=== PATIENT | male | born 1950 | race Caucasian/White ===

== ENCOUNTER 2022-08-11 13:45 | Outpatient (RCR) | payer MEDICARE, BC, SELFPAY ==
[2022-05-12 12:03] LABS: Basophils Absolute Auto 0.04 K/uL (0.00-0.30); Basophils Percent Auto 0.5 % (0.0-3.0); Eosinophils Absolute Auto 0.22 K/uL (0.00-0.50); Eosinophils Percent Auto 2.8 % (0.0-7.0); Hematocrit 41.1 % (37.0-53.0); Hemoglobin* 13.7 gm/dL (13.5-17.5); Immature Granulocytes Abs Auto 0.51 K/uL (0.00-0.30); Lymphocytes Percent Auto 15.4 % (20-44); Mean Corpuscular HGB Conc 33 gm/dL (32-36); Mean Corpuscular Hemoglobin 36 pg (26-34); Mean Corpuscular Volume 108 fL (80-100); Monocytes Percent Auto 10.4 % (0.0-11.0); Neutrophils Absolute Auto 4.96 K/uL (1.7-7.0); Neutrophils Percent Auto 64.3 % (42.0-72.0); Platelet Count* 213 K/uL (140-440); RDW Coefficient of Variation % 15.4 % (11.5-15.5); White Blood Count* 7.72 K/uL (4.50-11.00)
[2022-05-12 12:05] LABS: Albumin* 4.6 g/dL (3.3-5.0)
[2022-05-12 12:06] LABS: Chloride* 102 mmol/L (96-114); Potassium* 4.2 mmol/L (3.6-5.1); Sodium* 137 mmol/L (135-149)
[2022-05-12 12:08] LABS: Alkaline Phosphatase* 161 U/L (40-150); Aspartate Amino Transferase* 24 U/L (12-35); Bilirubin Total* 1.1 mg/dL (0.1-1.5); Blood Urea Nitrogen* 21 mg/dL (7-30); Carbon Dioxide* 24 mmol/L (20-32); Creatinine* 1.1 mg/dL (0.5-1.5); Estimated Glomerular Filt Rate 72 ml/min; Lactate Dehydrogenase* 815 U/L (313-618); Slide Review Reflex No; Total Protein* 8.1 g/dL (6.0-8.3)
[2022-05-12 12:09] LABS: Alanine Aminotransferase* 4 U/L (4-50); Calcium* 8.6 mg/dL (8.4-10.6); Glucose* 96 mg/dL (60-115)
--- NOTE | 2022-05-12 12:44 | ONC.NURNOTE ---
Malik reports a fall 10-12 days ago that resulted in significant bruising from ankle to groin and some swelling of of the right knee he was evaluated with Xrays after the fall currently ambulating without any assist, although still minimizing his activity due to residual discomfort in the knee and leg
[2022-05-19 10:55] LABS: Albumin* 4.4 g/dL (3.3-5.0)
[2022-05-19 10:58] LABS: Alanine Aminotransferase* 5 U/L (4-50); Alkaline Phosphatase* 196 U/L (40-150); Aspartate Amino Transferase* 24 U/L (12-35); Bilirubin Direct* 0.4 mg/dL (0.0-0.5); Bilirubin Total* 0.9 mg/dL (0.1-1.5); Lactate Dehydrogenase* 745 U/L (313-618); Total Protein* 7.7 g/dL (6.0-8.3)
--- NOTE | 2022-05-19 13:58 | ONC.NURNOTE ---
Lab results reviewed with patient and Dr Cruz will need a recheck Alk Phos and LDH in 1 week patient reports ongoing swelling of right knee but resolving significant bruising from the fall 3 weeks ago continues to improve and he is overall feeling very well if LDH and Alk Phos remain elevated next week may need imaging to further evaluate
[2022-05-26 10:46] LABS: Alkaline Phosphatase* 145 U/L (40-150)
[2022-05-26 10:47] LABS: Lactate Dehydrogenase* 676 U/L (313-618)
--- NOTE | 2022-08-03 15:24 | ONC.NURNOTE ---
Transition to [facility] Mr. Huitron was informed that [facility] will no longer provide service to [facility] after 08/26. Mr. uHitron would like to switch to [facility], remaining at our clinic for management of his polycythemia vera.
[2022-08-11 14:28] LABS: Basophils Absolute Auto 0.03 K/uL (0.00-0.30); Basophils Percent Auto 0.4 % (0.0-3.0); Eosinophils Absolute Auto 0.16 K/uL (0.00-0.50); Eosinophils Percent Auto 2.4 % (0.0-7.0); Hematocrit 41.1 % (37.0-53.0); Hemoglobin* 13.7 gm/dL (13.5-17.5); Immature Granulocytes Abs Auto 0.37 K/uL (0.00-0.30); Immature Granulocytes Pct Auto 5.5 %; Lymphocytes Percent Auto 18.2 % (20-44); Mean Corpuscular HGB Conc 33 gm/dL (32-36); Mean Corpuscular Hemoglobin 36 pg (26-34); Mean Corpuscular Volume 107 fL (80-100); Monocytes Percent Auto 11.2 % (0.0-11.0); Neutrophils Absolute Auto 4.19 K/uL (1.7-7.0); Neutrophils Percent Auto 62.3 % (42.0-72.0); Platelet Count* 163 K/uL (140-440); Red Blood Count 3.83 m/uL (4.30-5.90); White Blood Count* 6.72 K/uL (4.50-11.00)
[2022-08-11 14:34] LABS: Slide Review Reflex Yes
[2022-08-11 15:17] LABS: Albumin* 4.1 g/dL (3.3-5.0); Chloride* 103 mmol/L (96-114)
[2022-08-11 15:18] LABS: Sodium* 138 mmol/L (135-149)
[2022-08-11 15:20] LABS: Bilirubin Total* 0.5 mg/dL (0.1-1.5); Carbon Dioxide* 29 mmol/L (20-32); Estimated Glomerular Filt Rate 80 ml/min
[2022-08-11 15:21] LABS: Alanine Aminotransferase* 10 U/L (4-50); Alkaline Phosphatase* 87 U/L (40-150); Aspartate Amino Transferase* 40 U/L (12-35); Blood Urea Nitrogen* 24 mg/dL (7-30); Calcium* 8.8 mg/dL (8.4-10.6); Glucose* 112 mg/dL (60-115); Total Protein* 7.2 g/dL (6.0-8.3)
[2022-08-11 15:23] LABS: Ferritin* 20.3 ng/mL (17.9-464.0)
[2022-08-11 23:06] LABS: Slide Review Acceptable Review (Acceptable)
== END 2022-11-08 23:59 | disposition home or self-care (01) ==
LOC: CCIC 13:45
PROVIDERS: PCP Family Medicine; Referring Provider Family Medicine; Visit Provider Internal Medicine Hematology & Oncology
DX: D45 Polycythemia vera (principal); E83.110 Hereditary hemochromatosis; Z86.718 Personal history of other venous thrombosis and embolism; Z79.01 Long term (current) use of anticoagulants; D67 Hereditary factor IX deficiency
CPT/HCPCS: 36415; 80053; 80076; 82728; 83615; 84075; 85025; 99212; 99214

== ENCOUNTER 2023-02-14 12:30 | Outpatient (RCR) | payer MEDICARE, BC, SELFPAY ==
[2022-11-09 12:04] LABS: Basophils Absolute Auto 0.04 K/uL (0.00-0.30); Basophils Percent Auto 0.6 % (0.0-3.0); Eosinophils Absolute Auto 0.18 K/uL (0.00-0.50); Eosinophils Percent Auto 2.5 % (0.0-7.0); Hemoglobin* 14.2 gm/dL (13.5-17.5); Immature Granulocytes Abs Auto 0.26 K/uL (0.00-0.30); Immature Granulocytes Pct Auto 3.6 %; Lymphocytes Percent Auto 18.5 % (20-44); Mean Corpuscular HGB Conc 33 gm/dL (32-36); Mean Corpuscular Hemoglobin 35 pg (26-34); Mean Corpuscular Volume 107 fL (80-100); Monocytes Percent Auto 9.5 % (0.0-11.0); Neutrophils Absolute Auto 4.67 K/uL (1.7-7.0); Neutrophils Percent Auto 65.3 % (42.0-72.0); Platelet Count* 157 K/uL (140-440); RDW Coefficient of Variation % 14.1 % (11.5-15.5); Red Blood Count 4.03 m/uL (4.30-5.90); White Blood Count* 7.15 K/uL (4.50-11.00)
[2022-11-09 12:10] LABS: Slide Review Reflex No
[2022-11-09 12:16] LABS: Albumin* 4.2 g/dL (3.3-5.0); Chloride* 104 mmol/L (96-114); Potassium* 4.2 mmol/L (3.6-5.1); Sodium* 138 mmol/L (135-149)
[2022-11-09 12:18] LABS: Bilirubin Total* 0.8 mg/dL (0.1-1.5); Estimated Glomerular Filt Rate 80 ml/min
[2022-11-09 12:19] LABS: Alanine Aminotransferase* 9 U/L (4-50); Alkaline Phosphatase* 82 U/L (40-150); Aspartate Amino Transferase* 21 U/L (12-35); Blood Urea Nitrogen* 23 mg/dL (7-30); Calcium* 8.6 mg/dL (8.4-10.6); Carbon Dioxide* 27 mmol/L (20-32); Glucose* 99 mg/dL (60-115); Lactate Dehydrogenase* 189 U/L (120-246); Total Protein* 7.8 g/dL (6.0-8.3)
[2023-02-14 12:33] LABS: Basophils Absolute Auto 0.04 K/uL (0.00-0.30); Basophils Percent Auto 0.5 % (0.0-3.0); Eosinophils Absolute Auto 0.16 K/uL (0.00-0.50); Eosinophils Percent Auto 2.1 % (0.0-7.0); Hematocrit 45.6 % (37.0-53.0); Hemoglobin* 14.9 gm/dL (13.5-17.5); Immature Granulocytes Abs Auto 0.51 K/uL (0.00-0.30); Immature Granulocytes Pct Auto 6.7 %; Lymphocytes Percent Auto 15.9 % (20-44); Mean Corpuscular HGB Conc 33 gm/dL (32-36); Mean Corpuscular Hemoglobin 35 pg (26-34); Mean Corpuscular Volume 106 fL (80-100); Monocytes Percent Auto 7.4 % (0.0-11.0); Neutrophils Absolute Auto 5.16 K/uL (1.7-7.0); Neutrophils Percent Auto 67.4 % (42.0-72.0); Platelet Count* 135 K/uL (140-440); RDW Coefficient of Variation % 14.3 % (11.5-15.5); White Blood Count* 7.66 K/uL (4.50-11.00)
[2023-02-14 13:00] LABS: Slide Review Reflex No
[2023-02-14 13:03] LABS: Albumin* 4.7 g/dL (3.3-5.0); Chloride* 99 mmol/L (96-114); Potassium* 4.1 mmol/L (3.6-5.1); Sodium* 138 mmol/L (135-149)
[2023-02-14 13:05] LABS: Creatinine* 1.1 mg/dL (0.5-1.5); Estimated Glomerular Filt Rate 71 ml/min
[2023-02-14 13:06] LABS: Alanine Aminotransferase* 12 U/L (4-50); Alkaline Phosphatase* 71 U/L (40-150); Aspartate Amino Transferase* 25 U/L (12-35); Bilirubin Total* 0.8 mg/dL (0.1-1.5); Blood Urea Nitrogen* 21 mg/dL (7-30); Calcium* 9.2 mg/dL (8.4-10.6); Carbon Dioxide* 30 mmol/L (20-32); Glucose* 132 mg/dL (60-115); Lactate Dehydrogenase* 211 U/L (120-246); Total Protein* 8.3 g/dL (6.0-8.3)
[2023-02-14 13:51] LABS: Ferritin* 18.7 ng/mL (17.9-464.0)
== END 2023-05-08 23:59 | disposition home or self-care (01) ==
LOC: CCIC 12:30
PROVIDERS: Clinical Nurse Specialist; PCP Student in an Organized Health Care Education/Training Program; Referring Provider Student in an Organized Health Care Education/Training Program; Visit Provider Internal Medicine Hematology & Oncology
DX: D75.1 Secondary polycythemia (principal); E83.119 Hemochromatosis, unspecified; Z86.718 Personal history of other venous thrombosis and embolism; Z79.01 Long term (current) use of anticoagulants; D67 Hereditary factor IX deficiency
CPT/HCPCS: 36415; 80053; 82728; 83615; 85025; 99212; 99214

== ENCOUNTER 2023-09-01 08:59 | Emergency (ER) | payer MEDICARE, BC, SELFPAY ==
[2023-09-01 09:09] VITALS: BP 115/71; PULSE 82; RESP 16; TEMP 36.6; O2SAT 97; BMI 22.8
--- NOTE | 2023-09-01 09:11 | CRLHL7_ITS ---
For Patients: As a result of the Cures Act, medical imaging exams and procedure reports are released immediately into your electronic medical record. You may view this report before your referring provider. If you have questions, please contact your health care provider. Indication: Injury, pain Technique: Three views right long finger Comparison: None Findings: Dorsal/ulnar dislocation of the right middle phalanx in relation to the proximal phalanx at the proximal interphalangeal joint. No fracture. Mild degenerative changes at the 1st carpometacarpal joint. Impression: Dislocation of the right long finger PIP joint. Dictated by Ken Lamar MD @ 09/01/2023 10:08:49 AM (Electronically Signed)
--- NOTE | 2023-09-01 11:45 | ED.GENADULT ---
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 He tripped and fell this morning in jammed his middle finger. He has no other injury from the fall. Specifically he did not his head. No neck pain. No chest pain or back pain. No injury to his shoulders, elbows, wrists. No injury to his hips or lower extremities. He does have pain and deformity in the middle finger. He has what appears to be either a fracture or dislocation of the PIP joint of the right hand, 3rd digit. He does not have any associated numbness. Normal color and cap refill distally. Injury occurred this morning just prior to arrival. Related Data Home Medications Medication Instructions Recorded Confirmed acetaminophen 325 mg capsule 325 - 650 mg PO ONCE PRN 08/11/22 08/17/23 (Tylenol) amantadine HCl 100 mg capsule 100 mg PO BID 08/11/22 09/01/23 aspirin 81 mg tablet,delayed 81 mg PO QDAY 08/11/22 09/01/23 release carbidopa 25 mg-levodopa 100 mg 3 tab PO QID 08/11/22 09/01/23 tablet clonazepam 0.5 mg tablet 0.25 mg PO QDAY 08/11/22 09/01/23 hydroxyurea 500 mg capsule 500 mg PO .QOD 08/11/22 09/01/23 ketoconazole 2 % topical cream 1 applic topical BID 08/11/22 09/01/23 pramipexole 0.25 mg tablet 0.25 mg PO HS 08/11/22 09/01/23 warfarin 4 mg tablet 2 - 4 mg PO QDAY 08/11/22 09/01/23 erythromycin 5 mg/gram (0.5 %) eye 1 applic ophthalmic (eye) ONCE PRN 02/14/23 09/01/23 ointment hydrocortisone 1 % topical cream 1 applic topical BID PRN 02/14/23 09/01/23 finasteride 5 mg tablet 5 mg PO QDAY 08/17/23 09/01/23 multivitamin 1 tab PO QAM 08/17/23 09/01/23 polyethylene glycol 3350 17 4 g PO ONCE PRN 08/17/23 09/01/23 gram/dose oral powder (Miralax) tamsulosin 0.4 mg capsule 0.4 mg PO QDAY 08/17/23 09/01/23 docusate sodium 100 mg capsule 100 mg PO BID 09/01/23 09/01/23 (Colace) ketorolac 0.4 % eye drops (Acular 1 drp ophthalmic (eye) QDAY 09/01/23 09/01/23 LS) melatonin 3 mg capsule 3 mg PO HS PRN 09/01/23 09/01/23 peg 400-propylene glycol (PF) 0.4 1 drp ophthalmic (eye) DAILY PRN 09/01/23 09/01/23 %-0.3 % eye drops in a dropperette (Lubricant Eye (PG-PEG 400) (PF)) Allergies Allergy/AdvReac Type Severity Reaction Status Date / Time Penicillins Allergy Unknown Verified 09/01/23 09:09 [facility] Medical History (Updated 09/01/23 @ 09:48 by Luis Antonio Shipman MD) Polycythemia ?D75.1 - Secondary polycythemia (ICD-10) Polycythemia ?D75.1 - Secondary polycythemia (ICD-10) Polycythemia ?D75.1 - Secondary polycythemia (ICD-10) Polycythemia ?D75.1 - Secondary polycythemia (ICD-10) Social History Smoking Status: Never smoker Do you use any of these nicotine containing products: None Second hand tobacco smoke exposure: No How often do you have a drink containing alcohol: never AUDIT-C Alcohol total score: 0 Non-prescribed substance use: denies use Exam Narrative: Exam Narrative: Constitutional: Appears well-developed and well-nourished. Alert. Conversant. Non toxic. HENT: Head: Atraumatic. Nose: Nose normal. Mouth/Throat: Oral mucosa is clear and moist. no trismus. Eyes: Conjunctivae normal. EOM normal. Pupils equal, round, and reactive to light. No scleral icterus. Neck: Normal range of motion. Neck supple. No tracheal deviation present. Cardiovascular: Normal rate, regular rhythm. Symmetric radial artery pulses . Normal brisk cap refill in the injured finger in all digits of the right hand. Pulmonary/Chest: Effort normal. No stridor. No respiratory distress. Musculoskeletal: RUE: Normal except for his right 3rd digit- Normal range of motion. No tenderness. No deformity Right hand: Normal except for his right 3rd digit. He has what appears to be a dorsal dislocation of the PIP joint with approximately 30? of ulnar angulation of the distal segment of the finger. He is unable to flex and extend his MCP, PA IP, D IP joint due to pain. Intact ulnar and radial digital or sensory function. Normal brisk distal cap refill. LUE: Normal range of motion. No tenderness. No deformity RLE: Normal range of motion. No edema. No tenderness. No deformity LLE: Normal range of motion. No edema. No tenderness. No deformity Neurological: Alert and oriented to person, place, and time. Normal strength. CN II-VII intact. No sensory deficit. GCS eye subscore is 4. GCS verbal subscore is 5. GCS motor subscore is 6. Normal coordination Skin: Skin is warm and dry. No rash noted. No pallor. Normal capillary refill. Psychiatric: Normal mood. Normal affect. Const: Vital Signs, click to edit/add: Vital Signs - 24 hr 09/01/23 09:09 Temperature 97.9 F Pulse Rate [Pulse Oximeter] 82 Respiratory Rate 16 Blood Pressure [Le ft Upper Arm] 115/71 Pulse Oximetry 97 Oxygen Delivery Me thod Room Air Course Course ED Course: Patient arrived to triage mancera was roomed in the ER room 3. We called for portable hand x-rays. As with these were being obtained and reviewed them on the portable x-ray machine. They do not reveal any evidence of fracture by my read but do show evidence for a dorsal dislocation of the PIP joint. I performed a digital block to the right hand 3rd digit for pain control/anesthesia. Sterile prep with Betadine Using a 27 gauge needle we infiltrated a total of 4 mL of 0.25% bupivacaine without epinephrine from a dorsal approach on the radial and ulnar side of the proximal phalanges. Good anesthesia was achieved. No signs of any complication. No intravascular injection. No digital ischemia. After successful digital block we performed a reduction. Reduction: Right hand, PIP joint dorsal dislocation Indication: Dislocation Procedure: Using gentle distal traction and distal/volar directed for mancera on the middle phalanges with my thumb I was able to gently reduce the joint into anatomic position. A small pop was heard during the reduction. After reduction he had is able to flex and extend the MCP, PIP, DI P joints. By my clinical exam the reduction was successful so will hold off on post reduction x-rays. He remains anesthetized from the digital block but has normal brisk distal capillary refill. After reduction I placed the patient into a [place] splint with the MCP, PIP, DI P joint all slightly flexed and anatomic position. Splint was secured using hypoallergenic paper tape. After splinting he remained vascularly intact. He was comfortable and not experience any pain because of digital block. Vital Signs Vital signs: Initial Vital Signs Temperature 97.9 F 09/01/23 09:09 Temperature Source Temporal Artery Scan 09/01/23 09:09 Pulse Rate 82 09/01/23 09:09 Respiratory Rate 16 09/01/23 09:09 Blood Pressure 115/71 09/01/23 09:09 Blood Pressure Mean 85 09/01/23 09:09 Blood Pressure Position Sitting 09/01/23 09:09 Pulse Oximetry 97 09/01/23 09:09 Oxygen Delivery Method Room Air 09/01/23 09:09 Vital Signs Temperature 97.9 F 09/01/23 09:09 Pulse Rate 82 09/01/23 09:09 Respiratory Rate 16 09/01/23 09:09 Blood Pressure 115/71 09/01/23 09:09 Pulse Oximetry 97 09/01/23 09:09 Oxygen Delivery Method Room Air 09/01/23 09:09 Temperature 97.9 F 09/01/23 09:09 Pulse Rate 82 09/01/23 09:09 Respiratory Rate 16 09/01/23 09:09 Blood Pressure 115/71 09/01/23 09:09 Pulse Oximetry 97 09/01/23 09:09 Oxygen Delivery Method Room Air 09/01/23 09:09 Medical Decision Making [facility] Narrative Medical decision making narrative: Very pleasant 73-year-old gentleman presenting to the ER today with a right hand, 3rd digit, PIP joint dorsal dislocation that he suffered during a mechanical trip and fall today. The remainder of his head adult trauma exam it is negative in his seems to be an isolated injury. Although he has a history of hemophilia and hemochromatosis and is on meds for that at this point I do not think needs lab workup or other advanced imaging. He did not hit his head. After x-rays confirmed the dislocation and showed the absence of fractures we did perform digital block and reduction of the dislocation here in the ER. Patient is splinted. He will have outpatient follow-up in the [facility] next week for re-evaluation. Hopefully will heal with splinting and physical therapy. Precautions for return to the ER reviewed. Discussed the risks with a digital block and avoidance of further injuring his finger today. He will use acetaminophen for pain after the digital block wears off, if needed. Imaging Data xr right finger: Attestation: I have reviewed the pertinent imaging results. My impression: PIP joint dorsal dislocation Radiologist's impression: Impression: Dislocation of the right long finger PIP joint. Discharge Plan Discharge Clinical Impression: Dislocation of finger, closed Patient Disposition: Home, Self-Care Condition: Stable Instructions: Finger Dislocation (ED) Additional Instructions: Please wear the finger splint for the next several days until you can follow-up with orthopedics for further instructions. If the splint get sweater the tape feels off, please reapply new tape to keep her finger immobilized. Avoid bending or finger or lifting with your right hand. Your finger will be numb from the numbing medication for the next several hours. Be careful not to injure finger while it is numb. After the numbing medicine wears off, use Tylenol as needed for pain. He can use an ice pack for 10-20 minutes every few hours to help reduce pain and swelling. If you have any concerns, such as pallor or duskiness in your finger, worsening pain, severe swelling, or any other problems, please return to the ER right away. If you need to reschedule your appointment with the Orthopedic Clinic, call [phone] Prescriptions: No Action ketoconazole 2 % cream 1 applic topical BID carbidopa-levodopa 25-100 mg tablet 3 tab PO QID amantadine HCl 100 mg capsule 100 mg PO BID pramipexole 0.25 mg tablet 0.25 mg PO HS warfarin 4 mg tablet 2 - 4 mg PO QDAY Rx Instructions: 2mg PO Mon/Thurs, 4mg every other day clonazepam 0.5 mg tablet 0.25 mg PO QDAY hydroxyurea 500 mg capsule 500 mg PO .QOD acetaminophen [Tylenol] 325 mg capsule 325 - 650 mg PO ONCE PRN aspirin 81 mg tablet,delayed release (DR/EC) 81 mg PO QDAY finasteride 5 mg tablet 5 mg PO QDAY tamsulosin 0.4 mg capsule 0.4 mg PO QDAY hydrocortisone 1 % cream 1 applic topical BID PRN erythromycin 5 mg/gram (0.5 %) ointment 1 applic ophthalmic (eye) ONCE PRN polyethylene glycol 3350 [Miralax] 17 gram/dose powder 4 g PO ONCE PRN multivitamin Tablet 1 tab PO QAM docusate sodium [Colace] 100 mg capsule 100 mg PO BID melatonin 3 mg capsule 3 mg PO HS PRN ketorolac [Acular LS] 0.4 % drops 1 drp ophthalmic (eye) QDAY Rx Instructions: left eye Lubricant Eye (PG-PEG 400)(PF) 0.4-0.3 % dropperette 1 drp ophthalmic (eye) DAILY PRN Follow Up/Referrals: YANA FISCHER DO [Primary Care Provider] - Stand Alone Forms: [facility] Info Instructions
== END 2023-09-01 10:04 | disposition home or self-care (01) ==
PROVIDERS: Emergency Provider Emergency Medicine; PCP Student in an Organized Health Care Education/Training Program
DX: S63.292A Dislocation of distal interphalangeal joint of right middle finger, initial encounter (principal); W18.30XA Fall on same level, unspecified, initial encounter
CPT/HCPCS: 26770; 73140; 99283

== ENCOUNTER 2023-10-07 07:27 | Outpatient (CLI) | payer MEDICARE, BC, SELFPAY ==
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
== END 2023-10-07 07:28 | disposition home or self-care (01) ==
LOC: AMB 10-08 06:38
PROVIDERS: PCP Student in an Organized Health Care Education/Training Program; Visit Provider Family Medicine
DX: M25.559 Pain in unspecified hip (principal)
CPT/HCPCS: A0425; A0427

== ENCOUNTER 2023-10-07 07:43 | Observation (INO) | payer MEDICARE, BC, SELFPAY ==
[2023-10-07] VITALS (24 sets, daily range): BP systolic 114–162; BP diastolic 64–93; PULSE 78–98; RESP 16–18; TEMP 36.7–36.8; O2SAT 97–100; BMI 23.1; BMI 23.2
--- OUTSIDE RECORDS SUMMARY | 2023-10-07 07:45 | XMS_ITS | Clinical Summary ---
Author Name Unknown Organization [facility] Address [place], [place] [address] Care Team Providers [employer] Name Role Phone Ricardo Diaz MD Unavailable Unavaila ble Macrina Martin DO Primary Care Provider [phone] Allergies Active Allergy Reactions Criticality Noted Date Comments Penicillins 11/21/2006 Medications Medication Sig Dispensed Refills Start Date End Date Status MULTIVITAMIN TABIndications:R outine general medical examination at a health care facility take 1 tablet by oral route once daily with food 0 8 Active acetaminophen (TYLENOL) 325 mg tablet Take 1 tablet by mouth every 4 hours if needed. Max acetaminophen dose: 4000mg in 24 hrs. 0 5 Active ketorolac 0.4 % ophthalmic (ACULAR LS) 0.4 % ophthalmic solution One drop into left eye once daily. 5 mL 0 5 Active melatonin 3 mg tablet Take 1 tablet by mouth at bedtime. 0 6 Active docusate (COLACE) 100 mg capsule Take 1 capsule by mouth 2 times daily. 0 7 Active artificial tears, peg 400-propylene glycol, (SYSTANE) 0.4-0.3 % dpet ophthalmic 4 Drops once daily if needed for Dry Eyes. 0 7 Active erythromycin ophthalmic ointment 0.5% Apply sparingly HS PRN 0.035 g 0 7 Active aspirin (ECOTRIN) 81 mg enteric coated tabletIndication s:Polycythemia vera (HC) Take 1 Tablet (81 mg) by mouth once daily with a meal. 0 1 Active polyethylene glycol (Miralax) 17 g powder for solutionIndicati ons:Other constipation Mix 8.5-17 g (0.5-1 Packets) in liquid then take by mouth once daily if needed for Constipation. 0 2 Active carbidopa-levodo pa, 25-100 mg, (Sinemet) 25-100 mg tabletIndication s:Parkinson's disease Take 3 Tablets by mouth four times daily. 720 Tablet 3 2 Active ketoconazole 2% topical (NIZORAL) creamIndications :Tinea barbae Apply topically to affected area(s) two times daily. 60 g 0 2 Active hydrocortisone 2.5% creamIndications :Hemorrhoids, external Apply topically to affected area(s) two times daily. 30 g 0 2 Active finasteride (PROSCAR) 5 mg tabletIndication s:Benign prostatic hyperplasia, unspecified whether lower urinary tract symptoms present Take 1 Tablet (5 mg) by mouth every morning. 90 Tablet 3 3 Active clindamycin (CLEOCIN) 150 mg capsule 0 3 Active hydroxyurea (HYDREA) 500 mg capsuleIndicatio ns:Polycythemia vera (HC) Every other day. 45 Capsule 3 3 Active amantadine HCL (SYMMETREL) 100 mg capsuleIndicatio ns:Parkinson's disease TAKE ONE CAPSULE BY MOUTH TWICE A DAY 60 Capsule 4 3 Active pramipexole (MIRAPEX) 0.25 mg tabletIndication s:RLS (restless legs syndrome) TAKE ONE TABLET BY MOUTH AT BEDTIME 90 Tablet 0 3 Active warfarin (COUMADIN) 4 mg tabletIndication s:Chronic deep vein thrombosis (DVT) of femoral vein of left lower extremity (HC),Anticoagula tion monitoring, INR range 1.5-2.5 Take by mouth 2 mg (4 mg x 0.5) every Tue, Susy; 4 mg (4 mg x 1) all other days in the evening OR as directed 80 Tablet 0 4 Active tamsulosin (Flomax) 0.4 mg capsuleIndicatio ns:Benign prostatic hyperplasia, unspecified whether lower urinary tract symptoms present Take 1 Capsule (0.4 mg) by mouth once daily after a meal. 90 Capsule 3 4 Active clonazePAM (KLONOPIN) 0.5 mg tabletIndication s:REM sleep behavior disorder TAKE ONE-HALF TABLET (0.25 MG) BY MOUTH ONCE DAILY 45 Tablet 0 4 Active tamsulosin (Flomax) 0.4 mg capsuleIndicatio ns:Benign prostatic hyperplasia, unspecified whether lower urinary tract symptoms present Take 1 Capsule (0.4 mg) by mouth once daily after a meal. 90 Capsule 3 3 024 Discontinued(Re order (E-cancel not sent)) clonazePAM (KLONOPIN) 0.5 mg tabletIndication s:REM sleep behavior disorder TAKE ONE-HALF TABLET (0.25 MG) BY MOUTH ONCE DAILY 45 Tablet 0 3 024 Discontinued warfarin (COUMADIN) 4 mg tabletIndication s:Chronic deep vein thrombosis (DVT) of femoral vein of left lower extremity (HC),Anticoagula tion monitoring, INR range 1.5-2.5,Encounte r to establish care Take by mouth 2 mg every Tue, Susy; 4 mg all other days in the evening OR as directed 0 3 024 Discontinued Active Problems Problem Noted Date Diagnosed Date Fracture of right femur 05/04/2022 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 Vocal cord strain 05/04/2022 Anticoagulation monitoring, INR range 1.5-2.5 Polycythemia vera 05/03/2018 RLS (restless legs syndrome) 05/03/2018 Routine adult health maintenance 02/20/2018 Overview: Colonoscopy 02/2018 internal hemorrhoid, no follow up needed Chronic deep vein thrombosis (DVT) of femoral vein of left lower extremity 05/03/2014 Overview: To mid thigh Hereditary hemochromatosis 01/02/2014 Parkinson's disease 04/05/2013 REM sleep behavior disorder 03/09/2012 Retinal edema 11/02/2007 Osteoarthrosis, unspecified whether generalized or localized, unspecified site 11/02/2007 Overview: fingers,hips and L foot Benign prostatic hyperplasia with lower urinary tract symptoms Overview: mild Cortical senile cataract Calculus of kidney Overview: 3 stones passed last one in 1989 Congenital medullary sponge kidney Overview: right Resolved Problems Problem Noted Date Diagnosed Date Resolved Date Family history of hemochromatosis 04/11/2013 10/14/2016 Family history of colonic polyps 03/23/2012 03/23/2012 Encounters Date Type Department Care Team Description 10/07/2023 Nurse Triage [address] [address] Macrina Martin, Hip Injury 09/28/2023 Anticoagulation (warfarin) [address] [address] 1, [facility] Anticoagulation 09/27/2023 1:45 PM INSTITUTE DIRECTOR Orders Only [address] [address] Lab, [place] 09/27/2023 Travel 09/23/[address] [address] Darlin Butler PA Refill Request (Clonazepam) 09/20/[address] [phone] Leta Laird MD Questions (PSA and Medication ) 09/14/[address] [phone] Leta Laird MD Refill Request (Tamsulosin 0.4mg ) 09/14/[address] [phone] Leta Laird MD Lab (PSA Test) 09/09/2023 Refill [facility] [address] [place] [address] Macrina Martin DO Refill Request (Warfarin) 09/01/[address] [facility] Scanner 1 scan: (1-Ord) [facility], XR 3RD FINGER RT, 09/01/2023 09/01/2023 Nurse Triage [facility] [address] [facility] [address] Macrina Martin DO Finger Pain/problem 08/27/2023 Refill [facility] [address] [facility] [address] Macrina Martin DO Refill Request (Pramipexole) 08/15/2023 11:10 AM INSTITUTE DIRECTOR Orders Only [facility] [address] [facility] [address] [facility] 08/15/2023 Anticoagulation (warfarin) [facility] [address] [facility] Anticoagulation 08/15/2023 Travel 08/11/2023 Telephone [facility] [address] [facility] [address] Macrina Martin DO FYI 08/04/2023 1:45 PM INSTITUTE DIRECTOR Ancillary Procedure [facility] [address] 08/04/2023 12:25 PM INSTITUTE DIRECTOR Office Visit [facility] [address] Macrina Martin DO Fall (07/10 - did go to and xray was normal - some lower leg swelling but had DVT rule out - has been feeling better - just some pain with walking ) 08/04/2023 Telephone [facility] [place] [address] Macrina Martin DO Results 08/04/2023 Telephone [facility] [address] [place] [address] Macrina Martin DO Questions 08/04/2023 Travel 07/25/2023 11:50 AM INSTITUTE DIRECTOR Orders Only [facility] [place] [address] Lab[facility] 07/25/[address] [place] [address] Macrina Martin DO Anticoagulation (Review INR and warfarin dosing ) 07/25/2023 Anticoagulation (warfarin) [facility] [address] [place] [place] [address] 1, [facility] Anticoagulation 07/25/2023 Travel 07/14/2023 Nurse Triage [facility] [address] [place] [address] Macrina Martin DO Questions 07/11/2023 1:30 PM INSTITUTE DIRECTOR Orders Only [facility] [address] [place] [address] Lab, [facility] 07/11/2023 Anticoagulation (warfarin) [facility] [address] [place] [place] [address] 1, [facility] Anticoagulation 07/11/2023 Travel 07/11/2023 Nurse Triage [facility] [address] [place] [address] Macrina Martin, Knee Pain/problem from Last 3 Months Immunizations Name Administration Dates Next Due AMB INFLUENZA IIV3 (AGE 65+ YRS) PF (Flu Clinic Only) 06/21/2019,07/06/2018 COVID-19 vaccine (Moderna 100mcg/0.5mL) PF, MDV 12/25/2020,11/03/2020 COVID-19 vaccine (InRiver-Bio NTech 30mcg/0.3mL) 12YO+ BIVALENT PF, MDV 06/30/2022 Influenza, High-dose Inactivated 06/29/2016 Influenza, IIV3 (Age >=3 years) 06/22/2013 Influenza, IIV4 07/15/2015,07/03/2014 Influenza, Inactivated AIIV4 (Age 65+ Years) Preserv Free 06/27/2023,06/02/2022,06/01/2021,2019 Influenza, Inactivated IIV3 (Age 65+ Years) Preserv Free 06/22/2017 Pneumococcal Poly,23-Valent (Pneumovax) 05/02/2017 Pneumococcal conj 13-Valent (Prevnar 13) 04/30/2016 Td (Age >=7 Years) 06/07/1997 Td, Preservative Free (age > = 7 Years) 09/29/2007 Tdap 07/31/2014 Zoster (Zostavax-ZVL, live) 07/17/2014 Family History Medical History Relation Name Comments Blood Disease Brother blood clot in leg Alcohol/Drug Father alcohol Diabetes Father at 75 Hypertension Father Other Father hemochromatosis Stroke Father Hyperlipidemia Maternal Grandmother Other Mother migraines Other Other TB-aunt Heart Disease Paternal Grandfather Other Paternal Grandmother suicide Psychiatric illness Paternal Grandmother depression Relation Name Status Comments Brother Father Maternal Grandmother Mother Other Paternal Grandfather Paternal Grandmother Social History Tobacco Use Types Packs/Day Years Used Date Smoking Tobacco: Never Smokeless Tobacco: Never Tobacco Cessation:Counseling Given: Yes Alcohol Use Standard Drinks/Week Comments No 6.7 (1 standard drink = 0.6 oz p ure alcohol) rarely PHQ-2 Answer Date Recorded PHQ-2 TOTAL SCORE 0 06/27/2023 Social Connections Answer Date Recorded Frequency of Communication with Friends and Fami ly 0 08/04/2023 Financial Resource Strain Answer Date R ecorded Difficulty of Paying Living Expenses 3 08/04/2023 Difficulty of Paying Living Expenses Not on file 08/04/2023 Food Insecurity Answer Date Recorded Worried About Running Out of Food in the Last Ye ar 1 08/04/2023 Transportation Needs Answer Date Record ed Lack of Transportation (Medical) 1 08/04/2023 Housing Stability Answer Date Recorded Unable to Pay for Housing in the Last Year 1 08/04/2023 Sex and Gender Information Value Date Recorded Sex Assigned at Not on file Gender Identity Not on file Sexual Orientation Not on file Obstetrics History Last Filed Vital Signs Vital Sign Reading Time Taken Comments Blood Pressure 84/56 08/04/2023 12:33 PM INSTITUTE DIRECTOR recheck sitting Pulse 80 08/04/2023 12:28 PM INSTITUTE DIRECTOR Temperature 36.4 ??C (97.5 ??F) 04/26/2023 3 :12 PM CDT Respiratory Rate 16 07/27/2021 1:22 PM INSTITUTE DIRECTOR Oxygen Saturation 98% 08/04/2023 12: 28 PM INSTITUTE DIRECTOR Inhaled Oxygen Concentration - - Weight 78.5 kg (173 lb) 08/04/2023 12:2 8 PM INSTITUTE DIRECTOR Height 182.9 cm (6') 08/04/2023 12:28 PM INSTITUTE DIRECTOR Body Mass Index 23.46 08/04/2023 12:28 PM INSTITUTE DIRECTOR Plan of Treatment Upcoming Encounters Date Type Department Care Team (Late st Contact Info) Description 10/13/2023 12:00 PM INSTITUTE DIRECTOR [facility] [address] [facility] [address] Leta Laird MD [address] [place] [address] 11/08/2023 1:30 PM INSTITUTE DIRECTOR Orders Only [facility] [address] [place] [address] Lab, [place] 05/01/2024 3:40 PM CDT Office Visit [facility] [address] [place] [address] Ricardo Wilkins MD [address] [place] [address] Health Maintenance Due Date Last Done Comments Zoster (shingles) series for age 50+ (1 of 2) 09/11/2014 07/17/2014 COVID-19 vaccine series ( season) 2023 06/30/2022, 01/25/2022, 08/06/2021, Additional history exists Depression screening for age 12+ 06/27/2024 06/27/2023, 06/27/2023, 06/23/2023, Additional history exists Medicare Wellness for age 65+ 06/27/2024, 06/02/2022, 06/01/2021, Additional history exists Tetanus booster 07/31/2024 07/31/2014, 09/06, 06/07/1997 BMI (ht and wt on same day) for age 18+ 08/04/2024 08/04/2023, 08/10/2022, 06/02/2022, Additional history exists Colonoscopy through age 75 02/21/202802/20, 02/20/2018, 02/20/2018, Additional history exists Lipids for age 45-75 06/27/2028 06/27/2023, 06/01/2021, 05/21/2020, Additional history exists Hepatitis C screening for ag e 18-79 Completed 04/11/2014 Tdap Completed 07/31/2014 Pneumococcal series for age 65+ Completed 7, 04/30/2016 Influenza for age 65+ Completed 06/27/2023 , 06/02/2022, 06/01/2021, Additional history exists Procedures Procedure Name Priority Date/Time Associated Diagnosis Comments PSA TOTAL SCREEN Routine 09/27/2023 1:58 PM INSTITUTE DIRECTOR Prostate cancer screening PROTIME-INR STAT 09/27/2023 1:58 PM INSTITUTE DIRECTOR Chronic deep vein thrombosis (DVT) of femoral vein of left lower extremity (HC) Anticoagulation monitoring, INR range 1.5-2.5 SCAN-RADIOLOGY REPORT 09/01/2023 12:00 AM INSTITUTE DIRECTOR INR,POCT Routine 08/15/2023 11:15 AM INSTITUTE DIRECTOR Chronic deep vein thrombosis (DVT) of femoral vein of left lower extremity (HC) Anticoagulation monitoring, INR range 1.5-2.5 US VENOUS LOWER EXTREMITY LEFT STAT 08/04/2023 2:16 PM INSTITUTE DIRECTOR Localized swelling of lower extremity INR,POCT Routine 07/25/2023 12:03 PM INSTITUTE DIRECTOR Chronic deep vein thrombosis (DVT) of femoral vein of left lower extremity (HC) Anticoagulation monitoring, INR range 1.5-2.5 INR,POCT Routine 07/11/2023 1:30 PM INSTITUTE DIRECTOR Chronic deep vein thrombosis (DVT) of femoral vein of left lower extremity (HC) Anticoagulation monitoring, INR range 1.5-2.5 from Last 3 Months Results * (ABNORMAL) PROTIME-INR (09/27/2023 1:58 PM INSTITUTE DIRECTOR) INR 2.2(H) <1.3 09/27/2023 9:06 PM INSTITUTE DIRECTOR [facility] PROTIME 23.6(H) 10.3 - 12.3 sec 09/27/2023 9:06 PM INSTITUTE DIRECTOR [facility] Blood BLOOD SPECIMEN / Unknown Venipuncture / Unknown 09/27/2023 1:58 PM INSTITUTE DIRECTOR 09/27/2023 1:58 PM INSTITUTE DIRECTOR Narrative [facility] - 09/27/2023 9:06 PM INSTITUTE DIRECTOR ?Therapeutic Range 2.0-3.0 for most anticoagulated patients 2.5-3.5 or 4.0 for high risk patients The INR is only used for patients on stable oral anticoagulant therapy. It makes no significant contribution to the diagnosis or treatment of patients whose Protime is prolonged for other reasons. INR results are increased when heparin levels exceed 1.0 U/mL, which corresponds to an aPTT >125 seconds if the patient is on UFH. Macrina Martin DO HEMATOLOGY Performing Organization Address [facility] Co de Phone Number [facility] [address] [place] [address] * PSA TOTAL SCREEN (09/27/2023 1:58 PM INSTITUTE DIRECTOR) PSA TOTAL (SCREEN) 1.05 <4.00 ng/mL 09/27/2023 11:03 PM INSTITUTE DIRECTOR [facility] Blood BLOOD SPECIMEN / Unknown Venipuncture / Unknown 09/27/2023 1:58 PM INSTITUTE DIRECTOR 09/27/2023 1:58 PM INSTITUTE DIRECTOR Narrative [facility] - 09/27/2023 11:03 PM INSTITUTE DIRECTOR The test method changed on 03/01/2023. If this test has been used for serial monitoring, rebaselining is recommended. Rebaselining consists of 2 measurements, collected 3-6 weeks apart. The [employer] total PSA assay is an electrochemiluminescence immunoassay ECLIA performed on the Edu Elly e immunoassay analyzers. Values obtained with different assay methods may be different and cannot be used interchangeably. Leta Laird MD LABORATORY Performing Organization Address [facility] Co de Phone Number [facility] [address] [place] [address], [place] * SCAN-RADIOLOGY REPORT (09/01/2023 12:00 AM INSTITUTE DIRECTOR) Anatomical Region Laterality Modality Other Scanner OTHER * (ABNORMAL) INR,POCT (08/15/2023 11:15 AM INSTITUTE DIRECTOR) Only the most recent of3 resultswithin the time period is included. INR 1.9(H) <1.3 08/15/2023 11:18 AM INSTITUTE DIRECTOR [facility] Blood BLOOD SPECIMEN / Unknown 08/15/2023 11:15 AM INSTITUTE DIRECTOR 08/15/2023 11:18 AM INSTITUTE DIRECTOR Narrative [facility] - 08/15/2023 11:18 AM INSTITUTE DIRECTOR ?Therapeutic Range 2.0-3.0 for most anticoagulated patients 2.5-3.5 or 4.0 for high risk patients Macrina Martin DO LABORATORY [facility] [address] [place] [address], * US VENOUS LOWER EXTREMITY LEFT (08/04/2023 2:16 PM INSTITUTE DIRECTOR) Anatomical Region Laterality Modality LEGS, LEG L, Abdomen Ultrasound 08/04/2023 2:54 PM INSTITUTE DIRECTOR Impressions 08/04/2023 2:54 PM INSTITUTE DIRECTOR Normal venous ultrasound exam. No evidence of deep vein thrombosis within the left lower extremity. Dictated by Ricardo Peacock MD @ Aug 04 2023 ??2:54PM (Electronically Signed) ?? Narrative 08/04/2023 2:54 PM INSTITUTE DIRECTOR For Patients: ??As a result of the 21st Century Cures Act, medical imaging exams and procedure reports are released immediately into your electronic medical record. ??You may view this report before your referring provider. ??If you have questions, please contact your health care provider. INDICATION: History of deep venous thrombosis. Redness of the calf after a fall. The patient is on warfarin. COMPARISON: May 03, 2014. TECHNIQUE: A compression venous ultrasound exam was performed of the left lower extremity using morgna-scale imaging, color Doppler and spectral Doppler analysis. FINDINGS: Sonographic imaging of the left lower extremity demonstrates normal compressibility and color Doppler venous blood flow within the common femoral vein, deep femoral vein, and the proximal greater saphenous vein. Within the thigh, the femoral vein is patent and compressible. At a lower level, the popliteal and posterior tibial veins also show normal compressibility and color Doppler venous blood flow. Limited imaging of the contralateral groin demonstrates a normal spectral waveform and color Doppler venous blood flow within the right common femoral vein. ?? Procedure Note Ricardo Peacock MD - 08/04/2023 For Patients: As a result of the Cures Act, medical imagingexams and procedure reports are released immediately into your electronicmedical record. You may view this report before your referring provider.If you have questions, please contact your health care provider. INDICATION: History of deep venous thrombosis. Redness of the calf after a fall. Thepatient is on warfarin. COMPARISON: May 03, 2014. TECHNIQUE: A compression venous ultrasound exam was performed of the left lowerextremity using morgan-scale imaging, color Doppler and spectral Doppleranalysis. FINDINGS: Sonographic imaging of the left lower extremity demonstrates normalcompressibility and color Doppler venous blood flow within the commonfemoral vein, deep femoral vein, and the proximal greater saphenous vein.Within the thigh, the femoral vein is patent and compressible. At a lowerlevel, the popliteal and posterior tibial veins also show normalcompressibility and color Doppler venous blood flow. Limited imaging of the contralateral groin demonstrates a normal spectralwaveform and color Doppler venous blood flow within the right commonfemoral vein. IMPRESSION: Normal venous ultrasound exam. No evidence of deep vein thrombosis withinthe left lower extremity. Dictated by Ricardo Peacock MD @ Aug 04 2023 2:54PM (Electronically Signed) Macrina Martin DO US from Last 3 Months Advance Directives Documents on File Type Date Recorded Patient Cycle Touring Guide Expl anation Healthcare Directive 06/27/2017 11:07 AM BRYANNA WILSON, 10/24/1998 Healthcare Directive 06/07/2016 12:06 PM Juan Ramon WILSON, 10/24/1998 Care Teams [employer] Operations Relationship Specialty Start Date End Date Macrina Martin DO [address] [place] [address] PCP - General Family Practice 08/10/22 Ricardo Diaz MD Neurology Neurology 03/02/11
--- NOTE | 2023-10-07 08:04 | ED_ITS ---
HPI - General Adult General Time Seen by Provider: 08:05 Date Seen: 10/07/23 Chief complaint: Hip Injury/Pain Stated complaint: hip pain Time Seen by Provider: 10/07/23 08:01 Source: patient, EMS, RN notes reviewed and old records reviewed Mode of arrival: EMS Limitations: no limitations History of Present Illness HPI narrative: Kashif is a 73-year-old male brought in by EMS. He is concerned about increasing left hip pain. 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 States a few days ago his INR was 2.1. They states his goal INR is 1.5-2.5. He fell about a week ago, notes yesterday that the pain really started to intensify, he feels it in the posterior aspect of his left hip. It is getting increasingly painful to ambulate. No numbness tingling, no other injuries. Patient reports he is able to stand but any movement really increases his pain. 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 He also has underlying Parkinson's disease. He last took Tylenol a few days ago. Patient resides independently in [address]. Does have some body come in to help him clean twice a month but that is his only services. Related Data Home Medications Medication Instructions Recorded Confirmed acetaminophen 325 mg capsule 325 - 650 mg PO ONCE PRN 08/11/22 10/07/23 (Tylenol) amantadine HCl 100 mg capsule 100 mg PO BID 08/11/22 10/07/23 aspirin 81 mg tablet,delayed 81 mg PO QDAY 08/11/22 10/07/23 release carbidopa 25 mg-levodopa 100 mg 3 tab PO QID 08/11/22 10/07/23 tablet clonazepam 0.5 mg tablet 0.25 mg PO QDAY 08/11/22 10/07/23 hydroxyurea 500 mg capsule 500 mg PO .QOD 08/11/22 10/07/23 ketoconazole 2 % topical cream 1 applic topical BID 08/11/22 10/07/23 pramipexole 0.25 mg tablet 0.25 mg PO HS 08/11/22 10/07/23 warfarin 4 mg tablet 2 - 4 mg PO QDAY 08/11/22 10/07/23 erythromycin 5 mg/gram (0.5 %) eye 1 applic ophthalmic (eye) ONCE PRN 02/14/23 10/07/23 ointment hydrocortisone 1 % topical cream 1 applic topical BID PRN 02/14/23 10/07/23 finasteride 5 mg tablet 5 mg PO QDAY 08/17/23 10/07/23 multivitamin 1 tab PO QAM 08/17/23 10/07/23 polyethylene glycol 3350 17 4 g PO ONCE PRN 08/17/23 10/07/23 gram/dose oral powder (Miralax) tamsulosin 0.4 mg capsule 0.4 mg PO QDAY 08/17/23 10/07/23 docusate sodium 100 mg capsule 100 mg PO BID 09/01/23 10/07/23 (Colace) ketorolac 0.4 % eye drops (Acular 1 drp ophthalmic (eye) QDAY 09/01/23 10/07/23 LS) melatonin 3 mg capsule 3 mg PO HS PRN 09/01/23 10/07/23 peg 400-propylene glycol (PF) 0.4 1 drp ophthalmic (eye) DAILY PRN 09/01/23 09/22/23 %-0.3 % eye drops in a dropperette (Lubricant Eye (PG-PEG 400) (PF)) Allergies Allergy/AdvReac Type Severity Reaction Status Date / Time Penicillins Allergy Unknown Verified 10/07/23 07:57 Review of Systems Status of ROS: Reports: 6 or more systems reviewed and unremarkable except as noted in History and below [facility] Medical History Volar plate injury of interphalangeal finger joint ?S63.639A - Sprain of interphalangeal joint of unspecified finger, initial encounter (ICD-10) 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 - Genetic carrier of other disease (ICD-10) Hemochromatosis ?E83.119 - Hemochromatosis, unspecified (ICD-10) Polycythemia ?D75.1 - Secondary polycythemia (ICD-10) Social History Smoking Status: Never smoker Do you use any of these nicotine containing products: None Second hand tobacco smoke exposure: No How often do you have a drink containing alcohol: never AUDIT-C Alcohol total score: 0 Non-prescribed substance use: denies use Exam Const: Vital Signs, click to edit/add: Vital Signs - 24 hr 10/07/23 07:52 10/07/23 08:09 10/07/23 08:29 Temperature 98.2 F Pulse Rate 98 Pulse Rate [Right Pulse Oximeter] 89 Respiratory Rate 16 Blood Pressure Blood Pressure [Le ft Upper Arm] 155/93 H Pulse Oximetry 100 98 98 Oxygen Delivery Me thod Room Air 10/07/23 08:30 10/07/23 08:31 10/07/23 08:47 Temperature Pulse Rate 97 96 79 Pulse Rate [Right Pulse Oximeter] Respiratory Rate Blood Pressure 162/90 H Blood Pressure [Le ft Upper Arm] Pulse Oximetry 99 98 100 Oxygen Delivery Me thod 10/07/23 09:00 10/07/23 09:01 10/07/23 09:15 Temperature Pulse Rate 95 92 88 Pulse Rate [Right Pulse Oximeter] Respiratory Rate Blood Pressure 162/86 H Blood Pressure [Le ft Upper Arm] Pulse Oximetry 99 98 97 Oxygen Delivery Me thod Kashif is a 73-year-old gentleman lying flat in his bed, seen in exam room 6. He is alert, interactive, no apparent distress. He is phonating softly but no hoarseness to his voice. Sclera clear, conjugate gaze. Has a mild masked facies. Neck slender. CV regular rate and rhythm, no murmur, normal S1-S2. Lungs are clear, good air entry. Abdomen soft, nontender, nondistended. He has bruising over the left buttock, the bruising extends laterally and posteriorly down the upper thigh, behind the knee, tracking into the upper calf. He is most tender when I palpate post to laterally over the hip area, this does go into the buttock area. There certainly bruising seen in this distribution. He is painful when I go to mobilize the hip at all. Will obtain imaging before doing any further musculoskeletal examination. Documenting provider has reviewed patient's vital signs: yes Course Course ED Course: Have reviewed with Kashif that certainly there could be a fracture from his fall but I am also concerned about hematoma with him being on anticoagulation. Will start with plain imaging x-rays of his pelvis and his left hip to ensure no fracture. I have discussed with him we really should do blood work to ensure that his hemoglobin is stable, will do other labs including CK, will recheck his INR. We will start with a 1000 mg acetaminophen, have reviewed with him that that will be the baseline for pain management and he may need to be taking this scheduled for the time being. Reevaluation(s) Time of Reevaluation #1: 09:16 Reevaluation #1: I do not see any definitive fracture on his plain films, will await Radiology over-read. In the meantime, have talked to our radiologist, he agrees with proceeding with noncontrast CT of pelvis looking for hematoma. Will update patient on this. Consultations Consultation #1: Have spoken with the hospitalist Dr. Wilson who will accept this patient. His hemoglobin is 12.3 today, was 13.7 about 6 weeks ago in our history, thus near a 1 point for hemoglobin drop which would be consistent with a gluteal hematoma and his bruising. We both agree he needs to be observed T and hemoglobins trended. His current INR is 1.7, will observe at this point, am not going to reverse him here at this point. He will be watched in the hospital and this can be followed. They can also work on pain management, have PT/OT evaluate. Have reviewed this with the patient as well, he is in agreement. He did want to know maybe the time frame of how long he would be in, have reviewed with him that it is difficult to say at this point, will depend some on the outcomes of his upcoming evaluations and his hospitalization. Time: 10:11 Vital Signs Vital signs: Initial Vital Signs Temperature 98.2 F 10/07/23 07:52 Temperature Source Temporal Artery Scan 10/07/23 07:52 Pulse Rate 89 10/07/23 07:52 Respiratory Rate 16 10/07/23 07:52 Blood Pressure 155/93 H 10/07/23 07:52 Blood Pressure Mean 113 H 10/07/23 07:52 Blood Pressure Position Supine 10/07/23 07:52 Pulse Oximetry 100 10/07/23 07:52 Oxygen Delivery Method Room Air 10/07/23 07:52 Vital Signs Temperature 98.2 F 10/07/23 07:52 Pulse Rate 89 10/07/23 07:52 Respiratory Rate 16 10/07/23 07:52 Blood Pressure 155/93 H 10/07/23 07:52 Pulse Oximetry 100 10/07/23 07:52 Oxygen Delivery Method Room Air 10/07/23 07:52 Temperature 98.2 F 10/07/23 07:52 Pulse Rate 88 10/07/23 09:15 Respiratory Rate 16 10/07/23 07:52 Blood Pressure 162/86 H 10/07/23 09:01 Pulse Oximetry 97 10/07/23 09:15 Oxygen Delivery Method Room Air 10/07/23 07:52 Medications Administered Medications: Discontinued Medications Generic Name Dose Route Start Last Admin Trade Name Daren PRN Reason Stop Dose Admin Acetaminophen 1,000 mg 10/07/23 08:14 10/07/23 08:38 Acetaminophen 500 Mg Tablet PO 10/07/23 08:15 1,000 mg ONCE ONE Administration Medical Decision Making Lab Data Lab results reviewed: Yes I reviewed the patient's lab results Labs: Lab Results 10/07/23 Range/Units 08:20 WBC 8.86 (4.50-11.00) K/uL RBC 3.56 L (4.30-5.90) m/uL Hgb 12.3 L (13.5-17.5) gm/dL Hct 38.0 (37.0-53.0) % MCV 107 H (80-100) fL MCH 35 H (26-34) pg MCHC 32 (32-36) gm/dL RDW Coeff of Arsalan 14.5 (11.5-15.5) % Plt Count 149 (140-440) K/uL Neut % (Auto) 72.3 H (42.0-72.0) % Lymph % (Auto) 12.1 L (20-44) % [place] % (Auto) 10.3 (0.0-11.0) % Eos % (Auto) 1.6 (0.0-7.0) % Baso % (Auto) 0.5 (0.0-3.0) % Neut # (Auto) 6.40 (1.7-7.0) K/uL Lymph # (Auto) 1.10 (0.90-2.90) K/uL [place] # (Auto) 0.90 (0.00-0.90) K/UL Eos # (Auto) 0.14 (0.00-0.50) K/uL Baso # (Auto) 0.04 (0.00-0.30) K/uL Abs Immat Gran (auto) 0.28 (0.00-0.30) K/uL Imm/Tot Granulo (auto) 3.2 % Diff Slide Review Acceptable Review (Acceptable) INR 1.72 H (0.91-1.10) Sodium 138 (135-149) mmol/L Potassium 4.0 (3.6-5.1) mmol/L Chloride 105 (96-114) mmol/L Carbon Dioxide 25 (20-32) mmol/L Anion Gap 8 (7-15) mEq/L BUN 27 (7-30) mg/dL Creatinine 0.8 (0.5-1.5) mg/dL Estimated Creat Clear 72.83 Estimated GFR 94 ml/min Glucose 106 (60-115) mg/dL Calcium 8.8 (8.4-10.6) mg/dL Total Creatine Kinase 46 L (54-186) U/L Imaging Data XR pelvis and left hip: Attestation: I have reviewed the pertinent imaging results. My impression: I do not appreciate any acute fracture my preliminary review. Radiologist's impression: Patient: [facility] Facility:?[facility] Patient ID:?[id number] Site Patient ID:?[id number]. Site :?[id number] Study:?XRay Pelvis Left Hip 2 views-10/07/2023 8:52:39 AM Ordering Physician:Bobby King Final Report: Indication: Fall with left hip pain Technique: An AP view of the pelvis was acquired as well as AP and lateral views of the left hip Comparison: None Findings: Degenerative changes noted including the visualized lower lumbar spine. No acute fracture, dislocation or destructive process. Impression: Degenerative changes. No visible acute fracture, dislocation or destructive process. Dictated by Zander Hilton MD @ 10/07/2023 9:12:25 AM (Electronic Signature) CT- Other: Attestation: I have reviewed the pertinent imaging results. My impression: I did visualize his CT, can see the hematoma area that the radiologist is calling on their reading. Radiologist's impression: Patient: [facility] Facility:?[facility] Patient ID:?[id number] Site Patient ID:?[id number]. Site :?[id number] Study:?CT Pelvis W/O-10/07/2023 9:45:48 AM Ordering Physician:Bobby King Final Report: EXAM: CT OF THE PELVIS, WITHOUT CONTRAST CLINICAL INDICATION: Pain and hematoma following fall 1 week prior. COMPARISON IMAGING STUDIES: 10/07/2023 radiographs. TECHNICAL: Non-contrast CT of the pelvis with axial reconstructed and sagittal oblique and coronal oblique reformatted images created. FINDINGS: OSSEOUS STRUCTURES: No fracture, callous formation or periosteal reaction. Bilateral spondylolysis at L5 with mild anterolisthesis of L5 the sacrum. Degenerative changes lower lumbar spine. No evidence for chronic avascular necrosis. JOINT SPACES: Right Hip: No joint effusion or loose body. Mild narrowing and hypertrophic change. Left Hip: No joint effusion or loose body. Mild narrowing and hypertrophic change. SI Joints: Mild degenerative changes. MUSCLES AND TENDONS: Expansion of the left gluteus harmony musculature. There is an ill-defined mixed high and low attenuation fluid collection within the gluteus harmony musculature consistent with a hematoma. Although the margins are difficult to assess, the hematoma measures approximately 8 x 5 x 4 cm. No additional intramuscular hematomas. No muscle atrophy. No retracted tear of the gluteus minimus, gluteus medius, iliopsoas or common hamstring tendons. SOFT TISSUES: Mild subcutaneous edema in the left gluteal and hip region. No subcutaneous hematoma. INTRAPELVIC CONTENTS: 0.6 cm bladder calculus. Mild distention of the bladder. Prostatic hypertrophy. NEUROVASCULAR STRUCTURES: No abnormality of visualized neurovascular structures. OTHER FINDINGS: No other findings. IMPRESSION: 1. Hematoma in the left gluteus harmony musculature. 2. No fractures are evident. 3. Subcutaneous edema in the left gluteal and hip region. 4. Bladder calculus with bladder distention and prostatic hypertrophy. Please note that all CT scans at this facility use dose modulation, iterative reconstruction, and/or weight-based dosing when appropriate to reduce radiation dose to as low as reasonably achievable. Dictated by Abhishek Fitzgerald MD @ 10/07/2023 10:07:01 AM (Electronic Signature) Discharge Plan Discharge Clinical Impression: Hematoma, Chronic anticoagulation, Acute blood loss anemia Parkinson's disease Qualifiers: Dyskinesia presence: unspecified whether dyskinesia Fluctuating manifestations: unspecified whether manifestations fluctuate Qualified Code(s): G20.A1 - Parkinson's disease without dyskinesia, without mention of fluctuations Fall Qualifiers: Encounter type: initial encounter Qualified Code(s): W19.XXXA - Unspecified fall, initial encounter Patient Disposition: Admitted As Observation Prescriptions: No Action ketoconazole 2 % cream 1 applic topical BID carbidopa-levodopa 25-100 mg tablet 3 tab PO QID amantadine HCl 100 mg capsule 100 mg PO BID pramipexole 0.25 mg tablet 0.25 mg PO HS warfarin 4 mg tablet 2 - 4 mg PO QDAY Rx Instructions: 2mg PO Tue/, 4mg every other day clonazepam 0.5 mg tablet 0.25 mg PO QDAY hydroxyurea 500 mg capsule 500 mg PO .QOD acetaminophen [Tylenol] 325 mg capsule 325 - 650 mg PO ONCE PRN aspirin 81 mg tablet,delayed release (DR/EC) 81 mg PO QDAY finasteride 5 mg tablet 5 mg PO QDAY tamsulosin 0.4 mg capsule 0.4 mg PO QDAY hydrocortisone 1 % cream 1 applic topical BID PRN erythromycin 5 mg/gram (0.5 %) ointment 1 applic ophthalmic (eye) ONCE PRN polyethylene glycol 3350 [Miralax] 17 gram/dose powder 4 g PO ONCE PRN multivitamin Tablet 1 tab PO QAM docusate sodium [Colace] 100 mg capsule 100 mg PO BID melatonin 3 mg capsule 3 mg PO HS PRN ketorolac [Acular LS] 0.4 % drops 1 drp ophthalmic (eye) QDAY Rx Instructions: left eye Lubricant Eye (PG-PEG 400)(PF) 0.4-0.3 % dropperette 1 drp ophthalmic (eye) DAILY PRN Follow Up/Referrals: YANA FISCHER DO [Primary Care Provider] -
--- NOTE | 2023-10-07 08:09 | CRLHL7_ITS ---
For Patients: As a result of the Cures Act, medical imaging exams and procedure reports are released immediately into your electronic medical record. You may view this report before your referring provider. If you have questions, please contact your health care provider. Indication: Fall with left hip pain Technique: An AP view of the pelvis was acquired as well as AP and lateral views of the left hip Comparison: None Findings: Degenerative changes noted including the visualized lower lumbar spine. No acute fracture, dislocation or destructive process. Impression: Degenerative changes. No visible acute fracture, dislocation or destructive process. Dictated by Zander Hilton MD @ 10/07/2023 9:12:25 AM (Electronically Signed)
--- OUTSIDE RECORDS SUMMARY | 2023-10-07 08:21 | XMS_ITS | Clinical Summary ---
Author Name Unknown Organization [facility] Address [place], [place] [address] Care Team Providers Care Surgery Teacher Name Role Phone Ricardo Diaz MD Unavailable Unavaila ble Macrina Martin DO Primary Care Provider [phone] Allergies Active Allergy Reactions Criticality Noted Date [...] Department Care Team Description 10/07/2023 Nurse Triage [address] [address] Macrina Martin, Hip Injury 09/28/2023 Anticoagulation (warfarin) [address] [address] 1, [facility] Anticoagulation 09/27/2023 1:45 PM TITLE ASSISTANT Orders Only [address] [address] Lab[facility] 09/27/2023 Travel 09/23/[address] [address] Darlin Butler PA Refill Request (Clonazepam) 09/20/[address] [phone] Leta Laird MD Questions (PSA and Medication ) 09/14/[address] [phone] Leta Laird MD Refill Request (Tamsulosin 0.4mg ) 09/14/[address] [address] Leta Laird MD Lab (PSA Test) 09/09/2023 Refill [facility] [address] [place] [address] Macrina Martin DO Refill Request (Warfarin) 09/01/2023 Orders Only [facility] Scanner 1 scan: (1-Ord) [facility], XR 3RD FINGER RT, 09/01/2023 09/01/2023 Nurse Triage [facility] [address] [facility] [address] Macrnia Martin DO Finger Pain/problem 08/27/2023 Refill [facility] [address] [facility] [address] Macrina Martin DO Refill Request (Pramipexole) 08/15/2023 11:10 AM TITLE ASSISTANT Orders Only [facility] [address] [facility] 08/15/2023 Anticoagulation (warfarin) [facility] [address] 1, [facility] Anticoagulation 08/15/2023 Travel 08/11/2023 Telephone [facility] [address] [facility] [address] Macrina Martin DO FYI 08/04/2023 1:45 PM TITLE ASSISTANT Ancillary Procedure [facility] [address] 08/04/2023 12:25 PM TITLE ASSISTANT Office Visit [facility] [address] Macrina Martin DO Fall (07/10 - did go to and xray was normal - some lower leg swelling but had DVT rule out - has been feeling better - just some pain with walking ) 08/04/2023 Telephone [facility] [place] [address] Macrina Martin DO Results 08/04/2023 Telephone [facility] [address] [facility] [place] [address] Macrina Martin DO Questions 08/04/2023 Travel 07/25/2023 11:50 AM TITLE ASSISTANT Orders Only [facility] [place] [address] Lab[facility] 07/25/[address] [place] [address] Macrina Martin DO Anticoagulation (Review INR and warfarin dosing ) 07/25/2023 Anticoagulation (warfarin) [facility] [address] [place] [place] [address] 1, [facility] Anticoagulation 07/25/2023 Travel 07/14/2023 Nurse Triage [facility] [address] [place] [address] Macrina Martin DO Questions 07/11/2023 1:30 PM TITLE ASSISTANT Orders Only [facility] [address] [place] [address] Lab[facility] 07/11/2023 Anticoagulation (warfarin) [facility] [address] [place] [address] 1, [facility] Anticoagulation 07/11/2023 Travel 07/11/2023 Nurse Triage [facility] [address] [place] [address] Macrina Martin, Knee Pain/problem from Last 3 Months Immunizations Name Administration Dates Next Due AMB INFLUENZA IIV3 (AGE 65+ YRS) PF (Flu Clinic Only) 06/21/2019,07/06/2018 COVID-19 vaccine (Moderna 100mcg/0.5mL) PF, MDV 12/25/2020,11/03/2020 COVID-19 vaccine ([employer] NTech 30mcg/0.3mL) 12YO+ BIVALENT PF, MDV 06/30/2022 [...] Comments Blood Pressure 84/56 08/04/2023 12:33 PM TITLE ASSISTANT recheck sitting Pulse 80 08/04/2023 12:28 PM TITLE ASSISTANT Temperature 36.4 ??C (97.5 ??F) 04/26/2023 3 :12 PM CDT Respiratory Rate 16 07/27/2021 1:22 PM TITLE ASSISTANT Oxygen Saturation 98% 08/04/2023 12: 28 PM TITLE ASSISTANT Inhaled Oxygen Concentration - - Weight 78.5 kg (173 lb) 08/04/2023 12:2 8 PM TITLE ASSISTANT Height 182.9 cm (6') 08/04/2023 12:28 PM TITLE ASSISTANT Body Mass Index 23.46 08/04/2023 12:28 PM TITLE ASSISTANT Plan of Treatment Upcoming Encounters Date Type Department Care Team (Late st Contact Info) Description 10/13/2023 12:00 PM TITLE ASSISTANT Office [facility] [address] [facility] [place] [address] Leta Laird MD [address] [place] [address] 11/08/2023 1:30 PM TITLE ASSISTANT Orders Only [facility] [address] [place] [address] Lab[facility] [place] 05/01/2024 3:40 PM CDT Office Visit [facility] [address] [place] [address] Ricardo Wilkins MD [address] [place] [address] Health Maintenance Due Date Last Done Comments [...] PSA TOTAL SCREEN Routine 09/27/2023 1:58 PM TITLE ASSISTANT Prostate cancer screening PROTIME-INR STAT 09/27/2023 1:58 PM TITLE ASSISTANT Chronic deep vein thrombosis (DVT) of femoral vein of left lower extremity (HC) Anticoagulation monitoring, INR range 1.5-2.5 SCAN-RADIOLOGY REPORT 09/01/2023 12:00 AM TITLE ASSISTANT INR,POCT Routine 08/15/2023 11:15 AM TITLE ASSISTANT Chronic deep vein thrombosis (DVT) of femoral vein of left lower extremity (HC) Anticoagulation monitoring, INR range 1.5-2.5 US VENOUS LOWER EXTREMITY LEFT STAT 08/04/2023 2:16 PM TITLE ASSISTANT Localized swelling of lower extremity INR,POCT Routine 07/25/2023 12:03 PM TITLE ASSISTANT Chronic deep vein thrombosis (DVT) of femoral vein of left lower extremity (HC) Anticoagulation monitoring, INR range 1.5-2.5 INR,POCT Routine 07/11/2023 1:30 PM TITLE ASSISTANT Chronic deep vein thrombosis (DVT) of femoral vein of left lower extremity (HC) Anticoagulation monitoring, INR range 1.5-2.5 from Last 3 Months Results * (ABNORMAL) PROTIME-INR (09/27/2023 1:58 PM TITLE ASSISTANT) INR 2.2(H) <1.3 09/27/2023 9:06 PM TITLE ASSISTANT [facility] PROTIME 23.6(H) 10.3 - 12.3 sec 09/27/2023 9:06 PM TITLE ASSISTANT [facility] Blood BLOOD SPECIMEN / Unknown Venipuncture / Unknown 09/27/2023 1:58 PM TITLE ASSISTANT 09/27/2023 1:58 PM TITLE ASSISTANT Narrative [facility] - 09/27/2023 9:06 PM TITLE ASSISTANT ?Therapeutic Range 2.0-3.0 for most anticoagulated patients [...] Macrina Martin DO HEMATOLOGY Performing Organization Address [facility] Co de Phone Number [facility] [address] [place] [address] * PSA TOTAL SCREEN (09/27/2023 1:58 PM TITLE ASSISTANT) PSA TOTAL (SCREEN) 1.05 <4.00 ng/mL 09/27/2023 11:03 PM TITLE ASSISTANT [facility] Blood BLOOD SPECIMEN / Unknown Venipuncture / Unknown 09/27/2023 1:58 PM TITLE ASSISTANT 09/27/2023 1:58 PM TITLE ASSISTANT Narrative [facility] - 09/27/2023 11:03 PM TITLE ASSISTANT The test method changed on 03/01/2023. If [...] Leta Laird MD LABORATORY Performing Organization Address [facility] Co de Phone Number [facility] [address] [place] [address], [place] * SCAN-RADIOLOGY REPORT (09/01/2023 12:00 AM TITLE ASSISTANT) Anatomical Region Laterality Modality Other Scanner OTHER * (ABNORMAL) INR,POCT (08/15/2023 11:15 AM TITLE ASSISTANT) Only the most recent of3 resultswithin the time period is included. INR 1.9(H) <1.3 08/15/2023 11:18 AM TITLE ASSISTANT [facility] Blood BLOOD SPECIMEN / Unknown 08/15/2023 11:15 AM TITLE ASSISTANT 08/15/2023 11:18 AM TITLE ASSISTANT Narrative [facility] - 08/15/2023 11:18 AM TITLE ASSISTANT ?Therapeutic Range 2.0-3.0 for most anticoagulated patients 2.5-3.5 or 4.0 for high risk patients Macrina Martin DO LABORATORY [facility] [address] [place] [address], * US VENOUS LOWER EXTREMITY LEFT (08/04/2023 2:16 PM TITLE ASSISTANT) Anatomical Region Laterality Modality LEGS, LEG L, Abdomen Ultrasound 08/04/2023 2:54 PM TITLE ASSISTANT Impressions 08/04/2023 2:54 PM TITLE ASSISTANT Normal venous ultrasound exam. No evidence of deep vein thrombosis within the left lower extremity. Dictated by Ricardo Peacock MD @ Aug 04 2023 ??2:54PM (Electronically Signed) ?? Narrative 08/04/2023 2:54 PM TITLE ASSISTANT For Patients: ??As a result of the [...] performed of the left lower extremity using morgan-scale imaging, color Doppler and spectral Doppler analysis. [...] Documents on File Type Date Recorded Patient [employer] Expl anation Healthcare Directive 06/27/2017 11:07 AM BRYANNA WILSON, 10/24/1997 Healthcare Directive 06/07/2016 12:06 PM Juan Ramon WILSON, 10/24/1997 Care Teams Surgery Teacher Relationship Specialty Start Date End Date Macrina Martin DO [address] [place] [address] PCP - General Family Practice 08/10/22 Ricardo Diaz MD Neurology Neurology 03/02/11
[2023-10-07 08:29] LABS: Basophils Absolute Auto 0.04 K/uL (0.00-0.30); Basophils Percent Auto 0.5 % (0.0-3.0); Eosinophils Absolute Auto 0.14 K/uL (0.00-0.50); Eosinophils Percent Auto 1.6 % (0.0-7.0); Hemoglobin* 12.3 gm/dL (13.5-17.5); Immature Granulocytes Abs Auto 0.28 K/uL (0.00-0.30); Immature Granulocytes Pct Auto 3.2 %; Lymphocytes Percent Auto 12.1 % (20-44); Mean Corpuscular HGB Conc 32 gm/dL (32-36); Mean Corpuscular Hemoglobin 35 pg (26-34); Mean Corpuscular Volume 107 fL (80-100); Monocytes Percent Auto 10.3 % (0.0-11.0); Neutrophils Percent Auto 72.3 % (42.0-72.0); Platelet Count* 149 K/uL (140-440); RDW Coefficient of Variation % 14.5 % (11.5-15.5); Red Blood Count 3.56 m/uL (4.30-5.90); White Blood Count* 8.86 K/uL (4.50-11.00)
[2023-10-07] MEDS: ACETAMINOPHEN 500 MG TABLET 1000 MG PO (08:38)
[2023-10-07 08:43] LABS: Chloride* 105 mmol/L (96-114); Sodium* 138 mmol/L (135-149)
[2023-10-07 08:46] LABS: Anion Gap 8 mEq/L (7-15); Blood Urea Nitrogen* 27 mg/dL (7-30); Carbon Dioxide* 25 mmol/L (20-32); Creatine Kinase* 46 U/L (54-186); Creatinine* 0.8 mg/dL (0.5-1.5); Est. Creatinine Clearance* 72.83; Estimated Glomerular Filt Rate 94 ml/min; INR 1.72 (0.91-1.10); Prothrombin Time 21.4 Seconds; Slide Review Reflex Yes
[2023-10-07 08:47] LABS: Calcium* 8.8 mg/dL (8.4-10.6); Glucose* 106 mg/dL (60-115)
[2023-10-07 08:51] LABS: Slide Review Acceptable Review (Acceptable)
--- NOTE | 2023-10-07 09:05 | ED.NURSE ---
Pt ambulatory to the restroom independently.
--- NOTE | 2023-10-07 09:16 | CRLHL7_ITS ---
For Patients: As a result of the Century Cures Act, medical imaging exams and procedure reports are released immediately into your electronic medical record. You may view this report before your referring provider. If you have questions, please contact your health care provider. EXAM: CT OF THE PELVIS, WITHOUT CONTRAST CLINICAL INDICATION: Pain and hematoma following fall 1 week prior. COMPARISON IMAGING STUDIES: 10/07/2023 radiographs. TECHNICAL: Non-contrast CT of the pelvis with axial reconstructed and sagittal oblique and coronal oblique reformatted images created. FINDINGS: OSSEOUS STRUCTURES: No fracture, callous formation or periosteal reaction. Bilateral spondylolysis at L5 with mild anterolisthesis of L5 the sacrum. Degenerative changes lower lumbar spine. No evidence for chronic avascular necrosis. JOINT SPACES: Right Hip: No joint effusion or loose body. Mild narrowing and hypertrophic change. Left Hip: No joint effusion or loose body. Mild narrowing and hypertrophic change. SI Joints: Mild degenerative changes. MUSCLES AND TENDONS: Expansion of the left gluteus harmony musculature. There is an ill-defined mixed high and low attenuation fluid collection within the gluteus harmony musculature consistent with a hematoma. Although the margins are difficult to assess, the hematoma measures approximately 8 x 5 x 4 cm. No additional intramuscular hematomas. No muscle atrophy. No retracted tear of the gluteus minimus, gluteus medius, iliopsoas or common hamstring tendons. SOFT TISSUES: Mild subcutaneous edema in the left gluteal and hip region. No subcutaneous hematoma. INTRAPELVIC CONTENTS: 0.6 cm bladder calculus. Mild distention of the bladder. Prostatic hypertrophy. NEUROVASCULAR STRUCTURES: No abnormality of visualized neurovascular structures. OTHER FINDINGS: No other findings. IMPRESSION: 1. Hematoma in the left gluteus harmony musculature. 2. No fractures are evident. 3. Subcutaneous edema in the left gluteal and hip region. 4. Bladder calculus with bladder distention and prostatic hypertrophy. Please note that all CT scans at this facility use dose modulation, iterative reconstruction, and/or weight-based dosing when appropriate to reduce radiation dose to as low as reasonably achievable. Dictated by Abhishek Fitzgerald MD @ 10/07/2023 10:07:01 AM (Electronically Signed)
--- NOTE | 2023-10-07 11:24 | P.IMHP_ITS ---
Hospitalist- H&P: HPI History of Present Illness Date Seen: 10/07/23 Chief complaint: hip pain Narrative: Malik Huitron is a 73 year old male with a history of Parkinsons disease, hemochromatosis, Polycythemia vera, chronically anticoagulated on Coumadin for a history of LLE DVT, who presented to the ED for L sided hip pain. Patient fell at home last Tuesday (09/28); fell backwards (typically falls forward given shuffling gait of Parkinsons), did not hit head or lose consciousn ess. Fell onto L buttock/hip. Has had intermittent discomfort, but it worsened significantly last night without any new trauma or inciting incident. ER Course and Findings: - Hgb 12.3 (baseline 13.7+) - INR 1.7 (was 2+ most recently at [facility]) - large hematoma L buttock, no bony abnormalities on pelvic CT - patient able to ambulate with walker, but given Hematoma, decrease in Hgb, and comorbidities, will be admitted for serial Hgbs and therapy evaluation Medical history updated below. PCP is Dr. Martin at the [facility]. 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 Friend Sabine polanco would be MDM if needed. No ETOH use, no tobacco use. No children. 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 Requests Full Code status in the event of a witnessed arrest only. What is your current living situation?: I presently have a place to live Problems where you live: no known problems Problems where you live details: NA In the past 12 months, utilities in danger of being shut off: no In past 12 months, lack of transportation kept you from medical appts, meetings, work, or getting things needed for daily living: no In the past 12 mos, have been you worried that your food would run out before you had money to buy more?: never true In the past 12 mos, the food you bought just didn't last and you didn't have money to buy more?: never true Highest level of school completed/degree received: Doctoral degree Smoking Status: Never smoker Do you use any of these nicotine containing products: None Second hand tobacco smoke exposure: No How often do you have a drink containing alcohol: never AUDIT-C Alcohol total score: 0 Non-prescribed substance use: denies use Caffeine: No How often does anyone, including family, friends and others, physically hurt you : never How often does anyone, including family, friends and others, insult or talk down to you: never How often does anyone, including family, friends and others, threaten you with harm: never How often does anyone, including family, friends and others, scream or curse at you: never service: No Meds Home Medications and Allergies Home Medications Medication Instructions Recorded Confirmed Type acetaminophen 325 mg capsule 325 mg PO Q4H PRN 08/11/22 10/07/23 History (Tylenol) amantadine HCl 100 mg capsule 100 mg PO BID 08/11/22 10/07/23 History aspirin 81 mg tablet,delayed 81 mg PO DAILY 08/11/22 10/07/23 History release carbidopa 25 mg-levodopa 100 mg 3 tab PO QID 08/11/22 10/07/23 History tablet clonazepam 0.5 mg tablet 0.25 mg PO DAILY 08/11/22 10/07/23 History hydroxyurea 500 mg capsule 500 mg PO Q48H 08/11/22 10/07/23 History ketoconazole 2 % topical cream 1 applic topical BID 08/11/22 10/07/23 History pramipexole 0.25 mg tablet 0.25 mg PO HS 08/11/22 10/07/23 History warfarin 4 mg tablet 2 - 4 mg PO DAILY 08/11/22 10/07/23 History erythromycin 5 mg/gram (0.5 %) eye 1 applic ophthalmic (eye) HS PRN 02/14/23 10/07/23 History ointment finasteride 5 mg tablet 5 mg PO DAILY 08/17/23 10/07/23 History multivitamin 1 tab PO QAM 08/17/23 10/07/23 History polyethylene glycol 3350 17 8.5 - 17 g PO DAILY PRN 08/17/23 10/07/23 History gram/dose oral powder (Miralax) tamsulosin 0.4 mg capsule 0.4 mg PO DAILY 08/17/23 10/07/23 History docusate sodium 100 mg capsule 100 mg PO BID 09/01/23 10/07/23 History (Colace) ketorolac 0.4 % eye drops (Acular 1 drp ophthalmic (eye) DAILY 09/01/23 10/07/23 History LS) melatonin 3 mg capsule 3 mg PO HS PRN 09/01/23 10/07/23 History peg 400-propylene glycol (PF) 0.4 1 drp ophthalmic (eye) DAILY PRN 09/01/23 10/07/23 History %-0.3 % eye drops in a dropperette (Lubricant Eye (PG-PEG 400) (PF)) Allergies Allergy/AdvReac Type Severity Reaction Status Date / Time Penicillins Allergy Unknown Verified 10/07/23 07:57 Exam Narrative: Exam Narrative: GEN: Alert and oriented, answering questions appropriately HEENT: Normal external ears, EOMIs bilaterally, no scleral icterus CV: RRR, No concerning murmurs, no carotid bruits R: LCTA bilaterally without concerning wheezing, air movement adequate Ext: wwp, LLE edema noted (chronic and unchanged) Skin: Bruising L flank, L buttock into L hamstring Neuro: + resting tremor of BUEs, shuffling gait, uses walker for ambulation Psych: Appropriate Const: Vital Signs, click to edit/add: Vital Signs - 24 hr 10/07/23 07:52 10/07/23 08:09 10/07/23 08:29 Temperature 98.2 F Pulse Rate 98 Pulse Rate [Right Pulse Oximeter] 89 Respiratory Rate 16 Blood Pressure Blood Pressure [Le ft Upper Arm] 155/93 H Pulse Oximetry 100 98 98 Oxygen Delivery [facility] Room Air 10/07/23 08:30 10/07/23 08:31 10/07/23 08:47 Temperature Pulse Rate 97 96 79 Pulse Rate [Right Pulse Oximeter] Respiratory Rate Blood Pressure 162/90 H Blood Pressure [Le ft Upper Arm] Pulse Oximetry 99 98 100 Oxygen Delivery [facility] 10/07/23 09:00 10/07/23 09:01 10/07/23 09:15 Temperature Pulse Rate 95 92 88 Pulse Rate [Right Pulse Oximeter] Respiratory Rate Blood Pressure 162/86 H Blood Pressure [Le ft Upper Arm] Pulse Oximetry 99 98 97 Oxygen Delivery [facility] 10/07/23 09:30 10/07/23 09:31 10/07/23 09:45 Temperature Pulse Rate 91 90 93 Pulse Rate [Right Pulse Oximeter] Respiratory Rate Blood Pressure 152/83 H Blood Pressure [Le ft Upper Arm] Pulse Oximetry 98 97 99 Oxygen Delivery [facility] 10/07/23 10:00 10/07/23 10:05 10/07/23 10:15 Temperature Pulse Rate 94 78 Pulse Rate [Right Pulse Oximeter] Respiratory Rate Blood Pressure 114/88 Blood Pressure [Le ft Upper Arm] Pulse Oximetry 97 99 Oxygen Delivery [facility] 10/07/23 10:30 10/07/23 10:45 10/07/23 10:47 Temperature Pulse Rate 90 95 Pulse Rate [Right Pulse Oximeter] Respiratory Rate Blood Pressure 149/87 H Blood Pressure [Le ft Upper Arm] Pulse Oximetry 98 100 Oxygen Delivery [facility] Hospitalist - H&P: Result Labs Labs: Short CBC 10/07/23 Range/Units 08:20 WBC 8.86 (4.50-11.00) K/uL Hgb 12.3 L (13.5-17.5) gm/dL Hct 38.0 (37.0-53.0) % Plt Count 149 (140-440) K/uL BMP 10/07/23 08:20 Sodium 138 Potassium 4.0 Chloride 105 Carbon Dioxide 25 BUN 27 Creatinine 0.8 Glucose 106 Calcium 8.8 Cardiac Enzymes 10/07/23 Range/Units 08:20 Total Creatine Kinase 46 L (54-186) U/L Assessment and Plan Assessment and plan (1) Fall: Problem comment: - high risk for recurrent falls - likely 2/2 Parkinsons, will monitor on telemetry as well to evaluate for contributing arrythymia - therapies ordered Status: Acute (2) Hematoma: Problem comment: - L buttock and L flank - no evidence of fracture on ER CT 10/07/23 Status: Acute (3) Parkinson's disease: Status: Acute (4) Chronic anticoagulation: Problem comment: - holding Warfarin upon admission (10/07) Status: Acute Plan - serial Hgb, PT and OT consults - dispo pending stability and recommendations from therapy teams
[2023-10-07 13:34] LABS: Vitamin B12* > 1000 pg/mL (243-894)
--- NOTE | 2023-10-07 15:05 | PC.NURSE ---
Nursing Care Hours: 1130-1552 Pt this shift arrived from ED on w/c. Ambulated SB assist without use of aid. Steady gait with slight shuffle. Pt verbally reported to nurse that he has had about sixty falls over the last few years. Denies using a walker at home. Brick Offbearer discussed fall prevention at the hospital by using call light, having bed and chair alarms to remind pt, and use of walker. Pt agreeable. No c/o pain at admission. Bruising noted from upper L hip and to low left leg near ankle. Swollen compared to R leg. TEDS applied. Pt having difficulty passing stool on arrival. Frequent trips to the bathroom. Pt states it takes a while for it to get going. Was successful with a large BM. Declined Miralax stating he takes it about every other day and not on days where he has had sufficient BM. Tele started, NSR.
[2023-10-07] MEDS: CARBIDOPA-LEVODOPA 25-100 TABLET 3 TAB PO ×2 (16:53→21:13)
[2023-10-07 19:08] LABS: Hemoglobin* 11.9 gm/dL (13.5-17.5)
[2023-10-07] MEDS: PRAMIPEXOLE 0.25 MG TABLET PO (21:13)
[2023-10-07] MEDS: SODIUM CHLORIDE 0.9 % (FLUSH) 10 ML SYRINGE 5 ML IVF (21:13)
[2023-10-07] MEDS: DOCUSATE SODIUM 100 MG CAPSULE PO (21:13)
[2023-10-08 03:00] VITALS: BP 157/77; PULSE 84; RESP 18; TEMP 36.7; O2SAT 96
[2023-10-08] MEDS: ACETAMINOPHEN 325 MG TABLET 975 MG PO (04:18)
--- NOTE | 2023-10-08 06:12 | PC.NURSE ---
End of shift [phone] ? Pt alert, oriented, cooperative to care. Up with standby assistance and walker. Mild tremor noted in bilateral hands related to diagnosis of Parkinson?s disease at baseline. Pt continent of bowel and bladder. Pt denied SOB, nausea, dizziness. Pt rated pain as 0/10 until he would ambulate to the bathroom. Pt reported pain as 6-7/10 with ambulation. Pt requested pain relief during shift, intervention given per MAR with pt verbalizing improved comfort. Purple/blue bruising noted on L hip, thigh, lateral knee related to pt reported fall 1 week ago. Pt observed to sleep, appears to be resting comfortably at end of shift. ?
[2023-10-08 06:17] LABS: Basophils Absolute Auto 0.03 K/uL (0.00-0.30); Basophils Percent Auto 0.4 % (0.0-3.0); Eosinophils Absolute Auto 0.19 K/uL (0.00-0.50); Eosinophils Percent Auto 2.7 % (0.0-7.0); Hematocrit 36.4 % (37.0-53.0); Hemoglobin* 11.8 gm/dL (13.5-17.5); Immature Granulocytes Abs Auto 0.47 K/uL (0.00-0.30); Immature Granulocytes Pct Auto 6.6 %; Lymphocytes Percent Auto 17.2 % (20-44); Mean Corpuscular HGB Conc 32 gm/dL (32-36); Mean Corpuscular Hemoglobin 35 pg (26-34); Mean Corpuscular Volume 107 fL (80-100); Monocytes Percent Auto 10.6 % (0.0-11.0); Neutrophils Absolute Auto 4.47 K/uL (1.7-7.0); Neutrophils Percent Auto 62.5 % (42.0-72.0); Platelet Count* 157 K/uL (140-440); RDW Coefficient of Variation % 14.5 % (11.5-15.5); Red Blood Count 3.41 m/uL (4.30-5.90); White Blood Count* 7.15 K/uL (4.50-11.00)
[2023-10-08 06:32] LABS: Albumin* 3.8 g/dL (3.3-5.0)
[2023-10-08 06:33] LABS: Chloride* 107 mmol/L (96-114); Potassium* 3.8 mmol/L (3.6-5.1); Sodium* 138 mmol/L (135-149)
[2023-10-08 06:35] LABS: Anion Gap 6 mEq/L (7-15); Bilirubin Total* 1.1 mg/dL (0.1-1.5); Carbon Dioxide* 25 mmol/L (20-32); Creatinine* 0.7 mg/dL (0.5-1.5); Est. Creatinine Clearance* 72.53; Estimated Glomerular Filt Rate 98 ml/min; INR 1.44 (0.91-1.10); Prothrombin Time 18.5 Seconds; Total Protein* 7.1 g/dL (6.0-8.3)
[2023-10-08 06:36] LABS: Alanine Aminotransferase* 5 U/L (4-50); Alkaline Phosphatase* 82 U/L (40-150); Blood Urea Nitrogen* 22 mg/dL (7-30); Calcium* 8.3 mg/dL (8.4-10.6); Glucose* 109 mg/dL (60-115)
[2023-10-08 06:43] LABS: Slide Review Reflex Yes
[2023-10-08 06:52] LABS: Aspartate Amino Transferase* 58 U/L (12-35)
[2023-10-08 07:11] LABS: Slide Review Acceptable Review (Acceptable)
[2023-10-08] MEDS: TAMSULOSIN HCL 0.4 MG CAPSULE PO (08:47)
[2023-10-08] MEDS: clonazePAM 0.5 MG TABLET 0.25 MG PO (08:47)
[2023-10-08] MEDS: CARBIDOPA-LEVODOPA 25-100 TABLET 3 TAB PO ×2 (08:47→12:46)
[2023-10-08] MEDS: DOCUSATE SODIUM 100 MG CAPSULE PO (08:48)
[2023-10-08] MEDS: SODIUM CHLORIDE 0.9 % (FLUSH) 10 ML SYRINGE 5 ML IVF ×2 (08:48→08:59)
[2023-10-08] MEDS: FINASTERIDE 5 MG TABLET PO (08:49)
[2023-10-08 08:53] VITALS: BP 111/65; PULSE 82; RESP 18; TEMP 36.6; O2SAT 99
[2023-10-08] MEDS: HYDROXYUREA 500 MG CAPSULE PO (08:58)
[2023-10-08 11:00] VITALS: BP 110/78; PULSE 82; RESP 16; TEMP 36.4; O2SAT 97
--- NOTE | 2023-10-08 11:58 | P.DS_ITS ---
DS: Providers Provider Time Seen by Provider: 10:15 Date Seen: 10/08/23 Date of admission: 10/07/23 10:44 Primary care physician: YANA FISCHER DO Admitting Clinician: Veena Wilson MD Consults: 10/07/23 11:52 Consult to Physical Therapy [CONS] Routine Comment: Reason(s) for PT Consult:: Evaluate Ambulation Any Restrictions?:: No Restrictions 10/07/23 12:09 Consult to Occupational Therapy [CONS] Routine Comment: Reason(s) for OT Consult:: Evaluate and Treat Any Restrictions?:: No Restrictions Consult to Physical Therapy [CONS] Routine Comment: Reason(s) for PT Consult:: Evaluate and Treat Any Restrictions?:: No Restrictions Attending Physician on discharge: Delaney De Santiago MD Date of Discharge: 10/08/23 DS: Diagnosis Discharge Diagnosis (1) Fall: Status: Acute Problem details: - high risk for recurrent falls - likely 2/2 Parkinsons, no arrythymias seen on telemetry overnight - PT/OT evaluated, patient at baseline (2) Hematoma: Status: Acute Problem details: - L buttock and L flank, stable, hemoglobin stable - no evidence of fracture on ER CT 10/07/23 (3) Anemia due to blood loss, acute: Status: Acute Problem details: Suspected secondary to acute blood loss due to hematoma from fall on coumadin, stable hemoglobin, 12.3 on admission, 11.9 last night, Juan 0.8 this morning. (4) Chronic anticoagulation: Status: Chronic Problem details: - held Warfarin upon admission (10/07) - discussed with patient that he is at high risk for ongoing falls. Discussed risks of staying on coumadin with recent falls vs stopping coumadin and h/o LLE DVT. Patient desired to restart coumadin and discuss with PCP this week. (5) Parkinson's disease: Status: Chronic DS: Summary Hospital Course Hospital Course: This is a 73-year-old male with history of Parkinson's disease, hemochromatosis, polycythemia vera, and chronic anticoagulation with Coumadin for history of left lower extremity DVT who recently fell backward onto his left buttock/hip. In the ER he was found to have a hemoglobin of 12.3, with a baseline hemoglobin of 13.7 or above. His INR was 1.7. He had a large hematoma of his left buttock with no bony abnormalities on the pelvic CT. Given hematoma, comorbidities, and anemia while on Coumadin, he was admitted overnight for serial hemoglobins and therapy evaluation. He is able to ambulate with his walker and is likely at his baseline functional status. Today he is doing well without any arrhythmias overnight on telemetry and hemoglobin has remained stable; it is 11.8 today on discharge. I discussed with Kashif that he is at high risk for ongoing falls and this is dangerous on Coumadin. We discussed the risks of staying on coumadin with recent falls vs stopping coumadin and h/o LLE DVT. Patient desired to restart coumadin and discuss with PCP this week. He is discharged home today in stable condition. He will continue ongoing outpatient occupational therapy that he has been getting for his hand. Follow-up with his primary care provider this week for further discussion of risks and benefits of Coumadin with history of falls. Time Spent with Patient Time attestation: Total time spent providing and/or coordinating discharge services: Exam Narrative: Exam Narrative: General: No acute distress. Awake, alert, oriented. No pallor. No jaundice. Oropharynx: Clear. Mucous membranes moist. Cardiovascular: Regular rate and rhythm. No murmurs, gallops, or rubs. Respiratory: Clear to auscultation bilaterally. No wheezes or crackles. Extremities: Large hematoma left buttock with dependent ecchymosis over left flank and posterior thigh and posterior knee. Able to rise easily from his chair without help or walker. Const: Vital Signs, click to edit/add: Vital Signs - 24 hr 10/07/23 14:39 10/07/23 15:00 10/07/23 15:00 Temperature 98.0 F Pulse Rate 83 Pulse Rate [Left] 87 Respiratory Rate 18 18 Blood Pressure [Ri ght Arm] 128/84 Pulse Oximetry 99 97 Oxygen Delivery Me thod Room Air Room Air 10/07/23 15:00 10/07/23 19:00 10/07/23 22:56 Temperature Pulse Rate 86 Pulse Rate [Left] 87 90 Respiratory Rate 18 16 Blood Pressure [Ri ght Arm] 125/64 Pulse Oximetry 98 Oxygen Delivery Me thod Room Air 10/07/23 23:00 10/08/23 03:00 10/08/23 08:53 Temperature 98.1 F 97.9 F Pulse Rate Pulse Rate [Left] 84 82 Respiratory Rate 16 18 18 Blood Pressure [Ri ght Arm] 157/77 H 111/65 Pulse Oximetry 98 96 99 Oxygen Delivery Me thod Room Air Room Air Room Air 10/08/23 11:00 Temperature 97.5 F L Pulse Rate Pulse Rate [Left] 82 Respiratory Rate 16 Blood Pressure [Ri ght Arm] 110/78 Pulse Oximetry 97 Oxygen Delivery Me thod Room Air DS: Data Data Completed and Pending Completed studies during hospitalization: Ordering Physician: Christine Jc M.D. Date of Service: 10/07/23 Procedure(s): XR hip LT min 2V Accession Number(s): [id number] cc: YANA FISCHER D.O.; Christine Jc M.D.~ For Patients: As a result of the Cures Act, medical imaging exams and procedure reports are released immediately into your electronic medical record. You may view this report before your referring provider. If you have questions, please contact your health care provider. Indication: Fall with left hip pain Technique: An AP view of the pelvis was acquired as well as AP and lateral views of the left hip Comparison: None Findings: Degenerative changes noted including the visualized lower lumbar spine. No acute fracture, dislocation or destructive process. Impression: Degenerative changes. No visible acute fracture, dislocation or destructive process. Dictated by Zander Hilton MD @ 10/07/2023 9:12:25 AM (Electronically Signed) Ordering Physician: Christine Jc M.D. Date of Service: 10/07/23 Procedure(s): CT pelvis wo con Accession Number(s): [id number] cc: YANA FISCHER D.O.; Christine Jc M.D.~ For Patients: As a result of the Cures Act, medical imaging exams and procedure reports are released immediately into your electronic medical record. You may view this report before your referring provider. If you have questions, please contact your health care provider. EXAM: CT OF THE PELVIS, WITHOUT CONTRAST CLINICAL INDICATION: Pain and hematoma following fall 1 week prior. COMPARISON IMAGING STUDIES: 10/07/2023 radiographs. TECHNICAL: Non-contrast CT of the pelvis with axial reconstructed and sagittal oblique and coronal oblique reformatted images created. FINDINGS: OSSEOUS STRUCTURES: No fracture, callous formation or periosteal reaction. Bilateral spondylolysis at L5 with mild anterolisthesis of L5 the sacrum. Degenerative changes lower lumbar spine. No evidence for chronic avascular necrosis. JOINT SPACES: Right Hip: No joint effusion or loose body. Mild narrowing and hypertrophic change. Left Hip: No joint effusion or loose body. Mild narrowing and hypertrophic change. SI Joints: Mild degenerative changes. MUSCLES AND TENDONS: Expansion of the left gluteus harmony musculature. There is an ill-defined mixed high and low attenuation fluid collection within the gluteus harmony musculature consistent with a hematoma. Although the margins are difficult to assess, the hematoma measures approximately 8 x 5 x 4 cm. No additional intramuscular hematomas. No muscle atrophy. No retracted tear of the gluteus minimus, gluteus medius, iliopsoas or common hamstring tendons. SOFT TISSUES: Mild subcutaneous edema in the left gluteal and hip region. No subcutaneous hematoma. INTRAPELVIC CONTENTS: 0.6 cm bladder calculus. Mild distention of the bladder. Prostatic hypertrophy. NEUROVASCULAR STRUCTURES: No abnormality of visualized neurovascular structures. OTHER FINDINGS: No other findings. IMPRESSION: 1. Hematoma in the left gluteus harmony musculature. 2. No fractures are evident. 3. Subcutaneous edema in the left gluteal and hip region. 4. Bladder calculus with bladder distention and prostatic hypertrophy. Please note that all CT scans at this facility use dose modulation, iterative reconstruction, and/or weight-based dosing when appropriate to reduce radiation dose to as low as reasonably achievable. Dictated by Abhishek Fitzgerald MD @ 10/07/2023 10:07:01 AM (Electronically Signed) Labs on day of discharge: Labs from last 24 hours 10/08/23 10/07/23 10/07/23 05:30 19:00 12:07 WBC 7.15 RBC 3.41 L Hgb 11.8 L 11.9 L Hct 36.4 L MCV 107 H MCH 35 H MCHC 32 RDW Coeff of Arsalan 14.5 Plt Count 157 Neut % (Auto) 62.5 Lymph % (Auto) 17.2 L [place] % (Auto) 10.6 Eos % (Auto) 2.7 Baso % (Auto) 0.4 Neut # (Auto) 4.47 Lymph # (Auto) 1.20 [place] # (Auto) 0.80 Eos # (Auto) 0.19 Baso # (Auto) 0.03 Abs Immat Gran (auto) 0.47 H Imm/Tot Granulo (auto) 6.6 Diff Slide Review Acceptable Review INR 1.44 H Sodium 138 Potassium 3.8 Chloride 107 Carbon Dioxide 25 Anion Gap 6 L BUN 22 Creatinine 0.7 Estimated Creat Clear 72.53 Estimated GFR 98 Glucose 109 Calcium 8.3 L Total Bilirubin 1.1 AST 58 H ALT 5 Alkaline Phosphatase 82 Total Protein 7.1 Albumin 3.8 Vitamin B12 RBC Fol Clau for Serum Lab Acknowledgement Test Added 10/07/23 08:20 WBC RBC Hgb Hct MCV MCH MCHC RDW Coeff of Arsalan Plt Count Neut % (Auto) Lymph % (Auto) [place] % (Auto) Eos % (Auto) Baso % (Auto) Neut # (Auto) Lymph # (Auto) [place] # (Auto) Eos # (Auto) Baso # (Auto) Abs Immat Gran (auto) Imm/Tot Granulo (auto) Diff Slide Review INR Sodium Potassium Chloride Carbon Dioxide Anion Gap BUN Creatinine Estimated Creat Clear Estimated GFR Glucose Calcium Total Bilirubin AST ALT Alkaline Phosphatase Total Protein Albumin Vitamin B12 > 1000 H RBC Fol Clau for Serum Pending Lab Acknowledgement Discharge Plan Discharge Disposition: Home, Self-Care Date of Admission: 10/07/23 10:44 Attending Provider on Discharge: Delaney De Santiago Primary Care Provider: YANA FISCHER Condition: Stable Anticipated Discharge Date/Time: 10/08/23 12:12 Discharge Medications: Continued ketoconazole 2 % cream 1 applic topical BID carbidopa-levodopa 25-100 mg tablet 3 tab PO QID amantadine HCl 100 mg capsule 100 mg PO BID pramipexole 0.25 mg tablet 0.25 mg PO HS warfarin 4 mg tablet 2 - 4 mg PO DAILY Rx Instructions: 2mg PO Mon/Thurs, 4mg every other day clonazepam 0.5 mg tablet 0.25 mg PO DAILY hydroxyurea 500 mg capsule 500 mg PO Q48H acetaminophen [Tylenol] 325 mg capsule 325 mg PO Q4H PRN aspirin 81 mg tablet,delayed release (DR/EC) 81 mg PO DAILY finasteride 5 mg tablet 5 mg PO DAILY tamsulosin 0.4 mg capsule 0.4 mg PO DAILY erythromycin 5 mg/gram (0.5 %) ointment 1 applic ophthalmic (eye) HS PRN polyethylene glycol 3350 [Miralax] 17 gram/dose powder 8.5 - 17 g PO DAILY PRN multivitamin Tablet 1 tab PO QAM docusate sodium [Colace] 100 mg capsule 100 mg PO BID melatonin 3 mg capsule 3 mg PO HS PRN ketorolac [Acular LS] 0.4 % drops 1 drp ophthalmic (eye) DAILY Rx Instructions: left eye Lubricant Eye (PG-PEG 400)(PF) 0.4-0.3 % dropperette 1 drp ophthalmic (eye) DAILY PRN Discharge Orders: Discharge Order (Routine); Ordered 10/08/23 Ordered By: Delaney De Santiago Additional Instructions: - INR at clinic appointment, no more that 4 days from now. - If unable to use TEDs hose, may wrap legs with ANGUS wraps for vericose veins, h/o DVT. - Try to avoid falls: rise slowly, use walker, remove rugs and other tripping hazards from home, avoid medications that make you sleepy or woozy. - Talk with your PCP about your risk of falls and your medications, specifically coumadin, clonazepam, and melatonin. - Continue outpatient OT for hand as previously prescribed. Activity Level: Activity as Tolerated and Use Walker Discharge Diet: Regular Follow Up Appointments: YANA FISCHER DO [Primary Care Provider] - (3-4 days) Forms: MyHealth Info Instructions
[2023-10-08 12:14] VITALS: PULSE 82; RESP 16; O2SAT 97
--- NOTE | 2023-10-08 13:31 | PC.NURSE ---
Patient discharged home in stable condition. All discharged education was completed at the time of discharge with patient. Alert and orientedx4. NSR on telemetry. Denied pain, did acknowledge discomfort in the hip area.
[2023-10-09 12:59] LABS: Folate, Serum >22.3 ng/mL (>=5.9)
== END 2023-10-08 13:38 | disposition home or self-care (01) ==
LOC: ED 10:22 → MEDSURG 10:44
PROVIDERS: Admitting Provider Family Medicine; Emergency Provider Family Medicine; PCP Student in an Organized Health Care Education/Training Program; Visit Provider Family Medicine
DX: S30.1XXA Contusion of abdominal wall, initial encounter (principal); S30.0XXA Contusion of lower back and pelvis, initial encounter; D62 Acute posthemorrhagic anemia; Z79.01 Long term (current) use of anticoagulants; G20.A1 Parkinson's disease without dyskinesia, without mention of fluctuations; M25.552 Pain in left hip; W19.XXXA Unspecified fall, initial encounter; K59.09 Other constipation; T14.8XXA Other injury of unspecified body region, initial encounter; D75.1 Secondary polycythemia; E83.119 Hemochromatosis, unspecified; Z14.8 Genetic carrier of other disease; I95.1 Orthostatic hypotension; Z79.82 Long term (current) use of aspirin; Z91.81 History of falling; Z86.718 Personal history of other venous thrombosis and embolism; Z87.81 Personal history of (healed) traumatic fracture; Z98.890 Other specified postprocedural states
CPT/HCPCS: 36415; 72192; 73502; 80048; 80053; 82550; 82607; 82746; 85018; 85025; 85610; 94761; 97116; 97161; 97165; 97530; 97535; 99284; 99285; G0378; A9270; S0176

== ENCOUNTER 2023-10-11 14:30 | Outpatient (RCR) | payer MEDICARE, BC, SELFPAY | END 2024-02-08 23:59 | disposition home or self-care (01) | PROVIDERS: PCP Student in an Organized Health Care Education/Training Program; Visit Provider Physician Assistant Surgical | DX: S63.259A Unspecified dislocation of unspecified finger, initial encounter (principal); Z51.89 Encounter for other specified aftercare | CPT/HCPCS: 97035; 97110; 97140; 97165; 97535; L3808; X5282 ==

== ENCOUNTER 2023-10-12 17:15 | Outpatient (CLI) | payer MEDICARE, BC, SELFPAY ==
--- OUTSIDE RECORDS SUMMARY | 2023-10-14 17:15 | XMS_ITS | Clinical Summary ---
Author Name Unknown Organization [facility] [employer] [facility] Address [place], [place] [address] Care Team Providers Care Binder Cutter Name Role Phone Ricardo Diaz MD Unavailable Unavaila ble Macrina Martin DO Primary Care Provider [phone] Allergies Active Allergy Reactions Criticality Noted Date [...] 024 Discontinued(*P atient states no longer taking) clindamycin (CLEOCIN) 150 mg capsule 0 3 [...] Encounters Date Type Department Care Team Description 10/14/2023 2:15 PM VAULT ATTENDANT Ancillary Procedure [facility] [address] [place] [address] Arrived 10/14/2023 Travel 10/14/2023 Telephone [facility] [address] [facility] [address] [address], [facility] Anticoagulation (Unable to contact x 3 attempts) 10/12/2023 Orders Only [facility] Scanner 1 scan: (1-Ord) [facility], CT CERVICAL SPINE W/O CONTRAST , 10/12/2023 10/12/2023 Orders Only [facility] Scanner 1 scan: (1-Ord) [place], CHEST, 10/12/2023 10/12/2023 Orders Only [facility] Scanner 1 scan: (1-Ord) [facility], CT HEAD/BRAIN WO CON, 10/12/2023 10/12/2023 Anticoagulation (warfarin) [facility] [address] [facility] [address] [address], [facility] Anticoagulation 10/11/2023 1:00 PM VAULT ATTENDANT Office Visit [facility] [address] [place] [address] Naomi Puente MD Hospital F/U (hospital F/u); Vascular Problems (discuss DVT, wants more information) 10/11/2023 12:45 PM VAULT ATTENDANT Orders Only [facility] [address] [facility] [address] [address], [facility] 10/11/2023 Travel 10/07/2023 Orders Only [facility] Scanner 1 scan: (1-Ord) [facility], PELVIS W/O CONTRAST, 10/07/2023 10/07/2023 Orders Only [facility] Scanner 1 scan: (1-Ord) [facility], XR LT HIP MIN 2 VIEWS, 10/07/2023 10/07/2023 Nurse Triage [facility] [address] [place] [address] Macrina Martin, DO Hip Injury 09/28/2023 Anticoagulation (warfarin) [facility] [address] [facility] [address] 1, [facility] Anticoagulation 09/27/2023 1:45 PM VAULT ATTENDANT Orders Only [facility] [address] [facility] [address] [facility], [place] [facility] 09/27/2023 Travel 09/23/2023 Refill [facility] [address] [facility] [place] [address] Darlin Butler PA Refill Request (Clonazepam) 09/20/[address] [phone] Leta Laird MD Questions (PSA and Medication ) 09/14/[address] [phone] Leta Laird MD Refill Request (Tamsulosin 0.4mg ) 09/14/[address] [phone] Leta Laird MD Lab (PSA Test) 09/09/2023 Refill [facility] [address] [facility] [place] [address] Macrina Martin DO Refill Request (Warfarin) 09/01/2023 Orders Only [facility] Scanner 1 scan: (1-Ord) [facility], XR 3RD FINGER RT, 09/01/2023 09/01/2023 Nurse Triage [facility] [address] [facility] [place] [address] Macrina Martin DO Finger Pain/problem 08/27/2023 Refill [facility] [address] [facility] [place] [address] Macrina Martin DO Refill Request (Pramipexole) 08/15/2023 11:10 AM VAULT ATTENDANT Orders Only [facility] [address] [facility] [place] [address] Lab, [place] 08/15/2023 Anticoagulation (warfarin) [facility] [address] [place] [address] 1, [facility] Anticoagulation 08/15/2023 Travel 08/11/2023 Telephone [facility] [address] [place] [address] Macrina Martin DO FYI 08/04/2023 1:45 PM VAULT ATTENDANT Ancillary Procedure [facility] [address] [facility] [address] 08/04/2023 12:25 PM VAULT ATTENDANT Office Visit [facility] [address] [place] [address] Macrina Martin DO Fall (07/10 - did go to and xray was normal - some lower leg swelling but had DVT rule out - has been feeling better - just some pain with walking ) 08/04/2023 Telephone [facility] [address] [facility] [address] Macrina Martin DO Results 08/04/[address] [place] [address] Macrina Martin DO Questions 08/04/2023 Travel 07/25/2023 11:50 AM VAULT ATTENDANT Orders Only [facility] [address] [place] [address] Lab, [place] [facility] 07/25/2023 Telephone [facility] [address] [place] [address] Macrina Martin DO Anticoagulation (Review INR and warfarin dosing ) 07/25/2023 Anticoagulation (warfarin) [address] [place] [address] 1, [place] [facility] Anticoagulation 07/25/2023 Travel 07/14/2023 Nurse Triage [address] [place] [address] Macrina Martin DO Questions from Last 3 Months Immunizations Name Administration Dates Next Due AMB INFLUENZA IIV3 (AGE 65+ YRS) PF (Flu Clinic Only) 06/21/2019,07/06/2018 COVID-19 vaccine (Moderna 100mcg/0.5mL) ANNIE MCCOY 12/25/2020,11/03/2020 COVID-19 vaccine ([employer] 30mcg/0.3mL) 12YO+ BIVALENT PF, MDV 06/30/2022 Influenza, [...] Comments Blood Pressure 124/73 10/11/2023 12:54 PM VAULT ATTENDANT Pulse 77 10/11/2023 12:54 PM VAULT ATTENDANT Temperature 36.4 ??C (97.5 ??F) 04/26/2023 3:12 PM CD T Respiratory Rate 16 07/27/2021 1:22 PM VAULT ATTENDANT Oxygen Saturation 97% 10/11/2023 12:54 PM VAULT ATTENDANT Inhaled Oxygen Concentration - - Weight 78.7 kg (173 lb 9.6 oz) 10/11/2023 12:54 PM VAULT ATTENDANT Height 182.9 cm (6') 08/04/2023 12:28 PM VAULT ATTENDANT Body Mass Index 23.54 08/04/2023 12:28 PM VAULT ATTENDANT Plan of Treatment Upcoming Encounters Date Type Department Care Team (Late st Contact Info) Description 10/31/2023 11:00 AM VAULT ATTENDANT Office Visit [facility] [address] [place] [address] 11/08/2023 1:30 PM VAULT ATTENDANT Orders Only [facility] [address] [place] [address] Lab, [place] 05/01/2024 3:40 PM CDT Office Visit [facility] [address] [place] [address] Ricardo Wilkins MD [address] [place] [address] Health Maintenance Due Date Last Done Comments [...] Procedure Name Priority Date/Time Associated Diagnosis Comments ECHO TTE COMPLETE WO CONTRAST Routine 10/14/2023 4:33 PM VAULT ATTENDANT Syncope SCAN-CT INTERPRETATION 4 12:00 AM VAULT ATTENDANT SCAN-RADIOLOGY REPORT 10/12/2023 12:00 AM VAULT ATTENDANT SCAN-CT INTERPRETATION 4 12:00 AM VAULT ATTENDANT PROTIME-INR STAT 10/11/2023 12:37 PM VAULT ATTENDANT Chronic deep vein thrombosis (DVT) of femoral vein of left lower extremity (HC) Anticoagulation monitoring, INR range 1.5-2.5 SCAN-CT INTERPRETATION 4 12:00 AM VAULT ATTENDANT SCAN-RADIOLOGY REPORT 10/07/2023 12:00 AM VAULT ATTENDANT PSA TOTAL SCREEN Routine 09/27/2023 1:58 PM VAULT ATTENDANT Prostate cancer screening PROTIME-INR STAT 09/27/2023 1:58 PM VAULT ATTENDANT Chronic deep vein thrombosis (DVT) of femoral vein of left lower extremity (HC) Anticoagulation monitoring, INR range 1.5-2.5 SCAN-RADIOLOGY REPORT 09/01/2023 12:00 AM VAULT ATTENDANT INR,POCT Routine 08/15/2023 11:15 AM VAULT ATTENDANT Chronic deep vein thrombosis (DVT) of femoral vein of left lower extremity (HC) Anticoagulation monitoring, INR range 1.5-2.5 US VENOUS LOWER EXTREMITY LEFT STAT 08/04/2023 2:16 PM VAULT ATTENDANT Localized swelling of lower extremity INR,POCT Routine 07/25/2023 12:03 PM VAULT ATTENDANT Chronic deep vein thrombosis (DVT) of femoral vein of left lower extremity (HC) Anticoagulation monitoring, INR range 1.5-2.5 from Last 3 Months Results * ECHO TTE COMPLETE WO CONTRAST (10/14/2023 4:33 PM VAULT ATTENDANT) AORTIC VALVE MEAN PG 12 mmHg EJECTION FRACTION 58 % LVEDD 4.8 cm EJECTION FRACTION 55 - 60% Anatomical Region Laterality Modality Ultrasound 10/14/2023 3:57 PM VAULT ATTENDANT Narrative 10/14/2023 4:45 PM VAULT ATTENDANT ECHOCARDIOGRAM DEBBI CATESLD ?Accession#: ?? [id number] : ?1950 73 years Study Date: ?? 10/14/2023 3:57:52 PM Gender: M ? BP: ? 115/67 mmHg Height: 183.00 cm ? BSA: ?2.04 m? ? ? Weight: 82.00 kg ?Tech: ? MSR ?Referring MD: RADHA MENDOZA Site: ? [facility] [place] Location: Mobile [facility] Patient Location: Inpatient. Procedure: 2D, Color Doppler and Spectral Doppler. Indication for study: Syncope Cardiac Rhythm: Regular.Study quality: Good. Final Impressions: 1. Normal LV size, normal wall thickness, normal global systolic function with an estimated EF of 55 - 60%. 2. The aortic valve is calcified, mild stenosis (mean 2.3 m/s, mean gradient 12 mm Hg) and no regurgitation. 3. The mitral valve is MAC, trace mitral regurgitation. Chamber Sizes and Function Normal left ventricular size, normal wall thickness, normal global systolic function with an estimated EF of 55 - 60%. Left atrial size is normal. Right ventricular cavity size is normal, global systolic RV function is normal. RV wall thickness is normal. The right atrium is normal. The pulmonary artery is of normal size and origin. The sinus of Valsalva is normal sized. The ascending aorta is normal sized. Valves, RV Pressures and Diastolic Function The aortic valve is calcified, mild stenosis and no regurgitation. The mitral valve is MAC, trace mitral regurgitation. Spectral Doppler shows Grade 1 pattern of LV diastolic filling. The tricuspid valve is normal in structure. Tricuspid regurgitation is regurgitation is not evident. The pulmonic valve is normal. No pulmonary regurgitation. Masses, Effusion, Shunts There is no pericardial effusion. The inferior vena cava is normal sized, respiratory size variation greater than 50%. No left to right shunting was detected by limited color flow Doppler interrogation of the interatrial septum. MEASUREMENTS AND CALCULATIONS 2-D Measurements and LV Function: LVID (d) 4.8 cm LV FS% (2D) ?? 31 % LVID (s) 3.3 cm LVOT diameter 2.2 cm IVS (d) ??0.8 cm HR ?84 bpm LVPW (d) 0.9 cm LA Vol index ??20 ml/m2 Ao Sinus 3.3 cm RV Max 4C (d) 4.3 cm Asc Ao ?? 3.7 cm Diastology: Mitral ?Tissue Doppler E Peak 0.7 m/s ??e', Septum ? 0.06 m/s A Peak 1.1 m/s ??e', Lateral ?0.10 m/s E/A ?0.6 ?E/e' Average ?? 8.59 DT ? 277 msec Aortic Valve: Vmax ? 2.3 m/s ??JAYLENE (V) ?? 2.03 cm? ? ? VTI ?0.39 m ?? JAYLENE (I) ?? 2.15 cm? ? ? LVOT V max 1.3 m/s ??Max PG ?22 mmHg LVOT VTI ?? 0.22 m ?? Mean PG ?? 12 mmHg SV ? 85 ml ?Dim Index 0.57 SV index ?? 42 ml/m? ? ? CO ?7.1 l/min ?CI ?3.5 l/min/m? ? ? Mitral Valve: MVA ?2.7 cm? ? ? MV P 1/2 80 msec Tricuspid Valve and estimated PA pressures: TAPSE 1.9 cm . This study was interpreted by an [facility] accredited facility. CC: [facility] (med records) [facility], Med/Surg - IP [facility]. ??Final ?? Procedure Note Jose Armando Abel MD - 10/14/2023 ECHOCARDIOGRAM DEBBI KAY : 1950 73 years Study Date: 10/14/2023 3:57:52 PM Gender: M BP: 115/67 mmHg Height: 183.00 cm BSA: 2.04 m? ? ? Weight: 82.00 kg Tech: R Referring MD: RADHA MENDOZA Site: [facility] [place] Location: [facility] Patient Location: Inpatient. Procedure: 2D, Color Doppler and Spectral Doppler. Indication for study: Syncope Cardiac Rhythm: Regular.Study quality: Good. Final Impressions: 1. Normal LV size, normal wall thickness, normal global systolic functionwith an estimated EF of 55 - 60%. 2. The aortic valve is calcified, mild stenosis (mean 2.3 m/s, meangradient 12 mm Hg) and no regurgitation. 3. The mitral valve is MAC, trace mitral regurgitation. Chamber Sizes and Function Normal left ventricular size, normal wall thickness, normal globalsystolic function with an estimated EF of 55 - 60%. Left atrial size isnormal. Right ventricular cavity size is normal, global systolic RVfunction is normal. RV wall thickness is normal. The right atrium isnormal. The pulmonary artery is of normal size and origin. The sinus ofValsalva is normal sized. The ascending aorta is normal sized. Valves, RV Pressures and Diastolic Function The aortic valve is calcified, mild stenosis and no regurgitation. Themitral valve is MAC, trace mitral regurgitation. Spectral Doppler showsGrade 1 pattern of LV diastolic filling. The tricuspid valve is normal instructure. Tricuspid regurgitation is regurgitation is not evident. Thepulmonic valve is normal. No pulmonary regurgitation. Masses, Effusion, Shunts There is no pericardial effusion. The inferior vena cava is normal sized,respiratory size variation greater than 50%. No left to right shunting wasdetected by limited color flow Doppler interrogation of the interatrialseptum. MEASUREMENTS AND CALCULATIONS 2-D Measurements and LV Function: LVID (d) 4.8 cm LV FS% (2D) 31 % LVID (s) 3.3 cm LVOT diameter 2.2 cm IVS (d) 0.8 cm HR 84 bpm LVPW (d) 0.9 cm LA Vol index 20 ml/m2 Ao Sinus 3.3 cm RV Max 4C (d) 4.3 cm Asc Ao 3.7 cm Diastology: Mitral Tissue Doppler E Peak 0.7 m/s e', Septum 0.06 m/s A Peak 1.1 m/s e', Lateral 0.10 m/s E/A 0.6 E/e' Average 8.59 DT 277 msec Aortic Valve: Vmax 2.3 m/s JAYLENE (V) 2.03 cm? ? ? VTI 0.39 m JAYLENE (I) 2.15 cm? ? ? LVOT V max 1.3 m/s Max PG 22 mmHg LVOT VTI 0.22 m Mean PG 12 mmHg SV 85 ml Dim Index 0.57 SV index 42 ml/m? ? ? CO 7.1 l/min CI 3.5 l/min/m? ? ? Mitral Valve: MVA 2.7 cm? ? ? MV P 1/2 80 msec Tricuspid Valve and estimated PA pressures: TAPSE 1.9 cm . This study was interpreted by an [facility] accredited facility. CC: [facility] (med records) [facility], Med/Surg - IP [facility]. Final Radha Mendoza MD ECHO ORD * SCAN-RADIOLOGY REPORT (10/12/2023 12:00 AM VAULT ATTENDANT) Only the most recent of3 resultswithin the time period is included. Anatomical Region Laterality Modality Other Scanner OTHER * SCAN-CT INTERPRETATION (10/12/2023 12:00 AM VAULT ATTENDANT) Only the most recent of3 resultswithin the time period is included. Anatomical Region Laterality Modality Other Scanner OTHER * (ABNORMAL) PROTIME-INR (10/11/2023 12:37 PM VAULT ATTENDANT) Only the most recent of2 resultswithin the time period is included. INR 1.2 <1.3 10/11/2023 8:38 PM VAULT ATTENDANT [facility] PROTIME 13.2(H) 10.3 - 12.3 sec 10/11/2023 8:38 PM VAULT ATTENDANT [facility] Blood BLOOD SPECIMEN / Unknown Venipuncture / Unknown 10/11/2023 12:37 PM VAULT ATTENDANT 10/11/2023 12:39 PM VAULT ATTENDANT Narrative [facility] - 10/11/2023 8:38 PM VAULT ATTENDANT ?Therapeutic Range 2.0-3.0 for most anticoagulated patients [...] Macrina Martin DO HEMATOLOGY Performing Organization Address City/[facility]/ZIP Co de Phone Number [facility] [address] [place] [address], * PSA TOTAL SCREEN (09/27/2023 1:58 PM VAULT ATTENDANT) PSA TOTAL (SCREEN) 1.05 <4.00 ng/mL 09/27/2023 11:03 PM VAULT ATTENDANT [facility] Blood BLOOD SPECIMEN / Unknown Venipuncture / Unknown 09/27/2023 1:58 PM VAULT ATTENDANT 09/27/2023 1:58 PM VAULT ATTENDANT Narrative [facility] - 09/27/2023 11:03 PM VAULT ATTENDANT The test method changed on 03/01/2023. If [...] Leta Laird MD LABORATORY Performing Organization Address [facility] Co de Phone Number [facility] [address] [place] [address], * (ABNORMAL) INR,POCT (08/15/2023 11:15 AM VAULT ATTENDANT) Only the most recent of2 resultswithin the time period is included. INR 1.9(H) <1.3 08/15/2023 11:18 AM VAULT ATTENDANT [facility] Blood BLOOD SPECIMEN / Unknown 08/15/2023 11:15 AM VAULT ATTENDANT 08/15/2023 11:18 AM VAULT ATTENDANT Narrative [facility] - 08/15/2023 11:18 AM VAULT ATTENDANT ?Therapeutic Range 2.0-3.0 for most anticoagulated patients 2.5-3.5 or 4.0 for high risk patients Macrina Martin DO LABORATORY [facility] [address] [place] [address], * US VENOUS LOWER EXTREMITY LEFT (08/04/2023 2:16 PM VAULT ATTENDANT) Anatomical Region Laterality Modality LEGS, LEG L, Abdomen Ultrasound 08/04/2023 2:54 PM VAULT ATTENDANT Impressions 08/04/2023 2:54 PM VAULT ATTENDANT Normal venous ultrasound exam. No evidence of deep vein thrombosis within the left lower extremity. Dictated by Ricardo Peacock MD @ Aug 04 2023 ??2:54PM (Electronically Signed) ?? Narrative 08/04/2023 2:54 PM VAULT ATTENDANT For Patients: ??As a result of the [...] Documents on File Type Date Recorded Patient Assembler Bicycle Expl anation Healthcare Directive 06/27/2017 11:07 AM BRYANNA WILSON, 10/24/1997 Healthcare Directive 06/07/2016 12:06 PM Juan Ramon WILSON, 10/24/1997 Care Teams Binder Cutter Relationship Specialty Start Date End [place] [address] [place] [address] PCP - General Family Practice 08/10/22 Ricardo Diaz MD Neurology Neurology 03/02/11
== END 2023-10-12 17:16 | disposition home or self-care (01) ==
LOC: AMB 10-14 17:13
PROVIDERS: PCP Student in an Organized Health Care Education/Training Program; Visit Provider Emergency Medicine
DX: R41.82 Altered mental status, unspecified (principal)
CPT/HCPCS: A0425; A0427

== ENCOUNTER 2023-10-12 17:39 | Inpatient (IN) | payer MEDICARE, BC, SELFPAY ==
[2023-10-12] VITALS (11 sets, daily range): BP systolic 113–158; BP diastolic 65–86; PULSE 85–95; RESP 16–18; TEMP 36.7–38.9; O2SAT 95–99; BMI 23.1; BMI 22.8
--- OUTSIDE RECORDS SUMMARY | 2023-10-12 17:47 | XMS_ITS | Clinical Summary ---
Author Name Unknown Organization [email or web address] [facility] Address [place], [place] [address] Care Team Providers Care Sales Promotion Manager Name Role Phone Ricardo Diaz MD Unavailable Unavaila ble Macrina Martin DO Primary Care Provider [phone] Allergies Active Allergy Reactions Criticality Noted Date [...] 4000mg in 24 hrs. 0 5 Active melatonin 3 mg tablet [...] every morning. 90 Tablet 3 3 Active hydroxyurea (HYDREA) 500 mg capsuleIndicatio [...] mg (4 mg x 0.5) every Tue, Tue; 4 mg (4 mg x 1) all [...] ONCE DAILY 45 Tablet 0 4 Active ketorolac 0.4 % ophthalmic (ACULAR LS) 0.4 % ophthalmic solution One drop into left eye once daily. 5 mL 0 5 024 Discontinued(*P atient states no longer taking) tamsulosin (Flomax) 0.4 mg capsuleIndicatio ns:Benign prostatic hyperplasia, unspecified whether lower urinary tract symptoms present Take 1 Capsule (0.4 mg) by mouth once daily after a meal. 90 Capsule 3 3 024 Discontinued(Re order (E-cancel not sent)) clindamycin (CLEOCIN) 150 mg capsule 0 3 024 Discontinued(*P atient states no longer taking) clonazePAM (KLONOPIN) 0.5 mg tabletIndication s:REM sleep behavior disorder TAKE ONE-HALF TABLET (0.25 MG) BY MOUTH ONCE DAILY 45 Tablet 0 3 024 Discontinued Active Problems Problem Noted Date Diagnosed Date Frequent falls 10/11/2023 Fracture of right femur 05/04/2022 Hemarthrosis of [...] Encounters Date Type Department Care Team Description 10/12/2023 Anticoagulation (warfarin) [facility] [address] [facility] [address] [facility] Antico[facility] 10/11/2023 1:00 PM DIRECTOR [employer] Office Visit [facility] [address] [place] [place] [address] Naomi Puente MD Hospital F/U (hospital F/u); Vascular Problems (discuss DVT, wants more information) 10/11/2023 12:45 PM DIRECTOR [employer] Orders Only [facility] [address] [place] [address] Lab, [facility] 10/11/2023 Travel 10/07/2023 Orders Only [facility] Scanner 1 scan: (1-Ord) [facility], PELVIS W/O CONTRAST, 10/07/2023 10/07/2023 Orders Only [facility] Scanner 1 scan: (1-Ord) [facility], XR LT HIP MIN 2 VIEWS, 10/07/2023 10/07/2023 Nurse Triage [facility] [address] [place] [address] Macrina Martin DO Hip Injury 09/28/2023 Anticoagulation (warfarin) [facility] [address] [facility] [address] 1, [facility] Anticoagulation 09/27/2023 1:45 PM DIRECTOR [employer] Orders Only [facility] [address] [place] [address] Lab, [facility] 09/27/2023 Travel 09/23/2023 Refill [facility] [address] [place] [address] Darlin Butler PA Refill Request (Clonazepam) 09/20/2023 Telephone [place] [address] [facility] [place] [phone] Leta Laird MD Questions (PSA and Medication ) 09/14/2023 Refill [facility] [address] [place] [phone] Leta Laird MD Refill Request (Tamsulosin 0.4mg ) 09/14/2023 Telephone [facility] [address] [place] [phone] Leta Laird MD Lab (PSA Test) 09/09/2023 Refill [facility] [address] [place] [address] Macrina Martin DO Refill Request (Warfarin) 09/01/2023 Orders Only [facility] Scanner 1 scan: (1-Ord) [facility], XR 3RD FINGER RT, 09/01/2023 09/01/2023 Nurse Triage [facility] [address] [place] [address] Macrina Martin DO Finger Pain/problem 08/27/2023 Refill [facility] [address] [facility] [address] Macrina Martin DO Refill Request (Pramipexole) 08/15/2023 11:10 AM DIRECTOR [employer] Orders Only [facility] [address] [facility] [address] Lab[facility] 08/15/2023 Anticoagulation (warfarin) [address] [address] 1, [facility] Anticoagulation 08/15/2023 Travel 08/11/[address] [address] Macrina Martin DO FYI 08/04/2023 1:45 PM DIRECTOR [employer] Ancillary Procedure [facility] [address] [place] [address] 08/04/2023 12:25 PM DIRECTOR [employer] Office Visit [address] [address] Macrina Martin DO Fall (07/10 - did go to and xray was normal - some lower leg swelling but had DVT rule out - has been feeling better - just some pain with walking ) 08/04/2023 Telephone [facility] [address] [place] [place] [address] Macrina Martin DO Results 08/04/2023 Telephone [facility] [address] [facility] [address] Macrina Martin DO Questions 08/04/2023 Travel 07/25/2023 11:50 AM DIRECTOR [employer] Orders Only [facility] [address] [place] [address] Lab, [facility] 07/25/2023 Telephone [facility] [address] [place] [address] Macrina Martin DO Anticoagulation (Review INR and warfarin dosing ) 07/25/2023 Anticoagulation (warfarin) [facility] [address] [place] [address] 1, [facility] Anticoagulation 07/25/2023 Travel 07/14/2023 Nurse Triage [facility] [address] [place] [address] Macrina Martin DO Questions from Last 3 Months Immunizations Name Administration Dates Next Due AMB INFLUENZA IIV3 (AGE 65+ YRS) PF (Flu Clinic Only) 06/21/2019,07/06/2018 COVID-19 vaccine (Moderna 100mcg/0.5mL) PF, MDV 12/25/2020,11/03/2020 COVID-19 vaccine (Pfizer-Bio NTech 30mcg/0.3mL) 12YO+ BIVALENT PF, MDV 06/30/2022 [...] Sign Reading Time Taken Comments Blood Pressure 124/73 10/11/2023 12:54 PM DIRECTOR [employer] Pulse 77 10/11/2023 12:54 PM [employer] Temperature 36.4 ??C (97.5 ??F) 04/26/2023 3:12 PM CD T Respiratory Rate 16 07/27/2021 1:22 PM [employer] Oxygen Saturation 97% 10/11/2023 12:54 PM [employer] Inhaled Oxygen Concentration - - Weight 78.7 kg (173 lb 9.6 oz) 10/11/2023 12:54 PM [employer] Height 182.9 cm (6') 08/04/2023 12:28 PM DIRECTOR [employer] Body Mass Index 23.54 08/04/2023 12:28 PM DIRECTOR [employer] Plan of Treatment Upcoming Encounters Date Type Department Care Team (Late st Contact Info) Description 10/13/2023 12:00 PM DIRECTOR [employer] Office Visit [address] [phone] Leta Laird MD [address] [place] [address] 10/14/2023 9:45 AM DIRECTOR [employer] Office Visit [facility] [address] [facility] [place] [address] Macrina Martin DO [address] [place] [address] 10/31/2023 11:00 AM DIRECTOR [employer] Office Visit [facility] [address] [place] [address] 11/08/2023 1:30 PM DIRECTOR [employer] Orders Only [facility] [address] [place] [address] [facility] [place] 05/01/2024 3:40 PM CDT Office Visit [facility] [address] [place] [address] Ricardo Wilkins MD [address] [place] [address] Health Maintenance Due Date Last Done Comments [...] Procedure Name Priority Date/Time Associated Diagnosis Comments PROTIME-INR STAT 10/11/2023 12:37 PM DIRECTOR [employer] Chronic deep vein thrombosis (DVT) of femoral vein of left lower extremity (HC) Anticoagulation monitoring, INR range 1.5-2.5 SCAN-CT INTERPRETATION 12:00 AM DIRECTOR [employer] SCAN-RADIOLOGY REPORT 10/07/2023 12:00 AM DIRECTOR [employer] PSA TOTAL SCREEN Routine 09/27/2023 1:58 PM DIRECTOR [employer] Prostate cancer screening PROTIME-INR STAT 09/27/2023 1:58 PM DIRECTOR [employer] Chronic deep vein thrombosis (DVT) of femoral vein of left lower extremity (HC) Anticoagulation monitoring, INR range 1.5-2.5 SCAN-RADIOLOGY REPORT 09/01/2023 12:00 AM DIRECTOR [employer] INR,POCT Routine 08/15/2023 11:15 AM DIRECTOR [employer] Chronic deep vein thrombosis (DVT) of femoral vein of left lower extremity (HC) Anticoagulation monitoring, INR range 1.5-2.5 US VENOUS LOWER EXTREMITY LEFT STAT 08/04/2023 2:16 PM DIRECTOR [employer] Localized swelling of lower extremity INR,POCT Routine 07/25/2023 12:03 PM DIRECTOR [employer] Chronic deep vein thrombosis (DVT) of femoral vein of left lower extremity (HC) Anticoagulation monitoring, INR range 1.5-2.5 from Last 3 Months Results * (ABNORMAL) PROTIME-INR (10/11/2023 12:37 PM DIRECTOR [employer]) Only the most recent of2 resultswithin the time period is included. INR 1.2 <1.3 10/11/2023 8:38 PM DIRECTOR [employer] [facility] PROTIME 13.2(H) 10.3 - 12.3 sec 10/11/2023 8:38 PM DIRECTOR [employer] [facility] Blood BLOOD SPECIMEN / Unknown Venipuncture / Unknown 10/11/2023 12:37 PM DIRECTOR [employer] 10/11/2023 12:39 PM DIRECTOR [employer] Narrative [facility] - 10/11/2023 8:38 PM DIRECTOR [employer] ?Therapeutic Range 2.0-3.0 for most anticoagulated patients [...] is on [facility]. Macrina Martin DO HEMATOLOGY [facility] [address] [place] [address], * SCAN-RADIOLOGY REPORT (10/07/2023 12:00 AM DIRECTOR [employer]) Only the most recent of2 resultswithin the time period is included. Anatomical Region Laterality Modality Other Scanner OTHER * SCAN-CT INTERPRETATION (10/07/2023 12:00 AM DIRECTOR [employer]) Anatomical Region Laterality Modality Other Scanner OTHER * PSA TOTAL SCREEN (09/27/2023 1:58 PM DIRECTOR [employer]) PSA TOTAL (SCREEN) 1.05 <4.00 ng/mL 09/27/2023 11:[address] MOBILE MEDIA SOLUTIONS [facility] Blood BLOOD SPECIMEN / Unknown Venipuncture / Unknown 09/27/2023 1:58 PM DIRECTOR [employer] 09/27/2023 1:58 PM DIRECTOR [employer] Narrative [facility] - 09/27/2023 11:03 PM DIRECTOR [employer] The test method changed on 03/01/2023. If [...] be used interchangeably. Leta Laird MD LABORATORY [facility] [address] [place] [address], * (ABNORMAL) INR,POCT (08/15/2023 11:15 AM DIRECTOR [employer]) Only the most recent of2 resultswithin the time period is included. INR 1.9(H) <1.3 08/15/2023 11:18 AM DIRECTOR [employer] [facility] Blood BLOOD SPECIMEN / Unknown 08/15/2023 11:15 AM DIRECTOR [employer] 08/15/2023 11:18 AM DIRECTOR [employer] Narrative [facility] - 08/15/2023 11:18 AM DIRECTOR [employer] ?Therapeutic Range 2.0-3.0 for most anticoagulated patients 2.5-3.5 or 4.0 for high risk patients Macrina Martin DO LABORATORY [facility] [address] [place] [address], * US VENOUS LOWER EXTREMITY LEFT (08/04/2023 2:16 PM DIRECTOR [employer]) Anatomical Region Laterality Modality LEGS, LEG L, Abdomen Ultrasound 08/04/2023 2:54 PM DIRECTOR [employer] Impressions 08/04/2023 2:54 PM DIRECTOR [employer] Normal venous ultrasound exam. No evidence of deep vein thrombosis within the left lower extremity. Dictated by Ricardo Peacock MD @ Aug 04 2023 ??2:54PM (Electronically Signed) ?? Narrative 08/04/2023 2:54 PM DIRECTOR [employer] For Patients: ??As a result of the Cures Act, medical imaging exams and procedure [...] Aug 04 2023 2:54PM (Electronically Signed) Macrina COOPER from Last 3 Months Advance Directives Documents on File Type Date Recorded Patient Water Use Inspector Expl anation Healthcare Directive 06/27/2017 11:07 AM BRYANNA WILSON, [birth year]/24/1998 Healthcare Directive 06/07/2016 12:06 PM Juan Ramon WILSON, 10/24/1998 Care Teams Sales Promotion Manager Relationship Specialty Start Date End [place] [address] PCP - General Family Practice 08/10/22 Ricardo Diaz MD Neurology Neurology 03/02/11
--- NOTE | 2023-10-12 18:05 | ED.GENADULT ---
HPI - General Adult General Time Seen by Provider: 18:20 Date Seen: 10/12/23 Chief complaint: Weakness Stated complaint: Fall Time Seen by Provider: 10/12/23 17:45 Source: patient, EMS and RN notes reviewed Mode of arrival: EMS Limitations: no limitations History of Present Illness HPI narrative: Kashif is a 73-year-old gentleman brought in by EMS where he was found down at home. He believes he fell probably somewhere between 10:00 p.m. to midnight last night. Was laying there. He lives at [facility] [address]. His neighbor became concerned when she saw a newspaper that had not been retrieved outside his door. He was dressed, on the floor, incontinent and lying on the carpeted area. He is only complaining of ?bladder pain?. He he has had multiple falls presumably due to his Parkinson's disease over the last month. Nursing staff wrote that he had confusion as to events and ?pieces of wood on him? but he is not complaining of any confusion to me. Specifically he was asked if he is feeling confused to the events or having memory issues to the events and he is adamant that he is not. EMS had significant difficulty getting him up, felt he was unstable and weak. He does not think there was loss of consciousness but this is not known for sure. He did get a COVID vaccination yesterday. He is found to be febrile in triage with a temperature 102.1?. He was just hospitalized October 07 to October 08 with acute blood loss from a left gluteal hematoma. He did not require transfusion, was observed and there was no significant change in his hemoglobin during the hospitalization. He opted to maintain anticoagulation with Coumadin despite his high risk for falls. His only complaint of pain is his bladder. Related Data Home Medications Medication Instructions Recorded Confirmed acetaminophen 325 mg capsule 325 mg PO Q4H PRN 08/11/22 10/07/23 (Tylenol) amantadine HCl 100 mg capsule 100 mg PO BID 08/11/22 10/07/23 aspirin 81 mg tablet,delayed 81 mg PO DAILY 08/11/22 10/07/23 release carbidopa 25 mg-levodopa 100 mg 3 tab PO QID 08/11/22 10/07/23 tablet clonazepam 0.5 mg tablet 0.25 mg PO DAILY 08/11/22 10/07/23 hydroxyurea 500 mg capsule 500 mg PO Q48H 08/11/22 10/07/23 ketoconazole 2 % topical cream 1 applic topical BID 08/11/22 10/07/23 pramipexole 0.25 mg tablet 0.25 mg PO HS 08/11/22 10/07/23 warfarin 4 mg tablet 2 - 4 mg PO DAILY 08/11/22 10/07/23 erythromycin 5 mg/gram (0.5 %) eye 1 applic ophthalmic (eye) HS PRN 02/14/23 10/07/23 ointment finasteride 5 mg tablet 5 mg PO DAILY 08/17/23 10/07/23 multivitamin 1 tab PO QAM 08/17/23 10/07/23 polyethylene glycol 3350 17 8.5 - 17 g PO DAILY PRN 08/17/23 10/07/23 gram/dose oral powder (Miralax) tamsulosin 0.4 mg capsule 0.4 mg PO DAILY 08/17/23 10/07/23 docusate sodium 100 mg capsule 100 mg PO BID 09/01/23 10/07/23 (Colace) ketorolac 0.4 % eye drops (Acular 1 drp ophthalmic (eye) DAILY 09/01/23 10/07/23 LS) melatonin 3 mg capsule 3 mg PO HS PRN 09/01/23 10/07/23 peg 400-propylene glycol (PF) 0.4 1 drp ophthalmic (eye) DAILY PRN 09/01/23 10/07/23 %-0.3 % eye drops in a dropperette (Lubricant Eye (PG-PEG 400) (PF)) Allergies Allergy/AdvReac Type Severity Reaction Status Date / Time Penicillins Allergy Unknown Verified 10/07/23 07:57 Review of Systems Status of ROS: Reports: 6 or more systems reviewed and unremarkable except as noted in History and below [facility] Medical History Retinal detachment ?H33.20 - Serous retinal detachment, unspecified eye (ICD-10) Volar plate injury of interphalangeal finger joint ?S63.639A - Sprain of interphalangeal joint of unspecified finger, initial encounter (ICD-10) 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 Friend Sabine Ayala would be MDM if needed. No ETOH use, no tobacco use. No children. 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 Requests Full Code status in the event of a witnessed arrest only. What is your current living situation?: I presently have a place to live Problems where you live: no known problems Problems where you live details: NA In the past 12 months, utilities in danger of being shut off: no In past 12 months, lack of transportation kept you from medical appts, meetings, work, or getting things needed for daily living: no In the past 12 mos, have been you worried that your food would run out before you had money to buy more?: never true In the past 12 mos, the food you bought just didn't last and you didn't have money to buy more?: never true Highest level of school completed/degree received: Doctoral degree Smoking Status: Never smoker Do you use any of these nicotine containing products: None Second hand tobacco smoke exposure: No How often do you have a drink containing alcohol: never AUDIT-C Alcohol total score: 0 Non-prescribed substance use: denies use Caffeine: No How often does anyone, including family, friends and others, physically hurt you: never How often does anyone, including family, friends and others, insult or talk down to you: never How often does anyone, including family, friends and others, threaten you with harm: never How often does anyone, including family, friends and others, scream or curse at you: never service: No Exam Const: Vital Signs, click to edit/add: Vital Signs - 24 hr 10/12/23 17:48 10/12/23 18:06 10/12/23 19:15 Temperature 102.1 F H Pulse Rate 91 Pulse Rate [Pulse Oximeter] 91 Respiratory Rate 18 Blood Pressure 133/78 Blood Pressure [Ri ght Upper Arm] 158/86 H Pulse Oximetry 97 98 97 Oxygen Delivery Me thod Room Air 10/12/23 19:16 10/12/23 19:23 10/12/23 19:30 Temperature 100.7 F H Pulse Rate 94 91 Pulse Rate [Pulse Oximeter] Respiratory Rate Blood Pressure Blood Pressure [Ri ght Upper Arm] Pulse Oximetry 96 99 Oxygen Delivery Me thod 10/12/23 19:32 10/12/23 19:45 Temperature Pulse Rate 95 91 Pulse Rate [Pulse Oximeter] Respiratory Rate Blood Pressure 144/78 H Blood Pressure [Ri ght Upper Arm] Pulse Oximetry 98 96 Oxygen Delivery Me thod Very is alert, interactive, no apparent distress. Cheeks are flushed. No traumatic change noted over is head his face. He does have masked facies of Parkinson's. He has symmetrical facial function, sclera clear, pupils are equal and round. Oropharynx slightly dry, lips look dry. No midline tenderness of his neck. No traumatic global climate change analyst his back. He has ongoing ecchymosis over the left buttock lateral thigh area. There is some mild new erythematous global climate change analyst the lateral lower extremity, redness likely from lying on that side again. He has no pain on mobilization of this extremity today, no tenderness over the joint line of his knee. CV regular rate and rhythm, no murmur, normal S1-S2, no S3-S4. Lungs are clear with good air entry, no tachypnea. Complains of no pain when I palpate over his chest wall. Abdomen has lower distention over the bladder area, complains of tenderness when I palpate. No other organomegaly noted. Suspect he has bladder distention, did bring the ultrasound in in his bladder is very grossly enlarged on the ultrasound. Is moving his arms, will follow commands and move his legs. Documenting provider has reviewed patient's vital signs: yes Course Course ED Course: Will do portable chest x-ray, obtain CT imaging of his head and neck. Will get full complement of labs. We will do blood cultures but do wonder if his fever is actually from COVID vaccination yesterday. Will consider other infectious etiology. Will give him some Tylenol for his fever. Given his independent living situation in current fever, he is not likely to be able to return home tonight. Lynn catheter is going to be placed for acute urinary retention. Will obviously obtain urinalysis as part of his workup. Reevaluation(s) Time of Reevaluation #1: 20:03 Reevaluation #1: Went in to tell Kashif about coming into the hospital given his fever and fall. Dr. Mendoza was right behind me in came into the room for his admission. Dr. Mendoza will be assuming cares. Consultations Consultation #1: Have given Dr. Mendoza our hospitalist a heads up regarding this patient. He understands he is early in the workup, there is a fever in the setting of her recent COVID vaccine but will do an infectious workup. He has fallen as well, will get a CK. Patient also has acute urinary retention. Time: 18:49 Consultation #2: Reviewed with Dr. Mendoza. There is no infectious etiology identified for his fever. His CK is pending, unfortunately this did not get ordered just bite my plans to order it is on arrival. This is been added on. He is eating and drinking here. His troponin I is just mildly elevated at 0.07. He has no chest pain, no EKG evidence of acute [place] or ongoing ischemia. I think this can be trended. If he fell last night and his troponin is 0.07 now, doubt a cardiac event last night. His imaging is showing no acute pathology. His triple swab is negative. Dr. Álvarez does accept, he is aware that I have not started antibiotics and agrees with this plan at this time. No evidence of UTI on his urinalysis despite acute urinary retention. Time: 19:50 Vital Signs Vital signs: Initial Vital Signs Temperature 102.1 F H 10/12/23 17:48 Temperature Source Temporal Artery Scan 10/12/23 17:48 Pulse Rate 91 10/12/23 17:48 Pulse Rhythm Regular 10/12/23 17:48 Respiratory Rate 18 10/12/23 17:48 Blood Pressure 158/86 H 10/12/23 17:48 Blood Pressure Mean 110 H 10/12/23 17:48 Pulse Oximetry 97 10/12/23 17:48 Oxygen Delivery Method Room Air 10/12/23 17:48 Vital Signs Temperature 102.1 F H 10/12/23 17:48 Pulse Rate 91 10/12/23 17:48 Respiratory Rate 18 10/12/23 17:48 Blood Pressure 158/86 H 10/12/23 17:48 Pulse Oximetry 97 10/12/23 17:48 Oxygen Delivery Method Room Air 10/12/23 17:48 Temperature 100.7 F H 10/12/23 19:23 Pulse Rate 91 10/12/23 19:45 Respiratory Rate 18 10/12/23 17:48 Blood Pressure 144/78 H 10/12/23 19:32 Pulse Oximetry 96 10/12/23 19:45 Oxygen Delivery Method Room Air 10/12/23 17:48 Medications Administered Medications: Discontinued Medications Generic Name Dose Route Start Last Admin Trade Name Freq PRN Reason Stop Dose Admin Acetaminophen 1,000 mg 10/12/23 18:20 10/12/23 19:16 Acetaminophen 500 Mg Tablet PO 10/12/23 18:21 1,000 mg ONCE ONE Administration Medical Decision Making Lab Data Lab results reviewed: Yes I reviewed the patient's lab results Labs: Lab Results 10/12/23 10/12/23 10/12/23 Range/Units 17:56 18:12 18:37 WBC (4.50-11.00) K/uL RBC (4.30-5.90) m/uL Hgb (13.5-17.5) gm/dL Hct (37.0-53.0) % MCV (80-100) fL MCH (26-34) pg MCHC (32-36) gm/dL RDW Coeff of [place]salan (11.5-15.5) % Plt Count (140-440) K/uL Neut % (Auto) (42.0-72.0) % Lymph % (Auto) (20-44) % [place] % (Auto) (0.0-11.0) % Eos % (Auto) (0.0-7.0) % Baso % (Auto) (0.0-3.0) % Neut # (Auto) (1.7-7.0) K/uL Lymph # (Auto) (0.90-2.90) K/uL [place] # (Auto) (0.00-0.90) K/UL Eos # (Auto) (0.00-0.50) K/uL Baso # (Auto) (0.00-0.30) K/uL Abs Immat Gran (auto) (0.00-0.30) K/uL Imm/Tot Granulo (auto) % Diff Slide Review (Acceptable) INR (0.91-1.10) VBG pH (7.32-7.43) VBG pCO2 (40-50) mmHG VBG pO2 (25-47) mmHG VBG HCO3 (21-28) mmol/L Sodium Potassium Chloride Carbon Dioxide Anion Gap BUN Creatinine Estimated Creat Clear Estimated GFR Glucose Lactate (0.5-1.9) mmol/L Calcium Total Bilirubin AST ALT Alkaline Phosphatase Troponin I (0.01-0.04) ng/mL C-Reactive Protein Total Protein Albumin Procalcitonin (<0.50) ng/mL Urine Color Yellow (Yellow) Urine Appearance Clear (Clear) Urine pH 7.5 (5.0-8.5) Ur Specific [place] 1.020 (1.000-1.030) Urine Protein Negative (Negative) Urine Glucose (UA) Negative (Negative) Urine Ketones Trace A (Negative) Urine Blood 1+ A (Negative) Urine Nitrite Negative (Negative) Urine Bilirubin Negative (Negative) Urine Urobilinogen 0.2 (0.2-1.0) Ur Leukocyte Esterase Negative (Negative) Urine RBC 0-2 (0-2) Urine WBC 0-2 (0-5) Ur Squamous Epith Cells None (None-Few) Urine Bacteria Few A (None) SARS-CoV-2 (PCR) Negative SARS-CoV-2 (Negative) Influenza Type A (PCR) Negative PCR FLU A (Negative) Influenza Type B (PCR) Negative PCR FLU B (Negative) RSV (PCR) Negative PCR RSV (Negative) Lab Acknowledgement Test Added 10/12/23 10/12/23 10/12/23 Range/Units 18:40 18:40 18:40 WBC 7.42 (4.50-11.00) K/uL RBC 3.71 L (4.30-5.90) m/uL Hgb 13.0 L (13.5-17.5) gm/dL Hct 38.6 (37.0-53.0) % MCV 104 H (80-100) fL MCH 35 H (26-34) pg MCHC 34 (32-36) gm/dL RDW Coeff of Arsalan 14.9 (11.5-15.5) % Plt Count 152 (140-440) K/uL Neut % (Auto) 73.7 H (42.0-72.0) % Lymph % (Auto) 8.4 L (20-44) % [place] % (Auto) 11.1 H (0.0-11.0) % Eos % (Auto) 0.3 (0.0-7.0) % Baso % (Auto) 0.4 (0.0-3.0) % Neut # (Auto) 5.50 (1.7-7.0) K/uL Lymph # (Auto) 0.60 L (0.90-2.90) K/uL [place] # (Auto) 0.80 (0.00-0.90) K/UL Eos # (Auto) 0.02 (0.00-0.50) K/uL Baso # (Auto) 0.03 (0.00-0.30) K/uL Abs Immat Gran (auto) 0.45 H (0.00-0.30) K/uL Imm/Tot Granulo (auto) 6.1 % Diff Slide Review Acceptable Review (Acceptable) INR 1.19 H (0.91-1.10) VBG pH 7.490 H (7.32-7.43) VBG pCO2 33 L (40-50) mmHG VBG pO2 91.8 H (25-47) mmHG VBG HCO3 25 (21-28) mmol/L Sodium Cancelled 136 Potassium Cancelled 3.5 L Chloride Cancelled Carbon Dioxide Anion Gap BUN Creatinine Estimated Creat Clear Estimated GFR Glucose Lactate (0.5-1.9) mmol/L Calcium Total Bilirubin AST ALT Alkaline Phosphatase Troponin I (0.01-0.04) ng/mL C-Reactive Protein Total Protein Albumin Procalcitonin (<0.50) ng/mL Urine Color (Yellow) Urine Appearance (Clear) Urine pH (5.0-8.5) Ur Specific [place] (1.000-1.030) Urine Protein (Negative) Urine Glucose (UA) (Negative) Urine Ketones (Negative) Urine Blood (Negative) Urine Nitrite (Negative) Urine Bilirubin (Negative) Urine Urobilinogen (0.2-1.0) Ur Leukocyte Esterase (Negative) Urine RBC (0-2) Urine WBC (0-5) Ur Squamous Epith Cells (None-Few) Urine Bacteria (None) SARS-CoV-2 (PCR) (Negative) Influenza Type A (PCR) (Negative) Influenza Type B (PCR) (Negative) RSV (PCR) (Negative) Lab Acknowledgement 10/12/23 10/12/23 10/12/23 Range/Units 18:40 18:40 18:40 WBC (4.50-11.00) K/uL RBC (4.30-5.90) m/uL Hgb (13.5-17.5) gm/dL Hct (37.0-53.0) % MCV (80-100) fL MCH (26-34) pg MCHC (32-36) gm/dL RDW Coeff of Arsalan (11.5-15.5) % Plt Count (140-440) K/uL Neut % (Auto) (42.0-72.0) % Lymph % (Auto) (20-44) % [place] % (Auto) (0.0-11.0) % Eos % (Auto) (0.0-7.0) % Baso % (Auto) (0.0-3.0) % Neut # (Auto) (1.7-7.0) K/uL Lymph # (Auto) (0.90-2.90) K/uL [place] # (Auto) (0.00-0.90) K/UL Eos # (Auto) (0.00-0.50) K/uL Baso # (Auto) (0.00-0.30) K/uL Abs Immat Gran (auto) (0.00-0.30) K/uL Imm/Tot Granulo (auto) % Diff Slide Review (Acceptable) INR (0.91-1.10) VBG pH (7.32-7.43) VBG pCO2 (40-50) mmHG VBG pO2 (25-47) mmHG VBG HCO3 (21-28) mmol/L Sodium Potassium Chloride 102 Carbon Dioxide Cancelled 23 Anion Gap Cancelled 11 BUN Cancelled Creatinine Estimated Creat Clear Estimated GFR Glucose Lactate (0.5-1.9) mmol/L Calcium Total Bilirubin AST ALT Alkaline Phosphatase Troponin I (0.01-0.04) ng/mL C-Reactive Protein Total Protein Albumin Procalcitonin (<0.50) ng/mL Urine Color (Yellow) Urine Appearance (Clear) Urine pH (5.0-8.5) Ur Specific [place] (1.000-1.030) Urine Protein (Negative) Urine Glucose (UA) (Negative) Urine Ketones (Negative) Urine Blood (Negative) Urine Nitrite (Negative) Urine Bilirubin (Negative) Urine Urobilinogen (0.2-1.0) Ur Leukocyte Esterase (Negative) Urine RBC (0-2) Urine WBC (0-5) Ur Squamous Epith Cells (None-Few) Urine Bacteria (None) SARS-CoV-2 (PCR) (Negative) Influenza Type A (PCR) (Negative) Influenza Type B (PCR) (Negative) RSV (PCR) (Negative) Lab Acknowledgement 10/12/23 10/12/23 10/12/23 Range/Units 18:40 18:40 18:40 WBC (4.50-11.00) K/uL RBC (4.30-5.90) m/uL Hgb (13.5-17.5) gm/dL Hct (37.0-53.0) % MCV (80-100) fL MCH (26-34) pg MCHC (32-36) gm/dL RDW Coeff of [place]salan (11.5-15.5) % Plt Count (140-440) K/uL Neut % (Auto) (42.0-72.0) % Lymph % (Auto) (20-44) % [place] % (Auto) (0.0-11.0) % Eos % (Auto) (0.0-7.0) % Baso % (Auto) (0.0-3.0) % Neut # (Auto) (1.7-7.0) K/uL Lymph # (Auto) (0.90-2.90) K/uL [place] # (Auto) (0.00-0.90) K/UL Eos # (Auto) (0.00-0.50) K/uL Baso # (Auto) (0.00-0.30) K/uL Abs Immat Gran (auto) (0.00-0.30) K/uL Imm/Tot Granulo (auto) % Diff Slide Review (Acceptable) INR (0.91-1.10) VBG pH (7.32-7.43) VBG pCO2 (40-50) mmHG VBG pO2 (25-47) mmHG VBG HCO3 (21-28) mmol/L Sodium Potassium Chloride Carbon Dioxide Anion Gap BUN 17 Creatinine Cancelled 0.7 Estimated Creat Clear Cancelled 72.83 Estimated GFR Cancelled Glucose Lactate (0.5-1.9) mmol/L Calcium Total Bilirubin AST ALT Alkaline Phosphatase Troponin I (0.01-0.04) ng/mL C-Reactive Protein Total Protein Albumin Procalcitonin (<0.50) ng/mL Urine Color (Yellow) Urine Appearance (Clear) Urine pH (5.0-8.5) Ur Specific [place] (1.000-1.030) Urine Protein (Negative) Urine Glucose (UA) (Negative) Urine Ketones (Negative) Urine Blood (Negative) Urine Nitrite (Negative) Urine Bilirubin (Negative) Urine Urobilinogen (0.2-1.0) Ur Leukocyte Esterase (Negative) Urine RBC (0-2) Urine WBC (0-5) Ur Squamous Epith Cells (None-Few) Urine Bacteria (None) SARS-CoV-2 (PCR) (Negative) Influenza Type A (PCR) (Negative) Influenza Type B (PCR) (Negative) RSV (PCR) (Negative) Lab Acknowledgement 10/12/23 10/12/23 10/12/23 Range/Units 18:40 18:40 18:40 WBC (4.50-11.00) K/uL RBC (4.30-5.90) m/uL Hgb (13.5-17.5) gm/dL Hct (37.0-53.0) % MCV (80-100) fL MCH (26-34) pg MCHC (32-36) gm/dL RDW Coeff of Arsalan (11.5-15.5) % Plt Count (140-440) K/uL Neut % (Auto) (42.0-72.0) % Lymph % (Auto) (20-44) % [place] % (Auto) (0.0-11.0) % Eos % (Auto) (0.0-7.0) % Baso % (Auto) (0.0-3.0) % Neut # (Auto) (1.7-7.0) K/uL Lymph # (Auto) (0.90-2.90) K/uL [place] # (Auto) (0.00-0.90) K/UL Eos # (Auto) (0.00-0.50) K/uL Baso # (Auto) (0.00-0.30) K/uL Abs Immat Gran (auto) (0.00-0.30) K/uL Imm/Tot Granulo (auto) % Diff Slide Review (Acceptable) INR (0.91-1.10) VBG pH (7.32-7.43) VBG pCO2 (40-50) mmHG VBG pO2 (25-47) mmHG VBG HCO3 (21-28) mmol/L Sodium Potassium Chloride Carbon Dioxide Anion Gap BUN Creatinine Estimated Creat Clear Estimated GFR 98 Glucose Cancelled 116 H Lactate 1.2 (0.5-1.9) mmol/L Calcium Cancelled 8.7 Total Bilirubin Cancelled AST ALT Alkaline Phosphatase Troponin I (0.01-0.04) ng/mL C-Reactive Protein Total Protein Albumin Procalcitonin (<0.50) ng/mL Urine Color (Yellow) Urine Appearance (Clear) Urine pH (5.0-8.5) Ur Specific [place] (1.000-1.030) Urine Protein (Negative) Urine Glucose (UA) (Negative) Urine Ketones (Negative) Urine Blood (Negative) Urine Nitrite (Negative) Urine Bilirubin (Negative) Urine Urobilinogen (0.2-1.0) Ur Leukocyte Esterase (Negative) Urine RBC (0-2) Urine WBC (0-5) Ur Squamous Epith Cells (None-Few) Urine Bacteria (None) SARS-CoV-2 (PCR) (Negative) Influenza Type A (PCR) (Negative) Influenza Type B (PCR) (Negative) RSV (PCR) (Negative) Lab Acknowledgement 10/12/23 10/12/23 10/12/23 Range/Units 18:40 18:40 18:40 WBC (4.50-11.00) K/uL RBC (4.30-5.90) m/uL Hgb (13.5-17.5) gm/dL Hct (37.0-53.0) % MCV (80-100) fL MCH (26-34) pg MCHC (32-36) gm/dL RDW Coeff of Arsalan (11.5-15.5) % Plt Count (140-440) K/uL Neut % (Auto) (42.0-72.0) % Lymph % (Auto) (20-44) % [place] % (Auto) (0.0-11.0) % Eos % (Auto) (0.0-7.0) % Baso % (Auto) (0.0-3.0) % Neut # (Auto) (1.7-7.0) K/uL Lymph # (Auto) (0.90-2.90) K/uL [place] # (Auto) (0.00-0.90) K/UL Eos # (Auto) (0.00-0.50) K/uL Baso # (Auto) (0.00-0.30) K/uL Abs Immat Gran (auto) (0.00-0.30) K/uL Imm/Tot Granulo (auto) % Diff Slide Review (Acceptable) INR (0.91-1.10) VBG pH (7.32-7.43) VBG pCO2 (40-50) mmHG VBG pO2 (25-47) mmHG VBG HCO3 (21-28) mmol/L Sodium Potassium Chloride Carbon Dioxide Anion Gap BUN Creatinine Estimated Creat Clear Estimated GFR Glucose Lactate (0.5-1.9) mmol/L Calcium Total Bilirubin 1.6 H AST Cancelled 88 H ALT Cancelled 22 Alkaline Phosphatase Cancelled Troponin I (0.01-0.04) ng/mL C-Reactive Protein Total Protein Albumin Procalcitonin (<0.50) ng/mL Urine Color (Yellow) Urine Appearance (Clear) Urine pH (5.0-8.5) Ur Specific [place] (1.000-1.030) Urine Protein (Negative) Urine Glucose (UA) (Negative) Urine Ketones (Negative) Urine Blood (Negative) Urine Nitrite (Negative) Urine Bilirubin (Negative) Urine Urobilinogen (0.2-1.0) Ur Leukocyte Esterase (Negative) Urine RBC (0-2) Urine WBC (0-5) Ur Squamous Epith Cells (None-Few) Urine Bacteria (None) SARS-CoV-2 (PCR) (Negative) Influenza Type A (PCR) (Negative) Influenza Type B (PCR) (Negative) RSV (PCR) (Negative) Lab Acknowledgement 10/12/23 10/12/23 10/12/23 Range/Units 18:40 18:40 18:40 WBC (4.50-11.00) K/uL RBC (4.30-5.90) m/uL Hgb (13.5-17.5) gm/dL Hct (37.0-53.0) % MCV (80-100) fL MCH (26-34) pg MCHC (32-36) gm/dL RDW Coeff of [place]salan (11.5-15.5) % Plt Count (140-440) K/uL Neut % (Auto) (42.0-72.0) % Lymph % (Auto) (20-44) % [place] % (Auto) (0.0-11.0) % Eos % (Auto) (0.0-7.0) % Baso % (Auto) (0.0-3.0) % Neut # (Auto) (1.7-7.0) K/uL Lymph # (Auto) (0.90-2.90) K/uL [place] # (Auto) (0.00-0.90) K/UL Eos # (Auto) (0.00-0.50) K/uL Baso # (Auto) (0.00-0.30) K/uL Abs Immat Gran (auto) (0.00-0.30) K/uL Imm/Tot Granulo (auto) % Diff Slide Review (Acceptable) INR (0.91-1.10) VBG pH (7.32-7.43) VBG pCO2 (40-50) mmHG VBG pO2 (25-47) mmHG VBG HCO3 (21-28) mmol/L Sodium Potassium Chloride Carbon Dioxide Anion Gap BUN Creatinine Estimated Creat Clear Estimated GFR Glucose Lactate (0.5-1.9) mmol/L Calcium Total Bilirubin AST ALT Alkaline Phosphatase 88 Troponin I 0.07 H* (0.01-0.04) ng/mL C-Reactive Protein Cancelled 2.6 H Total Protein Cancelled 7.9 Albumin Cancelled Procalcitonin (<0.50) ng/mL Urine Color (Yellow) Urine Appearance (Clear) Urine pH (5.0-8.5) Ur Specific [place] (1.000-1.030) Urine Protein (Negative) Urine Glucose (UA) (Negative) Urine Ketones (Negative) Urine Blood (Negative) Urine Nitrite (Negative) Urine Bilirubin (Negative) Urine Urobilinogen (0.2-1.0) Ur Leukocyte Esterase (Negative) Urine RBC (0-2) Urine WBC (0-5) Ur Squamous Epith Cells (None-Few) Urine Bacteria (None) SARS-CoV-2 (PCR) (Negative) Influenza Type A (PCR) (Negative) Influenza Type B (PCR) (Negative) RSV (PCR) (Negative) Lab Acknowledgement 10/12/23 10/12/23 Range/Units 18:40 19:43 WBC (4.50-11.00) K/uL RBC (4.30-5.90) m/uL Hgb (13.5-17.5) gm/dL Hct (37.0-53.0) % MCV (80-100) fL MCH (26-34) pg MCHC (32-36) gm/dL RDW Coeff of [place]sal[place] (11.5-15.5) % Plt Count (140-440) K/uL Neut % (Auto) (42.0-72.0) % Lymph % (Auto) (20-44) % [place] % (Auto) (0.0-11.0) % Eos % (Auto) (0.0-7.0) % Baso % (Auto) (0.0-3.0) % Neut # (Auto) (1.7-7.0) K/uL Lymph # (Auto) (0.90-2.90) K/uL [place] # (Auto) (0.00-0.90) K/UL Eos # (Auto) (0.00-0.50) K/uL Baso # (Auto) (0.00-0.30) K/uL Abs Immat Gran (auto) (0.00-0.30) K/uL Imm/Tot Granulo (auto) % Diff Slide Review (Acceptable) INR (0.91-1.10) VBG pH (7.32-7.43) VBG pCO2 (40-50) mmHG VBG pO2 (25-47) mmHG VBG HCO3 (21-28) mmol/L Sodium Potassium Chloride Carbon Dioxide Anion Gap BUN Creatinine Estimated Creat Clear Estimated GFR Glucose Lactate (0.5-1.9) mmol/L Calcium Total Bilirubin AST ALT Alkaline Phosphatase Troponin I (0.01-0.04) ng/mL C-Reactive Protein Total Protein Albumin 4.3 Procalcitonin 0.13 (<0.50) ng/mL Urine Color (Yellow) Urine Appearance (Clear) Urine pH (5.0-8.5) Ur Specific [place] (1.000-1.030) Urine Protein (Negative) Urine Glucose (UA) (Negative) Urine Ketones (Negative) Urine Blood (Negative) Urine Nitrite (Negative) Urine Bilirubin (Negative) Urine Urobilinogen (0.2-1.0) Ur Leukocyte Esterase (Negative) Urine RBC (0-2) Urine WBC (0-5) Ur Squamous Epith Cells (None-Few) Urine Bacteria (None) SARS-CoV-2 (PCR) (Negative) Influenza Type A (PCR) (Negative) Influenza Type B (PCR) (Negative) RSV (PCR) (Negative) Lab Acknowledgement Test Added Imaging Data CT scan - head: Attestation: I have reviewed the pertinent imaging results. Radiologist's impression: Patient: [facility] Facility:?[facility] Patient ID:?[id number] Site Patient ID:?[id number] Site :?1950 Study:?CT Head w/o Contrast-10/12/2023 7:11:21 PM Ordering Physician:Bobby King Final Report: INDICATION: Headache. Trauma. TECHNIQUE: Non-contrast CT of the head is submitted. No comparisons. FINDINGS: The ventricles, sulci and gyri are of normal size, shape and contour. Midline structures are centrally located. No convincing evidence of intra- or extra-axial fluid collections. IMPRESSION: 1. No radiographic evidence of acute intracranial abnormalities. Dictated by Adrián Salgado MD @ 10/12/2023 7:15:11 PM Please note that all CT scans at this facility use dose modulation, iterative reconstruction, and/or weight-based dosing when appropriate to reduce radiation dose to as low as reasonably achievable. Dictated by: Adrián Salgado MD @ 10/12/2023 19:15:17 (Electronic Signature) CT cervical spine: Attestation: I have reviewed the pertinent imaging results. Radiologist's impression: Patient: [facility] Facility:?[facility] Patient ID:?[id number] Site Patient ID:?[id number] Site :?1950 Study:?CT Spine Cervical w/o Contrast-10/12/2023 7:11:41 PM Ordering Physician:Bobby King Final Report: Indication: Neck pain. Trauma. Technique: Noncontrast axial CT of the cervical spine with coronal and sagittal reformats are provided. No comparisons. Findings: The overall stature, alignment of the cervical spine is within normal limits. No convincing evidence of suspicious bony fragments narrowing the central canal or neural foramina. Prevertebral soft tissues, cervical airway, dens and lateral masses are within normal limits. Mild scattered degenerative changes of the cervical spine. Impression: 1. No convincing radiographic evidence of acute osseous injury. 2. Mild scattered degenerative changes of the cervical spine. Dictated by Adrián Salgado MD @ 10/12/2023 7:17:04 PM Please note that all CT scans at this facility use dose modulation, iterative reconstruction, and/or weight-based dosing when appropriate to reduce radiation dose to as low as reasonably achievable. Dictated by: Adrián Salgado MD @ 10/12/2023 19:17:09 (Electronic Signature) Chest x-ray: Attestation: I have reviewed the pertinent imaging results. Radiologist's impression: Patient: [facility] Facility:?[facility] Patient ID:?[id number] Site Patient ID:?[id number]. Site :?1950 Study:?CT Head w/o Contrast-10/12/2023 7:11:21 PM Ordering Physician:?Hosea King Final Report: INDICATION: Headache. Trauma. TECHNIQUE: Non-contrast CT of the head is submitted. No comparisons. FINDINGS: The ventricles, sulci and gyri are of normal size, shape and contour. Midline structures are centrally located. No convincing evidence of intra- or extra-axial fluid collections. IMPRESSION: 1. No radiographic evidence of acute intracranial abnormalities. Dictated by Adrián Salgado MD @ 10/12/2023 7:15:11 PM Please note that all CT scans at this facility use dose modulation, iterative reconstruction, and/or weight-based dosing when appropriate to reduce radiation dose to as low as reasonably achievable. Dictated by: Adrián Salgado MD @ 10/12/2023 19:15:17 (Electronic Signature) ECG Data Attestation: I personally reviewed and interpreted this ECG as follows: (Normal sinus rhythm, 91 beats per minute. No acute ischemic change. QT corrected 447 milliseconds.) Prior ECG tracings: not available for review Discharge Plan Discharge Clinical Impression: Acute urinary retention Fever Qualifiers: Fever type: unspecified Qualified Code(s): R50.9 - Fever, unspecified Parkinson's disease Qualifiers: Dyskinesia presence: unspecified whether dyskinesia Fluctuating manifestations: unspecified whether manifestations fluctuate Qualified Code(s): G20.A1 - Parkinson's disease without dyskinesia, without mention of fluctuations Fall Qualifiers: Encounter type: initial encounter Qualified Code(s): W19.XXXA - Unspecified fall, initial encounter Patient Disposition: Admitted As Observation
--- NOTE | 2023-10-12 18:06 | CRLHL7_ITS ---
For Patients: As a result of the Century Cures Act, medical imaging exams and procedure reports are released immediately into your electronic medical record. You may view this report before your referring provider. If you have questions, please contact your health care provider. Indication: Neck pain. Trauma. Technique: Noncontrast axial CT of the cervical spine with coronal and sagittal reformats are provided. No comparisons. Findings: The overall stature, alignment of the cervical spine is within normal limits. No convincing evidence of suspicious bony fragments narrowing the central canal or neural foramina. Prevertebral soft tissues, cervical airway, dens and lateral masses are within normal limits. Mild scattered degenerative changes of the cervical spine. Impression: 1. No convincing radiographic evidence of acute osseous injury. 2. Mild scattered degenerative changes of the cervical spine. Dictated by Adrián Salgado MD @ 10/12/2023 7:17:04 PM Please note that all CT scans at this facility use dose modulation, iterative reconstruction, and/or weight-based dosing when appropriate to reduce radiation dose to as low as reasonably achievable. Dictated by: Adrián Salgado MD @ 10/12/2023 19:17:09 (Electronically Signed)
--- NOTE | 2023-10-12 18:07 | CRLHL7_ITS ---
For Patients: As a result of the Century Cures Act, medical imaging exams and procedure reports are released immediately into your electronic medical record. You may view this report before your referring provider. If you have questions, please contact your health care provider. INDICATION: Headache. Trauma. TECHNIQUE: Non-contrast CT of the head is submitted. No comparisons. FINDINGS: The ventricles, sulci and gyri are of normal size, shape and contour. Midline structures are centrally located. No convincing evidence of intra- or extra-axial fluid collections. IMPRESSION: 1. No radiographic evidence of acute intracranial abnormalities. Dictated by Adrián Salgado MD @ 10/12/2023 7:15:11 PM Please note that all CT scans at this facility use dose modulation, iterative reconstruction, and/or weight-based dosing when appropriate to reduce radiation dose to as low as reasonably achievable. Dictated by: Adrián Salgado MD @ 10/12/2023 19:15:17 (Electronically Signed)
--- NOTE | 2023-10-12 18:07 | CRLHL7_ITS ---
For Patients: As a result of the Cures Act, medical imaging exams and procedure reports are released immediately into your electronic medical record. You may view this report before your referring provider. If you have questions, please contact your health care provider. INDICATION: Fall, confusion COMPARISON: None. TECHNIQUE: 1 view chest radiograph. FINDINGS: Lung volumes are good. No focal consolidations. No pulmonary edema. No pleural effusion. No pneumothorax. No pneumomediastinum. Normal cardiomediastinal silhouette. Bones: No fracture seen. IMPRESSION: Lungs clear. No acute findings. Dictated by Aliya Hopkins MD @ 10/12/2023 7:28:49 PM (Electronically Signed)
[2023-10-12 18:24] LABS: Appearance Urine Clear (Clear); Bilirubin Urine Negative (Negative); Blood Urine 1+ (Negative); Color Urine Yellow (Yellow); Glucose Urine Negative (Negative); Ketones Urine Trace (Negative); Leukocyte Esterase Urine Negative (Negative); Nitrite Urine Negative (Negative); Protein Urine Negative (Negative); Urobilinogen Urine 0.2 (0.2-1.0); pH Urine 7.5 (5.0-8.5)
[2023-10-12 18:47] LABS: HCO3 VBG 25 mmol/L (21-28); PCO2 VBG 33 mmHG (40-50); PO2 VBG 91.8 mmHG (25-47)
[2023-10-12 18:49] LABS: Lactate* 1.2 mmol/L (0.5-1.9)
[2023-10-12 18:55] LABS: Basophils Absolute Auto 0.03 K/uL (0.00-0.30); Basophils Percent Auto 0.4 % (0.0-3.0); Eosinophils Absolute Auto 0.02 K/uL (0.00-0.50); Eosinophils Percent Auto 0.3 % (0.0-7.0); Hematocrit 38.6 % (37.0-53.0); Immature Granulocytes Abs Auto 0.45 K/uL (0.00-0.30); Immature Granulocytes Pct Auto 6.1 %; Lymphocytes Percent Auto 8.4 % (20-44); Mean Corpuscular HGB Conc 34 gm/dL (32-36); Mean Corpuscular Hemoglobin 35 pg (26-34); Mean Corpuscular Volume 104 fL (80-100); Monocytes Percent Auto 11.1 % (0.0-11.0); Neutrophils Percent Auto 73.7 % (42.0-72.0); Platelet Count* 152 K/uL (140-440); RDW Coefficient of Variation % 14.9 % (11.5-15.5); Red Blood Count 3.71 m/uL (4.30-5.90); White Blood Count* 7.42 K/uL (4.50-11.00)
[2023-10-12 19:03] LABS: PCR FLU A Negative PCR FLU A (Negative); PCR FLU B Negative PCR FLU B (Negative); PCR RSV Negative PCR RSV (Negative); SARS PCR* Negative SARS-CoV-2 (Negative)
[2023-10-12 19:05] LABS: Bacteria Urine Few; RBC Urine 0-2 (0-2); WBC Urine 0-2 (0-5)
[2023-10-12 19:07] LABS: Slide Review Reflex Yes
[2023-10-12 19:09] LABS: Albumin* 4.3 g/dL (3.3-5.0); Chloride* 102 mmol/L (96-114); Potassium* 3.5 mmol/L (3.6-5.1); Sodium* 136 mmol/L (135-149)
[2023-10-12 19:10] LABS: INR 1.19 (0.91-1.10); Prothrombin Time 15.9 Seconds
[2023-10-12 19:11] LABS: Creatinine* 0.7 mg/dL (0.5-1.5); Est. Creatinine Clearance* 72.83; Estimated Glomerular Filt Rate 98 ml/min
[2023-10-12 19:12] LABS: Alanine Aminotransferase* 22 U/L (4-50); Alkaline Phosphatase* 88 U/L (40-150); Anion Gap 11 mEq/L (7-15); Aspartate Amino Transferase* 88 U/L (12-35); Bilirubin Total* 1.6 mg/dL (0.1-1.5); Blood Urea Nitrogen* 17 mg/dL (7-30); Carbon Dioxide* 23 mmol/L (20-32); Glucose* 116 mg/dL (60-115); Total Protein* 7.9 g/dL (6.0-8.3)
--- OUTSIDE RECORDS SUMMARY | 2023-10-12 19:12 | XMS_ITS | Clinical Summary ---
Author Name Unknown Organization [facility] Address [place], [place] [address] Care Team Providers Care Supervisor Maintenance And Custodians Name Role Phone Ricardo Diaz MD Unavailable Unavaila ble Macrina Martin DO Primary Care Provider [phone] Allergies Active Allergy Reactions Criticality Noted Date [...] Department Care Team Description 10/12/2023 Anticoagulation (warfarin) [facility] [address] [facility] [address] [facility] [place] [facility] Anticoagulation 10/11/2023 1:00 PM BEVERAGE INSPECTION MACHINE TENDER Office Visit [facility] [address] [facility] [place] [address] Naomi Puente MD Hospital F/U (hospital F/u); Vascular Problems (discuss DVT, wants more information) 10/11/2023 12:45 PM BEVERAGE INSPECTION MACHINE TENDER Orders Only [facility] [address] [facility] [place] [address] Lab, [place] [facility] 10/11/2023 Travel 10/07/2023 Orders Only [facility] Scanner 1 scan: (1-Ord) [facility], PELVIS W/O CONTRAST, 10/07/2023 10/07/2023 Orders Only [facility] Scanner 1 scan: (1-Ord) [facility], XR LT HIP MIN 2 VIEWS, 10/07/2023 10/07/2023 Nurse Triage [facility] [address] [facility] [place] [address] Macrina Martin DO Hip Injury 09/28/2023 Anticoagulation (warfarin) [facility] [address] [place] [address] 1, [place] Anticoagulation 09/27/2023 1:45 PM BEVERAGE INSPECTION MACHINE TENDER Orders Only [facility] [address] [facility] [address] Lab, [place] [facility] 09/27/2023 Travel 09/23/2023 Refill [facility] [address] [facility] [place] [address] Darlin Butler PA Refill Request (Clonazepam) 09/20/2023 Telephone [place] [address] [place] [phone] Leta Laird MD Questions (PSA and Medication ) 09/14/2023 Refill [facility] [address] [place] [address] Leta Laird MD Refill Request (Tamsulosin 0.4mg ) 09/14/2023 Telephone [facility] [address] [place] [address] Leta Laird MD Lab (PSA Test) 09/09/2023 Refill [facility] [address] [place] [address] Macrina Martin DO Refill Request (Warfarin) 09/01/2023 Orders Only [facility] Scanner 1 scan: (1-Ord) [facility], XR 3RD FINGER RT, 09/01/2023 09/01/2023 Nurse Triage [facility] [address] [place] [address] Macrina Martin DO Finger Pain/problem 08/27/2023 Refill [facility] [address] [place] [address] Macrina Martin DO Refill Request (Pramipexole) 08/15/2023 11:10 AM BEVERAGE INSPECTION MACHINE TENDER Orders Only [facility] [address] [place] [address] Lab, [place] [facility] 08/15/2023 Anticoagulation (warfarin) [address] [address] 1, [place] [facility] Anticoagulation 08/15/2023 Travel 08/11/[address] [address] Macrina Martin DO FYI 08/04/2023 1:45 PM BEVERAGE INSPECTION MACHINE TENDER Ancillary Procedure [facility] [address] [place] [address] 08/04/2023 12:25 PM BEVERAGE INSPE[employer] MACHINE TENDER Office Visit [address] [address] Macrina Martin DO Fall (07/10 - did go to and xray was normal - some lower leg swelling but had DVT rule out - has been feeling better - just some pain with walking ) 08/04/2023 Telephone [facility] [address] [facility] [place] [address] Macrina Martin DO Results 08/04/2023 Telephone [facility] [address] [place] [address] Macrina Martin DO Questions 08/04/2023 Travel 07/25/2023 11:50 AM BEVERAGE INSPECTION MACHINE TENDER Orders Only [facility] [address] [place] [address] Lab, [place] [facility] 07/25/2023 Telephone [facility] [address] [place] [address] Macrina Martin DO Anticoagulation (Review INR and warfarin dosing ) 07/25/2023 Anticoagulation (warfarin) [facility] [address] [place] [address] 1, [facility] Anticoagulation 07/25/2023 Travel 07/14/2023 Nurse Triage [facility] [address] [place] [address] Macrina Martin DO Questions from Last 3 [...] Comments Blood Pressure 124/73 10/11/2023 12:54 PM BEVERAGE INSPECTION MACHINE TENDER Pulse 77 10/11/2023 12:54 PM BEVERAGE INSPECTION MACHINE TENDER Temperature 36.4 ??C (97.5 ??F) 04/26/2023 3:12 PM CD T Respiratory Rate 16 07/27/2021 1:22 PM BEVERAGE INSPECTION MACHINE TENDER Oxygen Saturation 97% 10/11/2023 12:54 PM BEVERAGE INSPECTION MACHINE TENDER Inhaled Oxygen Concentration - - Weight 78.7 kg (173 lb 9.6 oz) 10/11/2023 12:54 PM BEVERAGE INSPECTION MACHINE TENDER Height 182.9 cm (6') 08/04/2023 12:28 PM BEVERAGE INSPECTION MACHINE TENDER Body Mass Index 23.54 08/04/2023 12:28 PM BEVERAGE INSPECTION MACHINE TENDER Plan of Treatment Upcoming Encounters Date Type Department Care Team (Late st Contact Info) Description 10/13/2023 12:00 PM BEVERAGE INSPECTION MACHINE TENDER Office Visit [address] [phone] Leta Laird MD [address] [place] [address] 10/14/2023 9:45 AM BEVERAGE INSPECTION MACHINE TENDER Office Visit [facility] [address] [place] [address] Macrina Martin DO [address] [place] [address] 10/31/2023 11:00 AM BEVERAGE INSPECTION MACHINE TENDER Office Visit [facility] [address] [place] [address] 11/08/2023 1:30 PM BEVERAGE INSPECTION MACHINE TENDER Orders Only [facility] [address] [place] [address] Lab[place] 05/01/2024 3:40 PM CDT Office Visit [facility] [address] [place] [address] Ricardo Wilkins MD [address] [place] [address] Health Maintenance Due Date Last Done Comments [...] Diagnosis Comments PROTIME-INR STAT 10/11/2023 12:37 PM BEVERAGE INSPECTION MACHINE TENDER Chronic deep vein thrombosis (DVT) of femoral vein of left lower extremity (HC) Anticoagulation monitoring, INR range 1.5-2.5 SCAN-CT INTERPRETATION 12:00 AM BEVERAGE INSPECTION MACHINE TENDER SCAN-RADIOLOGY REPORT 10/07/2023 12:00 AM BEVERAGE INSPECTION MACHINE TENDER PSA TOTAL SCREEN Routine 09/27/2023 1:58 PM BEVERAGE INSPECTION MACHINE TENDER Prostate cancer screening PROTIME-INR STAT 09/27/2023 1:58 PM BEVERAGE INSPECTION MACHINE TENDER Chronic deep vein thrombosis (DVT) of femoral vein of left lower extremity (HC) Anticoagulation monitoring, INR range 1.5-2.5 SCAN-RADIOLOGY REPORT 09/01/2023 12:00 AM BEVERAGE INSPECTION MACHINE TENDER INR,POCT Routine 08/15/2023 11:15 AM BEVERAGE INSPECTION MACHINE TENDER Chronic deep vein thrombosis (DVT) of femoral vein of left lower extremity (HC) Anticoagulation monitoring, INR range 1.5-2.5 US VENOUS LOWER EXTREMITY LEFT STAT 08/04/2023 2:16 PM BEVERAGE INSPECTION MACHINE TENDER Localized swelling of lower extremity INR,POCT Routine 07/25/2023 12:03 PM BEVERAGE INSPECTION MACHINE TENDER Chronic deep vein thrombosis (DVT) of femoral vein of left lower extremity (HC) Anticoagulation monitoring, INR range 1.5-2.5 from Last 3 Months Results * (ABNORMAL) PROTIME-INR (10/11/2023 12:37 PM BEVERAGE INSPECTION MACHINE TENDER) Only the most recent of2 resultswithin the time period is included. INR 1.2 <1.3 10/11/2023 8:38 PM BEVERAGE INSPECTION MACHINE TENDER [facility] PROTIME 13.2(H) 10.3 - 12.3 sec 10/11/2023 8:38 PM BEVERAGE INSPECTION MACHINE TENDER [facility] Blood BLOOD SPECIMEN / Unknown Venipuncture / Unknown 10/11/2023 12:37 PM BEVERAGE INSPECTION MACHINE TENDER 10/11/2023 12:39 PM BEVERAGE INSPECTION MACHINE TENDER Narrative [facility] - 10/11/2023 8:38 PM BEVERAGE INSPECTION MACHINE TENDER ?Therapeutic Range 2.0-3.0 for most anticoagulated patients [...] is on UFH. Macrina Martin DO HEMATOLOGY [facility] [address] [place] [address], * SCAN-RADIOLOGY REPORT (10/07/2023 12:00 AM BEVERAGE INSPECTION MACHINE TENDER) Only the most recent of2 resultswithin the time period is included. Anatomical Region Laterality Modality Other Scanner OTHER * SCAN-CT INTERPRETATION (10/07/2023 12:00 AM BEVERAGE INSPECTION MACHINE TENDER) Anatomical Region Laterality Modality Other Scanner OTHER * PSA TOTAL SCREEN (09/27/2023 1:58 PM BEVERAGE INSPECTION MACHINE TENDER) PSA TOTAL (SCREEN) 1.05 <4.00 ng/mL 09/27/2023 11:03 PM BEVERAGE INSPECTION MACHINE TENDER [facility] Blood BLOOD SPECIMEN / Unknown Venipuncture / Unknown 09/27/2023 1:58 PM BEVERAGE INSPECTION MACHINE TENDER 09/27/2023 1:58 PM BEVERAGE INSPECTION MACHINE TENDER Narrative [facility] - 09/27/2023 11:03 PM BEVERAGE INSPECTION MACHINE TENDER The test method changed on 03/01/2023. If [...] be used interchangeably. Leta Laird MD LABORATORY [facility] [address] [place] [address], * (ABNORMAL) INR,POCT (08/15/2023 11:15 AM BEVERAGE INSPECTION MACHINE TENDER) Only the most recent of2 resultswithin the time period is included. INR 1.9(H) <1.3 08/15/2023 11:18 AM BEVERAGE INSPECTION MACHINE TENDER [facility] Blood BLOOD SPECIMEN / Unknown 08/15/2023 11:15 AM BEVERAGE INSPECTION MACHINE TENDER 08/15/2023 11:18 AM BEVERAGE INSPECTION MACHINE TENDER Narrative [facility] - 08/15/2023 11:18 AM BEVERAGE INSPECTION MACHINE TENDER ?Therapeutic Range 2.0-3.0 for most anticoagulated patients 2.5-3.5 or 4.0 for high risk patients Macrina Martin DO LABORATORY [facility] [address] [place] [address], * US VENOUS LOWER EXTREMITY LEFT (08/04/2023 2:16 PM BEVERAGE INSPECTION MACHINE TENDER) Anatomical Region Laterality Modality LEGS, LEG L, Abdomen Ultrasound 08/04/2023 2:54 PM BEVERAGE INSPECTION MACHINE TENDER Impressions 08/04/2023 2:54 PM BEVERAGE INSPECTION MACHINE TENDER Normal venous ultrasound exam. No evidence of deep vein thrombosis within the left lower extremity. Dictated by Ricardo Peacock MD @ Aug 04 2023 ??2:54PM (Electronically Signed) ?? 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
[2023-10-12 19:13] LABS: Calcium* 8.7 mg/dL (8.4-10.6)
[2023-10-12 19:15] LABS: C Reactive Protein* 2.6 mg/dL (0.5-1.0)
[2023-10-12] MEDS: ACETAMINOPHEN 500 MG TABLET 1000 MG PO (19:16)
[2023-10-12 19:29] LABS: Procalcitonin* 0.13 ng/mL (<0.50)
[2023-10-12 19:30] LABS: Slide Review Acceptable Review (Acceptable)
[2023-10-12 19:32] LABS: Troponin I* 0.07 ng/mL (0.01-0.04)
--- NOTE | 2023-10-12 19:33 | ED.NURSE ---
critical lab of 0.07 for troponin. MD collier
--- NOTE | 2023-10-12 20:22 | ED.NURSE ---
pt report given to onckailey RN
--- NOTE | 2023-10-12 20:26 | ED.NURSE ---
pt report given to kleber OROZCO.
[2023-10-12] MEDS: 0.9 % SODIUM CHLORIDE 1000 ml 1,000 ML 500 ML IV (20:28)
[2023-10-12 20:30] LABS: Creatine Kinase* 4147 U/L (54-186)
--- NOTE | 2023-10-12 21:01 | P.IMHP_ITS ---
Hospitalist- H&P: [facility] History of Present Illness Date Seen: 10/12/23 Chief complaint: Fall Narrative: Malik Huitron is a 73 year old male with Parkinson's, hemochromatosis, polycythemia vera, DVT on anticoagulation admitted to the hospital having been found down at home and unable to get up. He was recently discharged from the hospital after a fall at home where he sustained a left buttock hematoma. He was observed overnight at that time and discharged to home. He reports he was doing okay without obvious illness or injury until last night. He restarted his warfarin after was discontinued in the hospital when he had his hematoma. His INR today is 1.19. When he was discharged from the hospital it was 1.44. He reports his hip pain is getting better. He does not recall the events of yesterday. He does not recall falling down or even feeling ill. He was last known to be well late yesterday afternoon when his good friend and neighbor and healthcare power of litigation attorney associate, Sabine Ayala, talked to him on the phone. She found him today lying on the floor fully dressed, conscious, incontinent and complaining of bladder pain. She checked on him because he had not picked up his newspaper outside his door. The television was on. The patient thinks that he fell in the evening sometime because if it were later than that he would of turn the TV off. He laid on the floor all night. Unable to get up. In the emergency department he was found to have a fever without an obvious source of infection and elevated CK indicating rhabdomyolysis. No other obvious serious illness or injury was identified. Radiographic imaging including head CT, cervical spine CT, chest x-ray showed no acute abnormality. Patient reports he has had multiple falls over the last few weeks. Patient denies any source of infection, fever, cold, sore throat, cough, shortness of breath, chest pain, abdominal pain, nausea, vomiting, diarrhea. He does acknowledge urinary symptoms consistent with BPH. No dysuria no flank pain. Bruising from his left buttock is now extending down the back of his left thigh. No other skin rashes are present until his bruising from his fall. He had a COVID vaccine that he thinks he got yesterday Review of Systems Narrative: Patient reports no other recent problems since discharge last week. [facility] Medical History (Updated 10/12/23 @ 21:15 by Salvatore Mendoza MD) REM sleep behavior disorder ?G47.52 - REM sleep behavior disorder (ICD-10) History of DVT (deep vein thrombosis) ?Z86.718 - Personal history of other venous thrombosis and embolism (ICD-10) BPH with obstruction/lower urinary tract symptoms ?N40.1 - Benign prostatic hyperplasia with lower urinary tract symptoms (ICD- 10) ?N13.8 - Other obstructive and reflux uropathy (ICD-10) Congenital medullary sponge kidney ?Q61.5 - Medullary cystic kidney (ICD-10) History of retinal detachment ?Z86.69 - Personal history of other diseases of the nervous system and sense organs (ICD-10) Frailty ?R54 - Age-related physical debility (ICD-10) Cognitive impairment ?R41.89 - Other symptoms and signs involving cognitive functions and awareness (ICD-10) Acute urinary retention ?R33.8 - Other retention of urine (ICD-10) Anemia due to blood loss, acute ?D62 - Acute posthemorrhagic anemia (ICD-10) Chronic anticoagulation ?Z79.01 - buttermaker continuous churn (current) use of anticoagulants (ICD-10) Hematoma ?T14.8XXA - Other injury of unspecified body region, initial encounter (ICD- 10) Retinal detachment ?H33.20 - Serous retinal detachment, unspecified eye (ICD-10) Volar plate injury of interphalangeal finger joint ?S63.639A - Sprain of interphalangeal joint of unspecified finger, initial en counter (ICD-10) 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Z87.81 - Personal history of (healed) traumatic fracture (ICD-10) Social History Narrative: Patient is single, lives at [facility]. Friend Sabine Ayala would be MDM if needed. No ETOH use, no tobacco use. No children. 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 Requests Full Code status in the event of a witnessed arrest only. What is your current living situation?: I presently have a place to live Problems where you live: no known problems Problems where you live details: NA In the past 12 months, utilities in danger of being shut off: no In past 12 months, lack of transportation kept you from medical appts, meetings, work, or getting things needed for daily living: no In the past 12 mos, have been you worried that your food would run out before you had money to buy more?: never true In the past 12 mos, the food you bought just didn't last and you didn't have money to buy more?: never true Highest level of school completed/degree received: Doctoral degree Smoking Status: Never smoker Do you use any of these nicotine containing products: None Second hand tobacco smoke exposure: No How often do you have a drink containing alcohol: never AUDIT-C Alcohol total score: 0 Non-prescribed substance use: denies use Caffeine: No How often does anyone, including family, friends and others, physically hurt you : never How often does anyone, including family, friends and others, insult or talk down to you: never How often does anyone, including family, friends and others, threaten you with harm: never How often does anyone, including family, friends and others, scream or curse at you: never service: No Meds Home Medications and Allergies Home Medications Medication Instructions Recorded Confirmed Type acetaminophen 325 mg capsule 325 mg PO Q4H PRN 08/11/22 10/07/23 History (Tylenol) amantadine HCl 100 mg capsule 100 mg PO BID 08/11/22 10/07/23 History aspirin 81 mg tablet,delayed 81 mg PO DAILY 08/11/22 10/07/23 History release carbidopa 25 mg-levodopa 100 mg 3 tab PO QID 08/11/22 10/07/23 History tablet clonazepam 0.5 mg tablet 0.25 mg PO DAILY 08/11/22 10/07/23 History hydroxyurea 500 mg capsule 500 mg PO Q48H 08/11/22 10/07/23 History ketoconazole 2 % topical cream 1 applic topical BID 08/11/22 10/07/23 History pramipexole 0.25 mg tablet 0.25 mg PO HS 08/11/22 10/07/23 History warfarin 4 mg tablet 2 - 4 mg PO DAILY 08/11/22 10/07/23 History erythromycin 5 mg/gram (0.5 %) eye 1 applic ophthalmic (eye) HS PRN 02/14/23 10/07/23 History ointment finasteride 5 mg tablet 5 mg PO DAILY 08/17/23 10/07/23 History multivitamin 1 tab PO QAM 08/17/23 10/07/23 History polyethylene glycol 3350 17 8.5 - 17 g PO DAILY PRN 08/17/23 10/07/23 History gram/dose oral powder (Miralax) tamsulosin 0.4 mg capsule 0.4 mg PO DAILY 08/17/23 10/07/23 History docusate sodium 100 mg capsule 100 mg PO BID 09/01/23 10/07/23 History (Colace) ketorolac 0.4 % eye drops (Acular 1 drp ophthalmic (eye) DAILY 09/01/23 10/07/23 History LS) melatonin 3 mg capsule 3 mg PO HS PRN 09/01/23 10/07/23 History peg 400-propylene glycol (PF) 0.4 1 drp ophthalmic (eye) DAILY PRN 09/01/23 10/07/23 History %-0.3 % eye drops in a dropperette (Lubricant Eye (PG-PEG 400) (PF)) Allergies Allergy/AdvReac Type Severity Reaction Status Date / Time Penicillins Allergy Unknown Verified 10/07/23 07:57 Exam Narrative: Exam Narrative: He is alert and oriented to his circumstances. He has difficulty giving history of recent events having very poor recall of the last couple days. Const: Vital Signs, click to edit/add: Vital Signs - 24 hr 10/12/23 17:48 10/12/23 18:06 10/12/23 19:15 Temperature 102.1 F H Pulse Rate 91 Pulse Rate [Pulse Oximeter] 91 Respiratory Rate 18 Blood Pressure 133/78 Blood Pressure [Ri ght Upper Arm] 158/86 H Pulse Oximetry 97 98 97 Oxygen Delivery Me thod Room Air 10/12/23 19:16 10/12/23 19:23 10/12/23 19:30 Temperature 100.7 F H Pulse Rate 94 91 Pulse Rate [Pulse Oximeter] Respiratory Rate Blood Pressure Blood Pressure [Ri ght Upper Arm] Pulse Oximetry 96 99 Oxygen Delivery Me thod 10/12/23 19:32 10/12/23 19:45 10/12/23 20:38 Temperature 100.7 F H Pulse Rate 95 91 Pulse Rate [Pulse Oximeter] 91 Respiratory Rate 18 Blood Pressure 144/78 H Blood Pressure [Ri ght Upper Arm] 158/86 H Pulse Oximetry 98 [address] [facility] Result Labs Labs: Short CBC 10/12/23 Range/Units 18:40 WBC 7.42 (4.50-11.00) K/uL Hgb 13.0 L (13.5-17.5) gm/dL Hct 38.6 (37.0-53.0) % Plt Count 152 (140-440) K/uL BMP 10/12/23 10/12/23 10/12/23 18:40 18:40 18:40 Sodium Cancelled 136 Potassium Cancelled 3.5 L Chloride Cancelled Carbon Dioxide BUN Creatinine Glucose Calcium 10/12/23 10/12/23 10/12/23 18:40 18:40 18:40 Sodium Potassium Chloride 102 Carbon Dioxide Cancelled 23 BUN Cancelled 17 Creatinine Cancelled Glucose Calcium 10/12/23 10/12/23 10/12/23 18:40 18:40 18:40 Sodium Potassium Chloride Carbon Dioxide BUN Creatinine 0.7 Glucose Cancelled 116 H Calcium Cancelled 8.7 Cardiac Enzymes 10/12/23 Range/Units 18:40 Total Creatine Kinase 4147 H (54-186) U/L Troponin I 0.07 H* (0.01-0.04) ng/mL Liver Function 10/12/23 10/12/23 10/12/23 Range/Units 18:40 18:40 18:40 Total Bilirubin Cancelled 1.6 H AST Cancelled 88 H ALT Cancelled Alkaline Phosphatase Albumin 10/12/23 10/12/23 10/12/23 Range/Units 18:40 18:40 18:40 Total Bilirubin AST ALT 22 Alkaline Phosphatase Cancelled 88 Albumin Cancelled 4.3 Urine 10/12/23 Range/Units 17:56 Urine Color Yellow (Yellow) Urine Appearance Clear (Clear) Urine pH 7.5 (5.0-8.5) Ur Specific [place] 1.020 (1.000-1.030) Urine Protein Negative (Negative) Urine Glucose (UA) Negative (Negative) Assessment and Plan Assessment and plan (1) Fever: Status: Acute (2) Acute urinary retention: Status: Acute (3) Cognitive impairment: Status: Acute (4) Frailty: Status: Acute (5) Rhabdomyolysis: Status: Acute (6) Hematoma: Problem comment: - L buttock and L flank, stable, hemoglobin stable - no evidence of fracture on ER CT 10/07/23 Status: Acute (7) Chronic anticoagulation: Problem comment: Coumadin was held after his initial fall last week. Has been subsequently resumed at patient's request. Remains high risk for bleeding due to falls Status: Chronic (8) BPH with obstruction/lower urinary tract symptoms: Status: Acute (9) Fall: Problem comment: - high risk for recurrent falls - likely 2/2 Parkinsons, no arrythymias seen on telemetry overnight - PT/OT evaluated, patient at baseline Status: Acute (10) Parkinson's disease: Status: Chronic Plan Patient is admitted to the hospital for evaluation and management of fever, rhabdomyolysis, urinary retention and disability related to Parkinson's disease. At this point there is not a definite focus for fever so will withhold antibiotics. If continued to have a fever or symptoms of illness will do additional evaluation and management. IV fluids for his rhabdomyolysis. Total time spent today is 80 minutes, 50 minutes in coordination of care discussing with patient and his friend and other providers management of above medical problems
[2023-10-12] MEDS: CARBIDOPA-LEVODOPA 25-100 TABLET 3 TAB PO (22:36)
[2023-10-12] MEDS: SODIUM CHLORIDE 0.9 % (FLUSH) 10 ML SYRINGE 5 ML IVF (22:37)
[2023-10-12] MEDS: SENNOSIDES 1 TAB TABLET PO (22:37)
[2023-10-12] MEDS: WARFARIN 2 MG TABLET 4 MG PO (22:37)
[2023-10-12] MEDS: LACTATED RINGERS 1000 ML 1,000 ML 200 ML IV (22:38)
[2023-10-12] MEDS: HYDROXYUREA 500 MG CAPSULE PO (23:16)
[2023-10-13] VITALS (9 sets, daily range): BP systolic 93–151; BP diastolic 53–88; PULSE 76–94; RESP 16–18; TEMP 36.5–36.6; O2SAT 96–97
--- NOTE | 2023-10-13 04:44 | PC.NURSE ---
Shift note: 73 -year-old man is admitted to the unit on account of fall in the house. Patient has had previous multiple falls related to Parkinson dx. Pt was alert and oriented on admission, brought in on bed accompanied by one of his neighbors. Pt had urinary catheter in place, denied SOB, pain, light headedness, and fever on admission. On examination, pt has bruises on both upper extremities and buttocks. Ambulate with A1, WALKER AND GB but appears to have unstable gait and requires careful attention. Lung sounds clear bilaterally. At 0030, pt accidentally remove IV line, small amount of blood seen but could not be measured. New IV line of 20G inserted. Pt had 1 small and 1 large formed BM tonight.
[2023-10-13] MEDS: LACTATED RINGERS 1000 ML 1,000 ML 200 ML IV ×3 (05:27→11:49)
[2023-10-13 06:58] LABS: Basophils Absolute Auto 0.03 K/uL (0.00-0.30); Basophils Percent Auto 0.6 % (0.0-3.0); Eosinophils Absolute Auto 0.15 K/uL (0.00-0.50); Eosinophils Percent Auto 2.8 % (0.0-7.0); Hematocrit 38.4 % (37.0-53.0); Hemoglobin* 12.7 gm/dL (13.5-17.5); Immature Granulocytes Abs Auto 0.46 K/uL (0.00-0.30); Immature Granulocytes Pct Auto 8.7 %; Lymphocytes Percent Auto 14.8 % (20-44); Mean Corpuscular HGB Conc 33 gm/dL (32-36); Mean Corpuscular Hemoglobin 35 pg (26-34); Mean Corpuscular Volume 106 fL (80-100); Monocytes Percent Auto 16.1 % (0.0-11.0); Platelet Count* 147 K/uL (140-440); RDW Coefficient of Variation % 15.3 % (11.5-15.5); Red Blood Count 3.64 m/uL (4.30-5.90); White Blood Count* 5.27 K/uL (4.50-11.00)
[2023-10-13 07:14] LABS: INR 1.34 (0.91-1.10); Prothrombin Time 17.5 Seconds
[2023-10-13 07:21] LABS: Chloride* 110 mmol/L (96-114); Sodium* 142 mmol/L (135-149)
[2023-10-13 07:22] LABS: Potassium* 3.5 mmol/L (3.6-5.1)
[2023-10-13 07:24] LABS: Creatinine* 0.7 mg/dL (0.5-1.5); Est. Creatinine Clearance* 73.29; Estimated Glomerular Filt Rate 98 ml/min
[2023-10-13 07:25] LABS: Anion Gap 6 mEq/L (7-15); Blood Urea Nitrogen* 15 mg/dL (7-30); Calcium* 8.6 mg/dL (8.4-10.6); Carbon Dioxide* 26 mmol/L (20-32); Glucose* 104 mg/dL (60-115)
[2023-10-13 07:35] LABS: Slide Review Reflex No
[2023-10-13 07:51] LABS: Creatine Kinase* 2730 U/L (54-186)
[2023-10-13] MEDS: KETOROLAC OPHTH 0.5% 1 DROP EYE-BOTH (08:21)
[2023-10-13] MEDS: SODIUM CHLORIDE 0.9 % (FLUSH) 10 ML SYRINGE 5 ML IVF (08:21)
[2023-10-13] MEDS: FINASTERIDE 5 MG TABLET PO (08:22)
[2023-10-13] MEDS: CARBIDOPA-LEVODOPA 25-100 TABLET 3 TAB PO ×4 (08:22→20:54)
[2023-10-13] MEDS: TAMSULOSIN HCL 0.4 MG CAPSULE PO (08:22)
[2023-10-13] MEDS: MULTIVITAMIN/MINERALS 1 TABLET 1 TAB PO (08:22)
[2023-10-13] MEDS: SENNOSIDES 1 TAB TABLET PO ×2 (08:23→20:54)
[2023-10-13] MEDS: clonazePAM 0.5 MG TABLET 0.25 MG PO (08:23)
--- NOTE | 2023-10-13 12:29 | P.IMPN_ITS ---
Progress Note: A&P Assessment and plan (1) Fever: Problem details: No fever since 8:00 p.m. last night. No leukocytosis, BC x2 pending, UA rather unremarkable, UC pending, CXR without obvious pneumonia Status: Acute (2) Rhabdomyolysis: Problem details: S/p fall with unknown down time. CK improving following IV hydration. Will decrease rate of IVF and continue to follow CK. Status: Acute (3) Fall: Problem details: Self reported increasing, more frequent falls recently. Likely related to Parkinsons, no arrythymias seen on telemetry PT/OT consults web services professional for assistance in discharge planning/placement options if unsafe to continue in independent living Status: Acute (4) Hematoma: Problem details: Injury related to recent fall, L buttock and L flank, stable, hemoglobin stable No evidence of fracture on ER CT 10/07/23 Status: Acute (5) Chronic anticoagulation: Problem details: For history of DVT. Coumadin was held after his initial fall last week. Has been subsequently resumed at patient's request. Remains high risk for bleeding due to falls. 10/13 Discussed with patient risks and benefits of anticoagulation, bleeds, head trauma. Patient will discuss with POA to decide if he will continue on anticoagulation Status: Chronic (6) Cognitive impairment: Problem details: OT for [place] assessment Status: Acute (7) BPH with obstruction/lower urinary tract symptoms: Problem details: With urinary retention. Lynn catheter in place. Continue home medications. Outpatient Urology follow-up Status: Acute (8) Parkinson's disease: Problem details: Continue current home medications Status: Chronic Time Spent With Patient Total time spent: Total time spent caring for the patient today was 45 minutes. This includes time spent for the visit reviewing the chart, time spent during the visit, time spent after the visit and documentation and planning in coordination of care. Subjective Date Seen: 10/13/23 Interval history: Patient reports feeling better this morning. Has remained afebrile since admission. Denies headache or dizziness. Denies chest pain or shortness of breath. Tolerating orals. Was noted to be hypotensive while working with PT. Orthostatics were positive. Patient told nursing staff that he does have to take his time when getting up from lying to standing as he has does get dizzy. Exam Narrative: Exam Narrative: PHYSICAL EXAM General: Pleasant, conversant, NAD HEENT: Normocephalic, atraumatic, sclera white, EOMI, oral mucosa moist Cardiovascular: RRR, S1S2. Pulmonary: CTA bilaterally without rhonchi, rales, expiratory wheezes. No dyspnea Abdominal: Soft, nondistended, NTTP Neurological: Alert, answering questions appropriately, cranial nerves intact, no focal findings Extremities: No gross joint deformity or swelling. AROMI. Neurovascularly intact Skin: Warm, dry. Const: Vital Signs, click to edit/add: Vital Signs - 24 hr 10/12/23 17:48 10/12/23 18:06 10/12/23 19:15 Temperature 102.1 F H Pulse Rate 91 Pulse Rate [Left] Pulse Rate [Pulse Oximeter] 91 Pulse Rate [orthos tatic lying Blood Pressure Cuff] Pulse Rate [orthos tatic sitting Bloo d Pressure Cuff] Pulse Rate [orthos tatic standing Blo od Pressure Cuff] Respiratory Rate 18 Blood Pressure 133/78 Blood Pressure [Le ft Arm] Blood Pressure [Ri ght Arm] Blood Pressure [Ri ght Upper Arm] 158/86 H Blood Pressure [or thostatic lying Ri ght Arm] Blood Pressure [or thostatic sitting Right Arm] Blood Pressure [or thostatic standing Right Arm] Pulse Oximetry 97 98 97 Oxygen Delivery Me thod Room Air 10/12/23 19:16 10/12/23 19:23 10/12/23 19:30 Temperature 100.7 F H Pulse Rate 94 91 Pulse Rate [Left] Pulse Rate [Pulse Oximeter] Pulse Rate [orthos tatic lying Blood Pressure Cuff] Pulse Rate [orthos tatic sitting Bloo d Pressure Cuff] Pulse Rate [orthos tatic standing Blo od Pressure Cuff] Respiratory Rate Blood Pressure Blood Pressure [Le ft Arm] Blood Pressure [Ri ght Arm] Blood Pressure [Ri ght Upper Arm] Blood Pressure [or thostatic lying Ri ght Arm] Blood Pressure [or thostatic sitting Right Arm] Blood Pressure [or thostatic standing Right Arm] Pulse Oximetry 96 99 Oxygen Delivery Me thod 10/12/23 19:32 10/12/23 19:45 10/12/23 20:38 Temperature 100.7 F H Pulse Rate 95 91 Pulse Rate [Left] Pulse Rate [Pulse Oximeter] 91 Pulse Rate [orthos tatic lying Blood Pressure Cuff] Pulse Rate [orthos tatic sitting Bloo d Pressure Cuff] Pulse Rate [orthos tatic standing Blo od Pressure Cuff] Respiratory Rate 18 Blood Pressure 144/78 H Blood Pressure [Le ft Arm] Blood Pressure [Ri ght Arm] Blood Pressure [Ri ght Upper Arm] 158/86 H Blood Pressure [or thostatic lying Ri ght Arm] Blood Pressure [or thostatic sitting Right Arm] Blood Pressure [or thostatic standing Right Arm] Pulse Oximetry 98 96 Oxygen Delivery Me thod 10/12/23 21:18 10/12/23 23:00 10/12/23 23:00 Temperature 98.4 F 98.1 F Pulse Rate Pulse Rate [Left] 87 85 85 Pulse Rate [Pulse Oximeter] Pulse Rate [orthos tatic lying Blood Pressure Cuff] Pulse Rate [orthos tatic sitting Bloo d Pressure Cuff] Pulse Rate [orthos tatic standing Blo od Pressure Cuff] Respiratory Rate 16 16 16 Blood Pressure Blood Pressure [Le ft Arm] 119/65 113/68 Blood Pressure [Ri ght Arm] Blood Pressure [Ri ght Upper Arm] Blood Pressure [or thostatic lying Ri ght Arm] Blood Pressure [or thostatic sitting Right Arm] Blood Pressure [or thostatic standing Right Arm] Pulse Oximetry 95 96 Oxygen Delivery Me thod Room Air Room Air 10/13/23 01:05 10/13/23 03:00 10/13/23 07:00 Temperature 97.7 F Pulse Rate 87 86 Pulse Rate [Left] 81 Pulse Rate [Pulse Oximeter] Pulse Rate [orthos tatic lying Blood Pressure Cuff] Pulse Rate [orthos tatic sitting Bloo d Pressure Cuff] Pulse Rate [orthos tatic standing Blo od Pressure Cuff] Respiratory Rate 16 Blood Pressure Blood Pressure [Le ft Arm] 138/83 Blood Pressure [Ri ght Arm] Blood Pressure [Ri ght Upper Arm] Blood Pressure [or thostatic lying Ri ght Arm] Blood Pressure [or thostatic sitting Right Arm] Blood Pressure [or thostatic standing Right Arm] Pulse Oximetry 96 Oxygen Delivery Me thod Room Air 10/13/23 07:00 10/13/23 07:00 10/13/23 11:00 Temperature 97.9 F 97.9 F Pulse Rate Pulse Rate [Left] 86 86 79 Pulse Rate [Pulse Oximeter] Pulse Rate [orthos tatic lying Blood Pressure Cuff] Pulse Rate [orthos tatic sitting Bloo d Pressure Cuff] Pulse Rate [orthos tatic standing Blo od Pressure Cuff] Respiratory Rate 18 18 16 Blood Pressure Blood Pressure [Le ft Arm] 150/88 H Blood Pressure [Ri ght Arm] 109/64 Blood Pressure [Ri ght Upper Arm] Blood Pressure [or thostatic lying Ri ght Arm] Blood Pressure [or thostatic sitting Right Arm] Blood Pressure [or thostatic standing Right Arm] Pulse Oximetry 96 96 Oxygen Delivery Me thod Room Air Room Air 10/13/23 11:51 Temperature Pulse Rate Pulse Rate [Left] Pulse Rate [Pulse Oximeter] Pulse Rate [orthos tatic lying Blood Pressure Cuff] 80 Pulse Rate [orthos tatic sitting Bloo d Pressure Cuff] 76 Pulse Rate [orthos tatic standing Blo od Pressure Cuff] 94 Respiratory Rate Blood Pressure Blood Pressure [Le ft Arm] Blood Pressure [Ri ght Arm] Blood Pressure [Ri ght Upper Arm] Blood Pressure [or thostatic lying Ri ght Arm] 140/81 H Blood Pressure [or thostatic sitting Right Arm] 113/75 Blood Pressure [or thostatic standing Right Arm] 93/53 L Pulse Oximetry Oxygen Delivery Me thod Labs Labs: Laboratory Results - last 24 hr 10/12/23 10/12/23 10/12/23 17:56 18:12 18:37 WBC RBC Hgb Hct MCV MCH MCHC RDW Coeff of [place] Plt Count Neut % (Auto) Lymph % (Auto) [place] % (Auto) Eos % (Auto) Baso % (Auto) Neut # (Auto) Lymph # (Auto) [place] # (Auto) Eos # (Auto) Baso # (Auto) Abs Immat Gran (auto) Imm/Tot Granulo (auto) Diff Slide Review INR VBG pH VBG pCO2 VBG pO2 VBG HCO3 Sodium Potassium Chloride Carbon Dioxide Anion Gap BUN Creatinine Estimated Creat Clear Estimated GFR Glucose Lactate Calcium Total Bilirubin AST ALT Alkaline Phosphatase Total Creatine Kinase Troponin I C-Reactive Protein Total Protein Albumin Procalcitonin Urine Color Yellow Urine Appearance Clear Urine pH 7.5 Ur Specific [place] 1.020 Urine Protein Negative Urine Glucose (UA) Negative Urine Ketones Trace A Urine Blood 1+ A Urine Nitrite Negative Urine Bilirubin Negative Urine Urobilinogen 0.2 Ur Leukocyte Esterase Negative Urine RBC 0-2 Urine WBC 0-2 Ur Squamous Epith Cells None Urine Bacteria Few A SARS-CoV-2 (PCR) Negative SARS-CoV-2 Influenza Type A (PCR) Negative PCR FLU A Influenza Type B (PCR) Negative PCR FLU B RSV (PCR) Negative PCR RSV Lab Acknowledgement Test Added 10/12/23 10/12/23 10/12/23 18:40 18:40 18:40 WBC 7.42 RBC 3.71 L Hgb 13.0 L Hct 38.6 MCV 104 H MCH 35 H MCHC 34 RDW Coeff of [place] 14.9 Plt Count 152 Neut % (Auto) 73.7 H Lymph % (Auto) 8.4 L [place] % (Auto) 11.1 H Eos % (Auto) 0.3 Baso % (Auto) 0.4 Neut # (Auto) 5.50 Lymph # (Auto) 0.60 L [place] # (Auto) 0.80 Eos # (Auto) 0.02 Baso # (Auto) 0.03 Abs Immat Gran (auto) 0.45 H Imm/Tot Granulo (auto) 6.1 Diff Slide Review Acceptable Review INR 1.19 H VBG pH 7.490 H VBG pCO2 33 L VBG pO2 91.8 H VBG HCO3 25 Sodium Cancelled 136 Potassium Cancelled 3.5 L Chloride Cancelled Carbon Dioxide Anion Gap BUN Creatinine Estimated Creat Clear Estimated GFR Glucose Lactate Calcium Total Bilirubin AST ALT Alkaline Phosphatase Total Creatine Kinase Troponin I C-Reactive Protein Total Protein Albumin Procalcitonin Urine Color Urine Appearance Urine pH Ur Specific [place] Urine Protein Urine Glucose (UA) Urine Ketones Urine Blood Urine Nitrite Urine Bilirubin Urine Urobilinogen Ur Leukocyte Esterase Urine RBC Urine WBC Ur Squamous Epith Cells Urine Bacteria SARS-CoV-2 (PCR) Influenza Type A (PCR) Influenza Type B (PCR) RSV (PCR) Lab Acknowledgement 10/12/23 10/12/23 10/12/23 18:40 18:40 18:40 WBC RBC Hgb Hct MCV MCH MCHC RDW Coeff of [place] Plt Count Neut % (Auto) Lymph % (Auto) [place] % (Auto) Eos % (Auto) Baso % (Auto) Neut # (Auto) Lymph # (Auto) [place] # (Auto) Eos # (Auto) Baso # (Auto) Abs Immat Gran (auto) Imm/Tot Granulo (auto) Diff Slide Review INR VBG pH VBG pCO2 VBG pO2 VBG HCO3 Sodium Potassium Chloride 102 Carbon Dioxide Cancelled 23 Anion Gap Cancelled 11 BUN Cancelled Creatinine Estimated Creat Clear Estimated GFR Glucose Lactate Calcium Total Bilirubin AST ALT Alkaline Phosphatase Total Creatine Kinase Troponin I C-Reactive Protein Total Protein Albumin Procalcitonin Urine Color Urine Appearance Urine pH Ur Specific [place] Urine Protein Urine Glucose (UA) Urine Ketones Urine Blood Urine Nitrite Urine Bilirubin Urine Urobilinogen Ur Leukocyte Esterase Urine RBC Urine WBC Ur Squamous Epith Cells Urine Bacteria SARS-CoV-2 (PCR) Influenza Type A (PCR) Influenza Type B (PCR) RSV (PCR) Lab Acknowledgement 10/12/23 10/12/23 10/12/23 18:40 18:40 18:40 WBC RBC Hgb Hct MCV MCH MCHC RDW Coeff of [place] Plt Count Neut % (Auto) Lymph % (Auto) [place] % (Auto) Eos % (Auto) Baso % (Auto) Neut # (Auto) Lymph # (Auto) [place] # (Auto) Eos # (Auto) Baso # (Auto) Abs Immat Gran (auto) Imm/Tot Granulo (auto) Diff Slide Review INR VBG pH VBG pCO2 VBG pO2 VBG HCO3 Sodium Potassium Chloride Carbon Dioxide Anion Gap BUN 17 Creatinine Cancelled 0.7 Estimated Creat Clear Cancelled 72.83 Estimated GFR Cancelled Glucose Lactate Calcium Total Bilirubin AST ALT Alkaline Phosphatase Total Creatine Kinase Troponin I C-Reactive Protein Total Protein Albumin Procalcitonin Urine Color Urine Appearance Urine pH Ur Specific [place] Urine Protein Urine Glucose (UA) Urine Ketones Urine Blood Urine Nitrite Urine Bilirubin Urine Urobilinogen Ur Leukocyte Esterase Urine RBC Urine WBC Ur Squamous Epith Cells Urine Bacteria SARS-CoV-2 (PCR) Influenza Type A (PCR) Influenza Type B (PCR) RSV (PCR) Lab Acknowledgement 10/12/23 10/12/23 10/12/23 18:40 18:40 18:40 WBC RBC Hgb Hct MCV MCH MCHC RDW Coeff of [place] Plt Count Neut % (Auto) Lymph % (Auto) [place] % (Auto) Eos % (Auto) Baso % (Auto) Neut # (Auto) Lymph # (Auto) [place] # (Auto) Eos # (Auto) Baso # (Auto) Abs Immat Gran (auto) Imm/Tot Granulo (auto) Diff Slide Review INR VBG pH VBG pCO2 VBG pO2 VBG HCO3 Sodium Potassium Chloride Carbon Dioxide Anion Gap BUN Creatinine Estimated Creat Clear Estimated GFR 98 Glucose Cancelled 116 H Lactate 1.2 Calcium Cancelled 8.7 Total Bilirubin Cancelled AST ALT Alkaline Phosphatase Total Creatine Kinase Troponin I C-Reactive Protein Total Protein Albumin Procalcitonin Urine Color Urine Appearance Urine pH Ur Specific [place] Urine Protein Urine Glucose (UA) Urine Ketones Urine Blood Urine Nitrite Urine Bilirubin Urine Urobilinogen Ur Leukocyte Esterase Urine RBC Urine WBC Ur Squamous Epith Cells Urine Bacteria SARS-CoV-2 (PCR) Influenza Type A (PCR) Influenza Type B (PCR) RSV (PCR) Lab Acknowledgement 10/12/23 10/12/23 10/12/23 18:40 18:40 18:40 WBC RBC Hgb Hct MCV MCH MCHC RDW Coeff of [place] Plt Count Neut % (Auto) Lymph % (Auto) [place] % (Auto) Eos % (Auto) Baso % (Auto) Neut # (Auto) Lymph # (Auto) [place] # (Auto) Eos # (Auto) Baso # (Auto) Abs Immat Gran (auto) Imm/Tot Granulo (auto) Diff Slide Review INR VBG pH VBG pCO2 VBG pO2 VBG HCO3 Sodium Potassium Chloride Carbon Dioxide Anion Gap BUN Creatinine Estimated Creat Clear Estimated GFR Glucose Lactate Calcium Total Bilirubin 1.6 H AST Cancelled 88 H ALT Cancelled 22 Alkaline Phosphatase Cancelled Total Creatine Kinase Troponin I C-Reactive Protein Total Protein Albumin Procalcitonin Urine Color Urine Appearance Urine pH Ur Specific [place] Urine Protein Urine Glucose (UA) Urine Ketones Urine Blood Urine Nitrite Urine Bilirubin Urine Urobilinogen Ur Leukocyte Esterase Urine RBC Urine WBC Ur Squamous Epith Cells Urine Bacteria SARS-CoV-2 (PCR) Influenza Type A (PCR) Influenza Type B (PCR) RSV (PCR) Lab Acknowledgement 10/12/23 10/12/23 10/12/23 18:40 18:40 18:40 WBC RBC Hgb Hct MCV MCH MCHC RDW Coeff of [place] Plt Count Neut % (Auto) Lymph % (Auto) [place] % (Auto) Eos % (Auto) Baso % (Auto) Neut # (Auto) Lymph # (Auto) [place] # (Auto) Eos # (Auto) Baso # (Auto) Abs Immat Gran (auto) Imm/Tot Granulo (auto) Diff Slide Review INR VBG pH VBG pCO2 VBG pO2 VBG HCO3 Sodium Potassium Chloride Carbon Dioxide Anion Gap BUN Creatinine Estimated Creat Clear Estimated GFR Glucose Lactate Calcium Total Bilirubin AST ALT Alkaline Phosphatase 88 Total Creatine Kinase 4147 H Troponin I 0.07 H* C-Reactive Protein Cancelled 2.6 H Total Protein Cancelled 7.9 Albumin Cancelled Procalcitonin Urine Color Urine Appearance Urine pH Ur Specific [place] Urine Protein Urine Glucose (UA) Urine Ketones Urine Blood Urine Nitrite Urine Bilirubin Urine Urobilinogen Ur Leukocyte Esterase Urine RBC Urine WBC Ur Squamous Epith Cells Urine Bacteria SARS-CoV-2 (PCR) Influenza Type A (PCR) Influenza Type B (PCR) RSV (PCR) Lab Acknowledgement 10/12/23 10/12/23 10/13/23 18:40 19:43 05:49 WBC 5.27 RBC 3.64 L Hgb 12.7 L Hct 38.4 MCV 106 H MCH 35 H MCHC 33 RDW Coeff of [place] 15.3 Plt Count 147 Neut % (Auto) 57.0 Lymph % (Auto) 14.8 L [place] % (Auto) 16.1 H Eos % (Auto) 2.8 Baso % (Auto) 0.6 Neut # (Auto) 3.00 Lymph # (Auto) 0.80 L [place] # (Auto) 0.80 Eos # (Auto) 0.15 Baso # (Auto) 0.03 Abs Immat Gran (auto) 0.46 H Imm/Tot Granulo (auto) 8.7 Diff Slide Review INR 1.34 H VBG pH VBG pCO2 VBG pO2 VBG HCO3 Sodium 142 Potassium 3.5 L Chloride 110 Carbon Dioxide 26 Anion Gap 6 L BUN 15 Creatinine 0.7 Estimated Creat Clear 73.29 Estimated GFR 98 Glucose 104 Lactate Calcium 8.6 Total Bilirubin AST ALT Alkaline Phosphatase Total Creatine Kinase 2730 H Troponin I C-Reactive Protein Total Protein Albumin 4.3 Procalcitonin 0.13 Urine Color Urine Appearance Urine pH Ur Specific [place] Urine Protein Urine Glucose (UA) Urine Ketones Urine Blood Urine Nitrite Urine Bilirubin Urine Urobilinogen Ur Leukocyte Esterase Urine RBC Urine WBC Ur Squamous Epith Cells Urine Bacteria SARS-CoV-2 (PCR) Influenza Type A (PCR) Influenza Type B (PCR) RSV (PCR) Lab Acknowledgement Test Added
[2023-10-13] MEDS: LACTATED RINGERS 1000 ML 1,000 ML 100 ML IV ×2 (13:45→19:34)
[2023-10-13] MEDS: WARFARIN 2 MG TABLET 4 MG PO (17:15)
--- NOTE | 2023-10-13 18:51 | PC.NURSE ---
End of shift [id number]: Pt A&O, afebrile and VSS with exception to fluctuating BP. Therapy noted pt?s BP to be low 70s/40s. Exercise Equipment Specialist obtained orthostatic blood pressure from patient (see flowsheet) and they were noted to be positive, notified. Orthostatic BP ordered BID; to be done PRIOR to Klonopin admin in the morning and at bedtime. Pt is SBA with 4ww and gait belt. He denies having pain, nausea or lightheadedness. TELE reads NSR rate in the 80s. Lynn catheter C/D/I, urine clear yellow. PIV in left wrist infusing LR @ 100 mL/hr, decreased from previous 200 mL/hr rate. PIV in right AC discontinued d/t discomfort. ?
[2023-10-13] MEDS: MELATONIN 3 MG TABLET PO (20:54)
[2023-10-13] MEDS: PRAMIPEXOLE 0.5 MG TABLET 0.25 MG PO (20:54)
[2023-10-14] VITALS (9 sets, daily range): BP systolic 95–162; BP diastolic 50–105; PULSE 79–160; RESP 16–24; TEMP 36.4–37; O2SAT 95–98
--- NOTE | 2023-10-14 04:49 | PC.NURSE ---
Shift note: Pt is doing well ambulating with A1, walker and GB. Alert and oriented. Orthostatic Bp dropped for both sitting and standing and complained of mild dizziness when standing. No fall attempt noted.
[2023-10-14] MEDS: LACTATED RINGERS 1000 ML 1,000 ML 100 ML IV (05:44)
[2023-10-14 06:36] LABS: Basophils Absolute Auto 0.03 K/uL (0.00-0.30); Basophils Percent Auto 0.5 % (0.0-3.0); Eosinophils Absolute Auto 0.27 K/uL (0.00-0.50); Eosinophils Percent Auto 4.3 % (0.0-7.0); Hematocrit 37.6 % (37.0-53.0); Hemoglobin* 12.3 gm/dL (13.5-17.5); Immature Granulocytes Abs Auto 0.33 K/uL (0.00-0.30); Immature Granulocytes Pct Auto 5.2 %; Lymphocytes Percent Auto 17.4 % (20-44); Mean Corpuscular HGB Conc 33 gm/dL (32-36); Mean Corpuscular Hemoglobin 35 pg (26-34); Mean Corpuscular Volume 106 fL (80-100); Monocytes Percent Auto 10.9 % (0.0-11.0); Neutrophils Absolute Auto 3.91 K/uL (1.7-7.0); Neutrophils Percent Auto 61.7 % (42.0-72.0); Platelet Count* 143 K/uL (140-440); RDW Coefficient of Variation % 15.1 % (11.5-15.5); Red Blood Count 3.54 m/uL (4.30-5.90); White Blood Count* 6.33 K/uL (4.50-11.00)
[2023-10-14 06:45] LABS: Chloride* 106 mmol/L (96-114); Potassium* 3.5 mmol/L (3.6-5.1); Sodium* 138 mmol/L (135-149)
[2023-10-14 06:48] LABS: Anion Gap 8 mEq/L (7-15); Blood Urea Nitrogen* 15 mg/dL (7-30); Calcium* 8.1 mg/dL (8.4-10.6); Carbon Dioxide* 24 mmol/L (20-32); Creatinine* 0.7 mg/dL (0.5-1.5); Est. Creatinine Clearance* 73.29; Estimated Glomerular Filt Rate 98 ml/min; Glucose* 125 mg/dL (60-115)
[2023-10-14 06:54] LABS: Slide Review Reflex No
[2023-10-14 07:00] LABS: INR 1.29 (0.91-1.10)
[2023-10-14] MEDS: POTASSIUM CHLORIDE 10 MEQ CAPSULE ER 20 MEQ PO ×2 (08:27→18:19)
[2023-10-14] MEDS: SENNOSIDES 1 TAB TABLET PO ×2 (08:28→21:10)
[2023-10-14] MEDS: FINASTERIDE 5 MG TABLET PO (08:28)
[2023-10-14] MEDS: MULTIVITAMIN/MINERALS 1 TABLET 1 TAB PO (08:28)
[2023-10-14] MEDS: CARBIDOPA-LEVODOPA 25-100 TABLET 3 TAB PO ×4 (08:28→21:09)
[2023-10-14] MEDS: TAMSULOSIN HCL 0.4 MG CAPSULE PO (08:28)
[2023-10-14] MEDS: LACTATED RINGERS 500 ML IV (09:00)
[2023-10-14 09:11] LABS: Troponin I* 0.01 ng/mL (0.01-0.04)
--- NOTE | 2023-10-14 11:58 | CRLHL7_ITS ---
For Patients: As a result of the Century Cures Act, medical imaging exams and procedure reports are released immediately into your electronic medical record. You may view this report before your referring provider. If you have questions, please contact your health care provider. Indication: Tachycardia Technique: Volumetric multidetector CT images of the chest were obtained after the administration of IV contrast. 95 cc Isovue 370 low osmolar intravenous contrast Comparison: None available. Findings: There is a bulky appearance of the thyroid gland with extension of the left thyroid lobe into the superior mediastinum consistent with a substernal thyroid goiter. The thoracic aorta is nonaneurysmal. There is no central filling defect to suggest pulmonary embolism. There are reactive mediastinal, hilar and shotty axillary lymph nodes in the left greater than right axilla. There is mild central bronchial thickening with traction bronchiectasis seen within the bilateral lower lobes. There are bibasilar consolidations and ground-glass opacities appreciated with minimal biapical pleural thickening. There is no pleural effusion or pneumothorax. There is no evidence of pulmonary mass or suspicious pulmonary nodule. The partially visualized upper abdomen demonstrates cystic change of the left liver lobe and cholelithiasis. The thoracic vertebral body heights are grossly maintained with chronic compression deformity of the anterosuperior T12 level. There is no significant spondylolisthesis or displaced fracture. Impression: Mild central bronchial thickening with minimal basilar interstitial and ground-glass opacities which may represent atelectasis versus mild bronchitis changes. No evidence of central filling defect to suggest pulmonary embolus. Please note that all CT scans at this facility use dose modulation, iterative reconstruction, and/or weight-based dosing when appropriate to reduce radiation dose to as low as reasonably achievable. Dictated by Terrence Pedroza MD @ 10/14/2023 1:30:26 PM (Electronically Signed)
[2023-10-14 12:12] LABS: Creatine Kinase* 1029 U/L (54-186)
[2023-10-14] MEDS: ADENOSINE 6 MG/2ML INJ IVP (13:42)
[2023-10-14] MEDS: ADENOSINE 6 MG/2ML INJ 12 MG IVP (13:46)
--- NOTE | 2023-10-14 15:00 | CRLHL7_ITS ---
For Patients: As a result of the Century Cures Act, medical imaging exams and procedure reports are released immediately into your electronic medical record. You may view this report before your referring provider. If you have questions, please contact your health care provider. INDICATION: History of DVT COMPARISON: None. TECHNIQUE: A compression venous ultrasound exam was performed of the left lower extremity using morgan-scale imaging, color Doppler and spectral Doppler analysis. FINDINGS: Sonographic imaging of the left lower extremity demonstrates normal compressibility and color Doppler venous blood flow within the common femoral vein, deep femoral vein, and the proximal greater saphenous vein. Within the thigh, the femoral vein is patent and compressible. At a lower level, the posterior tibial veins also shows normal compressibility and color Doppler venous blood flow. The left popliteal vein is incompletely compressible with nonocclusive thrombus present. Limited imaging of the contralateral groin demonstrates a normal spectral waveform and color Doppler venous blood flow within the right common femoral vein. IMPRESSION: Chronic nonocclusive short-segment DVT within the left popliteal vein. Dictated by Ken Lamar MD @ 10/14/2023 4:13:41 PM (Electronically Signed)
--- NOTE | 2023-10-14 15:11 | PC.SOCIAL ---
Addendum entered by PATEL Vigil 10/14/23 16:39: Discharge planning: cabinet worker updated pt's friend/contact/POA, Sabine Ayala, that [facility] was reviewing the pt's referral for short-term rehab and that a Julyane from [facility] would be getting back to the Disability Rater Department about the pt's interest in [facility]. The pt was having an ECHO done and this worker was not able to talk to him, so gave this update to Sabine. Sabine will let the pt know. Social work to follow-up as needed. Original Note: Discharge planning: cabinet worker met with pt to discuss discharge planning. Pt's friend Sabinenahid Ayala was also present. OT/PT are recommending a SNF for the pt for short-term rehab and then for pt to transition to an RETIREMENT. Pt is okay with this plan and would like to go to [facility] for rehab and then [facility] after for Assisted Living. Pt currently lives at [facility] on the [facility] and wants to remain on the [facility] campus. cabinet worker emailed Melissa Rock at [facility] about openings at [facility] for the pt after he discharges from a SNF. cabinet worker also talked with Carola at [facility] who said they have one male short-term rehab bed available. cabinet worker sent the referral over to Carola via secure email. Pt is not currently ready for discharge, but may be ready on Tuesday or Tuesday of next week. Social work to follow-up as needed.
--- NOTE | 2023-10-14 15:21 | P.IMPN_ITS ---
Progress Note: A&P Assessment and plan (1) Fever: Problem details: Resolved No leukocytosis, BC x2 NGTD, UA rather unremarkable, UC mixed rené, CXR without obvious pneumonia Status: Resolved (2) Rhabdomyolysis: Problem details: S/p fall with unknown down time. CK continues to improve following IV hydration. Will decrease rate of IVF and continue to follow CK. IVF reduces 75 mL/hr on 10/14 Status: Acute (3) Fall: Problem details: Self reported increasing, more frequent falls recently. Likely related to Parkinsons, no arrythymias seen on telemetry PT/OT consulted, following nutritional services director for assistance in discharge planning/placement options if unsafe to continue in independent living at [facility] Status: Acute (4) Hematoma: Problem details: Injury related to recent fall, L buttock and L flank, stable, hemoglobin stable No evidence of fracture on ER CT 10/07/23 Status: Acute (5) Chronic anticoagulation: Problem details: For history of DVT. Coumadin was held after his initial fall last week. Has been subsequently resumed at patient's request. Remains high risk for bleeding due to falls. 10/13 Discussed with patient risks and benefits of anticoagulation, bleeds, head trauma. Patient will discuss with POA to decide if he will continue on anticoagulation INR subtherapeutic. Pharmacy managing Status: Chronic (6) Cognitive impairment: Problem details: OT for [place] assessment when appropriate Status: Acute (7) BPH with obstruction/lower urinary tract symptoms: Problem details: With urinary retention. Lynn catheter in place. Continue home medications. Outpatient Urology follow-up Status: Acute (8) Parkinson's disease: Problem details: Continue current home medications Status: Chronic (9) Tachycardia: Problem details: In reviewing telemetry, appears to have had brief episodes overnight along with 2 more episodes this morning. EKG showing what appears to be SVT. Troponin negative. Asymptomatic other than racing heart. Procedure: After attempting unsuccessful vagal maneuvers, discussed with patient use of adenosine. Patient in agreement. Crash cart was brought into room and pads were placed on the patient. First attempt of 6 mg adenosine with rapid push and flush slowed rate for a few seconds, revealing NSR. Rate resumed quickly to 160s. Second dose of 12 mg with rapid push and flush, successful. NSR. Rate maintained. Continue telemetry CTA PE chest negative for PE. Bilateral lower extremity Doppler ultrasound ordered to rule out DVT Echocardiogram ordered Status: Acute Time Spent With Patient Total time spent: Total time spent caring for the patient today was 45 minutes with additional 45 minutes critical care time. This includes time spent for the visit reviewing the chart, time spent during the visit, time spent after the visit and documentation and planning in coordination of care. Subjective Date Seen: 10/14/23 Interval history: Patient seen during morning rounds, reports feeling better this morning. Denies headache or dizziness. Has remained afebrile. Tolerating orals without nausea vomiting. Orthostatics last night improved. Still orthostatic with standing this morning. Normally takes clonazepam at nighttime so we have moved this dose time. Following rounds, patient noted to become tachycardic in the 160s for a brief few minutes. EKG at the time reads as sinus tach but appears to be more SVT. Patient is asymptomatic during this episode. Resolved on its own. Troponin negative. Several hours later, recurred with rates in the 160s again. This time patient reports feeling his heart racing. No chest pain. Repeat EKG appears to be SVT again. Exam Narrative: Exam Narrative: PHYSICAL EXAM General: Pleasant, conversant, NAD HEENT: Normocephalic, atraumatic, sclera white, EOMI, oral mucosa moist Cardiovascular: Tachycardic, regular Pulmonary: CTA bilaterally without rhonchi, rales, expiratory wheezes. No dyspnea Abdominal: Soft, nondistended, NTTP Neurological: Alert, answering questions appropriately, cranial nerves intact, no focal findings Extremities: No gross joint deformity or swelling. AROMI. Neurovascularly intact Skin: Warm, dry. Const: Vital Signs, click to edit/add: Vital Signs - 24 hr 10/13/23 19:00 10/13/23 20:00 10/13/23 23:00 Temperature 97.8 F 98 F Pulse Rate Pulse Rate [Left] 90 84 Pulse Rate [orthos tatic lying Blood Pressure Cuff] 88 Pulse Rate [orthos tatic sitting Bloo d Pressure Cuff] 90 Pulse Rate [orthos tatic standing Blo od Pressure Cuff] 84 Respiratory Rate 16 16 Blood Pressure [Le ft Arm] Blood Pressure [Ri ght Arm] 132/86 135/79 Blood Pressure [or thostatic lying Ri ght Arm] 133/77 Blood Pressure [or thostatic sitting Right Arm] 132/86 Blood Pressure [or thostatic standing Right Arm] 100/71 Pulse Oximetry 96 96 Oxygen Delivery Me thod Room Air Room Air 10/13/23 23:00 10/14/23 00:35 10/14/23 03:00 Temperature 97.5 F L Pulse Rate 87 Pulse Rate [Left] 91 Pulse Rate [orthos tatic lying Blood Pressure Cuff] Pulse Rate [orthos tatic sitting Bloo d Pressure Cuff] Pulse Rate [orthos tatic standing Blo od Pressure Cuff] Respiratory Rate 16 16 Blood Pressure [Le ft Arm] Blood Pressure [Ri ght Arm] 152/76 H Blood Pressure [or thostatic lying Ri ght Arm] Blood Pressure [or thostatic sitting Right Arm] Blood Pressure [or thostatic standing Right Arm] Pulse Oximetry 96 Oxygen Delivery Me thod Room Air 10/14/23 04:10 10/14/23 07:00 10/14/23 08:10 Temperature Pulse Rate 79 Pulse Rate [Left] 91 Pulse Rate [orthos tatic lying Blood Pressure Cuff] 91 Pulse Rate [orthos tatic sitting Bloo d Pressure Cuff] 89 Pulse Rate [orthos tatic standing Blo od Pressure Cuff] 87 Respiratory Rate 18 Blood Pressure [Le ft Arm] Blood Pressure [Ri ght Arm] Blood Pressure [or thostatic lying Ri ght Arm] 152/76 H Blood Pressure [or thostatic sitting Right Arm] 112/71 Blood Pressure [or thostatic standing Right Arm] 95/50 L Pulse Oximetry Oxygen Delivery Me thod 10/14/23 08:10 10/14/23 12:03 10/14/23 15:00 Temperature 98.6 F 98.4 F Pulse Rate Pulse Rate [Left] 160 H 160 H 82 Pulse Rate [orthos tatic lying Blood Pressure Cuff] Pulse Rate [orthos tatic sitting Bloo d Pressure Cuff] Pulse Rate [orthos tatic standing Blo od Pressure Cuff] Respiratory Rate 18 18 18 Blood Pressure [Le ft Arm] 162/105 H Blood Pressure [Ri ght Arm] 131/88 Blood Pressure [or thostatic lying Ri ght Arm] Blood Pressure [or thostatic sitting Right Arm] Blood Pressure [or thostatic standing Right Arm] Pulse Oximetry 95 97 Oxygen Delivery Me thod Room Air Room Air 10/14/23 15:00 Temperature 97.9 F Pulse Rate Pulse Rate [Left] 88 Pulse Rate [orthos tatic lying Blood Pressure Cuff] Pulse Rate [orthos tatic sitting Bloo d Pressure Cuff] Pulse Rate [orthos tatic standing Blo od Pressure Cuff] Respiratory Rate 18 Blood Pressure [Le ft Arm] 115/67 Blood Pressure [Ri ght Arm] Blood Pressure [or thostatic lying Ri ght Arm] Blood Pressure [or thostatic sitting Right Arm] Blood Pressure [or thostatic standing Right Arm] Pulse Oximetry 98 Oxygen Delivery Me thod Labs Labs: Laboratory Results - last 24 hr 10/14/23 10/14/23 05:58 06:58 WBC 6.33 RBC 3.54 L Hgb 12.3 L Hct 37.6 MCV 106 H MCH 35 H MCHC 33 RDW Coeff of [place] 15.1 Plt Count 143 Neut % (Auto) 61.7 Lymph % (Auto) 17.4 L [place] % (Auto) 10.9 Eos % (Auto) 4.3 Baso % (Auto) 0.5 Neut # (Auto) 3.91 Lymph # (Auto) 1.10 [place] # (Auto) 0.70 Eos # (Auto) 0.27 Baso # (Auto) 0.03 Abs Immat Gran (auto) 0.33 H Imm/Tot Granulo (auto) 5.2 INR 1.29 H Sodium 138 Potassium 3.5 L Chloride 106 Carbon Dioxide 24 Anion Gap 8 BUN 15 Creatinine 0.7 Estimated Creat Clear 73.29 Estimated GFR 98 Glucose 125 H Calcium 8.1 L Total Creatine Kinase 1029 H Troponin I 0.01
[2023-10-14] MEDS: LACTATED RINGERS 1000 ML 1,000 ML 75 ML IV (16:54)
[2023-10-14] MEDS: WARFARIN 2 MG TABLET 4 MG PO (18:19)
--- NOTE | 2023-10-14 18:51 | PC.NURSE ---
Nursing Care Hours: [phone] Primary concern this shift was pt went into Sinus Tach with rates between 160-170. Pt first reported to video game script writer during assessment feeling a vibration in his heart around 0500 this morning. Then during orthostatic BP when pt was laying supine. Hospitalist came into room to talk to pt and then tele showed 160HR. Pt denied feeling flutter, chest pain, or SOB at this time. 500ml fluid bolus given of LR and pt converted back to NSR. After episode pt states feeling tired. Around 1230, pt went into Sinus Tach again with rate around 160's. Attempted Valsalva maneuver x3, once with video game script writer pressing firmly on pt abdomen but not effective. Pt denies chest pain, SOB, or feeling flutter. Metoprolol ordered but verbal order to hold. Cardioversion with Adenosine instead. 6mg attempted without sustained NSR rate, then 12mg given and pt converted to NSR with rate around 90. VS remained stable, no further intervention needed. OT reported to nurse in AM during therapy positive ortho static blood pressures with a drop from 126/76 laying with 45 degree angle to 80/43 standing, with no significant change in pulse rate. Therapy also noted observing a sudden short term change in mental status. Food Safety Officer did not see any deviation of mental status from baseline this shift. Recived ECHO, PE study, and venous ultrasound. Pt alert and oriented for video game script writer this shift, no BM, Lynn patent and running clear farida urine. Pt eating and drinking sufficiently.
[2023-10-14] MEDS: HYDROXYUREA 500 MG CAPSULE PO (21:05)
[2023-10-14] MEDS: MELATONIN 3 MG TABLET PO (21:10)
[2023-10-14] MEDS: clonazePAM 0.5 MG TABLET 0.25 MG PO (21:11)
[2023-10-14] MEDS: PRAMIPEXOLE 0.5 MG TABLET 0.25 MG PO (21:12)
[2023-10-14] MEDS: SODIUM CHLORIDE 0.9 % (FLUSH) 10 ML SYRINGE 5 ML IVF (21:14)
[2023-10-15] VITALS (9 sets, daily range): BP systolic 78–154; BP diastolic 45–97; PULSE 73–89; RESP 16–24; TEMP 36.1–36.7; O2SAT 95–98
[2023-10-15] MEDS: POTASSIUM CHLORIDE 10 MEQ, LIDOCAINE 1 % 1 ML in 0.9 % SODIUM CHLORIDE 100 ml 100 ML 106 MEQ IVPB ×2 (01:11→02:34)
[2023-10-15] MEDS: 0.9 % SODIUM CHLORIDE 250 ml IV (01:22)
[2023-10-15 06:40] LABS: Basophils Absolute Auto 0.04 K/uL (0.00-0.30); Basophils Percent Auto 0.6 % (0.0-3.0); Eosinophils Absolute Auto 0.31 K/uL (0.00-0.50); Eosinophils Percent Auto 4.3 % (0.0-7.0); Hematocrit 37.7 % (37.0-53.0); Hemoglobin* 12.2 gm/dL (13.5-17.5); Immature Granulocytes Abs Auto 0.48 K/uL (0.00-0.30); Immature Granulocytes Pct Auto 6.7 %; Lymphocytes Absolute Auto 1.46 K/uL (0.90-2.90); Lymphocytes Percent Auto 20.4 % (20-44); Mean Corpuscular HGB Conc 32 gm/dL (32-36); Mean Corpuscular Hemoglobin 35 pg (26-34); Mean Corpuscular Volume 107 fL (80-100); Monocytes Percent Auto 8.1 % (0.0-11.0); Neutrophils Absolute Auto 4.27 K/uL (1.7-7.0); Neutrophils Percent Auto 59.9 % (42.0-72.0); Platelet Count* 145 K/uL (140-440); Red Blood Count 3.54 m/uL (4.30-5.90); White Blood Count* 7.14 K/uL (4.50-11.00)
--- NOTE | 2023-10-15 06:57 | PC.NURSE ---
Patient pleasant, alert and cooperative. Reported discomfort with potassium + lidocane IVPB. Discomfort subsided after adjustments. ?Patient symptomatic during orthostatic BPs reporting that he felt lightheaded. See assessment for Ortho BP details.?
[2023-10-15 07:07] LABS: INR 1.35 (0.91-1.10); Prothrombin Time 17.5 Seconds
[2023-10-15 07:11] LABS: Slide Review Reflex No
[2023-10-15 07:24] LABS: Chloride* 107 mmol/L (96-114); Potassium* 3.8 mmol/L (3.6-5.1); Sodium* 139 mmol/L (135-149)
[2023-10-15 07:27] LABS: Anion Gap 6 mEq/L (7-15); Carbon Dioxide* 26 mmol/L (20-32); Creatinine* 0.7 mg/dL (0.5-1.5); Est. Creatinine Clearance* 73.29; Estimated Glomerular Filt Rate 98 ml/min
[2023-10-15 07:28] LABS: Blood Urea Nitrogen* 11 mg/dL (7-30); Calcium* 8.4 mg/dL (8.4-10.6); Glucose* 102 mg/dL (60-115)
[2023-10-15 07:29] LABS: Creatine Kinase* 593 U/L (54-186)
[2023-10-15] MEDS: LACTATED RINGERS 1000 ML 1,000 ML 75 ML IV (07:34)
[2023-10-15] MEDS: TAMSULOSIN HCL 0.4 MG CAPSULE PO (08:56)
[2023-10-15] MEDS: FINASTERIDE 5 MG TABLET PO (08:56)
[2023-10-15] MEDS: SENNOSIDES 1 TAB TABLET PO ×2 (08:56→20:55)
[2023-10-15] MEDS: CARBIDOPA-LEVODOPA 25-100 TABLET 3 TAB PO ×4 (08:56→20:54)
[2023-10-15] MEDS: MULTIVITAMIN/MINERALS 1 TABLET 1 TAB PO (08:56)
[2023-10-15] MEDS: SODIUM CHLORIDE 0.9 % (FLUSH) 10 ML SYRINGE 5 ML IVF ×2 (12:24→20:58)
--- NOTE | 2023-10-15 13:10 | P.IMPN_ITS ---
Progress Note: A&P Assessment and plan (1) Fever: Problem details: Resolved No leukocytosis, BC x2 NGTD, UA rather unremarkable, UC mixed rené, CXR without obvious pneumonia Status: Resolved (2) Rhabdomyolysis: Problem details: S/p fall with unknown down time. CK continues to improve following IV hydration. Consider discontinuing IVF tomorrow Status: Acute (3) Fall: Problem details: Self reported increasing, more frequent falls recently. Likely related to Parkinsons, no arrythymias seen on telemetry - until 10/14, arrhythmias noted, SVT PT/OT consulted, following financial services associate for assistance in discharge planning/placement options if unsafe to continue in independent living at [facility] 10/15: Multifactorial, multiple concerns. In setting of Parkinson's, not unexpected. Also experiencing orthostatic hypotension, also found in Parkinson's and med management. Query medication compliance. Bleeding risk with falls while on anticoagulation. Status: Acute (4) Hematoma: Problem details: Injury related to recent fall, L buttock and L flank, stable, hemoglobin stable No evidence of fracture on ER CT 10/07/23 Status: Acute (5) Chronic anticoagulation: Problem details: For history of DVT. Coumadin was held after his initial fall last week. Has been subsequently resumed at patient's request. Remains high risk for bleeding due to falls. 10/13 Discussed with patient risks and benefits of anticoagulation, bleeds, head trauma. Patient will discuss with POA to decide if he will continue on an ticoagulation INR subtherapeutic. Pharmacy managing 10/15: Appears home dose was erroneously discontinued. Will start tonight. Patient has not yet decided to discontinue anticoagulation, has not discussed with his POA Sabine as he would like to do Status: Chronic (6) Cognitive impairment: Problem details: [place] . Concerned for medication compliance which can complicate his Parkinson's and side effects of too much or too little medication. Recommending short-term placement, likely leading to long-term placement. Status: Acute (7) BPH with obstruction/lower urinary tract symptoms: Problem details: With urinary retention. Lynn catheter in place. Continue home medications. Followed by Urology 10/15: Starting midodrine for orthostatic hypotension. Understand risk for worsening urinary retention. Discussed with pharmacy. Will need to find balance in appropriate urinary output with using midodrine to decrease orthostatic hypotension and falls. Status: Acute (8) Parkinson's disease: Problem details: Continue current home medications. Question if patient is taking appropriately, too much, too little, consistently at the same time. Symptomatic with falls, orthostatic hypotension, cognitive impairment. 10/16: SUNITHA Regalado was able to bring and amantadine today. I do not see any documentation that missed doses of amantadine could lead to SVT. Query too much Sinemet if not taken appropriately? Followed by Dr. Wilkins, [facility]. Last appointment 04/26/23. At that time, his neurologist noted his orthostatic hypotension had improved with sodium tablets. I do not see that there are any sodium tablets on his med rec. Current sodium 139. Will continue with Midodrine trial for now. Could always restart sodium tablets. Status: Chronic (9) Tachycardia: Problem details: Resolved, SVT In reviewing telemetry, appears to have had brief episodes overnight along with 2 more episodes this morning. EKG showing what appears to be SVT. Troponin negative. Asymptomatic other than racing heart. Procedure: After attempting unsuccessful vagal maneuvers, discussed with patient use of adenosine. Patient in agreement. Crash cart was brought into room and pads were placed on the patient. First attempt of 6 mg adenosine with rapid push and flush slowed rate for a few seconds, revealing NSR. Rate resumed quickly to 160s. Second dose of 12 mg with rapid push and flush, successful. NSR. Rate maintained. Continue telemetry CTA PE chest negative for PE. Bilateral lower extremity Doppler ultrasound shows chronic nonocclusive short- segment DVT within the left popliteal vein Echocardiogram shows normal global systolic function, EF 55-60%, mild aortic stenosis Status: Acute (10) Polycythemia: Problem details: Continue hydroxyurea Followed by oncology Status: Chronic Plan As of 10/15: financial services associate for placement/discharge planning. Time Spent With Patient Total time spent: Total time spent caring for the patient today was 60 minutes. This includes time spent for the visit reviewing the chart, time spent during the visit, time spent after the visit and documentation and planning in coordination of care. Subjective Date Seen: 10/15/23 Interval history: Patient is seen sitting up in a chair this morning. Has no complaints. Denies headache or dizziness. Denies chest pain or shortness of breath. Tolerating orals without nausea vomiting. Patient was having short, intermittent episodes of SVT yesterday. After sustaining his last episode, decision was made for use of adenosine. Patient has since remained in normal sinus rhythm. Has also continued to be orthostatic with standing and while working with therapies. Typically asymptomatic. Which actually complicates activities and therapies as he will suddenly become weak or fall without warning. Staff bringing 4th concerns if patient is taking his medications appropriately at home. Unsure if cognition is interfering with this. Exam Narrative: Exam Narrative: PHYSICAL EXAM General: Pleasant, conversant, NAD Cardiovascular: RRR Pulmonary: CTA bilaterally without rhonchi, rales, expiratory wheezes. No dyspnea Neurological: Alert, answering questions appropriately, cranial nerves intact, no focal findings. Occasionally tangential Extremities: No gross joint deformity or swelling. AROMI. Neurovascularly intact Skin: Warm, dry. Const: Vital Signs, click to edit/add: Vital Signs - 24 hr 10/14/23 15:00 10/14/23 15:00 10/14/23 15:00 Temperature 97.9 F Pulse Rate 81 Pulse Rate [Left] 82 88 Pulse Rate [orthos tatic lying Blood Pressure Cuff] Pulse Rate [orthos tatic sitting Bloo d Pressure Cuff] Pulse Rate [orthos tatic standing Blo od Pressure Cuff] Respiratory Rate 18 18 Blood Pressure [Le ft Arm] 115/67 Blood Pressure [Ri ght Arm] Blood Pressure [or thostatic lying Ri ght Arm] Blood Pressure [or thostatic sitting Right Arm] Blood Pressure [or thostatic standing Right Arm] Pulse Oximetry 98 Oxygen Delivery Me thod 10/14/23 19:00 10/14/23 23:00 10/15/23 02:25 Temperature 98.1 F 98.1 F 97.8 F Pulse Rate Pulse Rate [Left] 92 86 82 Pulse Rate [orthos tatic lying Blood Pressure Cuff] Pulse Rate [orthos tatic sitting Bloo d Pressure Cuff] Pulse Rate [orthos tatic standing Blo od Pressure Cuff] Respiratory Rate 24 24 22 Blood Pressure [Le ft Arm] Blood Pressure [Ri ght Arm] 140/85 H 155/99 H 137/82 Blood Pressure [or thostatic lying Ri ght Arm] Blood Pressure [or thostatic sitting Right Arm] Blood Pressure [or thostatic standing Right Arm] Pulse Oximetry 97 95 95 Oxygen Delivery Me thod Room Air Room Air Room Air 10/15/23 04:53 10/15/23 05:27 10/15/23 07:00 Temperature 97.8 F Pulse Rate 75 Pulse Rate [Left] 73 Pulse Rate [orthos tatic lying Blood Pressure Cuff] 83 Pulse Rate [orthos tatic sitting Bloo d Pressure Cuff] 87 Pulse Rate [orthos tatic standing Blo od Pressure Cuff] 83 Respiratory Rate 18 Blood Pressure [Le ft Arm] Blood Pressure [Ri ght Arm] 122/78 Blood Pressure [or thostatic lying Ri ght Arm] 147/97 H Blood Pressure [or thostatic sitting Right Arm] 116/66 Blood Pressure [or thostatic standing Right Arm] 78/45 L Pulse Oximetry 98 Oxygen Delivery Me thod Room Air 10/15/23 11:00 Temperature 96.9 F L Pulse Rate Pulse Rate [Left] 88 Pulse Rate [orthos tatic lying Blood Pressure Cuff] Pulse Rate [orthos tatic sitting Bloo d Pressure Cuff] Pulse Rate [orthos tatic standing Blo od Pressure Cuff] Respiratory Rate 16 Blood Pressure [Le ft Arm] Blood Pressure [Ri ght Arm] 109/93 H Blood Pressure [or thostatic lying Ri ght Arm] Blood Pressure [or thostatic sitting Right Arm] Blood Pressure [or thostatic standing Right Arm] Pulse Oximetry 96 Oxygen Delivery Me thod Room Air Labs Labs: Laboratory Results - last 24 hr 10/15/23 05:51 WBC 7.14 RBC 3.54 L Hgb 12.2 L Hct 37.7 MCV 107 H MCH 35 H MCHC 32 RDW Coeff of Arsalan 15.0 Plt Count 145 Neut % (Auto) 59.9 Lymph % (Auto) 20.4 [place] % (Auto) 8.1 Eos % (Auto) 4.3 Baso % (Auto) 0.6 Neut # (Auto) 4.27 Lymph # (Auto) 1.46 [place] # (Auto) 0.60 Eos # (Auto) 0.31 Baso # (Auto) 0.04 Abs Immat Gran (auto) 0.48 H Imm/Tot Granulo (auto) 6.7 INR 1.35 H Sodium 139 Potassium 3.8 Chloride 107 Carbon Dioxide 26 Anion Gap 6 L BUN 11 Creatinine 0.7 Estimated Creat Clear 73.29 Estimated GFR 98 Glucose 102 Calcium 8.4 Total Creatine Kinase 593 H
[2023-10-15] MEDS: MIDODRINE HCL 5 MG TABLET 2.5 MG PO ×2 (13:45→16:59)
[2023-10-15] MEDS: WARFARIN 2 MG TABLET 4 MG PO (16:58)
--- NOTE | 2023-10-15 18:08 | PC.NURSE ---
shift note: vss stable. pt denies being lightheaded or dizzy when standing or changing position. IV patent x2. JOSH gayle. arsh patent
[2023-10-15] MEDS: MELATONIN 3 MG TABLET PO (20:55)
[2023-10-15] MEDS: PRAMIPEXOLE 0.5 MG TABLET 0.25 MG PO (20:55)
[2023-10-15] MEDS: clonazePAM 0.5 MG TABLET 0.25 MG PO (20:57)
[2023-10-16] VITALS (9 sets, daily range): BP systolic 78–161; BP diastolic 56–94; PULSE 63–98; RESP 16–20; TEMP 35.9–36.9; O2SAT 94–98
[2023-10-16 06:49] LABS: Basophils Absolute Auto 0.04 K/uL (0.00-0.30); Basophils Percent Auto 0.6 % (0.0-3.0); Eosinophils Percent Auto 4.5 % (0.0-7.0); Hematocrit 38.7 % (37.0-53.0); Hemoglobin* 12.6 gm/dL (13.5-17.5); Immature Granulocytes Abs Auto 0.37 K/uL (0.00-0.30); Immature Granulocytes Pct Auto 5.5 %; Lymphocytes Percent Auto 22.4 % (20-44); Mean Corpuscular HGB Conc 33 gm/dL (32-36); Mean Corpuscular Hemoglobin 35 pg (26-34); Mean Corpuscular Volume 108 fL (80-100); Monocytes Percent Auto 8.6 % (0.0-11.0); Neutrophils Absolute Auto 3.92 K/uL (1.7-7.0); Neutrophils Percent Auto 58.4 % (42.0-72.0); Platelet Count* 174 K/uL (140-440); Red Blood Count 3.59 m/uL (4.30-5.90); White Blood Count* 6.71 K/uL (4.50-11.00)
[2023-10-16 06:52] LABS: Slide Review Reflex Yes
[2023-10-16 06:53] LABS: Chloride* 106 mmol/L (96-114); Sodium* 139 mmol/L (135-149)
[2023-10-16 06:54] LABS: Potassium* 3.8 mmol/L (3.6-5.1)
[2023-10-16 06:56] LABS: Anion Gap 8 mEq/L (7-15); Carbon Dioxide* 25 mmol/L (20-32); Creatinine* 0.7 mg/dL (0.5-1.5); Est. Creatinine Clearance* 72.27; Estimated Glomerular Filt Rate 98 ml/min
[2023-10-16 06:57] LABS: Blood Urea Nitrogen* 12 mg/dL (7-30); Calcium* 8.4 mg/dL (8.4-10.6); Glucose* 109 mg/dL (60-115)
[2023-10-16 07:16] LABS: Slide Review Acceptable Review (Acceptable)
[2023-10-16 07:29] LABS: INR 1.53 (0.91-1.10); Prothrombin Time 19.4 Seconds
--- NOTE | 2023-10-16 07:42 | P.IMPN_ITS ---
Progress Note: A&P Assessment and plan (1) Fever: Problem details: Resolved No leukocytosis, BC x2 NGTD, UA rather unremarkable, UC mixed rené, CXR without obvious pneumonia Status: Resolved (2) Rhabdomyolysis: Problem details: S/p fall with unknown down time. CK continues to improve following IV hydration. IVF discontinued. Good oral intake, adequate urine output. Status: Acute (3) Fall: Problem details: Self reported increasing, more frequent falls recently. Likely related to Parkinsons, no arrythymias seen on telemetry - until 10/14, arrhythmias noted, SVT PT/OT consulted, following mountain services manager for assistance in discharge planning/placement options as unsafe to continue in independent living at [facility] 10/15: Multifactorial, multiple concerns. In setting of Parkinson's, not unexpected. Also experiencing orthostatic hypotension, also found in Parkinson's and med management. Query medication compliance. Bleeding risk with falls while on anticoagulation. Status: Acute (4) Hematoma: Problem details: Injury related to recent fall, L buttock and L flank, stable, hemoglobin stable No evidence of fracture on ER CT 10/07/23 Status: Acute (5) Chronic anticoagulation: Problem details: For history of DVT. Coumadin was held after his initial fall last week. Has been subsequently resumed at patient's request. Remains high risk for bleeding due to falls. 10/13 Discussed with patient risks and benefits of anticoagulation, bleeds, head trauma. Patient will discuss with POA to decide if he will continue on anticoagulation INR subtherapeutic. Pharmacy managing 10/15: Appears home dose was erroneously discontinued. Will start tonight. Patient has not yet decided to discontinue anticoagulation, has not discussed with his POA Sabine as he would like to do Status: Chronic (6) Cognitive impairment: Problem details: [place] . Concerned for medication compliance which can complicate his Parkinson's and side effects of too much or too little medication. Recommending short-term placement, likely leading to long-term placement. Status: Acute (7) BPH with obstruction/lower urinary tract symptoms: Problem details: With urinary retention. Lynn catheter in place. Continue home medications. Followed by Urology 10/15: Starting midodrine for orthostatic hypotension. Understand risk for worsening urinary retention. Discussed with pharmacy. Will need to find balance in appropriate urinary output with using midodrine to decrease orthostatic hypotension and falls. 10/16: Removing Lynn catheter given good urinary output, monitor. Status: Acute (8) Parkinson's disease: Problem details: Continue current home medications. Question if patient is taking appropriately, too much, too little, consistently at the same time. Symptomatic with falls, orthostatic hypotension, cognitive impairment. 10/16: SUNITHA Regalado was able to bring and amantadine today. I do not see any documentation that missed doses of amantadine could lead to SVT. Query too much Sinemet if not taken appropriately? Followed by Dr. Wilkins, [facility]. Last appointment 04/26/23. At that time, his neurologist noted his orthostatic hypotension had improved with sodium tablets . I do not see that there are any sodium tablets on his med rec. Patient tells me he was actually just eating 7-8 saltine crackers a day but typically would forget to eat them. Current sodium 139. Will continue with Midodrine trial for now. Status: Chronic (9) Tachycardia: Problem details: Resolved, SVT In reviewing telemetry, appears to have had brief episodes overnight along with 2 more episodes this morning. EKG showing what appears to be SVT. Troponin negative. Asymptomatic other than racing heart. Procedure: After attempting unsuccessful vagal maneuvers, discussed with patient use of adenosine. Patient in agreement. Crash cart was brought into room and pads were placed on the patient. First attempt of 6 mg adenosine with rapid push and flush slowed rate for a few seconds, revealing NSR. Rate resumed quickly to 160s. Second dose of 12 mg with rapid push and flush, successful. NSR. Rate maintained. Continue telemetry CTA PE chest negative for PE. Bilateral lower extremity Doppler ultrasound shows chronic nonocclusive short- segment DVT within the left popliteal vein Echocardiogram shows normal global systolic function, EF 55-60%, mild aortic stenosis Recommend outpatient Cardiology follow-up Status: Acute (10) Polycythemia: Problem details: Continue hydroxyurea Followed by oncology Status: Chronic Plan Continue therapies. mountain services manager to assist with placement/discharge planning. Discussed risks/benefits of anticoagulation in setting of frequent falls. Patient needs to decide upon discharge. Time Spent With Patient Total time spent: Total time spent caring for the patient today was 45 minutes. This includes time spent for the visit reviewing the chart, time spent during the visit, time spent after the visit and documentation and planning in coordination of care. Subjective Date Seen: 10/16/23 Interval history: Patient is seen sitting up in bed this morning. No complaints or concerns. No events reported overnight. Denies headache or dizziness. Denies chest pain or shortness of breath. Tolerating orals without nausea vomiting. Has remained afebrile, vitally stable. Known orthostatic hypotension. Exam Narrative: Exam Narrative: PHYSICAL EXAM General: [place], conversant, NAD Cardiovascular: RRR Pulmonary: CTA bilaterally without rhonchi, rales, expiratory wheezes. No dyspnea Neurological: Alert, answering questions appropriately, cranial nerves intact, no focal findings. Occasionally tangential Extremities: No gross joint deformity or swelling. AROMI. Neurovascularly intact Skin: Warm, dry. Const: Vital Signs, click to edit/add: Vital Signs - 24 hr 10/15/23 11:00 10/15/23 15:00 10/15/23 15:00 Temperature 96.9 F L Pulse Rate 82 Pulse Rate [Left] 88 88 Pulse Rate [orthos tatic lying Blood Pressure Cuff] Pulse Rate [orthos tatic standing Blo od Pressure Cuff] Respiratory Rate 16 16 Blood Pressure [Le ft Arm] Blood Pressure [Ri ght Arm] 109/93 H Blood Pressure [or thostatic lying Ri ght Arm] Blood Pressure [or thostatic standing Right Arm] Pulse Oximetry 96 Oxygen Delivery Me thod Room Air 10/15/23 15:00 10/15/23 19:00 10/15/23 22:10 Temperature 97.1 F L 98.1 F 97.5 F L Pulse Rate Pulse Rate [Left] 89 81 87 Pulse Rate [orthos tatic lying Blood Pressure Cuff] Pulse Rate [orthos tatic standing Blo od Pressure Cuff] Respiratory Rate 20 24 20 Blood Pressure [Le ft Arm] 154/90 H Blood Pressure [Ri ght Arm] 131/76 134/75 Blood Pressure [or thostatic lying Ri ght Arm] Blood Pressure [or thostatic standing Right Arm] Pulse Oximetry 98 96 97 Oxygen Delivery Me thod Room Air Room Air Room Air 10/16/23 01:40 10/16/23 03:00 10/16/23 06:35 Temperature 97.7 F Pulse Rate 63 Pulse Rate [Left] 98 Pulse Rate [orthos tatic lying Blood Pressure Cuff] 74 Pulse Rate [orthos tatic standing Blo od Pressure Cuff] 94 Respiratory Rate 20 Blood Pressure [Le ft Arm] Blood Pressure [Ri ght Arm] 141/94 H Blood Pressure [or thostatic lying Ri ght Arm] 160/90 H Blood Pressure [or thostatic standing Right Arm] 78/56 L Pulse Oximetry 96 Oxygen Delivery Me thod Room Air 10/16/23 07:29 Temperature 97.5 F L Pulse Rate Pulse Rate [Left] 79 Pulse Rate [orthos tatic lying Blood Pressure Cuff] Pulse Rate [orthos tatic standing Blo od Pressure Cuff] Respiratory Rate 18 Blood Pressure [Le ft Arm] Blood Pressure [Ri ght Arm] 161/94 H Blood Pressure [or thostatic lying Ri ght Arm] Blood Pressure [or thostatic standing Right Arm] Pulse Oximetry 94 Oxygen Delivery Me thod Room Air Labs Labs: Laboratory Results - last 24 hr 10/16/23 05:43 WBC 6.71 RBC 3.59 L Hgb 12.6 L Hct 38.7 MCV 108 H MCH 35 H MCHC 33 RDW Coeff of Arsalan 15.0 Plt Count 174 Neut % (Auto) 58.4 Lymph % (Auto) 22.4 [place] % (Auto) 8.6 Eos % (Auto) 4.5 Baso % (Auto) 0.6 Neut # (Auto) 3.92 Lymph # (Auto) 1.50 [place] # (Auto) 0.60 Eos # (Auto) 0.30 Baso # (Auto) 0.04 Abs Immat Gran (auto) 0.37 H Imm/Tot Granulo (auto) 5.5 Diff Slide Review Acceptable Review INR 1.53 H Sodium 139 Potassium 3.8 Chloride 106 Carbon Dioxide 25 Anion Gap 8 BUN 12 Creatinine 0.7 Estimated Creat Clear 72.27 Estimated GFR 98 Glucose 109 Calcium 8.4
--- NOTE | 2023-10-16 07:49 | PC.NURSE ---
Patient pleasant, alert and cooperative. Repositioned in bed. Lynn patent. Denied pain. Reported feeling lightheaded when standing this morning for Orthostatic BPs (see Ortho BP documentation). Reported he feels this way often when he gets up in the mornings and the lightheadedness effects vision. Usually more the right eye than left. Has had these episodes since having cataract surgery 22 years ago. Reports his vision gets burnt out in center and goes all silvery. The silvery may take over entire visual field for about 10 seconds. Then it collapses in on itself and starts over. Sometimes not as large. Different shapes. Smaller and smaller, then larger and larger. Reports he has seen a specialist previously.
--- NOTE | 2023-10-16 08:08 | PC.NURSE ---
shift note: Dr. Palmer notified of changes in 0100 tele compared to previous tele. No orders at this time
[2023-10-16] MEDS: MIDODRINE HCL 5 MG TABLET 2.5 MG PO ×2 (08:56→16:38)
[2023-10-16] MEDS: FINASTERIDE 5 MG TABLET PO (08:57)
[2023-10-16] MEDS: TAMSULOSIN HCL 0.4 MG CAPSULE PO (08:57)
[2023-10-16] MEDS: CARBIDOPA-LEVODOPA 25-100 TABLET 3 TAB PO ×4 (08:57→20:56)
[2023-10-16] MEDS: SENNOSIDES 1 TAB TABLET PO ×2 (08:57→20:56)
[2023-10-16] MEDS: MULTIVITAMIN/MINERALS 1 TABLET 1 TAB PO (08:57)
[2023-10-16] MEDS: SODIUM CHLORIDE 0.9 % (FLUSH) 10 ML SYRINGE 5 ML IVF ×2 (08:58→20:57)
[2023-10-16] MEDS: BACITRACIN OINTMENT BULK TUBE 1 APPLIC TOPICAL (13:55)
--- NOTE | 2023-10-16 14:25 | PC.NURSE ---
shift note: vss stable. pt afeb. dc'd caban intact @ 0900. pt voided 150cc @1130 and bladder scanned for 135cc residual. LS clr. abrasions to u/e and l/e in healing state.
[2023-10-16] MEDS: WARFARIN 2 MG TABLET 4 MG PO (16:38)
--- NOTE | 2023-10-16 17:52 | PC.NURSE ---
shift note: pt voided 100cc on toilet. bladder scanned for 274cc. pt states he doesn't feel uncomfortable when lower abd palpated. Dr. farr notified. will rescan in 1 hour.
--- NOTE | 2023-10-16 19:11 | PC.NURSE ---
shift note: pt bladder scanned for 364cc then voided 200cc
[2023-10-16] MEDS: HYDROXYUREA 500 MG CAPSULE PO (20:56)
[2023-10-16] MEDS: PRAMIPEXOLE 0.5 MG TABLET 0.25 MG PO (20:56)
[2023-10-16] MEDS: MELATONIN 3 MG TABLET PO (20:56)
[2023-10-16] MEDS: clonazePAM 0.5 MG TABLET 0.25 MG PO (20:56)
[2023-10-17 02:30] VITALS: BP 133/80; PULSE 98; RESP 16; TEMP 36.3; O2SAT 98
--- NOTE | 2023-10-17 06:33 | PC.NURSE ---
Pt alert and oriented x3. Afebrile. Pt denies pain, chest pain, N/V, and SOB. Pt is up SBA to toilet. Bladder scans performed to monitor post residual showing 296 ml as the highest amount scanned. Pt denies pressure or pain when palpating bladder. Pt is up SBA with walker and gait belt to toilet voiding 200-300 mls each void. ??
[2023-10-17 06:49] LABS: Basophils Absolute Auto 0.04 K/uL (0.00-0.30); Basophils Percent Auto 0.5 % (0.0-3.0); Eosinophils Absolute Auto 0.29 K/uL (0.00-0.50); Eosinophils Percent Auto 3.9 % (0.0-7.0); Hematocrit 39.5 % (37.0-53.0); Immature Granulocytes Abs Auto 0.41 K/uL (0.00-0.30); Immature Granulocytes Pct Auto 5.5 %; Mean Corpuscular HGB Conc 33 gm/dL (32-36); Mean Corpuscular Hemoglobin 35 pg (26-34); Mean Corpuscular Volume 107 fL (80-100); Neutrophils Absolute Auto 4.59 K/uL (1.7-7.0); Neutrophils Percent Auto 62.1 % (42.0-72.0); Platelet Count* 184 K/uL (140-440); RDW Coefficient of Variation % 14.9 % (11.5-15.5); Red Blood Count 3.71 m/uL (4.30-5.90); White Blood Count* 7.41 K/uL (4.50-11.00)
[2023-10-17 07:04] LABS: Slide Review Reflex No
[2023-10-17 07:08] LABS: Prothrombin Time 19.1 Seconds
[2023-10-17 07:25] LABS: Blood Urea Nitrogen* 17 mg/dL (7-30); Carbon Dioxide* 26 mmol/L (20-32); Creatinine* 0.7 mg/dL (0.5-1.5); Est. Creatinine Clearance* 72.91; Estimated Glomerular Filt Rate 98 ml/min
[2023-10-17 07:26] LABS: Calcium* 8.4 mg/dL (8.4-10.6); Glucose* 105 mg/dL (60-115)
[2023-10-17 07:52] LABS: Anion Gap 7 mEq/L (7-15); Chloride* 104 mmol/L (96-114); Potassium* 3.8 mmol/L (3.6-5.1); Sodium* 137 mmol/L (135-149)
[2023-10-17 08:00] VITALS: PULSE 76
[2023-10-17 09:00] VITALS: BP 106/61; PULSE 76; RESP 20; O2SAT 97
[2023-10-17] MEDS: MIDODRINE HCL 5 MG TABLET 2.5 MG PO (10:06)
[2023-10-17] MEDS: CARBIDOPA-LEVODOPA 25-100 TABLET 3 TAB PO ×2 (10:06→12:12)
[2023-10-17] MEDS: TAMSULOSIN HCL 0.4 MG CAPSULE PO (10:06)
[2023-10-17] MEDS: FINASTERIDE 5 MG TABLET PO (10:07)
[2023-10-17] MEDS: SENNOSIDES 1 TAB TABLET PO (10:07)
[2023-10-17] MEDS: BACITRACIN OINTMENT BULK TUBE 1 APPLIC TOPICAL (10:07)
[2023-10-17] MEDS: SODIUM CHLORIDE 0.9 % (FLUSH) 10 ML SYRINGE 5 ML IVF (10:07)
[2023-10-17] MEDS: MULTIVITAMIN/MINERALS 1 TABLET 1 TAB PO (10:07)
[2023-10-17 11:00] VITALS: BP 129/82; PULSE 93; RESP 18; TEMP 36.4; O2SAT 98
--- NOTE | 2023-10-17 11:34 | P.IMPN_ITS ---
Progress Note: A&P Assessment and plan (1) Fever: Problem details: Resolved No leukocytosis, BC x2 NGTD, UA rather unremarkable, UC mixed rené, CXR without obvious pneumonia Status: Resolved (2) Fall: Problem details: Self reported increasing, more frequent falls recently. Likely related to Parkinsons, no arrythymias seen on telemetry - until 10/14, arrhythmias noted, SVT PT/OT consulted, following application services manager for assistance in discharge planning/placement options as unsafe to continue in independent living at [facility] 10/15: Multifactorial, multiple concerns. In setting of Parkinson's, not unexpected. Also experiencing orthostatic hypotension, also found in Parkinson's and med management. Query medication compliance. Bleeding risk with falls while on anticoagulation. Status: Acute (3) Parkinson's disease: Problem details: Continue current home medications. Question if patient is taking appropriately, too much, too little, consistently at the same time. Symptomatic with falls, orthostatic hypotension, cognitive impairment. 10/16: SUNITHA Regalado was able to bring and amantadine today. I do not see any documentation that missed doses of amantadine could lead to SVT. Query too much Sinemet if not taken appropriately? Followed by Dr. Wilkins, [facility]. Last appointment 04/26/23. At that time, his neurologist noted his orthostatic hypotension had improved with sodium tablets . I do not see that there are any sodium tablets on his med rec. Patient tells me he was actually just eating 7-8 saltine crackers a day but typically would forget to eat them. Current sodium 139. Will continue with Midodrine trial for now. Status: Chronic (4) Polycythemia: Problem details: Continue hydroxyurea Followed by oncology Status: Chronic (5) Tachycardia: Problem details: Resolved, SVT In reviewing telemetry, appears to have had brief episodes overnight along with 2 more episodes this morning. EKG showing what appears to be SVT. Troponin negative. Asymptomatic other than racing heart. Procedure: After attempting unsuccessful vagal maneuvers, discussed with patient use of adenosine. Patient in agreement. Crash cart was brought into room and pads were placed on the patient. First attempt of 6 mg adenosine with rapid push and flush slowed rate for a few seconds, revealing NSR. Rate resumed quickly to 160s. Second dose of 12 mg with rapid push and flush, successful. NSR. Rate maintained. Continue telemetry CTA PE chest negative for PE. Bilateral lower extremity Doppler ultrasound shows chronic nonocclusive short- segment DVT within the left popliteal vein Echocardiogram shows normal global systolic function, EF 55-60%, mild aortic stenosis Recommend outpatient Cardiology follow-up Status: Acute (6) BPH with obstruction/lower urinary tract symptoms: Problem details: With urinary retention. Lynn catheter in place. Continue home medications. Followed by Urology 10/15: Starting midodrine for orthostatic hypotension. Understand risk for worsening urinary retention. Discussed with pharmacy. Will need to find balance in appropriate urinary output with using midodrine to decrease orthostatic hypotension and falls. 10/16: Removing Lynn catheter given good urinary output, monitor. Status: Acute (7) Chronic anticoagulation: Problem details: For history of DVT. Coumadin was held after his initial fall last week. Has been subsequently resumed at patient's request. Remains high risk for bleeding due to falls. 10/13 Discussed with patient risks and benefits of anticoagulation, bleeds, head trauma. Patient will discuss with POA to decide if he will continue on anticoagulation INR subtherapeutic. Pharmacy managing 10/15: Appears home dose was erroneously discontinued. Will start tonight. Patient has not yet decided to discontinue anticoagulation, has not discussed with his POA Sabine as he would like to do Status: Chronic (8) Hematoma: Problem details: Injury related to recent fall, L buttock and L flank, stable, hemoglobin stable No evidence of fracture on ER CT 10/07/23 Status: Acute (9) Rhabdomyolysis: Problem details: S/p fall with unknown down time. CK continues to improve following IV hydration. IVF discontinued. Good oral intake, adequate urine output. Status: Acute (10) Frailty: Status: Acute (11) Cognitive impairment: Problem details: [place] . Concerned for medication compliance which can complicate his Parkinson's and side effects of too much or too little medication. Recommending short-term placement, likely leading to long-term placement. Status: Acute (12) Acute urinary retention: Status: Acute Subjective Date Seen: 10/17/23 Interval history: Patient is seen and examined. He is feeling well this morning with no concerns. We discussed his history of DVT and warfarin use. It sounds as though AC was started after he developed a DVT, likely provoked by a long car trip approximately 10 years ago. He also has polycythemia vera and hemochromatosis, so he reports that his former avionics integration engineer wanted him to continue AC. He has not discussed it further with his current avionics integration engineer and I encouraged him to do so. No other new concerns. EXAM GEN: Well appearing, no distress HEENT: NCAT RESP: Unlabored Skin: Warm and dry Exam Const: Vital Signs, click to edit/add: Vital Signs - 24 hr 10/16/23 11:39 10/16/23 15:00 10/16/23 15:00 Temperature 96.6 F L 98.4 F Pulse Rate 85 Pulse Rate [Left] 77 76 Respiratory Rate 18 18 Blood Pressure [Le ft Arm] Blood Pressure [Ri ght Arm] 107/66 116/67 Pulse Oximetry 96 96 Oxygen Delivery Me thod Room Air Room Air 10/16/23 19:35 10/16/23 22:42 10/16/23 22:42 Temperature 98.2 F Pulse Rate 83 Pulse Rate [Left] 92 Respiratory Rate 16 16 Blood Pressure [Le ft Arm] 144/81 H Blood Pressure [Ri ght Arm] Pulse Oximetry 98 Oxygen Delivery Me thod Room Air 10/16/23 22:42 10/17/23 02:30 10/17/23 09:00 Temperature 97.9 F 97.4 F L Pulse Rate Pulse Rate [Left] 88 98 76 Respiratory Rate 16 16 20 Blood Pressure [Le ft Arm] 157/84 H 133/80 Blood Pressure [Ri ght Arm] 106/61 Pulse Oximetry 96 98 97 Oxygen Delivery Me thod Room Air Room Air Room Air Labs Labs: Laboratory Results - last 24 hr 10/17/23 06:24 WBC 7.41 RBC 3.71 L Hgb 13.0 L Hct 39.5 MCV 107 H MCH 35 H MCHC 33 RDW Coeff of Arsalan 14.9 Plt Count 184 Neut % (Auto) 62.1 Lymph % (Auto) 19.0 L [place] % (Auto) 9.0 Eos % (Auto) 3.9 Baso % (Auto) 0.5 Neut # (Auto) 4.59 Lymph # (Auto) 1.40 [place] # (Auto) 0.70 Eos # (Auto) 0.29 Baso # (Auto) 0.04 Abs Immat Gran (auto) 0.41 H Imm/Tot Granulo (auto) 5.5 INR 1.50 H Sodium 137 Potassium 3.8 Chloride 104 Carbon Dioxide 26 Anion Gap 7 BUN 17 Creatinine 0.7 Estimated Creat Clear 72.91 Estimated GFR 98 Glucose 105 Calcium 8.4
--- NOTE | 2023-10-17 11:52 | P.DS_ITS ---
DS: Providers Provider Date Seen: 10/17/23 Date of admission: 10/12/23 20:39 Primary care physician: YANA FISCHER DO Admitting Clinician: Salvatore Mendoza MD Consults: 10/12/23 20:39 Consult to Occupational Therapy [CONS] Urgent Comment: Reason(s) for OT Consult:: Evaluate and Treat Any Restrictions?:: No Restrictions Comment: MOCA Consult to Physical Therapy [CONS] Urgent Comment: Reason(s) for PT Consult:: Evaluate and Treat Any Restrictions?:: No Restrictions Consult to Nut Threader [CONS] Urgent Comment: Reason for Consult:: Discharge Planning Needs 10/12/23 22:07 Consult to Occupational Therapy [CONS] Routine Comment: Reason(s) for OT Consult:: Evaluate and Treat Any Restrictions?:: No Restrictions Consult to Physical Therapy [CONS] Routine Comment: Reason(s) for PT Consult:: Evaluate Ambulation Any Restrictions?:: No Restrictions Attending Physician on discharge: Jessica Navarro MD DS: Diagnosis Discharge Diagnosis (1) Fall: Status: Acute Problem details: Self reported increasing, more frequent falls recently. Likely related to Parkinsons, no arrythymias seen on telemetry - until 10/14, arrhythmias noted, SVT PT/OT consulted, following rehabilitation services coordinator for assistance in discharge planning/placement options as unsafe to continue in independent living at [facility] 10/15: Multifactorial, multiple concerns. In setting of Parkinson's, not unexpected. Also experiencing orthostatic hypotension, also found in Parkinson's and med management. Query medication compliance. Bleeding risk with falls while on anticoagulation. (2) Fever: Status: Resolved Problem details: Resolved No leukocytosis, BC x2 NGTD, UA rather unremarkable, UC mixed rené, CXR without obvious pneumonia (3) Rhabdomyolysis: Status: Acute Problem details: S/p fall with unknown down time. CK improved following IV hydration. IVF discontinued. Good oral intake, adequate urine output. (4) Polycythemia: Status: Chronic Problem details: Continue hydroxyurea Followed by oncology (5) Tachycardia: Status: Acute Problem details: Resolved, SVT In reviewing telemetry, appears to have had brief episodes overnight along with 2 more episodes this morning. EKG showing what appears to be SVT. Troponin negative. Asymptomatic other than racing heart. Procedure: After attempting unsuccessful vagal maneuvers, discussed with patient use of adenosine. Patient in agreement. Crash cart was brought into room and pads were placed on the patient. First attempt of 6 mg adenosine with rapid push and flush slowed rate for a few seconds, revealing NSR. Rate resumed quickly to 160s. Second dose of 12 mg with rapid push and flush, successful. NSR. Rate maintained. Continue telemetry CTA PE chest negative for PE. Bilateral lower extremity Doppler ultrasound shows chronic nonocclusive short- segment DVT within the left popliteal vein Echocardiogram shows normal global systolic function, EF 55-60%, mild aortic stenosis Recommend outpatient Cardiology follow-up (6) BPH with obstruction/lower urinary tract symptoms: Status: Acute Problem details: With urinary retention. Lynn catheter in place. Continue home medications. Followed by Urology 10/15: Started midodrine for orthostatic hypotension. Understand risk for worsening urinary retention. Discussed with pharmacy. Will need to find balance in appropriate urinary output with using midodrine to decrease orthostatic hypotension and falls. 10/16: Removed Lynn catheter given good urinary output (7) Chronic anticoagulation: Status: Chronic Problem details: For history of DVT. Coumadin was held after his initial fall last week. Has been subsequently resumed at patient's request. Remains high risk for bleeding due to falls. 10/13 Discussed with patient risks and benefits of anticoagulation, bleeds, head trauma. Patient will discuss with POA to decide if he will continue on anticoagulation INR subtherapeutic at 1.5. Given concern for falls and potential difficulties taking meds at home, I will continue his home dosing. 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 This was discussed with patient. (8) Hematoma: Status: Acute Problem details: Injury related to recent fall, L buttock and L flank, stable, hemoglobin stable No evidence of fracture on ER CT 10/07/23 (9) Frailty: Status: Acute (10) Cognitive impairment: Status: Acute Problem details: [place] . Concerned for medication compliance which can complicate his Parkinson's and side effects of too much or too little medication. Recommending short-term placement, potentially leading to long-term placement. (11) Acute urinary retention: Status: Acute (12) Parkinson's disease: Status: Chronic Problem details: Continue current home medications. Question if patient is taking appropriately, too much, too little, consistently at the same time. Symptomatic with falls, orthostatic hypotension, cognitive impairment. 10/16: SUNITHA Regalado was able to bring and amantadine today. I do not see any documentation that missed doses of amantadine could lead to SVT. Query too much Sinemet if not taken appropriately? Followed by Dr. Wilkins, [facility]. Last appointment 04/26/23. At that time, his neurologist noted his orthostatic hypotension had improved with sodium tablets . I do not see that there are any sodium tablets on his med rec. Patient tells me he was actually just eating 7-8 saltine crackers a day but typically would forget to eat them. Current sodium 139. Will continue with Midodrine trial for now. DS: Summary Hospital Course Hospital Course: Patient was admitted 10/12/23 with fever and falls. He was found down and there was concern for rhabdomyolysis. It is unclear if he is able to care for himself at home with independent living, but he might be interested in more in home care if he is able to maintain some independence. Work up for fever proved fruitless and fevers spontaneously resovled. He did have episodes of SVT here with HR in the 160s. He responded well to adenosine and was without any episodes for >24 hours prior to discharge. He worked with PT/OT and SNF was recommended at least for short term placement. He was agreeable and will continue to look at options for independent vs AL upon SNF discharge. For detailed problems, see above. Status at Discharge Functional status at discharge: uses cane/walker Overall status at discharge: patient is back to baseline Time Spent with Patient Time attestation: Total time spent providing and/or coordinating discharge services: Time spent: Greater than 30 minutes Exam Narrative: Exam Narrative: EXAM: General- Well appearing, no distress HEENT: NCAT Resp: Comfortable and unlabored CV: RRR, no m/g/r Abd: Soft/nontender Const: Vital Signs, click to edit/add: Vital Signs - 24 hr 10/16/23 15:00 10/16/23 15:00 10/16/23 19:35 Temperature 98.4 F 98.2 F Pulse Rate 85 Pulse Rate [Left] 76 92 Respiratory Rate 18 16 Blood Pressure [Le ft Arm] 144/81 H Blood Pressure [Ri ght Arm] 116/67 Pulse Oximetry 96 98 Oxygen Delivery Me thod Room Air Room Air 10/16/23 22:42 10/16/23 22:42 10/16/23 22:42 Temperature 97.9 F Pulse Rate 83 Pulse Rate [Left] 88 Respiratory Rate 16 16 Blood Pressure [Le ft Arm] 157/84 H Blood Pressure [Ri ght Arm] Pulse Oximetry 96 Oxygen Delivery Me thod Room Air 10/17/23 02:30 10/17/23 09:00 Temperature 97.4 F L Pulse Rate Pulse Rate [Left] 98 76 Respiratory Rate 16 20 Blood Pressure [Le ft Arm] 133/80 Blood Pressure [Ri ght Arm] 106/61 Pulse Oximetry 98 97 Oxygen Delivery Me thod Room Air Room Air DS: Data Data Completed and Pending Labs on day of discharge: Labs from last 24 hours 10/17/23 06:24 WBC 7.41 RBC 3.71 L Hgb 13.0 L Hct 39.5 MCV 107 H MCH 35 H MCHC 33 RDW Coeff of Arsalan 14.9 Plt Count 184 Neut % (Auto) 62.1 Lymph % (Auto) 19.0 L [place] % (Auto) 9.0 Eos % (Auto) 3.9 Baso % (Auto) 0.5 Neut # (Auto) 4.59 Lymph # (Auto) 1.40 [place] # (Auto) 0.70 Eos # (Auto) 0.29 Baso # (Auto) 0.04 Abs Immat Gran (auto) 0.41 H Imm/Tot Granulo (auto) 5.5 INR 1.50 H Sodium 137 Potassium 3.8 Chloride 104 Carbon Dioxide 26 Anion Gap 7 BUN 17 Creatinine 0.7 Estimated Creat Clear 72.91 Estimated GFR 98 Glucose 105 Calcium 8.4 Preliminary micro results at discharge 10/12/23 19:30 Blood Culture - Preliminary Blood NO GROWTH AFTER 96 HOURS 10/12/23 18:40 Blood Culture - Preliminary Blood NO GROWTH AFTER 96 HOURS Discharge Plan Discharge Disposition: [facility] Date of Admission: 10/12/23 20:39 Attending Provider on Discharge: Jessica Navarro Primary Care Provider: YANA FISCHER Discharge Medications: New warfarin [Jantoven] 2 mg Tablet 4 mg PO [id number]@1600 Qty: 60 0RF warfarin 2 mg tablet 2 mg PO Q OTHER DAY Qty: 45 3RF Rx Instructions: on Mondays and midodrine 5 mg Tablet 2.5 mg PO BID@0900,1700 Qty: 60 0RF Continued ketoconazole 2 % cream 1 applic topical BID PRN carbidopa-levodopa 25-100 mg tablet 3 tab PO QID amantadine HCl 100 mg capsule 100 mg PO BID pramipexole 0.25 mg tablet 0.25 mg PO HS clonazepam 0.5 mg tablet 0.25 mg PO DAILY hydroxyurea 500 mg capsule 500 mg PO Q48H acetaminophen [Tylenol] 325 mg capsule 325 mg PO Q4H PRN aspirin 81 mg tablet,delayed release (DR/EC) 81 mg PO DAILY finasteride 5 mg tablet 5 mg PO DAILY tamsulosin 0.4 mg capsule 0.4 mg PO DAILY erythromycin 5 mg/gram (0.5 %) ointment 1 applic ophthalmic (eye) HS PRN polyethylene glycol 3350 [Miralax] 17 gram/dose powder 8.5 - 17 g PO DAILY PRN multivitamin Tablet 1 tab PO QAM docusate sodium [Colace] 100 mg capsule 100 mg PO BID melatonin 3 mg capsule 3 mg PO HS PRN Lubricant Eye (PG-PEG 400)(PF) 0.4-0.3 % dropperette 1 drp ophthalmic (eye) DAILY PRN Discontinued warfarin 4 mg tablet 2 - 4 mg PO DAILY Rx Instructions: 2mg PO Tue/, 4mg every other day Discharge Orders: Discharge Order (Routine); Ordered 10/17/23 Ordered By: Jessica Navarro Activity Level: No Restrictions Discharge Diet: Regular Follow Up Appointments: YANA FISCHER DO [Primary Care Provider] - Forms: [facility] Info Instructions Admit to: SNF Discharge Potential: Good Length of Stay: <30 days Can use facility standing orders?: Yes Code Status: Witnessed Arrest Only Rehab Potential: Good Therapy: Physical Therapy and Occupational Therapy Therapy Orders: Evaluate and Treat Oxygen: No Urinary Catheter: No Next INR: 3 days INR Goal: 2-3 Orders are good >30 days: Yes Signature: Jessica Navarro
[2023-10-17 12:27] VITALS: BP 129/82; PULSE 93; RESP 18; TEMP 36.4
--- NOTE | 2023-10-17 12:36 | PC.NURSE ---
Pt pleasant and cooperative. Denies pain. Ambulates to BR with SBA & 4 wheel walker. IV DC'd, cath tip intact. DC to [facility] @[id number]
--- NOTE | 2023-10-17 12:46 | PC.SOCIAL ---
Discharge planning- Received an e-mail from Carola Bennett at [facility] informing that pt has been accepted for admission for today in a private room. Met with pt and pt would like to accept room. Pt has a friend (Sabine) he called to see if she could provide transportation today. Pt's friend Sabine is unable to provide transportation due to having an appointment. Pt's friend will go to [facility] later today and bring pt some personal care items. Pt agrees to pay fee for non-emergency EMS. Completed paperwork for ambulance. Completed preadmission screening. Confirmation #[id number]. Sent a copy of PAS to Carola Bennett at [facility] and provided update on discharge. Social work will follow up as needed.
== END 2023-10-17 12:26 | DRG 57 ==
LOC: ED 20:08 → MEDSURG 20:39
PROVIDERS: Physician Assistant; Admitting Provider Family Medicine; Emergency Provider Family Medicine; PCP Student in an Organized Health Care Education/Training Program; Visit Provider Family Medicine
DX: G20.A1 Parkinson's disease without dyskinesia, without mention of fluctuations (principal); M62.82 Rhabdomyolysis; N13.8 Other obstructive and reflux uropathy; I47.10 Supraventricular tachycardia, unspecified; I82.532 Chronic embolism and thrombosis of left popliteal vein; F06.70 Mild neurocognitive disorder due to known physiological condition without behavioral disturbance; I95.1 Orthostatic hypotension; R50.9 Fever, unspecified; W18.30XA Fall on same level, unspecified, initial encounter; Z91.81 History of falling; Y92.099 Unspecified place in other non-institutional residence as the place of occurrence of the external cause; R33.9 Retention of urine, unspecified; R54 Age-related physical debility; Z79.01 Long term (current) use of anticoagulants; N40.1 Benign prostatic hyperplasia with lower urinary tract symptoms; D75.1 Secondary polycythemia; T14.8XXD Other injury of unspecified body region, subsequent encounter
CPT/HCPCS: 36415; 51798; 70450; 71045; 71275; 72125; 80048; 80053; 81001; 82550; 82803; 83605; 84145; 84484; 85025; 85610; 86140; 87040; 87086; 87631; 93005; 93306; 93970; 94761; 97035; 97110; 97116; 97140; 97161; 97165; 97530; 97535; 99284; 99285; A9153; A9270; J0153; J3475; J3480; J7030; J7050; J7120; Q9967; S0176; X5282

== ENCOUNTER 2023-10-17 12:20 | Outpatient (CLI) | payer MEDICARE, BC, SELFPAY ==
--- OUTSIDE RECORDS SUMMARY | 2023-10-19 12:25 | XMS_ITS | Clinical Summary ---
Author Name Unknown Organization [facility] Address [place], [place] [address] Care Team Providers Care Compounder Helper Name Role Phone Ricardo Diaz MD Unavailable Unavaila ble Macrina Martin DO Primary Care Provider [phone] Allergies Active Allergy Reactions Criticality Noted Date [...] Department Care Team Description 10/14/2023 2:15 PM DRAPERY MAKER Ancillary Procedure [facility] [address] [place] [address] 10/14/2023 Orders Only [facility] Scanner 1 scan: (1-Ord) [facility], US VENOUS LE BI, 10/14/2023 10/14/2023 Orders Only [facility] Scanner 1 scan: (1-Ord) [facility] , CT ANGIOA CHEST , 10/14/2023 10/14/2023 Travel 10/14/2023 Telephone [facility] [address] [place] [address] 1, [facility] Anticoagulation (Unable to contact x 3 attempts) 10/12/2023 Orders Only [facility] Scanner 1 scan: (1-Ord) [facility], CT CERVICAL SPINE W/O CONTRAST , 10/12/2023 10/12/2023 Orders Only [facility] Scanner 1 scan: (1-Ord) [place], CHEST, 10/12/2023 10/12/2023 Orders Only [facility] Scanner 1 scan: (1-Ord) [facility], CT HEAD/BRAIN WO CON, 10/12/2023 10/12/2023 Anticoagulation (warfarin) [facility] [address] [place] [address] 1, [facility] Anticoagulation 10/11/2023 1:00 PM DRAPERY MAKER Office Visit [facility] [address] [place] [address] Naomi Puente MD Hospital F/U (hospital F/u); Vascular Problems (discuss DVT, wants more information) 10/11/2023 12:45 PM DRAPERY MAKER Orders Only [facility] [address] [place] [address] Lab, [facility] 10/11/2023 Travel 10/07/2023 Orders Only [facility] Scanner 1 scan: (1-Ord) [facility], PELVIS W/O CONTRAST, 10/07/2023 10/07/2023 Orders Only [facility] Scanner 1 scan: (1-Ord) [facility], XR LT HIP MIN 2 VIEWS, 10/07/2023 10/07/2023 Nurse Triage [facility] [address] [place] [address] Macrina Martin, Hip Injury 09/28/2023 Anticoagulation (warfarin) [facility] [address] [place] [address] 1, [facility] Anticoagulation 09/27/2023 1:45 PM DRAPERY MAKER Orders Only [facility] [address] [place] [address] Lab, [facility] 09/27/2023 Travel 09/23/2023 Refill [facility] [address] [place] [address] Darlin Butler PA Refill Request (Clonazepam) 09/20/[address] [phone] Leta Liard MD Questions (PSA and Medication ) 09/14/[address] [phone] Leta Laird MD Refill Request (Tamsulosin 0.4mg ) 09/14/[address] [phone] Leta Laird MD Lab (PSA Test) 09/09/2023 Refill [facility] [address] [place] [address] Macrina Martin DO Refill Request (Warfarin) 09/01/2023 Orders Only [facility] Scanner 1 scan: (1-Ord) [facility], XR 3RD FINGER RT, 09/01/2023 09/01/2023 Nurse Triage [facility] [address] [place] [address] Macrina Martin DO Finger Pain/problem 08/27/2023 Refill [facility] [address] [place] [address] Macrina Martin DO Refill Request (Pramipexole) 08/15/2023 11:10 AM DRAPERY MAKER Orders Only [facility] [address] [facility] [address] Lab[facility] 08/15/2023 Anticoagulation (warfarin) [facility] [address] [place] [address] 1, [facility] Anticoagulation 08/15/2023 Travel 08/11/2023 Telephone [facility] [address] Macrina Martin DO FYI 08/04/2023 1:45 PM DRAPERY MAKER Ancillary Procedure [facility] [address] 08/04/2023 12:25 PM DRAPERY MAKER Office Visit [facility] [address] [facility] [address] Macrina Martin DO Fall (07/10 - did go to and xray was normal - some lower leg swelling but had DVT rule out - has been feeling better - just some pain with walking ) 08/04/2023 Telephone [facility] [address] Macrina Martin DO Results 08/04/2023 Telephone [facility] [place] [address] Macrina Martin DO Questions 08/04/2023 Travel 07/25/2023 11:50 AM DRAPERY MAKER Orders Only [facility] [place] [address] Lab, [facility] 07/25/2023 Telephone [facility] [address] Macrina Martin DO Anticoagulation (Review INR and warfarin dosing ) 07/25/2023 Anticoagulation (warfarin) [facility] [address] [place] [address] 1, [facility] Anticoagulation 07/25/2023 Travel from Last 3 Months Immunizations Name Administration [...] Comments Blood Pressure 124/73 10/11/2023 12:54 PM DRAPERY MAKER Pulse 77 10/11/2023 12:54 PM DRAPERY MAKER Temperature 36.4 ??C (97.5 ??F) 04/26/2023 3:12 PM CD T Respiratory Rate 16 07/27/2021 1:22 PM DRAPERY MAKER Oxygen Saturation 97% 10/11/2023 12:54 PM DRAPERY MAKER Inhaled Oxygen Concentration - - Weight 78.7 kg (173 lb 9.6 oz) 10/11/2023 12:54 PM DRAPERY MAKER Height 182.9 cm (6') 08/04/2023 12:28 PM DRAPERY MAKER Body Mass Index 23.54 08/04/2023 12:28 PM DRAPERY MAKER Plan of Treatment Upcoming Encounters Date Type Department Care Team (Late st Contact Info) Description 10/31/2023 11:00 AM DRAPERY MAKER Office Visit [facility] [address] [place] [address] 11/08/2023 1:30 PM DRAPERY MAKER Orders Only [facility] [address] [place] [address] [place] 05/01/2024 3:40 PM CDT Office Visit [facility] [place] [facility] [address] [place] [address] Ricardo Wilkins MD [address] [place] [address] Health Maintenance Due Date Last Done Comments [...] COMPLETE WO CONTRAST Routine 10/14/2023 4:33 PM DRAPERY MAKER Syncope SCAN-ULTRASOUND REPORT 4 12:00 AM DRAPERY MAKER SCAN-CT INTERPRETATION 4 12:00 AM DRAPERY MAKER SCAN-CT INTERPRETATION 4 12:00 AM DRAPERY MAKER SCAN-RADIOLOGY REPORT 10/12/2023 12:00 AM DRAPERY MAKER SCAN-CT INTERPRETATION 4 12:00 AM DRAPERY MAKER PROTIME-INR STAT 10/11/2023 12:37 PM DRAPERY MAKER Chronic deep vein thrombosis (DVT) of femoral vein of left lower extremity (HC) Anticoagulation monitoring, INR range 1.5-2.5 SCAN-CT INTERPRETATION 4 12:00 AM DRAPERY MAKER SCAN-RADIOLOGY REPORT 10/07/2023 12:00 AM DRAPERY MAKER PSA TOTAL SCREEN Routine 09/27/2023 1:58 PM DRAPERY MAKER Prostate cancer screening PROTIME-INR STAT 09/27/2023 1:58 PM DRAPERY MAKER Chronic deep vein thrombosis (DVT) of femoral vein of left lower extremity (HC) Anticoagulation monitoring, INR range 1.5-2.5 SCAN-RADIOLOGY REPORT 09/01/2023 12:00 AM DRAPERY MAKER INR,POCT Routine 08/15/2023 11:15 AM DRAPERY MAKER Chronic deep vein thrombosis (DVT) of femoral vein of left lower extremity (HC) Anticoagulation monitoring, INR range 1.5-2.5 US VENOUS LOWER EXTREMITY LEFT STAT 08/04/2023 2:16 PM DRAPERY MAKER Localized swelling of lower extremity INR,POCT Routine 07/25/2023 12:03 PM DRAPERY MAKER Chronic deep vein thrombosis (DVT) of femoral vein of left lower extremity (HC) Anticoagulation monitoring, INR range 1.5-2.5 from Last 3 Months Results * ECHO TTE COMPLETE WO CONTRAST (10/14/2023 4:33 PM DRAPERY MAKER) AORTIC VALVE MEAN PG 12 mmHg EJECTION FRACTION 58 % LVEDD 4.8 cm EJECTION FRACTION 55 - 60% Anatomical Region Laterality Modality Ultrasound 10/14/2023 3:57 PM DRAPERY MAKER Narrative 10/14/2023 4:45 PM DRAPERY MAKER ECHOCARDIOGRAM DEBBI Alva RAHUL ?Accession#: ?? [id number] : ?1950 73 years Study Date: ?? 10/14/2023 3:57:52 PM Gender: M ? BP: ? 115/67 mmHg Height: 183.00 cm ? BSA: ?2.04 m? ? ? Weight: 82.00 kg ?Tech: ? MSR ?Referring MD: RADHA MENDOZA Site: ? [facility] Reading Location: [facility] Patient Location: Inpatient. Procedure: 2D, Color Doppler [...] . This study was interpreted by an [facility] accredited facility. CC: HIM (med records) [facility], Med/Surg - IP [facility]. ??Final ?? Procedure Note Jose Armando Abel MD - 10/14/2023 ECHOCARDIOGRAM DEBBI KAY : 1950 73 years Study Date: 10/14/2023 3:57:52 PM Gender: M BP: 115/67 mmHg Height: 183.00 cm BSA: 2.04 m? ? ? Weight: 82.00 kg Tech: MSR Referring MD: RADHA MENDOZA Site: [facility] Reading Location: Mobile [facility] Patient Location: Inpatient. Procedure: 2D, Color [...] . This study was interpreted by an [facility] accredited facility. CC: HIM (med records) [facility], Med/Surg - IP [facility]. Final Radha Mendoza MD ECHO ORD * SCAN-ULTRASOUND REPORT (10/14/2023 12:00 AM DRAPERY MAKER) Anatomical Region Laterality Modality Other Scanner OTHER * SCAN-CT INTERPRETATION (10/14/2023 12:00 AM DRAPERY MAKER) Only the most recent of4 resultswithin the time period is included. Anatomical Region Laterality Modality Other Scanner OTHER * SCAN-RADIOLOGY REPORT (10/12/2023 12:00 AM DRAPERY MAKER) Only the most recent of3 resultswithin the time period is included. Anatomical Region Laterality Modality Other Scanner OTHER * (ABNORMAL) PROTIME-INR (10/11/2023 12:37 PM DRAPERY MAKER) Only the most recent of2 resultswithin the time period is included. INR 1.2 <1.3 10/11/2023 8:38 PM DRAPERY MAKER [facility] PROTIME 13.2(H) 10.3 - 12.3 sec 10/11/2023 8:38 PM DRAPERY MAKER [facility] Blood BLOOD SPECIMEN / Unknown Venipuncture / Unknown 10/11/2023 12:37 PM DRAPERY MAKER 10/11/2023 12:39 PM DRAPERY MAKER Narrative [facility] - 10/11/2023 8:38 PM DRAPERY MAKER ?Therapeutic Range 2.0-3.0 for most anticoagulated patients [...] Macrina Martin DO HEMATOLOGY Performing Organization Address City/[facility]/ZIP Co de Phone Number [facility] [address] [place] [phone], * PSA TOTAL SCREEN (09/27/2023 1:58 PM DRAPERY MAKER) PSA TOTAL (SCREEN) 1.05 <4.00 ng/mL 09/27/2023 11:03 PM DRAPERY MAKER [facility] Blood BLOOD SPECIMEN / Unknown Venipuncture / Unknown 09/27/2023 1:58 PM DRAPERY MAKER 09/27/2023 1:58 PM DRAPERY MAKER Narrative [facility] - 09/27/2023 11:03 PM DRAPERY MAKER The test method changed on 03/01/2023. If [...] Leta Laird MD LABORATORY Performing Organization Address City/[facility]/ZIP Co de Phone Number [facility] [address] [place] [phone], * (ABNORMAL) INR,POCT (08/15/2023 11:15 AM DRAPERY MAKER) Only the most recent of2 resultswithin the time period is included. INR 1.9(H) <1.3 08/15/2023 11:18 AM DRAPERY MAKER [facility] Blood BLOOD SPECIMEN / Unknown 08/15/2023 11:15 AM DRAPERY MAKER 08/15/2023 11:18 AM DRAPERY MAKER Narrative [facility] - 08/15/2023 11:18 AM DRAPERY MAKER ?Therapeutic Range 2.0-3.0 for most anticoagulated patients 2.5-3.5 or 4.0 for high risk patients Macrina Martin DO LABORATORY [facility] [address] [place] [address], * US VENOUS LOWER EXTREMITY LEFT (08/04/2023 2:16 PM DRAPERY MAKER) Anatomical Region Laterality Modality LEGS, LEG L, Abdomen Ultrasound 08/04/2023 2:54 PM DRAPERY MAKER Impressions 08/04/2023 2:54 PM DRAPERY MAKER Normal venous ultrasound exam. No evidence of deep vein thrombosis within the left lower extremity. Dictated by Ricardo Peacock MD @ Aug 04 2023 ??2:54PM (Electronically Signed) ?? Narrative 08/04/2023 2:54 PM DRAPERY MAKER For Patients: ??As a result of the [...] Aug 04 2023 2:54PM (Electronically Signed) Macrina Veronica DO US from Last 3 Months Advance Directives Documents on File Type Date Recorded Patient Certified Peer Specialist Expl anation Healthcare Directive 06/27/2017 11:07 AM BRYANNA WILSON, 10/24/1997 Healthcare Directive 06/07/2016 12:06 PM Juan Ramon WILSON, 10/24/1997 Care Teams Compounder Helper Relationship Specialty Start Date End [place] [address] [place] [address] PCP - General Family Practice 08/10/22 Ricardo Diaz MD Neurology Neurology 03/02/11
== END 2023-10-17 12:21 | disposition home or self-care (01) ==
LOC: AMB 10-19 12:23
PROVIDERS: PCP Student in an Organized Health Care Education/Training Program; Visit Provider Family Medicine
DX: R53.1 Weakness (principal); Z99.3 Dependence on wheelchair
CPT/HCPCS: A0425; A0428

== ENCOUNTER 2023-10-19 11:30 | Outpatient (RCR) | payer MEDICARE, BC, SELFPAY ==
[2023-05-25 11:21] LABS: Basophils Absolute Auto 0.03 K/uL (0.00-0.30); Basophils Percent Auto 0.4 % (0.0-3.0); Eosinophils Percent Auto 2.5 % (0.0-7.0); Hematocrit 45.3 % (37.0-53.0); Immature Granulocytes Abs Auto 0.33 K/uL (0.00-0.30); Immature Granulocytes Pct Auto 4.2 %; Lymphocytes Percent Auto 19.4 % (20-44); Mean Corpuscular HGB Conc 33 gm/dL (32-36); Mean Corpuscular Hemoglobin 36 pg (26-34); Mean Corpuscular Volume 107 fL (80-100); Neutrophils Absolute Auto 5.03 K/uL (1.7-7.0); Neutrophils Percent Auto 63.5 % (42.0-72.0); Platelet Count* 169 K/uL (140-440); RDW Coefficient of Variation % 14.7 % (11.5-15.5); Red Blood Count 4.23 m/uL (4.30-5.90); White Blood Count* 7.92 K/uL (4.50-11.00)
[2023-05-25 11:27] LABS: Slide Review Reflex Yes
[2023-05-25 11:33] LABS: Albumin* 4.4 g/dL (3.3-5.0); Chloride* 104 mmol/L (96-114); Sodium* 140 mmol/L (135-149)
[2023-05-25 11:34] LABS: Potassium* 4.1 mmol/L (3.6-5.1)
[2023-05-25 11:36] LABS: Alkaline Phosphatase* 75 U/L (40-150); Anion Gap 7 mEq/L (7-15); Aspartate Amino Transferase* 22 U/L (12-35); Bilirubin Total* 0.8 mg/dL (0.1-1.5); Blood Urea Nitrogen* 22 mg/dL (7-30); Carbon Dioxide* 29 mmol/L (20-32); Creatinine* 0.9 mg/dL (0.5-1.5); Estimated Glomerular Filt Rate 91 ml/min; Glucose* 95 mg/dL (60-115); Lactate Dehydrogenase* 191 U/L (120-246); Total Protein* 8.1 g/dL (6.0-8.3)
[2023-05-25 11:37] LABS: Alanine Aminotransferase* 7 U/L (4-50); Calcium* 9.3 mg/dL (8.4-10.6)
[2023-05-25 12:08] LABS: Slide Review Acceptable Review (Acceptable)
[2023-08-17 13:19] LABS: Basophils Absolute Auto 0.02 K/uL (0.00-0.30); Basophils Percent Auto 0.3 % (0.0-3.0); Eosinophils Absolute Auto 0.24 K/uL (0.00-0.50); Eosinophils Percent Auto 3.1 % (0.0-7.0); Hematocrit 42.5 % (37.0-53.0); Hemoglobin* 13.7 gm/dL (13.5-17.5); Immature Granulocytes Abs Auto 0.63 K/uL (0.00-0.30); Immature Granulocytes Pct Auto 8.1 %; Mean Corpuscular HGB Conc 32 gm/dL (32-36); Mean Corpuscular Hemoglobin 35 pg (26-34); Mean Corpuscular Volume 107 fL (80-100); Monocytes Percent Auto 6.9 % (0.0-11.0); Neutrophils Absolute Auto 4.86 K/uL (1.7-7.0); Neutrophils Percent Auto 62.6 % (42.0-72.0); Platelet Count* 164 K/uL (140-440); RDW Coefficient of Variation % 13.6 % (11.5-15.5); Red Blood Count 3.97 m/uL (4.30-5.90); White Blood Count* 7.77 K/uL (4.50-11.00)
[2023-08-17 13:21] LABS: Slide Review Reflex No
[2023-08-17 13:36] LABS: Albumin* 4.4 g/dL (3.3-5.0); Chloride* 102 mmol/L (96-114); Sodium* 137 mmol/L (135-149)
[2023-08-17 13:37] LABS: Potassium* 3.9 mmol/L (3.6-5.1)
[2023-08-17 13:39] LABS: Alanine Aminotransferase* 7 U/L (4-50); Alkaline Phosphatase* 85 U/L (40-150); Anion Gap 7 mEq/L (7-15); Aspartate Amino Transferase* 21 U/L (12-35); Bilirubin Total* 0.6 mg/dL (0.1-1.5); Blood Urea Nitrogen* 23 mg/dL (7-30); Calcium* 8.5 mg/dL (8.4-10.6); Carbon Dioxide* 28 mmol/L (20-32); Creatinine* 0.9 mg/dL (0.5-1.5); Estimated Glomerular Filt Rate 91 ml/min; Glucose* 95 mg/dL (60-115); Lactate Dehydrogenase* 229 U/L (120-246); Total Protein* 8.1 g/dL (6.0-8.3)
== END 2023-11-21 23:59 | disposition home or self-care (01) ==
LOC: CCIC 11:30
PROVIDERS: PCP Student in an Organized Health Care Education/Training Program; Referring Provider Student in an Organized Health Care Education/Training Program; Visit Provider Internal Medicine Hematology & Oncology
DX: D75.1 Secondary polycythemia (principal); D45 Polycythemia vera; E83.119 Hemochromatosis, unspecified
CPT/HCPCS: 36415; 80053; 82728; 83615; 85025; 99212; 99214

== ENCOUNTER 2023-11-16 12:19 | Outpatient (CLI) | payer MEDICARE, BC, SELFPAY | END 2023-11-16 12:20 | disposition home or self-care (01) | LOC: AMB 11-17 13:10 | PROVIDERS: PCP Student in an Organized Health Care Education/Training Program; Visit Provider Family Medicine | DX: R55 Syncope and collapse (principal); R53.1 Weakness | CPT/HCPCS: A0425; A0427 ==

== ENCOUNTER 2023-11-16 12:41 | Emergency (ER) | payer MEDICARE, BC, SELFPAY ==
[2023-11-16 12:45] VITALS: BP 133/76; PULSE 73; RESP 16; TEMP 36.3; O2SAT 99; BMI 21.2
--- NOTE | 2023-11-16 13:38 | ED.GENADULT ---
HPI - General Adult General Chief complaint: Unspecified Complaint, Adult Stated complaint: AMS Time Seen by Provider: 11/16/23 12:53 History of Present Illness HPI narrative: Patient is a 73 year white male with a history of significant parkinsonism who had his medications altered this week by accident, he had a nurse come he reports and ?fix it up for him?. He feels he was weak today but otherwise feels well he has no fever, he has no shortness of breath, no chest pain, no headache or neck pain. He has fallen multiple times from his Parkinson's but none recently. He is currently living in independent living and he was recently apparently detention they are suggesting he consider assisted living. He denies bleeding, he denies abdominal pain or dysuria. He has had no sore throat, no fevers as mention, no COVID symptoms or influenza type symptoms. He does feel fatigued today. He thinks he did not get his medications correctly and that might be the source. He does have some cognitive impairment. Related Data Home Medications Medication Instructions Recorded Confirmed acetaminophen 325 mg capsule 325 mg PO Q4H PRN 08/11/22 11/16/23 (Tylenol) amantadine HCl 100 mg capsule 100 mg PO BID 08/11/22 11/16/23 aspirin 81 mg tablet,delayed 81 mg PO DAILY 08/11/22 11/16/23 release carbidopa 25 mg-levodopa 100 mg 3 tab PO QID 08/11/22 11/16/23 tablet hydroxyurea 500 mg capsule 500 mg PO Q48H 08/11/22 11/16/23 ketoconazole 2 % topical cream 1 applic topical BID PRN 08/11/22 11/16/23 pramipexole 0.25 mg tablet 0.25 mg PO HS 08/11/22 11/16/23 erythromycin 5 mg/gram (0.5 %) eye 1 applic ophthalmic (eye) HS PRN 02/14/23 11/16/23 ointment finasteride 5 mg tablet 5 mg PO DAILY 08/17/23 11/16/23 multivitamin 1 tab PO QAM 08/17/23 11/16/23 polyethylene glycol 3350 17 8.5 - 17 g PO DAILY PRN 08/17/23 11/16/23 gram/dose oral powder (Miralax) tamsulosin 0.4 mg capsule 0.4 mg PO DAILY 08/17/23 11/16/23 docusate sodium 100 mg capsule 100 mg PO BID 09/01/23 11/16/23 (Colace) melatonin 3 mg capsule 3 mg PO HS PRN 09/01/23 11/16/23 peg 400-propylene glycol (PF) 0.4 1 drp ophthalmic (eye) DAILY PRN 09/01/23 10/13/23 %-0.3 % eye drops in a dropperette (Lubricant Eye (PG-PEG 400) (PF)) Previous Rx's Medication Instructions Recorded clonazepam 0.5 mg tablet 0.25 mg (1/2 x 0.5 mg) PO QHS PRN 10/17/23 #30 tabs midodrine 5 mg tablet 2.5 mg (1/2 x 5 mg) PO 10/17/23 BID@0900,1700 #60 tabs warfarin 2 mg tablet 2 mg PO Q OTHER DAY #45 tabs 10/17/23 warfarin 2 mg tablet (Jantoven) 4 mg (2 x 2 mg) PO SuTuWeFrSa@1600 10/17/23 #60 tabs Allergies Allergy/AdvReac Type Severity Reaction Status Date / Time Penicillins Allergy Unknown Verified 11/16/23 13:33 Review of Systems Status of ROS: Reports: 6 or more systems reviewed and unremarkable except as noted in History and below [facility] Medical History REM sleep behavior disorder ?G47.52 - REM sleep behavior disorder (ICD-10) History of DVT (deep vein thrombosis) ?Z86.718 - Personal history of other venous thrombosis and embolism (ICD-10) BPH with obstruction/lower urinary tract symptoms ?N40.1 - Benign prostatic hyperplasia with lower urinary tract symptoms (ICD-10) ?N13.8 - Other obstructive and reflux uropathy (ICD-10) Congenital medullary sponge kidney ?Q61.5 - Medullary cystic kidney (ICD-10) History of retinal detachment ?Z86.69 - Personal history of other diseases of the nervous system and sense organs (ICD-10) Frailty ?R54 - Age-related physical debility (ICD-10) Cognitive impairment ?R41.89 - Other symptoms and signs involving cognitive functions and awareness (ICD-10) Acute urinary retention ?R33.8 - Other retention of urine (ICD-10) Anemia due to blood loss, acute ?D62 - Acute posthemorrhagic anemia (ICD-10) Chronic anticoagulation ?Z79.01 - ocean transportation intermediary (current) use of anticoagulants (ICD-10) Hematoma ?T14.8XXA - Other injury of unspecified body region, initial encounter (ICD-10) Retinal detachment ?H33.20 - Serous retinal detachment, unspecified eye (ICD-10) Volar plate injury of interphalangeal finger joint ?S63.639A - Sprain of interphalangeal joint of unspecified finger, initial encounter (ICD-10) 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 - Genetic carrier of other disease (ICD-10) Hemochromatosis ?E83.119 - Hemochromatosis, unspecified (ICD-10) Polycythemia ?D75.1 - Secondary polycythemia (ICD-10) Surgical History History of tonsillectomy ?Z90.89 - Acquired absence of other organs (ICD-10) History of colonoscopy ?Z98.890 - Other specified postprocedural states (ICD-10) History of cataract surgery ?Z98.49 - Cataract extraction status, unspecified eye (ICD-10) S/P ORIF (open reduction internal fixation) fracture ?Z98.890 - Other specified postprocedural states (ICD-10) ?Z87.81 - Personal history of (healed) traumatic fracture (ICD-10) Social History Narrative: Patient is single, lives at [facility]. Friend Sabine Ayala would be MDM if needed. No ETOH use, no tobacco use. No children. 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 Requests Full Code status in the event of a witnessed arrest only. What is your current living situation?: I presently have a place to live Problems where you live: no known problems Problems where you live details: N/A In the past 12 months, utilities in danger of being shut off: no In past 12 months, lack of transportation kept you from medical appts, meetings, work, or getting things needed for daily living: no In the past 12 mos, have been you worried that your food would run out before you had money to buy more?: never true In the past 12 mos, the food you bought just didn't last and you didn't have money to buy more?: never true Highest level of school completed/degree received: Doctoral degree Smoking Status: Never smoker Do you use any of these nicotine containing products: None Second hand tobacco smoke exposure: No How often do you have a drink containing alcohol: never AUDIT-C Alcohol total score: 0 Non-prescribed substance use: denies use Caffeine: Yes How often does anyone, including family, friends and others, physically hurt you: never How often does anyone, including family, friends and others, insult or talk down to you: never How often does anyone, including family, friends and others, threaten you with harm: never How often does anyone, including family, friends and others, scream or curse at you: never service: No Exam Narrative: Exam Narrative: Objective: Patient is afebrile his vital signs look within normal limits He is alert orient x3 He has a moist mucous membranes in his mouth neck is supple no facial asymmetry Chest is clear Heart rhythm regular regular with 2/6 systolic ejection murmur, occasional ectopic beat Abdomen benign soft Extremities are no edema neurologic nonfocal there is some evidence of old bruising on his knees he states he has fallen in the past. He reports he does not have significant tremor with his Parkinson's but he does have imbalance. He specifically denies pain in his back or abdomen Const: Vital Signs, click to edit/add: Vital Signs - 24 hr 11/16/23 12:45 11/16/23 14:51 Temperature 97.4 F L Pulse Rate [Pulse Oximeter] 73 82 Respiratory Rate 16 16 Blood Pressure [Le ft Upper Arm] 133/76 158/85 H Pulse Oximetry 99 99 Oxygen Delivery Me thod Room Air Room Air Course Vital Signs Vital signs: Initial Vital Signs Temperature 97.4 F L 11/16/23 12:45 Temperature Source Temporal Artery Scan 11/16/23 12:45 Pulse Rate 73 11/16/23 12:45 Respiratory Rate 16 11/16/23 12:45 Blood Pressure 133/76 11/16/23 12:45 Blood Pressure Mean 95 11/16/23 12:45 Blood Pressure Position Supine 11/16/23 12:45 Pulse Oximetry 99 11/16/23 12:45 Oxygen Delivery Method Room Air 11/16/23 12:45 Vital Signs Temperature 97.4 F L 11/16/23 12:45 Pulse Rate 73 11/16/23 12:45 Respiratory Rate 16 11/16/23 12:45 Blood Pressure 133/76 11/16/23 12:45 Pulse Oximetry 99 11/16/23 12:45 Oxygen Delivery Method Room Air 11/16/23 12:45 Temperature 97.4 F L 11/16/23 12:45 Pulse Rate 82 11/16/23 14:51 Respiratory Rate 16 11/16/23 14:51 Blood Pressure 158/85 H 11/16/23 14:51 Pulse Oximetry 99 11/16/23 14:51 Oxygen Delivery Method Room Air 11/16/23 14:51 Medical Decision Making MDM Narrative Medical decision making narrative: [age] white male with significant Parkinson's disease currently living in independent apartments. He has significant Parkinson's as mention and has imbalance, not tremor. He has had no history of urinary tract symptoms however given he is weak today I think I would check a UA, laboratory studies. If these are negative and viral studies are negative I think we can long to go home. He feels his medicines have been readjusted and he is back on his regular schedule. He will return if problems or concerns. Addendum 3:30 p.m. the patient has a negative urinalysis negative CRP labs look reassuring. He wishes to go home I think that is reasonable. Staff was checking with his home nurse process to make sure his meds are set up correctly. Asked if he wishes to consider assisted living again and he is states he is ?filling out the paperwork and ?. Lab Data Labs: Lab Results 11/16/23 11/16/23 11/16/23 Range/Units 13:36 14:13 14:35 WBC 8.82 (4.50-11.00) K/uL RBC 3.87 L (4.30-5.90) m/uL Hgb 13.5 (13.5-17.5) gm/dL Hct 41.0 (37.0-53.0) % MCV 106 H (80-100) fL MCH 35 H (26-34) pg MCHC 33 (32-36) gm/dL RDW Coeff of Arsalan 13.8 (11.5-15.5) % Plt Count 131 L (140-440) K/uL Neut % (Auto) 74.2 H (42.0-72.0) % Lymph % (Auto) 10.8 L (20-44) % Vance % (Auto) 7.7 (0.0-11.0) % Eos % (Auto) 2.5 (0.0-7.0) % Baso % (Auto) 0.5 (0.0-3.0) % Neut # (Auto) 6.50 (1.7-7.0) K/uL Lymph # (Auto) 1.00 (0.90-2.90) K/uL Vance # (Auto) 0.70 (0.00-0.90) K/UL Eos # (Auto) 0.22 (0.00-0.50) K/uL Baso # (Auto) 0.04 (0.00-0.30) K/uL Abs Immat Gran (auto) 0.38 H (0.00-0.30) K/uL Imm/Tot Granulo (auto) 4.3 % Diff Slide Review Acceptable Review (Acceptable) INR 1.40 H (0.91-1.10) Sodium 140 (135-149) mmol/L Potassium 4.1 (3.6-5.1) mmol/L Chloride 105 (96-114) mmol/L Carbon Dioxide 28 (20-32) mmol/L Anion Gap 7 (7-15) mEq/L BUN 28 (7-30) mg/dL Creatinine 1.1 (0.5-1.5) mg/dL Estimated Creat Clear 66.21 Estimated GFR 71 ml/min Glucose 103 (60-115) mg/dL Calcium 8.8 (8.4-10.6) mg/dL C-Reactive Protein < 0.5 L (0.5-1.0) mg/dL Urine Color Yellow (Yellow) Urine Appearance Clear (Clear) Urine pH 7.0 (5.0-8.5) Ur Specific Keller 1.020 (1.000-1.030) Urine Protein Trace A (Negative) Urine Glucose (UA) Negative (Negative) Urine Ketones 1+ A (Negative) Urine Blood Negative (Negative) Urine Nitrite Negative (Negative) Urine Bilirubin Negative (Negative) Urine Urobilinogen 0.2 (0.2-1.0) Ur Leukocyte Esterase Negative (Negative) Urine RBC 0-2 (0-2) Urine WBC 0-2 (0-5) Ur Squamous Epith Cells None (None-Few) Urine Bacteria None (None) SARS-CoV-2 (PCR) Negative SARS-CoV-2 (Negative) Influenza Type A (PCR) Negative PCR FLU A (Negative) Influenza Type B (PCR) Negative PCR FLU B (Negative) RSV (PCR) Negative PCR RSV (Negative) Discharge Plan Discharge Clinical Impression: Weakness, Parkinson's disease Patient Disposition: Home w/ Parent or Adult Condition: Stable Additional Instructions: Rest, fluids, continue present medications, observation, return to your primary care in the next couple of days, return to ED as needed. Activity Level: Light activity Discharge Diet: Regular Prescriptions: No Action ketoconazole 2 % cream 1 applic topical BID PRN carbidopa-levodopa 25-100 mg tablet 3 tab PO QID amantadine HCl 100 mg capsule 100 mg PO BID pramipexole 0.25 mg tablet 0.25 mg PO HS hydroxyurea 500 mg capsule 500 mg PO Q48H acetaminophen [Tylenol] 325 mg capsule 325 mg PO Q4H PRN aspirin 81 mg tablet,delayed release (DR/EC) 81 mg PO DAILY finasteride 5 mg tablet 5 mg PO DAILY tamsulosin 0.4 mg capsule 0.4 mg PO DAILY erythromycin 5 mg/gram (0.5 %) ointment 1 applic ophthalmic (eye) HS PRN polyethylene glycol 3350 [Miralax] 17 gram/dose powder 8.5 - 17 g PO DAILY PRN multivitamin Tablet 1 tab PO QAM docusate sodium [Colace] 100 mg capsule 100 mg PO BID melatonin 3 mg capsule 3 mg PO HS PRN Lubricant Eye (PG-PEG 400)(PF) 0.4-0.3 % dropperette 1 drp ophthalmic (eye) DAILY PRN warfarin [Jantoven] 2 mg Tablet 4 mg PO SuTuWeFrSa@1600 Qty: 60 0RF warfarin 2 mg tablet 2 mg PO Q OTHER DAY Qty: 45 3RF Rx Instructions: on Mondays and midodrine 5 mg Tablet 2.5 mg PO BID@0900,1700 Qty: 60 0RF clonazepam 0.5 mg tablet 0.25 mg PO QHS PRNQty: 30 0RF Rx Instructions: administer 30 minutes before bedtime Follow Up/Referrals: YANA FISCHER DO [Primary Care Provider] - Stand Alone Forms: [employer] Info Instructions
[2023-11-16 14:20] LABS: Basophils Absolute Auto 0.04 K/uL (0.00-0.30); Basophils Percent Auto 0.5 % (0.0-3.0); Eosinophils Absolute Auto 0.22 K/uL (0.00-0.50); Eosinophils Percent Auto 2.5 % (0.0-7.0); Hemoglobin* 13.5 gm/dL (13.5-17.5); Immature Granulocytes Abs Auto 0.38 K/uL (0.00-0.30); Immature Granulocytes Pct Auto 4.3 %; Lymphocytes Percent Auto 10.8 % (20-44); Mean Corpuscular HGB Conc 33 gm/dL (32-36); Mean Corpuscular Hemoglobin 35 pg (26-34); Mean Corpuscular Volume 106 fL (80-100); Monocytes Percent Auto 7.7 % (0.0-11.0); Neutrophils Percent Auto 74.2 % (42.0-72.0); Platelet Count* 131 K/uL (140-440); RDW Coefficient of Variation % 13.8 % (11.5-15.5); Red Blood Count 3.87 m/uL (4.30-5.90); White Blood Count* 8.82 K/uL (4.50-11.00)
[2023-11-16 14:23] LABS: Slide Review Acceptable Review (Acceptable); Slide Review Reflex Yes
[2023-11-16 14:32] LABS: PCR FLU A Negative PCR FLU A (Negative); PCR FLU B Negative PCR FLU B (Negative); PCR RSV Negative PCR RSV (Negative); SARS PCR* Negative SARS-CoV-2 (Negative)
[2023-11-16 14:41] LABS: Chloride* 105 mmol/L (96-114); Sodium* 140 mmol/L (135-149)
[2023-11-16 14:42] LABS: Potassium* 4.1 mmol/L (3.6-5.1)
[2023-11-16 14:44] LABS: Creatinine* 1.1 mg/dL (0.5-1.5); Est. Creatinine Clearance* 66.21; Estimated Glomerular Filt Rate 71 ml/min
[2023-11-16 14:45] LABS: Anion Gap 7 mEq/L (7-15); Blood Urea Nitrogen* 28 mg/dL (7-30); Carbon Dioxide* 28 mmol/L (20-32); Glucose* 103 mg/dL (60-115)
[2023-11-16 14:46] LABS: Calcium* 8.8 mg/dL (8.4-10.6); Prothrombin Time 18.1 Seconds
[2023-11-16 14:51] VITALS: BP 158/85; PULSE 82; RESP 16; O2SAT 99
[2023-11-16 14:53] LABS: C Reactive Protein* < 0.5 mg/dL (0.5-1.0)
[2023-11-16 15:13] LABS: Appearance Urine Clear (Clear); Bilirubin Urine Negative (Negative); Blood Urine Negative (Negative); Color Urine Yellow (Yellow); Glucose Urine Negative (Negative); Ketones Urine 1+ (Negative); Leukocyte Esterase Urine Negative (Negative); Nitrite Urine Negative (Negative); Protein Urine Trace (Negative); Urobilinogen Urine 0.2 (0.2-1.0)
[2023-11-16 15:22] LABS: RBC Urine 0-2 (0-2); WBC Urine 0-2 (0-5)
== END 2023-11-16 16:52 | disposition home or self-care (01) ==
PROVIDERS: Emergency Provider Family Medicine; PCP Student in an Organized Health Care Education/Training Program
DX: R53.1 Weakness (principal); G20.A1 Parkinson's disease without dyskinesia, without mention of fluctuations
CPT/HCPCS: 36415; 80048; 81001; 85025; 85610; 86140; 87086; 87631; 99283; 99284

== ENCOUNTER 2023-11-23 14:17 | Emergency (ER) | payer MEDICARE, BC, SELFPAY ==
[2023-11-23] VITALS (8 sets, daily range): BP systolic 143–165; BP diastolic 86–94; PULSE 79–88; RESP 16; TEMP 36.9; O2SAT 97–99; BMI 22.8
--- NOTE | 2023-11-23 15:23 | ED_ITS ---
HPI - General Adult General Chief complaint: Weakness Stated complaint: Hypotension Time Seen by Provider: 11/23/23 14:27 History of Present Illness HPI narrative: This 73-year-old male comes in because of some measured low blood pressures prior to arrival. He has Parkinson's disease and states that he does have some lightheadedness in the mornings typically. He states that his primary physician discontinued pramipexole last week and the patient reports that he seems to feel better with less lightheadedness. The patient is also on midodrine twice a day. He had a physical therapy appointment and blood pressure was measured at a systolic value of around 66 and another 1 at 80. However the patient did not feel any lightheadedness at this time and in fact was able to get up and exercise on a treadmill without any symptoms of lightheadedness. He comes in today at recommendation of his therapist to be checked out for blood pressure. He arrives here with slight elevation of his blood pressure and a systolic value in the 140-160 range. Related Data Home Medications Medication Instructions Recorded Confirmed acetaminophen 325 mg capsule 325 mg PO Q4H PRN 08/11/22 11/16/23 (Tylenol) amantadine HCl 100 mg capsule 100 mg PO BID 08/11/22 11/16/23 aspirin 81 mg tablet,delayed 81 mg PO DAILY 08/11/22 11/16/23 release carbidopa 25 mg-levodopa 100 mg 3 tab PO QID 08/11/22 11/16/23 tablet hydroxyurea 500 mg capsule 500 mg PO Q48H 08/11/22 11/16/23 ketoconazole 2 % topical cream 1 applic topical BID PRN 08/11/22 11/16/23 pramipexole 0.25 mg tablet 0.25 mg PO HS 08/11/22 11/16/23 erythromycin 5 mg/gram (0.5 %) eye 1 applic ophthalmic (eye) HS PRN 02/14/23 11/16/23 ointment finasteride 5 mg tablet 5 mg PO DAILY 08/17/23 11/16/23 multivitamin 1 tab PO QAM 08/17/23 11/16/23 polyethylene glycol 3350 17 8.5 - 17 g PO DAILY PRN 08/17/23 11/16/23 gram/dose oral powder (Miralax) tamsulosin 0.4 mg capsule 0.4 mg PO DAILY 08/17/23 11/16/23 docusate sodium 100 mg capsule 100 mg PO BID 09/01/23 11/16/23 (Colace) melatonin 3 mg capsule 3 mg PO HS PRN 09/01/23 11/16/23 peg 400-propylene glycol (PF) 0.4 1 drp ophthalmic (eye) DAILY PRN 09/01/23 10/13/23 %-0.3 % eye drops in a dropperette (Lubricant Eye (PG-PEG 400) (PF)) Previous Rx's Medication Instructions Recorded clonazepam 0.5 mg tablet 0.25 mg (1/2 x 0.5 mg) PO QHS PRN 10/17/23 #30 tabs midodrine 5 mg tablet 2.5 mg (1/2 x 5 mg) PO 10/17/23 BID@0900,1700 #60 tabs warfarin 2 mg tablet 2 mg PO Q OTHER DAY #45 tabs 10/17/23 warfarin 2 mg tablet (Jantoven) 4 mg (2 x 2 mg) PO SuTuWeFrSa@1600 10/17/23 #60 tabs Allergies Allergy/AdvReac Type Severity Reaction Status Date / Time Penicillins Allergy Unknown Verified 11/16/23 13:33 Review of Systems Status of ROS: Reports: 10 or more systems reviewed and unremarkable except as noted in History and below Narrative: Constitutional: No fevers, no weight gain or loss. Eyes: No discharge. No vision changes. HENT: No congestion, no sore throat, no ear pain. Cardiovascular: No chest pain, no palpitations. Respiratory: No shortness of breath, no wheezes, no cough. Gastrointestinal: No abdominal pain, no vomiting, no diarrhea. Genitourinary: No dysuria, no hematuria. Musculoskeletal: Normal range of motion. Skin: No rashes, no pruritis. Neurological: Chronic symptoms related to Parkinson's disease. Endo/Heme/Allergies: No bruising or bleeding. No polydipsia. Pysch: no suicidality, no anxiety, no insomnia. All other systems reviewed and are negative. [facility] Medical History REM sleep behavior disorder ?G47.52 - REM sleep behavior disorder (ICD-10) History of DVT (deep vein thrombosis) ?Z86.718 - Personal history of other venous thrombosis and embolism (ICD-10) BPH with obstruction/lower urinary tract symptoms ?N40.1 - Benign prostatic hyperplasia with lower urinary tract symptoms (ICD- 10) ?N13.8 - Other obstructive and reflux uropathy (ICD-10) Congenital medullary sponge kidney ?Q61.5 - Medullary cystic kidney (ICD-10) History of retinal detachment ?Z86.69 - Personal history of other diseases of the nervous system and sense organs (ICD-10) Frailty ?R54 - Age-related physical debility (ICD-10) Cognitive impairment ?R41.89 - Other symptoms and signs involving cognitive functions and awareness (ICD-10) Acute urinary retention ?R33.8 - Other retention of urine (ICD-10) Anemia due to blood loss, acute ?D62 - Acute posthemorrhagic anemia (ICD-10) Chronic 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 (ICD-10) Hematoma ?T14.8XXA - Other injury of unspecified body region, initial encounter (ICD- 10) Retinal detachment ?H33.20 - Serous retinal detachment, unspecified eye (ICD-10) Volar plate injury of interphalangeal finger joint ?S63.639A - Sprain of interphalangeal joint of unspecified finger, initial encounter (ICD-10) 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 - Genetic carrier of other disease (ICD-10) Hemochromatosis ?E83.119 - Hemochromatosis, unspecified (ICD-10) Polycythemia ?D75.1 - Secondary polycythemia (ICD-10) Surgical History History of tonsillectomy ?Z90.89 - Acquired absence of other organs (ICD-10) History of colonoscopy ?Z98.890 - Other specified postprocedural states (ICD-10) History of cataract surgery ?Z98.49 - Cataract extraction status, unspecified eye (ICD-10) S/P ORIF (open reduction internal fixation) fracture ?Z98.890 - Other specified postprocedural states (ICD-10) ?Z87.81 - Personal history of (healed) traumatic fracture (ICD-10) Social History Narrative: Patient is single, lives at [facility]. Friend Sabine Ayala would be MDM if needed. No ETOH use, no tobacco use. No children. 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 Requests Full Code status in the event of a witnessed arrest only. What is your current living situation?: I presently have a place to live Problems where you live: no known problems Problems where you live details: N/A In the past 12 months, utilities in danger of being shut off: no In past 12 months, lack of transportation kept you from medical appts, meetings, work, or getting things needed for daily living: no In the past 12 mos, have been you worried that your food would run out before you had money to buy more?: never true In the past 12 mos, the food you bought just didn't last and you didn't have money to buy more?: never true Highest level of school completed/degree received: Doctoral degree Smoking Status: Never smoker Do you use any of these nicotine containing products: None Second hand tobacco smoke exposure: No How often do you have a drink containing alcohol: never AUDIT-C Alcohol total score: 0 Non-prescribed substance use: denies use Caffeine: Yes How often does anyone, including family, friends and others, physically hurt you : never How often does anyone, including family, friends and others, insult or talk down to you: never How often does anyone, including family, friends and others, threaten you with harm: never How often does anyone, including family, friends and others, scream or curse at you: never service: No Exam Narrative: Exam Narrative: Constitutional: Well-developed, well-nourished, no acute distress. HEENT: Normocephalic, atraumatic. Neck: Normal range of motion. Nontender. Supple. Heart: Regular. No murmurs. Normal rate. Intact distal pulses. Lungs: Clear to auscultation. No chest discomfort. No wheezes, rhonchi, or rales. Abdomen: Normal bowel sounds. Nontender. No rebound tenderness. Genitalia: Deferred. Back: No midline tenderness. Normal range of motion. Extremities: Normal range of motion. No injury. Skin: Intact. No rash. Warm. No erythema or pallor. Neurologic: No altered sensation. No weakness. Alert and oriented. Psychiatric: No suicidality. No anxiety or depression. No insomnia. Nursing notes and vitals signs are reviewed. Const: Vital Signs, click to edit/add: Vital Signs - 24 hr 11/23/23 14:23 11/23/23 14:33 11/23/23 14:34 Temperature 98.4 F Pulse Rate 87 85 Pulse Rate [Pulse Oximeter] 86 Respiratory Rate 16 Blood Pressure 150/90 H Blood Pressure [Ri ght Upper Arm] 143/86 H Pulse Oximetry 99 98 98 Oxygen Delivery Me thod Room Air 11/23/23 14:45 11/23/23 15:00 11/23/23 15:01 Temperature Pulse Rate 88 79 83 Pulse Rate [Pulse Oximeter] Respiratory Rate Blood Pressure 165/94 H Blood Pressure [Ri ght Upper Arm] Pulse Oximetry 97 99 99 Oxygen Delivery Me thod 11/23/23 15:02 11/23/23 15:15 Temperature Pulse Rate 81 88 Pulse Rate [Pulse Oximeter] Respiratory Rate Blood Pressure Blood Pressure [Ri ght Upper Arm] Pulse Oximetry 98 97 Oxygen Delivery Me thod Course Vital Signs Vital signs: Initial Vital Signs Temperature 98.4 F 11/23/23 14:23 Temperature Source Temporal Artery Scan 11/23/23 14:23 Pulse Rate 86 11/23/23 14:23 Pulse Rhythm Regular 11/23/23 14:23 Respiratory Rate 16 11/23/23 14:23 Blood Pressure 143/86 H 11/23/23 14:23 Blood Pressure Mean 105 11/23/23 14:23 Blood Pressure Position Supine 11/23/23 14:23 Pulse Oximetry 99 11/23/23 14:23 Oxygen Delivery Method Room Air 11/23/23 14:23 Vital Signs Temperature 98.4 F 11/23/23 14:23 Pulse Rate 86 11/23/23 14:23 Respiratory Rate 16 11/23/23 14:23 Blood Pressure 143/86 H 11/23/23 14:23 Pulse Oximetry 99 11/23/23 14:23 Oxygen Delivery Method Room Air 11/23/23 14:23 Temperature 98.4 F 11/23/23 14:23 Pulse Rate 88 11/23/23 15:15 Respiratory Rate 16 11/23/23 14:23 Blood Pressure 165/94 H 11/23/23 15:01 Pulse Oximetry 97 11/23/23 15:15 Oxygen Delivery Method Room Air 11/23/23 14:23 Medical Decision Making MDM Narrative Medical decision making narrative: This patient comes in with report of low blood pressure readings however he was asymptomatic during those times. Currently he states that he is feeling normal also. His vital signs here are all in normal range. The patient does have Parkinson's disease and some of these symptoms are not uncommon for him and for those with Parkinson's. I did discuss lab and imaging options with the patient and in a process of shared decision making he declined any of these for now. He was reassured with his current vital signs and exam along with feeling rather normal. The patient was able to get up and ambulate to the bathroom. He did not have any symptoms of lightheadedness. ECG Data Attestation: I personally reviewed and interpreted this ECG as follows: Interpretation: Normal sinus rhythm. Rate is 83 beats per minute. There are no ST or T-wave abnormalities. Discharge Plan Discharge Clinical Impression: Episodic lightheadedness, Parkinson's disease Patient Disposition: Home w/ Parent or Adult Condition: Stable Additional Instructions: Continue current plans. Follow up with MD or return if symptoms are recurring or worsening. Prescriptions: No Action ketoconazole 2 % cream 1 applic topical BID PRN carbidopa-levodopa 25-100 mg tablet 3 tab PO QID amantadine HCl 100 mg capsule 100 mg PO BID pramipexole 0.25 mg tablet 0.25 mg PO HS hydroxyurea 500 mg capsule 500 mg PO Q48H acetaminophen [Tylenol] 325 mg capsule 325 mg PO Q4H PRN aspirin 81 mg tablet,delayed release (DR/EC) 81 mg PO DAILY finasteride 5 mg tablet 5 mg PO DAILY tamsulosin 0.4 mg capsule 0.4 mg PO DAILY erythromycin 5 mg/gram (0.5 %) ointment 1 applic ophthalmic (eye) HS PRN polyethylene glycol 3350 [Miralax] 17 gram/dose powder 8.5 - 17 g PO DAILY PRN multivitamin Tablet 1 tab PO QAM docusate sodium [Colace] 100 mg capsule 100 mg PO BID melatonin 3 mg capsule 3 mg PO HS PRN Lubricant Eye (PG-PEG 400)(PF) 0.4-0.3 % dropperette 1 drp ophthalmic (eye) DAILY PRN warfarin [Jantoven] 2 mg Tablet 4 mg PO SuTuWeFrSa@1600 Qty: 60 0RF warfarin 2 mg tablet 2 mg PO Q OTHER DAY Qty: 45 3RF Rx Instructions: on Mondays and midodrine 5 mg Tablet 2.5 mg PO BID@0900,1700 Qty: 60 0RF clonazepam 0.5 mg tablet 0.25 mg PO QHS PRNQty: 30 0RF Rx Instructions: administer 30 minutes before bedtime Follow Up/Referrals: YANA FISCHER DO [Primary Care Provider] - Stand Alone Forms: [facility] Info Instructions
== END 2023-11-23 16:03 | disposition home or self-care (01) ==
LOC: ED 15:54
PROVIDERS: Emergency Provider Emergency Medicine Emergency Medical Services; PCP Student in an Organized Health Care Education/Training Program
DX: R42 Dizziness and giddiness (principal); G20.A1 Parkinson's disease without dyskinesia, without mention of fluctuations
CPT/HCPCS: 99284

== ENCOUNTER 2023-12-01 10:08 | Observation (INO) | payer MEDICARE, BC, SELFPAY ==
[2023-12-01] VITALS (12 sets, daily range): BP systolic 105–142; BP diastolic 60–93; PULSE 65–133; RESP 12–20; TEMP 35.9–36.8; O2SAT 95–99; BMI 21.2; BMI 22.8
--- NOTE | 2023-12-01 10:27 | XR_ITS ---
Patient: DEBBI KAY Facility:?[facility] Patient ID:?[id number] Site Patient ID:?[id number]. Site :?[id number] Study:?XRay-Chest 2V-12/01/2023 11:09:11 AM Ordering Physician:ANA CRISTINA Final Report: INDICATION: Atrial fibrillation with rapid ventricular response. Lightheadedness. COMPARISON: CT 10/14/2023 TECHNIQUE: 2 views. FINDINGS: The patient is slightly rotated leftward on the frontal view of the chest. Medical Devices: None. Lung Volumes: Adequate inspiration. No significant atelectasis. Lungs: Clear lungs. Pleura and Pleural spaces: No significant pleural effusion. No pneumothorax. Mediastinum: Normal cardiomediastinal silhouette. Bony Thorax and Soft Tissues: No significant incidental findings. IMPRESSION: No imaging findings pertinent to the indication for the exam or significant unrelated findings. Dictated by Chandler Valdivia MD @ 12/01/2023 11:20:26 AM Signed by:?Chandler Valdivia MD @12/01/2023 11:20:26 AM (Electronic Signature)
--- NOTE | 2023-12-01 10:29 | ED_ITS ---
HPI - General Adult General Date Seen: 12/01/23 Chief complaint: Arrhythmia/Palpitations Stated complaint: Hypotension Time Seen by Provider: 12/01/23 10:27 History of Present Illness HPI narrative: This is a pleasant 73-year-old gentleman who has a complex recent past history. He has a history of secondary polycythemia, hemochromatosis, Parkinson's disease (on Sinemet), history of left lower extremity DVT (on warfarin, recently subtherapeutic), hypertension (patient reports that he has recently had some low blood pressure reading so he has apparently been adjusting or stopping his blood pressure meds, unclear what his blood pressure medications are, there are none on his current list), restless legs syndrome, BPH, medullary cystic kidney disease. He is brought here to the ER this morning from his assisted living by EMS. He apparently was feeling dizzy and lightheaded this morning and had blood pressure that was 80/50. EMS was able to start an IV and have been in the early phases a giving him a of saline bolus. He has had only the 1st portion of a L of saline but with that his blood pressure has come up to 115/70. Patient denies any other complaints. No chest pain. No shortness of breath. No falls. No focal weakness. No blurry vision. No nausea. No vomiting. No recent black or bloody stools. He does note that his heart is ?feeling funny? and I think he is describing palpitations. This is happening to him this morning and also also happened to him intermittently lately. Paramedics found him to be in atrial fibrillation with rapid ventricular response on their monitor. The patient is not aware of this is a previous diagnosis. He is on warfarin (because of his history of left lower extremity DVT). He is not sure what his recent INRs have been. He says that they have been checking his INR ?a lot lately. ? In review of medical record: Recent INRs have been subtherapeutic. Since October 07 INR has ranged from 1.19 up to 1.72. Patient says he thinks had an INR done in the outpatient se tting a few days ago that was 1.9. Recent CBCs have show normal white counts ranging 5.2 up to 8.8. Hemoglobin is range 12.7 up to 13.5. Platelet count 131 up to 184. Metabolic profile a has showed generally normally sodium and potassium levels. BUN has ranged from 11 up to 28 and creatinine has been 0.7 up to 1.1. Glucose is have been essentially normal. UA is have recently been normal Most recently he was in the ER on 11/22, about a week ago for episodes of lightheadedness and low blood pressure readings at home. Workup in the ER last week showed pulse in the 80s. Blood pressure 150/90. According to those notes he had been taken off his pramipexole. Contradictinly, According to the patient's current list that he has with him, he still on pramipexole Prior to that he was in the ER on 11/15, about 2 weeks ago. He apparently had a medication mixup. Pulse in the 70s and 80s. Blood pressure 133/76 and then 158/85 pure Workup normal. Discharge back to his assisted living He was in the hospital 03/06/2012. At that time he had multiple falls, which were thought likely to be related to Parkinson's. He had an episode of narrow complex tachycardia while in the hospital that was thought to be SVT. The tachycardia resolved with treatment of adenosine (no response to 6 mg. Did respond to 12 mg IV). CT PA was negative for PE. Troponins negative. Related Data Home Medications Medication Instructions Recorded Confirmed acetaminophen 325 mg capsule 325 mg PO Q4H PRN 08/11/22 12/01/23 (Tylenol) amantadine HCl 100 mg capsule 100 mg PO BID 08/11/22 12/01/23 aspirin 81 mg tablet,delayed 81 mg PO DAILY 08/11/22 12/01/23 release carbidopa 25 mg-levodopa 100 mg 3 tab PO QID 08/11/22 12/01/23 tablet hydroxyurea 500 mg capsule 500 mg PO Q48H 08/11/22 12/01/23 ketoconazole 2 % topical cream 1 applic topical BID PRN 08/11/22 12/01/23 pramipexole 0.25 mg tablet 0.125 mg PO HS 08/11/22 12/01/23 erythromycin 5 mg/gram (0.5 %) eye 1 applic ophthalmic (eye) HS PRN 02/14/23 12/01/23 ointment finasteride 5 mg tablet 5 mg PO DAILY 08/17/23 12/01/23 multivitamin 1 tab PO QAM 08/17/23 12/01/23 polyethylene glycol 3350 17 8.5 - 17 g PO DAILY PRN 08/17/23 12/01/23 gram/dose oral powder (Miralax) tamsulosin 0.4 mg capsule 0.4 mg PO DAILY 08/17/23 12/01/23 docusate sodium 100 mg capsule 100 mg PO BID 09/01/23 12/01/23 (Colace) melatonin 3 mg capsule 3 mg PO HS PRN 09/01/23 12/01/23 peg 400-propylene glycol (PF) 0.4 1 drp ophthalmic (eye) DAILY PRN 09/01/23 12/01/23 %-0.3 % eye drops in a dropperette (Lubricant Eye (PG-PEG 400) (PF)) clonazepam 0.5 mg tablet 0.25 mg PO HS PRN 12/01/23 12/01/23 midodrine 5 mg tablet 5 mg PO BID@0900,1700 12/01/23 12/01/23 warfarin 2 mg tablet 2 mg PO .MO,TH 12/01/23 12/01/23 Previous Rx's Medication Instructions Recorded warfarin 2 mg tablet (Jantoven) 4 mg (2 x 2 mg) PO SuTuWeFrSa@1600 10/17/23 #60 tabs Allergies Allergy/AdvReac Type Severity Reaction Status Date / Time Penicillins Allergy Unknown Verified 12/01/23 10:22 [facility] Medical History REM sleep behavior disorder ?G47.52 - REM sleep behavior disorder (ICD-10) History of DVT (deep vein thrombosis) ?Z86.718 - Personal history of other venous thrombosis and embolism (ICD-10) BPH with obstruction/lower urinary tract symptoms ?N40.1 - Benign prostatic hyperplasia with lower urinary tract symptoms (ICD- 10) ?N13.8 - Other obstructive and reflux uropathy (ICD-10) Congenital medullary sponge kidney ?Q61.5 - Medullary cystic kidney (ICD-10) History of retinal detachment ?Z86.69 - Personal history of other diseases of the nervous system and sense organs (ICD-10) Frailty ?R54 - Age-related physical debility (ICD-10) Cognitive impairment ?R41.89 - Other symptoms and signs involving cognitive functions and awareness (ICD-10) Acute urinary retention ?R33.8 - Other retention of urine (ICD-10) Anemia due to blood loss, acute ?D62 - Acute posthemorrhagic anemia (ICD-10) Chronic anticoagulation ?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.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 (ICD-10) Hematoma ?T14.8XXA - Other injury of unspecified body region, initial encounter (ICD- 10) Retinal detachment ?H33.20 - Serous retinal detachment, unspecified eye (ICD-10) Volar plate injury of interphalangeal finger joint ?S63.639A - Sprain of interphalangeal joint of unspecified finger, initial encounter (ICD-10) 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 - Genetic carrier of other disease (ICD-10) Hemochromatosis ?E83.119 - Hemochromatosis, unspecified (ICD-10) Polycythemia ?D75.1 - Secondary polycythemia (ICD-10) Surgical History History of tonsillectomy ?Z90.89 - Acquired absence of other organs (ICD-10) History of colonoscopy ?Z98.890 - Other specified postprocedural states (ICD-10) History of cataract surgery ?Z98.49 - Cataract extraction status, unspecified eye (ICD-10) S/P ORIF (open reduction internal fixation) fracture ?Z98.890 - Other specified postprocedural states (ICD-10) ?Z87.81 - Personal history of (healed) traumatic fracture (ICD-10) Social History Narrative: Patient is single, lives at [facility]. Friend Sabine Ayala would be MDM if needed. No ETOH use, no tobacco use. No children. 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 Requests Full Code status in the event of a witnessed arrest only. What is your current living situation?: I presently have a place to live Problems where you live: no known problems Problems where you live details: N/A In the past 12 months, utilities in danger of being shut off: no In past 12 months, lack of transportation kept you from medical appts, meetings, work, or getting things needed for daily living: no In the past 12 mos, have been you worried that your food would run out before you had money to buy more?: never true In the past 12 mos, the food you bought just didn't last and you didn't have money to buy more?: never true Highest level of school completed/degree received: Doctoral degree Smoking Status: Never smoker Do you use any of these nicotine containing products: None Second hand tobacco smoke exposure: No How often do you have a drink containing alcohol: never AUDIT-C Alcohol total score: 0 Non-prescribed substance use: denies use Caffeine: Yes How often does anyone, including family, friends and others, physically hurt you : never How often does anyone, including family, friends and others, insult or talk down to you: never How often does anyone, including family, friends and others, threaten you with harm: never How often does anyone, including family, friends and others, scream or curse at you: never service: No Exam Narrative: Exam Narrative: Constitutional: Appears well-developed and well-nourished. Alert. Conversant but a vague historian. May have some mild dementia. Non toxic. HENT: Head: Atraumatic. Nose: Nose normal. Mouth/Throat: Oral mucosa is clear and moist. no trismus. Pharynx normal. Tonsils symmetric. No tonsillar enlargement, erythema, or exudate. Eyes: Conjunctivae normal. EOM normal. Pupils equal, round, and reactive to li ght. No scleral icterus. Neck: Normal range of motion. Neck supple. No tracheal deviation present. Cardiovascular: Tachycardic, irregularly irregular rhythm. No gallop. No friction rub. No murmur heard. Symmetric radial and PT artery pulses Pulmonary/Chest: Effort normal. No stridor. No respiratory distress. No wheezes. No rales. No rhonchi . No tenderness. Abdominal: Soft. Bowel sounds normal. No distension. No mass. No tenderness. No rebound. No guarding. Musculoskeletal: RUE: Normal range of motion. No tenderness. No deformity LUE: Normal range of motion. No tenderness. No deformity RLE: Normal range of motion. Trace edema. No tenderness. No deformity LLE: Normal range of motion. 1+ edema (patient says he had a blood clot in his left leg many years ago and it has always been slightly more swollen on the left than it is on the right). Swelling unchanged lately. No tenderness. No deformity Neurological: Alert and oriented to person, place, and time. Normal strength. CN II-VII intact. No sensory deficit. GCS eye subscore is 4. GCS verbal subscore is 5. GCS motor subscore is 6. Normal coordination Skin: Skin is warm and dry. No rash noted. No pallor. Normal capillary refill. Psychiatric: Normal mood. Normal affect. Const: Vital Signs, click to edit/add: Vital Signs - 24 hr 12/01/23 10:17 12/01/23 11:48 12/01/23 12:02 Temperature 97.7 F Pulse Rate 111 H 129 H Pulse Rate [Pulse Oximeter] 98 Respiratory Rate 18 14 14 Blood Pressure 131/87 137/93 H Blood Pressure [Ri ght Upper Arm] 123/79 Pulse Oximetry 98 98 99 Oxygen Delivery Me thod Room Air 12/01/23 12:15 12/01/23 12:32 12/01/23 13:02 Temperature Pulse Rate 85 96 81 Pulse Rate [Pulse Oximeter] Respiratory Rate 16 14 12 Blood Pressure 142/78 H 115/84 Blood Pressure [Ri ght Upper Arm] Pulse Oximetry 99 99 99 Oxygen Delivery Me thod Course Vital Signs Vital signs: Initial Vital Signs Temperature 97.7 F 12/01/23 10:17 Temperature Source Temporal Artery Scan 12/01/23 10:17 Pulse Rate 98 12/01/23 10:17 Pulse Rhythm Irregular 12/01/23 10:17 Respiratory Rate 18 12/01/23 10:17 Blood Pressure 123/79 12/01/23 10:17 Blood Pressure Mean 93 12/01/23 10:17 Blood Pressure Position Sitting 12/01/23 10:17 Pulse Oximetry 98 12/01/23 10:17 Oxygen Delivery Method Room Air 12/01/23 10:17 Vital Signs Temperature 97.7 F 12/01/23 10:17 Pulse Rate 98 12/01/23 10:17 Respiratory Rate 18 12/01/23 10:17 Blood Pressure 123/79 12/01/23 10:17 Pulse Oximetry 98 12/01/23 10:17 Oxygen Delivery Method Room Air 12/01/23 10:17 Temperature 97.7 F 12/01/23 14:19 Pulse Rate 98 12/01/23 14:19 Respiratory Rate 12 12/01/23 14:19 Blood Pressure 123/79 12/01/23 14:19 Pulse Oximetry 99 12/01/23 13:02 Oxygen Delivery Method Room Air 12/01/23 10:17 Medications Administered Medications: Discontinued Medications Generic Name Dose Route Start Last Admin Trade Name Daren PRN Reason Stop Dose Admin Diltiazem HCl 10 mg 12/01/23 10:27 12/01/23 10:43 Diltiazem 5 Mg/Ml Inj IVP 12/01/23 10:28 10 mg ONCE ONE Administration Diltiazem HCl 10 mg 12/01/23 13:26 12/01/23 13:41 Diltiazem 5 Mg/Ml Inj IVP 12/01/23 13:27 10 mg ONCE ONE Administration Sodium Chloride 1,000 mls @ 1,000 mls/hr 12/01/23 10:30 12/01/23 10:52 0.9 % Sodium Chloride 1000 Ml IV 12/01/23 11:29 Not Given .Q1H BRETT Metoprolol Tartrate 25 mg 12/01/23 13:23 12/01/23 13:41 Metoprolol Tartrate 25 Mg Tablet PO 12/01/23 13:24 25 mg ONCE ONE Administration Medical Decision Making MDM Narrative Medical decision making narrative: This is a pleasant 73-year-old gentleman with a complex recent past medical history. He is brought to the ER today from his independent living by EMS for lightheadedness and low blood pressure. He had a low blood pressure when EMS arrived but by the time they arrived here in the ER with him his blood pressure had normalized. He had received only 1 or 200 mL of a saline bolus with normalization of his blood pressure. He was found to be in atrial fibrillation with rapid ventricular response by EMS and confirmed when he arrived here in the ER. He did have a recent trouble with SVT but has no previous diagnosis of AFib. He is feeling palpitations from that from time to time and it sounds like this is not necessarily new onset. He has been having palpitations off and on for at least a few weeks. I do note that when he was in the hospital in October he had an atrial tachyarrhythmia that was thought to be SVT. His previous rhythm converted with adenosine. He is not formally diagnosed with AFib. He is on warfarin because of distant history of DVT in the left lower extremity. Multiple INR is lately have been subtherapeutic. Therefore, with suspicion that his AFib is likely been going on longer than 48 hours, he is not a candidate for cardioversion at this time due to stroke risk. He is not unstable? requiring emergent life-saving cardioversion. We opted for rate control because of the risk of developing CHF or the tachycardia induced cardiomyopathy in the setting of AFib RVR. He responded well to IV diltiazem. With improvement in his rate from the 130s and 140s down to 85-120. After a couple of hours he did start to trend back up with heart rates ranging more in the 120s and 130s. We administered additional 10 mg IV diltiazem as well as oral metoprolol for more sustained rate controlled. At this point he is not requiring a diltiazem drip. No hypotension induced by the diltiazem while here in the ER. At this point chest x-ray shows no evidence for CHF. Also no evidence for pneumonia, pneumothorax, pleural effusion. He is not having any chest pain. EKG shows AFib but no ischemia. Troponin undetectable. Electrolytes normal. Thyroid normal. INR is subtherapeutic today. However with no chest pain, shortness of breath, hypoxia, would be low risk for PE. He had a PE while in the hospital last month during his workup for his other arrhythmia and it was negative. Would hold off on repeat CT PA today due to the risk of contrast nephropathy. He will require admission for monitoring for his AFib and rate control. He is accepted by our hospitalist, Dr. Olvera.. Lab Data Labs: Lab Results 12/01/23 12/01/23 Range/Units 10:26 10:28 WBC 6.43 (4.50-11.00) K/uL RBC 3.87 L (4.30-5.90) m/uL Hgb 13.5 (13.5-17.5) gm/dL Hct 41.1 (37.0-53.0) % MCV 106 H (80-100) fL MCH 35 H (26-34) pg MCHC 33 (32-36) gm/dL RDW Coeff of Arsalan 14.5 (11.5-15.5) % Plt Count 177 (140-440) K/uL Neut % (Auto) 63.4 (42.0-72.0) % Lymph % (Auto) 17.7 L (20-44) % Mingo % (Auto) 8.9 (0.0-11.0) % Eos % (Auto) 3.0 (0.0-7.0) % Baso % (Auto) 0.3 (0.0-3.0) % Neut # (Auto) 4.08 (1.7-7.0) K/uL Lymph # (Auto) 1.10 (0.90-2.90) K/uL Mingo # (Auto) 0.60 (0.00-0.90) K/UL Eos # (Auto) 0.19 (0.00-0.50) K/uL Baso # (Auto) 0.02 (0.00-0.30) K/uL Abs Immat Gran (auto) 0.43 H (0.00-0.30) K/uL Imm/Tot Granulo (auto) 6.7 % Diff Slide Review Acceptable Review (Acceptable) INR 1.82 H (0.91-1.10) Sodium 140 (135-149) mmol/L Potassium 3.9 (3.6-5.1) mmol/L Chloride 108 (96-114) mmol/L Carbon Dioxide 26 (20-32) mmol/L Anion Gap 6 L (7-15) mEq/L BUN 20 (7-30) mg/dL Creatinine 0.9 (0.5-1.5) mg/dL Estimated Creat Clear 72.83 Estimated GFR 91 ml/min Glucose 104 (60-115) mg/dL Lactate 1.2 (0.5-1.9) mmol/L Calcium 8.7 (8.4-10.6) mg/dL Troponin I 0.02 (0.01-0.04) ng/mL TSH 0.562 (0.270-4.200) uIU/mL Imaging Data Chest x-ray: Attestation: I have reviewed the pertinent imaging results. Radiologist's impression: IMPRESSION: No imaging findings pertinent to the indication for the exam or significant unrelated findings. ECG Data Attestation: I personally reviewed and interpreted this ECG as follows: Interpretation: Atrial fibrillation with rapid ventricular response. Rate 134 WA not applicable QRS axis normal axis. No pathologic Q-waves. Voltage criteria for LVH with tall R-wave in aVL. ST segment/T wave: No ST segment elevation or depression. QTc: 483 Discharge Plan Discharge Clinical Impression: Atrial fibrillation with rapid ventricular response Patient Disposition: Admitted As Inpatient
[2023-12-01 10:34] LABS: Lactate* 1.2 mmol/L (0.5-1.9)
[2023-12-01 10:36] LABS: Basophils Absolute Auto 0.02 K/uL (0.00-0.30); Basophils Percent Auto 0.3 % (0.0-3.0); Eosinophils Absolute Auto 0.19 K/uL (0.00-0.50); Hematocrit 41.1 % (37.0-53.0); Hemoglobin* 13.5 gm/dL (13.5-17.5); Immature Granulocytes Abs Auto 0.43 K/uL (0.00-0.30); Immature Granulocytes Pct Auto 6.7 %; Lymphocytes Percent Auto 17.7 % (20-44); Mean Corpuscular HGB Conc 33 gm/dL (32-36); Mean Corpuscular Hemoglobin 35 pg (26-34); Mean Corpuscular Volume 106 fL (80-100); Monocytes Percent Auto 8.9 % (0.0-11.0); Neutrophils Absolute Auto 4.08 K/uL (1.7-7.0); Neutrophils Percent Auto 63.4 % (42.0-72.0); Platelet Count* 177 K/uL (140-440); RDW Coefficient of Variation % 14.5 % (11.5-15.5); Red Blood Count 3.87 m/uL (4.30-5.90); White Blood Count* 6.43 K/uL (4.50-11.00)
[2023-12-01 10:42] LABS: Slide Review Reflex Yes
[2023-12-01] MEDS: dilTIAZem 5 MG/ML inj 10 MG IVP ×2 (10:43→13:41)
[2023-12-01 10:51] LABS: Chloride* 108 mmol/L (96-114); Sodium* 140 mmol/L (135-149)
[2023-12-01 10:52] LABS: Potassium* 3.9 mmol/L (3.6-5.1)
[2023-12-01 10:54] LABS: Anion Gap 6 mEq/L (7-15); Carbon Dioxide* 26 mmol/L (20-32); Creatinine* 0.9 mg/dL (0.5-1.5); Est. Creatinine Clearance* 72.83; Estimated Glomerular Filt Rate 91 ml/min
[2023-12-01 10:55] LABS: Blood Urea Nitrogen* 20 mg/dL (7-30); Calcium* 8.7 mg/dL (8.4-10.6); Glucose* 104 mg/dL (60-115)
[2023-12-01 10:56] LABS: INR 1.82 (0.91-1.10); Prothrombin Time 22.4 Seconds
[2023-12-01 11:06] LABS: Slide Review Acceptable Review (Acceptable)
[2023-12-01 11:08] LABS: Troponin I* 0.02 ng/mL (0.01-0.04)
[2023-12-01 11:51] LABS: TSH With Reflex to FT4* 0.562 uIU/mL (0.270-4.200)
[2023-12-01] MEDS: METOPROLOL TARTRATE 25 MG TABLET PO ×2 (13:41→21:18)
--- NOTE | 2023-12-01 15:38 | P.IMHP_ITS ---
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 Patient reports intermittent episodes of chest fluttering, typically in the mornings. Tells me this morning it felt different than usual and was not resolving. He was noted to have a low blood pressure with this as well. Had some dizziness which has since resolved. Denies headache. Denies chest pain or tightness. Denies recent fevers chills or sweats. Denies abdominal pain, nausea, vomiting. No recent change in bowels or urination. In the ED, patient noted to be in atrial fibrillation with rates 130-140s. Blood pressure improved with IVF. Patient was given 2 doses diltiazem 10 mg IV and an oral dose of metoprolol 25 mg p.o.. Rate responded appropriately, now 80-90s. Systolic pressures have remained > 120. Sensation of chest fluttering has resolved. Dizziness has improved. Patient noted to have a subtherapeutic INR <2.0. Patient was most recently hospitalized in October following a fall with rhabdomyolysis. During that hospital stay, patient was noted to have a sinus tachycardia, thought to be SVT. After close monitoring, patient did receive 2 doses of adenosine, responding to the 2nd dose of 12 mg. Patient is in process of moving into assisted living. POA is Sabine Review of Systems Narrative: REVIEW OF SYSTEMS: Complete review of systems performed and negative unless otherwise stated in HPI or below. [facility] Medical History (Updated 12/01/23 @ 16:02 by Monica Palmer PA-C) Orthostatic hypotension ?I95.1 - Orthostatic hypotension (ICD-10) REM sleep behavior disorder ?G47.52 - REM sleep behavior disorder (ICD-10) History of DVT (deep vein thrombosis) ?Z86.718 - Personal history of other venous thrombosis and embolism (ICD-10) BPH with obstruction/lower urinary tract symptoms ?N40.1 - Benign prostatic hyperplasia with lower urinary tract symptoms (ICD- 10) ?N13.8 - Other obstructive and reflux uropathy (ICD-10) Congenital medullary sponge kidney ?Q61.5 - Medullary cystic kidney (ICD-10) History of retinal detachment ?Z86.69 - Personal history of other diseases of the nervous system and sense organs (ICD-10) Frailty ?R54 - Age-related physical debility (ICD-10) Cognitive impairment ?R41.89 - Other symptoms and signs involving cognitive functions and awareness (ICD-10) Acute urinary retention ?R33.8 - Other retention of urine (ICD-10) Anemia due to blood loss, acute ?D62 - Acute posthemorrhagic anemia (ICD-10) Chronic anticoagulation ?Z79.01 - superintendent container terminal (current) use of anticoagulants (ICD-10) Hematoma ?T14.8XXA - Other injury of unspecified body region, initial encounter (ICD- 10) Retinal detachment ?H33.20 - Serous retinal detachment, unspecified eye (ICD-10) Volar plate injury of interphalangeal finger joint ?S63.639A - Sprain of interphalangeal joint of unspecified finger, initial encounter (ICD-10) 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 - Genetic carrier of other disease (ICD-10) Hemochromatosis ?E83.119 - Hemochromatosis, unspecified (ICD-10) Polycythemia ?D75.1 - Secondary polycythemia (ICD-10) Surgical History History of tonsillectomy ?Z90.89 - Acquired absence of other organs (ICD-10) History of colonoscopy ?Z98.890 - Other specified postprocedural states (ICD-10) History of cataract surgery ?Z98.49 - Cataract extraction status, unspecified eye (ICD-10) S/P ORIF (open reduction internal fixation) fracture ?Z98.890 - Other specified postprocedural states (ICD-10) ?Z87.81 - Personal history of (healed) traumatic fracture (ICD-10) Social History Narrative: Patient is single, lives at [address]. Friend Sabine Ayala would be MDM if needed. No ETOH use, no tobacco use. No children. 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 Requests Full Code status in the event of a witnessed arrest only. What is your current living situation?: I presently have a place to live Problems where you live: no known problems Problems where you live details: N/A In the past 12 months, utilities in danger of being shut off: no In past 12 months, lack of transportation kept you from medical appts, meetings, work, or getting things needed for daily living: no In the past 12 mos, have been you worried that your food would run out before you had money to buy more?: never true In the past 12 mos, the food you bought just didn't last and you didn't have money to buy more?: never true Highest level of school completed/degree received: Doctoral degree Smoking Status: Never smoker Do you use any of these nicotine containing products: None Second hand tobacco smoke exposure: No How often do you have a drink containing alcohol: never AUDIT-C Alcohol total score: 0 Non-prescribed substance use: denies use Caffeine: Yes How often does anyone, including family, friends and others, physically hurt you : never How often does anyone, including family, friends and others, insult or talk down to you: never How often does anyone, including family, friends and others, threaten you with harm: never How often does anyone, including family, friends and others, scream or curse at you: never service: No Meds Home Medications and Allergies Home Medications Medication Instructions Recorded Confirmed Type acetaminophen 325 mg capsule 325 mg PO Q4H PRN 08/11/22 12/01/23 History (Tylenol) amantadine HCl 100 mg capsule 100 mg PO BID 08/11/22 12/01/23 History aspirin 81 mg tablet,delayed 81 mg PO DAILY 08/11/22 12/01/23 History release carbidopa 25 mg-levodopa 100 mg 3 tab PO QID 08/11/22 12/01/23 History tablet hydroxyurea 500 mg capsule 500 mg PO Q48H 08/11/22 12/01/23 History ketoconazole 2 % topical cream 1 applic topical BID PRN 08/11/22 12/01/23 History pramipexole 0.25 mg tablet 0.125 mg PO HS 08/11/22 12/01/23 History erythromycin 5 mg/gram (0.5 %) eye 1 applic ophthalmic (eye) HS PRN 02/14/23 12/01/23 History ointment finasteride 5 mg tablet 5 mg PO DAILY 08/17/23 12/01/23 History multivitamin 1 tab PO QAM 08/17/23 12/01/23 History polyethylene glycol 3350 17 8.5 - 17 g PO DAILY PRN 08/17/23 12/01/23 History gram/dose oral powder (Miralax) tamsulosin 0.4 mg capsule 0.4 mg PO DAILY 08/17/23 12/01/23 History docusate sodium 100 mg capsule 100 mg PO BID 09/01/23 12/01/23 History (Colace) melatonin 3 mg capsule 3 mg PO HS PRN 09/01/23 12/01/23 History peg 400-propylene glycol (PF) 0.4 1 drp ophthalmic (eye) DAILY PRN 09/01/23 12/01/23 History %-0.3 % eye drops in a dropperette (Lubricant Eye (PG-PEG 400) (PF)) clonazepam 0.5 mg tablet 0.25 mg PO HS PRN 12/01/23 12/01/23 History midodrine 5 mg tablet 5 mg PO BID@0900,1700 12/01/23 12/01/23 History warfarin 2 mg tablet 2 mg PO .MO,TH 12/01/23 12/01/23 History Allergies Allergy/AdvReac Type Severity Reaction Status Date / Time Penicillins Allergy Unknown Verified 12/01/23 10:22 Exam Narrative: Exam Narrative: PHYSICAL EXAM General: Very pleasant, conversant, NAD HEENT: Normocephalic, atraumatic, sclera white, EOMI Cardiovascular: IRRR, +1 pitting edema Pulmonary: CTA bilaterally without rhonchi, rales, expiratory wheezes. No dyspnea on room air Abdominal: Soft, nondistended, NTTP Neurological: Alert, answering questions appropriately, does request for in formation to be repeated so he can better understand Extremities: No gross joint deformity or swelling. AROMI. Neurovascularly intact Skin: Warm, dry. Const: Vital Signs, click to edit/add: Vital Signs - 24 hr 12/01/23 10:17 12/01/23 11:48 12/01/23 12:02 Temperature 97.7 F Pulse Rate 111 H 129 H Pulse Rate [Pulse Oximeter] 98 Respiratory Rate 18 14 14 Blood Pressure 131/87 137/93 H Blood Pressure [Ri ght Upper Arm] 123/79 Pulse Oximetry 98 98 99 Oxygen Delivery Me thod Room Air 12/01/23 12:15 12/01/23 12:32 12/01/23 13:02 Temperature Pulse Rate 85 96 81 Pulse Rate [Pulse Oximeter] Respiratory Rate 16 14 12 Blood Pressure 142/78 H 115/84 Blood Pressure [Ri ght Upper Arm] Pulse Oximetry 99 99 99 Oxygen Delivery Me thod 12/01/23 14:19 12/01/23 15:20 Temperature 97.7 F Pulse Rate Pulse Rate [Pulse Oximeter] 98 Respiratory Rate 12 Blood Pressure Blood Pressure [Ri ght Upper Arm] 123/79 Pulse Oximetry 97 Oxygen Delivery Me thod Room Air Hospitalist - H&P: Result Labs Labs: Short CBC 12/01/23 Range/Units 10:26 WBC 6.43 (4.50-11.00) K/uL Hgb 13.5 (13.5-17.5) gm/dL Hct 41.1 (37.0-53.0) % Plt Count 177 (140-440) K/uL BMP 12/01/23 10:26 Sodium 140 Potassium 3.9 Chloride 108 Carbon Dioxide 26 BUN 20 Creatinine 0.9 Glucose 104 Calcium 8.7 Cardiac Enzymes 12/01/23 Range/Units 10:26 Troponin I 0.02 (0.01-0.04) ng/mL ECG Attestation: I personally reviewed and interpreted this ECG as follows: Interpretation: Atrial fibrillation with RVR, minimal voltage criteria for LVH, ventricular rate 134, QTC 483 Imaging Chest x-ray: Attestation: I have reviewed the pertinent imaging results. Radiologist's impression: 2 views. FINDINGS: The patient is slightly rotated leftward on the frontal view of the chest. Medical Devices: None. Lung Volumes: Adequate inspiration. No significant atelectasis. Lungs: Clear lungs. Pleura and Pleural spaces: No significant pleural effusion. No pneumothorax. Mediastinum: Normal cardiomediastinal silhouette. Bony Thorax and Soft Tissues: No significant incidental findings. IMPRESSION: No imaging findings pertinent to the indication for the exam or significant unrelated findings. Assessment and Plan Assessment and plan (1) Atrial fibrillation with rapid ventricular response: Problem comment: New onset Responded to IV diltiazem and oral metoprolol in the ED Start Metoprolol tartrate 25 mg b.i.d., adjusting dose as necessary Start Eliquis 5 mg b.i.d.. Discontinue warfarin Telemetry, monitor pressure Echocardiogram 10/14/2023 shows normal LV size, normal wall thickness, normal global systolic function with EF is 55-60%, mild aortic stenosis, no regurgitation, mitral valve MAC, trace regurgitation Outpatient follow-up with Cardiology, PCP Status: Acute (2) Chronic anticoagulation: Problem comment: For history of DVT. History of frequent falls (patient aware of risks with falls and anticoagulant). INR has been subtherapeutic, 1.82 today. There has been question if patient's cognitive impairment interfering with medication compliance Discontinue warfarin. Start Eliquis b.i.d. for atrial fibrillation Status: Chronic (3) Orthostatic hypotension: Problem comment: Started on midodrine during last hospitalization. Monitor Status: Chronic (4) Parkinson's disease: Problem comment: Continue current home medications Status: Chronic (5) Cognitive impairment: Problem comment: [place] during last hospitalization. Concerned for medication compliance which can complicate his Parkinson's and side effects of too much or too little medication. Patient is in process of moving into assisted living. Status: Chronic (6) BPH with obstruction/lower urinary tract symptoms: Problem comment: Continue home medications. I&Os Status: Chronic (7) Polycythemia: Problem comment: Continue hydroxyurea Followed by oncology Status: Chronic Plan Initiated on beta-ofelia and Eliquis (stopping Coumadin). Telemetry. Possible discharge tomorrow Total Time Spent Total Time Spent: Total time spent caring for the patient today was 60 minutes. This includes time spent for the visit reviewing the chart, time spent during the visit, time spent after the visit and documentation and planning in coordination of care.
[2023-12-01] MEDS: CARBIDOPA-LEVODOPA 25-100 TABLET 3 TAB PO ×2 (15:43→21:18)
[2023-12-01] MEDS: HYDROXYUREA 500 MG CAPSULE PO (16:12)
[2023-12-01] MEDS: MIDODRINE HCL 5 MG TABLET PO (17:29)
--- NOTE | 2023-12-01 19:45 | PC.NURSE ---
Pt denies pain but admits to feeling of lightheadedness with too much movement. Hx of Parkinson, use of 2 wheel walker or personal cane. Uses call light appropriately.
[2023-12-01] MEDS: PRAMIPEXOLE 0.125 MG TABLET PO (21:18)
[2023-12-01] MEDS: DOCUSATE SODIUM 100 MG CAPSULE PO (21:19)
[2023-12-01] MEDS: SODIUM CHLORIDE 0.9 % (FLUSH) 10 ML SYRINGE 5 ML IVF (21:19)
[2023-12-01] MEDS: APIXABAN 5 MG TABLET PO (21:19)
[2023-12-02] VITALS (7 sets, daily range): BP systolic 82–155; BP diastolic 56–89; PULSE 63–84; RESP 16–20; TEMP 36.2–36.6; O2SAT 98–99
[2023-12-02] MEDS: CARBIDOPA-LEVODOPA 25-100 TABLET 3 TAB PO ×3 (03:06→15:51)
--- NOTE | 2023-12-02 06:37 | PC.NURSE ---
End of shift nursing note, care provided [id number]: Pt alert and oriented, pleasant and cooperative. Vitals stable, aside from last BP elevated from prior readings, with BP 154/89, pt denies headache, and denies dizziness and lightheadedness this shift. Up Ax1 w/ walker to bathroom, voided 50ml first void after stating he didn?t think he had to go but would try before bed. Voided again during shift very large amount. Pt denies pain and states ?I?m feeling a lot better than when I first came in?. Uneventful night, slept in between cares. Uses call light appropriately. ?
[2023-12-02 06:43] LABS: Hematocrit 39.8 % (37.0-53.0); Hemoglobin* 13.1 gm/dL (13.5-17.5); Mean Corpuscular HGB Conc 33 gm/dL (32-36); Mean Corpuscular Hemoglobin 35 pg (26-34); Mean Corpuscular Volume 107 fL (80-100); Platelet Count* 181 K/uL (140-440); Red Blood Count 3.71 m/uL (4.30-5.90)
[2023-12-02 06:51] LABS: Slide Review Reflex No
[2023-12-02 07:13] LABS: Chloride* 108 mmol/L (96-114); Sodium* 139 mmol/L (135-149)
[2023-12-02 07:14] LABS: Potassium* 3.7 mmol/L (3.6-5.1)
[2023-12-02 07:16] LABS: Creatinine* 0.7 mg/dL (0.5-1.5); Est. Creatinine Clearance* 71.33; Estimated Glomerular Filt Rate 98 ml/min
[2023-12-02 07:17] LABS: Anion Gap 4 mEq/L (7-15); Blood Urea Nitrogen* 17 mg/dL (7-30); Calcium* 8.5 mg/dL (8.4-10.6); Carbon Dioxide* 27 mmol/L (20-32); Glucose* 99 mg/dL (60-115)
[2023-12-02] MEDS: MIDODRINE HCL 5 MG TABLET PO ×2 (09:42→16:14)
[2023-12-02] MEDS: DOCUSATE SODIUM 100 MG CAPSULE PO (09:44)
[2023-12-02] MEDS: FINASTERIDE 5 MG TABLET PO (09:44)
[2023-12-02] MEDS: METOPROLOL TARTRATE 25 MG TABLET PO (09:44)
[2023-12-02] MEDS: TAMSULOSIN HCL 0.4 MG CAPSULE PO (09:44)
[2023-12-02] MEDS: APIXABAN 5 MG TABLET PO (09:45)
[2023-12-02] MEDS: SODIUM CHLORIDE 0.9 % (FLUSH) 10 ML SYRINGE 5 ML IVF (10:00)
--- NOTE | 2023-12-02 10:21 | PC.SOCIAL ---
Addendum entered by PATEL Vigil 12/02/23 15:52: Discharge planning: upkeep worker was able to connect with [facility]. whom is pt's home care provider. They will resume home care tomorrow to assist pt with his AM medications and setting up the rest of his medications for the week. Pt's friend, Sabine Ayala, will picker packer pt's medications from [facility] this evening, so they are ready for the nurse to set-up tomorrow. Pt's friend, Sabine, will also pick pt up from the hospital and bring him home. Planned pick-up time is 4:30pm. Pt's nurse on duty today will set-up his evening medications for tonight to go home with him and home care will then resume medication set-up tomorrow morning. Social work to follow-up as needed. Original Note: Discharge planning: upkeep worker met with pt today to discuss discharge planning. Pt stated that he is in the process of moving to [facility] from [facility]. He currently has home care(he is not sure of the agency name) coming to his apartment for PT/OT and nursing. Pt stated that he feels good about going back home with home care in place until he moves to [facility]. Social work to follow-up as needed.
--- NOTE | 2023-12-02 12:01 | P.DS_ITS ---
DS: Providers Provider Time Seen by Provider: 10:45 Date Seen: 12/02/23 Date of admission: 12/01/23 14:15 Primary care physician: YANA FISCHER DO Admitting Clinician: Alaina Olvera MD Consults: 12/01/23 15:14 Consult to Occupational Therapy [CONS] Routine Comment: Reason(s) for OT Consult:: Evaluate and Treat Any Restrictions?:: No Restrictions Consult to Physical Therapy [CONS] Routine Comment: Reason(s) for PT Consult:: Evaluate and Treat Any Restrictions?:: No Restrictions Consult to [place] [facility] [CONS] Routine Comment: Reason for Consult:: Social Service Consult Attending Physician on discharge: Delaney De Santiago MD Date of Discharge: 12/02/23 DS: Diagnosis Discharge Diagnosis (1) Atrial fibrillation with rapid ventricular response: Status: Acute Problem details: New onset Responded to IV diltiazem and oral metoprolol in the ED Started Metoprolol tartrate 25 mg b.i.d., adjusting dose as necessary Started Eliquis 5 mg b.i.d.. Discontinued warfarin Echocardiogram 10/14/2023 shows normal LV size, normal wall thickness, normal g lobal systolic function with EF is 55-60%, mild aortic stenosis, no regurgitation, mitral valve MAC, trace regurgitation Outpatient follow-up with Cardiology, PCP - Good HR control overnight with metoprolol. Orthostatic, as per his usual (for which he is on midodrine), without symptoms upon standing. (2) Orthostatic hypotension: Status: Chronic Problem details: Started on midodrine during last hospitalization. Increase, as above. 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 I&Os (5) Chronic anticoagulation: Status: Chronic Problem details: For history of DVT. History of frequent falls (patient aware of risks with falls and anticoagulant). INR has been subtherapeutic, 1.82 today. There has been question if patient's cognitive impairment interfering with medication compliance Discontinue warfarin. Started Eliquis b.i.d. for atrial fibrillation (6) Cognitive impairment: Status: Chronic Problem details: [place] during last hospitalization. Concerned for medication compliance which can complicate his Parkinson's and side effects of too much or too little medication. Patient is in process of moving into assisted living. Anticipating actual move 12/10-12/16 to [facility]. He has lined up help for the move during those days and is lining up help for next week also. 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 Patient reported intermittent episodes of chest fluttering, typically in the mornings. He was noted to have a low blood pressure with this as well. Had some dizziness which has since resolved. In the ED, patient noted to be in atrial fibrillation with rates 130- 140s. Blood pressure improved with IVF. Patient was given 2 doses diltiazem 10 mg IV and an oral dose of metoprolol 25 mg p.o.. Rate responded appropriately, now 80-90s. Systolic pressures have remained > 120. Sensation of chest fluttering has resolved. Dizziness has improved. Patient noted to have a subtherapeutic INR <2.0. Patient was most recently hospitalized in October following a fall with rhabdomyolysis. During that hospital stay, patient was noted to have a sinus tachycardia, thought to be SVT. After close monitoring, patient did receive 2 doses of adenosine, responding to the 2nd dose of 12 mg. Admitted on po metoprolol with good HR control. Also switched to Eliquis. Due to ongoing asymptomatic orthostatic hypotension, will increase midodrine and have patient f/u with PCP. Time Spent with Patient Time attestation: Total time spent providing and/or coordinating discharge services: Exam Narrative: Exam Narrative: General: No acute distress. Awake, alert, oriented. No pallor. No jaundice. Oropharynx: Clear. Mucous membranes moist. Cardiovascular: Irregularly irregular. No murmurs, gallops, or rubs. Respiratory: Clear to auscultation bilaterally. No wheezes or crackles. Abdomen: Bowel sounds present. Soft, nondistended, nontender. Const: Vital Signs, click to edit/add: Vital Signs - 24 hr 12/01/23 12:02 12/01/23 12:15 12/01/23 12:32 Temperature Pulse Rate 129 H 85 96 Pulse Rate [Left] Pulse Rate [Pulse Oximeter] Pulse Rate [orthos tatic lying Pulse Oximeter] Pulse Rate [orthos tatic sitting Left Pulse Oximeter] Pulse Rate [orthos tatic standing Rig ht Blood Pressure Cuff] Respiratory Rate 14 16 14 Blood Pressure 137/93 H 142/78 H Blood Pressure [Le ft Arm] Blood Pressure [Ri ght Arm] Blood Pressure [Ri ght Upper Arm] Blood Pressure [or thostatic lying Ri ght Arm] Blood Pressure [or thostatic sitting Right Arm] Blood Pressure [or thostatic standing Right Arm] Pulse Oximetry 99 99 99 Oxygen Delivery Me thod 12/01/23 13:02 12/01/23 14:19 12/01/23 15:20 Temperature 97.7 F Pulse Rate 81 Pulse Rate [Left] Pulse Rate [Pulse Oximeter] 98 Pulse Rate [orthos tatic lying Pulse Oximeter] Pulse Rate [orthos tatic sitting Left Pulse Oximeter] Pulse Rate [orthos tatic standing Rig ht Blood Pressure Cuff] Respiratory Rate 12 12 Blood Pressure 115/84 Blood Pressure [Le ft Arm] Blood Pressure [Ri ght Arm] Blood Pressure [Ri ght Upper Arm] 123/79 Blood Pressure [or thostatic lying Ri ght Arm] Blood Pressure [or thostatic sitting Right Arm] Blood Pressure [or thostatic standing Right Arm] Pulse Oximetry 99 97 Oxygen Delivery Me thod Room Air 12/01/23 15:20 12/01/23 16:00 12/01/23 16:00 Temperature 96.6 F L Pulse Rate 133 H Pulse Rate [Left] 83 Pulse Rate [Pulse Oximeter] Pulse Rate [orthos tatic lying Pulse Oximeter] Pulse Rate [orthos tatic sitting Left Pulse Oximeter] Pulse Rate [orthos tatic standing Rig ht Blood Pressure Cuff] Respiratory Rate 18 12 Blood Pressure Blood Pressure [Le ft Arm] Blood Pressure [Ri ght Arm] Blood Pressure [Ri ght Upper Arm] Blood Pressure [or thostatic lying Ri ght Arm] Blood Pressure [or thostatic sitting Right Arm] Blood Pressure [or thostatic standing Right Arm] Pulse Oximetry 97 97 Oxygen Delivery Me thod Room Air Room Air 12/01/23 19:00 12/01/23 22:28 12/01/23 23:00 Temperature 98.2 F 98.3 F Pulse Rate 65 Pulse Rate [Left] 81 74 Pulse Rate [Pulse Oximeter] Pulse Rate [orthos tatic lying Pulse Oximeter] Pulse Rate [orthos tatic sitting Left Pulse Oximeter] Pulse Rate [orthos tatic standing Rig ht Blood Pressure Cuff] Respiratory Rate 20 20 Blood Pressure Blood Pressure [Le ft Arm] 138/78 105/60 Blood Pressure [Ri ght Arm] Blood Pressure [Ri ght Upper Arm] Blood Pressure [or thostatic lying Ri ght Arm] Blood Pressure [or thostatic sitting Right Arm] Blood Pressure [or thostatic standing Right Arm] Pulse Oximetry 99 95 Oxygen Delivery Me thod Room Air Room Air 12/02/23 03:00 12/02/23 08:00 12/02/23 08:00 Temperature 97.8 F 97.6 F Pulse Rate Pulse Rate [Left] 75 71 Pulse Rate [Pulse Oximeter] Pulse Rate [orthos tatic lying Pulse Oximeter] 71 Pulse Rate [orthos tatic sitting Left Pulse Oximeter] 78 Pulse Rate [orthos tatic standing Rig ht Blood Pressure Cuff] 84 Respiratory Rate 20 20 Blood Pressure Blood Pressure [Le ft Arm] 154/89 H 155/83 H Blood Pressure [Ri ght Arm] Blood Pressure [Ri ght Upper Arm] Blood Pressure [or thostatic lying Ri ght Arm] 155/83 H Blood Pressure [or thostatic sitting Right Arm] 135/84 Blood Pressure [or thostatic standing Right Arm] 82/56 L Pulse Oximetry 98 99 Oxygen Delivery Me thod Room Air Room Air 12/02/23 11:46 12/02/23 11:53 Temperature 97.2 F L Pulse Rate Pulse Rate [Left] 63 Pulse Rate [Pulse Oximeter] Pulse Rate [orthos tatic lying Pulse Oximeter] 63 Pulse Rate [orthos tatic sitting Left Pulse Oximeter] 69 Pulse Rate [orthos tatic standing Rig ht Blood Pressure Cuff] 71 Respiratory Rate 16 Blood Pressure Blood Pressure [Le ft Arm] Blood Pressure [Ri ght Arm] 124/69 Blood Pressure [Ri ght Upper Arm] Blood Pressure [or thostatic lying Ri ght Arm] 124/69 Blood Pressure [or thostatic sitting Right Arm] 112/65 Blood Pressure [or thostatic standing Right Arm] 87/56 L Pulse Oximetry 98 Oxygen Delivery Me thod Room Air DS: Data Data Completed and Pending Completed studies during hospitalization: EKG: Atrial fibrillation with rapid ventricular response, 134 beats per minute, minimal voltage criteria for LVH, maybe normal variant. Septal infarct, age undetermined. Study: XRay-Chest 2V-12/01/2023 11:09:11 AM Ordering Physician: LIGIA Final Report: INDICATION: Atrial fibrillation with rapid ventricular response. Lightheadedness. COMPARISON: CT 10/14/2023 TECHNIQUE: 2 views. FINDINGS: The patient is slightly rotated leftward on the frontal view of the chest. Medical Devices: None. Lung Volumes: Adequate inspiration. No significant atelectasis. Lungs: Clear lungs. Pleura and Pleural spaces: No significant pleural effusion. No pneumothorax. Mediastinum: Normal cardiomediastinal silhouette. Bony Thorax and Soft Tissues: No significant incidental findings. IMPRESSION: No imaging findings pertinent to the indication for the exam or significant unrelated findings. Dictated by Chandler Valdivia MD @ 12/01/2023 11:20:26 AM Signed by: Chandler Valdivia MD @12/01/2023 11:20:26 AM (Electronic Signature) Dictated By: Chandler Valdivia M.D. Signed By: 12/01/23 1210 DD/ 1120 TD/TT: 12/01/23 1210 Labs on day of discharge: Labs from last 24 hours 12/02/23 05:56 WBC 7.20 RBC 3.71 L Hgb 13.1 L Hct 39.8 MCV 107 H MCH 35 H MCHC 33 Plt Count 181 Sodium 139 Potassium 3.7 Chloride 108 Carbon Dioxide 27 Anion Gap 4 L BUN 17 Creatinine 0.7 Estimated Creat Clear 71.33 Estimated GFR 98 Glucose 99 Calcium 8.5 Discharge Plan Discharge Disposition: Home, Self-Care Date of Admission: 12/01/23 14:15 Attending Provider on Discharge: Delaney De Santiago Primary Care Provider: YANA FISCHER Condition: Improved Anticipated Discharge Date/Time: 12/02/23 11:30 Discharge Medications: New metoprolol tartrate 25 mg Tablet 25 mg PO BID Qty: 60 0RF Eliquis 5 mg Tablet 5 mg PO BID Qty: 60 0RF midodrine 10 mg tablet 10 mg PO TID Qty: 30 0RF Rx Instructions: do not give last dose of day after 6PM or within 4 hrs of bedtime Continued ketoconazole 2 % cream 1 applic topical BID PRN carbidopa-levodopa 25-100 mg tablet 3 tab PO QID amantadine HCl 100 mg capsule 100 mg PO BID pramipexole 0.25 mg tablet 0.125 mg PO HS hydroxyurea 500 mg capsule 500 mg PO Q48H acetaminophen [Tylenol] 325 mg capsule 325 mg PO Q4H PRN aspirin 81 mg tablet,delayed release (DR/EC) 81 mg PO DAILY finasteride 5 mg tablet 5 mg PO DAILY tamsulosin 0.4 mg capsule 0.4 mg PO DAILY erythromycin 5 mg/gram (0.5 %) ointment 1 applic ophthalmic (eye) HS PRN polyethylene glycol 3350 [Miralax] 17 gram/dose powder 8.5 - 17 g PO DAILY PRN multivitamin Tablet 1 tab PO QAM docusate sodium [Colace] 100 mg capsule 100 mg PO BID melatonin 3 mg capsule 3 mg PO HS PRN Lubricant Eye (PG-PEG 400)(PF) 0.4-0.3 % dropperette 1 drp ophthalmic (eye) DAILY PRN clonazepam 0.5 mg tablet 0.25 mg PO HS PRN Rx Instructions: administer 30 minutes before bedtime Discontinued warfarin 2 mg tablet 2 mg PO .MO,TH midodrine 5 mg Tablet 5 mg PO BID@0900,1700 warfarin [Jantoven] 2 mg Tablet 4 mg PO SuTuWeFrSa@1600 Qty: 60 0RF Discharge Orders: Discharge Order (Routine); Ordered 12/02/23 Ordered By: Delaney De Santiago Additional Instructions: Resume home health nurse (for medication set up - I have asked them to set up his medications upon homegoing today as some are different and he will need Eliquis dose tonight), PT and OT. Cardiology for afib 3-4 weeks. Activity Level: Activity as Tolerated and Use Walker Discharge Diet: Regular Follow Up Appointments: YANA FISCHER DO [Primary Care Provider] - (3-5 days) Forms: [facility] Info Instructions
--- NOTE | 2023-12-02 19:23 | PC.NURSE ---
Discharge-- Very pleasant and cooperative, alert and oriented patient discharged to home via wheelchair with friend Sabine at approximately 1630. VSS and pt is afebrile. SPO2 maintained >90% on RA. He denied any pain. LS CTA. Telemetry showed NSR. He tolerated a regular diet independently without difficulty. He was up to the BR with SBA and tolerated it very well. Discharge education was provided including medications, diagnosis info, symptoms to report and follow up plan. All questions answered and SL was removed with tip intact.
== END 2023-12-02 16:30 | disposition home or self-care (01) ==
LOC: ED 10:30 → MEDSURG 14:15
PROVIDERS: Physician Assistant; Admitting Provider Family Medicine; Emergency Provider Emergency Medicine; PCP Student in an Organized Health Care Education/Training Program; Visit Provider Family Medicine
DX: I48.91 Unspecified atrial fibrillation (principal); I95.1 Orthostatic hypotension; R00.0 Tachycardia, unspecified; R42 Dizziness and giddiness; Z79.01 Long term (current) use of anticoagulants; I35.0 Nonrheumatic aortic (valve) stenosis; Q61.5 Medullary cystic kidney; D75.1 Secondary polycythemia; R54 Age-related physical debility; G25.81 Restless legs syndrome; G47.52 REM sleep behavior disorder; N40.1 Benign prostatic hyperplasia with lower urinary tract symptoms; R41.89 Other symptoms and signs involving cognitive functions and awareness; G20.A1 Parkinson's disease without dyskinesia, without mention of fluctuations; N13.8 Other obstructive and reflux uropathy; Z79.82 Long term (current) use of aspirin; Z14.8 Genetic carrier of other disease; Z98.49 Cataract extraction status, unspecified eye; Z98.890 Other specified postprocedural states; Z90.89 Acquired absence of other organs; Z86.718 Personal history of other venous thrombosis and embolism; Z87.81 Personal history of (healed) traumatic fracture; Z86.69 Personal history of other diseases of the nervous system and sense organs; Z91.81 History of falling
CPT/HCPCS: 36415; 71046; 80048; 83605; 84443; 84484; 85025; 85027; 85610; 93005; 96374; 96376; 97161; 97165; 99284; 99285; G0378; A9270; S0176

== ENCOUNTER 2023-12-04 18:45 | Emergency (ER) | payer MEDICARE, BC, SELFPAY ==
[2023-12-04 18:52] VITALS: BP 173/101; PULSE 81; RESP 18; TEMP 36.9; O2SAT 98; BMI 22.4
--- NOTE | 2023-12-04 19:06 | CT_ITS ---
Patient: DEBBI KAY Facility:?[facility] Patient ID:?[id number] Site Patient ID:?[id number]. Site :?[id number] Study:?CT-Head W/O-12/04/2023 7:16:26 PM Ordering Physician:Isidro Galvan Final Report: INDICATION: Fall. TECHNIQUE: CT of the head without contrast. Coronal and sagittal reformats are included. COMPARISON: Head CT from to 04/01/2024. FINDINGS: No acute intracranial hemorrhage. No mass effect or midline shift. No hydrocephalus or extra-axial collections. White matter is within normal limits for age. No acute osseous abnormalities. Mastoid air cells and paranasal sinuses are clear. Normal soft tissues. IMPRESSION: IMPRESSION: 1. No acute intracranial abnormalities. Please note that all CT scans at this facility use dose modulation, iterative reconstruction, and/or weight-based dosing when appropriate to reduce radiation dose to as low as reasonably achievable. Dictated by Lucius Kaiser MD @ 12/04/2023 7:53:44 PM Signed by:?Lucius Kaiser MD @12/04/2023 7:53:44 PM (Electronic Signature)
--- NOTE | 2023-12-04 19:06 | CT_ITS ---
Patient: DEBBI KAY Facility:?[facility] Patient ID:?[id number] Site Patient ID:?[id number]. Site :?[id number] Study:?CT-Spine Cervical W/O-12/04/2023 7:16:29 PM Ordering Physician:Isidro Galvan Final Report: INDICATION: Fall. TECHNIQUE: CT of the cervical spine without contrast. Coronal and sagittal reformats are included. COMPARISON: Cervical spine CT from 10/12/2023. FINDINGS: No acute fracture or traumatic malalignment of the cervical spine. Craniocervical junction alignment is maintained. Advanced disc degeneration C3-4 and C4-5. Mild disc degeneration elsewhere. Uncovertebral arthrosis with high- grade neural foraminal stenosis at C3-4 on the right, C4-5 on the right, and low-grade elsewhere. No high grade spinal canal stenosis as far as visualized. Multinodular thyroid gland. The visualized pulmonary apices are clear. IMPRESSION: 1. No acute fracture or traumatic malalignment of the cervical spine. Please note that all CT scans at this facility use dose modulation, iterative reconstruction, and/or weight-based dosing when appropriate to reduce radiation dose to as low as reasonably achievable. Dictated by Lucius Kaiser MD @ 12/04/2023 8:00:35 PM Signed by:?Lucius Kaiser MD @12/04/2023 8:00:35 PM (Electronic Signature)
--- NOTE | 2023-12-04 19:09 | ED_ITS ---
HPI - Fall General Date Seen: 12/04/23 Chief Complaint: Fall/Minor Trauma Stated Complaint: fell, gash on forehead Time Seen by Provider: 12/04/23 18:48 Source: patient Mode of arrival: ambulatory Limitations: no limitations History of Present Illness HPI Narrative: Patient is a 73-year-old male with Parkinson's disease and AFib on Eliquis presenting to the emergency department after a fall. He states he was packing boxes because he is moving to assisted living tomorrow. States he tripped over 1 of the boxes falling and hitting his head on the floor. Was able to get back up by himself. Was driven it and to the emergency department by a friend. Denies any lightheaded or dizziness before or after the fall. Denies any neck or back pain. States he feels well at this time. Denies any symptoms at all and overall states he feels great. Denies chest pain, weakness, numbness, abdominal pain, diarrhea, constipation, fevers, chills, headache, vision changes. Related Data Home Medications Medication Instructions Recorded Confirmed acetaminophen 325 mg capsule 325 mg PO Q4H PRN 08/11/22 12/01/23 (Tylenol) amantadine HCl 100 mg capsule 100 mg PO BID 08/11/22 12/01/23 aspirin 81 mg tablet,delayed 81 mg PO DAILY 08/11/22 12/01/23 release carbidopa 25 mg-levodopa 100 mg 3 tab PO QID 08/11/22 12/01/23 tablet hydroxyurea 500 mg capsule 500 mg PO Q48H 08/11/22 12/01/23 ketoconazole 2 % topical cream 1 applic topical BID PRN 08/11/22 12/01/23 pramipexole 0.25 mg tablet 0.125 mg PO HS 08/11/22 12/01/23 erythromycin 5 mg/gram (0.5 %) eye 1 applic ophthalmic (eye) HS PRN 02/14/23 12/01/23 ointment finasteride 5 mg tablet 5 mg PO DAILY 08/17/23 12/01/23 multivitamin 1 tab PO QAM 08/17/23 12/01/23 polyethylene glycol 3350 17 8.5 - 17 g PO DAILY PRN 08/17/23 12/01/23 gram/dose oral powder (Miralax) tamsulosin 0.4 mg capsule 0.4 mg PO DAILY 08/17/23 12/01/23 docusate sodium 100 mg capsule 100 mg PO BID 09/01/23 12/01/23 (Colace) melatonin 3 mg capsule 3 mg PO HS PRN 09/01/23 12/01/23 peg 400-propylene glycol (PF) 0.4 1 drp ophthalmic (eye) DAILY PRN 09/01/23 12/01/23 %-0.3 % eye drops in a dropperette (Lubricant Eye (PG-PEG 400) (PF)) clonazepam 0.5 mg tablet 0.25 mg PO HS PRN 12/01/23 12/01/23 Previous Rx's Medication Instructions Recorded apixaban 5 mg tablet (Eliquis) 5 mg PO BID #60 tabs 12/02/23 metoprolol tartrate 25 mg tablet 25 mg PO BID #60 tabs 12/02/23 midodrine 10 mg tablet 10 mg PO TID #30 tabs 12/02/23 Allergies Allergy/AdvReac Type Severity Reaction Status Date / Time Penicillins Allergy Unknown Verified 12/01/23 10:22 Review of Systems Status of ROS: Reports: 10 or more systems reviewed and unremarkable except as noted in History and below [facility] Medical History (Updated 12/04/23 @ 19:47 by Ben Galvan DO) Orthostatic hypotension ?I95.1 - Orthostatic hypotension (ICD-10) REM sleep behavior disorder ?G47.52 - REM sleep behavior disorder (ICD-10) History of DVT (deep vein thrombosis) ?Z86.718 - Personal history of other venous thrombosis and embolism (ICD-10) BPH with obstruction/lower urinary tract symptoms ?N40.1 - Benign prostatic hyperplasia with lower urinary tract symptoms (ICD- 10) ?N13.8 - Other obstructive and reflux uropathy (ICD-10) Congenital medullary sponge kidney ?Q61.5 - Medullary cystic kidney (ICD-10) History of retinal detachment ?Z86.69 - Personal history of other diseases of the nervous system and sense organs (ICD-10) Frailty ?R54 - Age-related physical debility (ICD-10) Cognitive impairment ?R41.89 - Other symptoms and signs involving cognitive functions and awareness (ICD-10) Acute urinary retention ?R33.8 - Other retention of urine (ICD-10) Anemia due to blood loss, acute ?D62 - Acute posthemorrhagic anemia (ICD-10) Chronic anticoagulation ?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.01 - 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 (ICD-10) Hematoma ?T14.8XXA - Other injury of unspecified body region, initial encounter (ICD- 10) Retinal detachment ?H33.20 - Serous retinal detachment, unspecified eye (ICD-10) Volar plate injury of interphalangeal finger joint ?S63.639A - Sprain of interphalangeal joint of unspecified finger, initial encounter (ICD-10) 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 - Genetic carrier of other disease (ICD-10) Hemochromatosis ?E83.119 - Hemochromatosis, unspecified (ICD-10) Polycythemia ?D75.1 - Secondary polycythemia (ICD-10) Surgical History History of tonsillectomy ?Z90.89 - Acquired absence of other organs (ICD-10) History of colonoscopy ?Z98.890 - Other specified postprocedural states (ICD-10) History of cataract surgery ?Z98.49 - Cataract extraction status, unspecified eye (ICD-10) S/P ORIF (open reduction internal fixation) fracture ?Z98.890 - Other specified postprocedural states (ICD-10) ?Z87.81 - Personal history of (healed) traumatic fracture (ICD-10) Social History Narrative: Patient is single, lives at [facility]. Friend Sabine Ayala would be MDM if needed. No ETOH use, no tobacco use. No children. 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 Requests Full Code status in the event of a witnessed arrest only. What is your current living situation?: I presently have a place to live Problems where you live: no known problems Problems where you live details: N/A In the past 12 months, utilities in danger of being shut off: no In past 12 months, lack of transportation kept you from medical appts, meetings, work, or getting things needed for daily living: no In the past 12 mos, have been you worried that your food would run out before you had money to buy more?: never true In the past 12 mos, the food you bought just didn't last and you didn't have money to buy more?: never true Highest level of school completed/degree received: Doctoral degree Smoking Status: Never smoker Do you use any of these nicotine containing products: None Second hand tobacco smoke exposure: No How often do you have a drink containing alcohol: never AUDIT-C Alcohol total score: 0 Non-prescribed substance use: denies use Caffeine: Yes How often does anyone, including family, friends and others, physically hurt you : never How often does anyone, including family, friends and others, insult or talk down to you: never How often does anyone, including family, friends and others, threaten you with harm: never How often does anyone, including family, friends and others, scream or curse at you: never service: No Exam Narrative: Exam Narrative: Const: Well-nourished, Well-developed, in no distress Eyes: PERRL, no conjunctival injection, and symmetrical lids HENT: Atraumatic external nose and ears. Moist mucous membranes. Neck: Symmetric, trachea midline, No thyromegaly. CVS: RRR, No murmurs or gallops. Peripheral pulses 2+ and equal in all extremities RESP: Unlabored respiratory effort. Clear to auscultation bilaterally. GI: Nontender/Nondistended, No rebound or guarding. MSK:Extremities w/o deformity, Normal Active ROM, no spinal tenderness. Skin: Warm, Dry. No rashes or lesions. Neuro: Normal Muscle tone, No focal neurological deficits. Psych: Awake, Alert, & Oriented x3. Appropriate mood and affect. Const: Vital Signs, click to edit/add: Vital Signs - 24 hr 12/04/23 18:52 Temperature 98.5 F Pulse Rate [Pulse Oximeter] 81 Respiratory Rate 18 Blood Pressure [Ri ght Upper Arm] 173/101 H Pulse Oximetry 98 Oxygen Delivery Me thod Room Air Course Vital Signs Vital signs: Initial Vital Signs Temperature 98.5 F 12/04/23 18:52 Temperature Source Temporal Artery Scan 12/04/23 18:52 Pulse Rate 81 12/04/23 18:52 Pulse Rhythm Regular 12/04/23 18:52 Respiratory Rate 18 12/04/23 18:52 Blood Pressure 173/101 H 12/04/23 18:52 Blood Pressure Mean 125 H 12/04/23 18:52 Blood Pressure Position Supine 12/04/23 18:52 Pulse Oximetry 98 12/04/23 18:52 Oxygen Delivery Method Room Air 12/04/23 18:52 Vital Signs Temperature 98.5 F 12/04/23 18:52 Pulse Rate 81 12/04/23 18:52 Respiratory Rate 18 12/04/23 18:52 Blood Pressure 173/101 H 12/04/23 18:52 Pulse Oximetry 98 12/04/23 18:52 Oxygen Delivery Method Room Air 12/04/23 18:52 Temperature 98.5 F 12/04/23 18:52 Pulse Rate 81 12/04/23 18:52 Respiratory Rate 18 12/04/23 18:52 Blood Pressure 173/101 H 12/04/23 18:52 Pulse Oximetry 98 12/04/23 18:52 Oxygen Delivery Method Room Air 12/04/23 18:52 MDM - Fall MDM Narrative Medical decision making narrative: Patient is a 73-year-old male presenting after a fall. He is on blood thinners. He is neurovascular intact in doing well. Asymptomatic at this time. Will do a CT scan of his head and cervical spine. No pain currently. Has been able to ambulate since the fall. Sounds like it was mechanical fall based on his description. I do not believe this is a cardiac issue at this time and do not need lab work. Did do laceration repair of his left eyebrow and he tolerated the procedure well. See procedure note. Tdap was updated. Imaging Data CT scan head: Radiologist's impression: 1. No acute intracranial abnormalities. Please note that all CT scans at this facility use dose modulation, iterative reconstruction, and/or weight-based dosing when appropriate to reduce radiation dose to as low as reasonably achievable. Dictated by Lucius Kaiser MD @ 12/04/2023 7:53:44 PM (Electronic Signature) CT scan cervical spine: Radiologist's impression: 1. No acute fracture or traumatic malalignment of the cervical spine. Please note that all CT scans at this facility use dose modulation, iterative reconstruction, and/or weight-based dosing when appropriate to reduce radiation dose to as low as reasonably achievable. Dictated by Lucius Kaiser MD @ 12/04/2023 8:00:35 PM Discharge Plan Discharge Clinical Impression: Laceration Patient Disposition: Home, Self-Care Condition: Stable Instructions: Facial Laceration (ED) Additional Instructions: Follow-up with your primary care provider or urgent care in the next 7 days to have the for sutures removed. For next 6 months, once sutures are removed, whenever you go outside put a dab of sunscreen over the laceration site to improve scar appearance. Topical antibiotics are not necessary at this time. Patient can shower but do not submerge the laceration until sutures are removed Prescriptions: No Action ketoconazole 2 % cream 1 applic topical BID PRN carbidopa-levodopa 25-100 mg tablet 3 tab PO QID amantadine HCl 100 mg capsule 100 mg PO BID pramipexole 0.25 mg tablet 0.125 mg PO HS hydroxyurea 500 mg capsule 500 mg PO Q48H acetaminophen [Tylenol] 325 mg capsule 325 mg PO Q4H PRN aspirin 81 mg tablet,delayed release (DR/EC) 81 mg PO DAILY finasteride 5 mg tablet 5 mg PO DAILY tamsulosin 0.4 mg capsule 0.4 mg PO DAILY erythromycin 5 mg/gram (0.5 %) ointment 1 applic ophthalmic (eye) HS PRN polyethylene glycol 3350 [Miralax] 17 gram/dose powder 8.5 - 17 g PO DAILY PRN multivitamin Tablet 1 tab PO QAM docusate sodium [Colace] 100 mg capsule 100 mg PO BID melatonin 3 mg capsule 3 mg PO HS PRN Lubricant Eye (PG-PEG 400)(PF) 0.4-0.3 % dropperette 1 drp ophthalmic (eye) DAILY PRN clonazepam 0.5 mg tablet 0.25 mg PO HS PRN Rx Instructions: administer 30 minutes before bedtime midodrine 10 mg tablet 10 mg PO TID Qty: 30 0RF Rx Instructions: do not give last dose of day after 6PM or within 4 hrs of bedtime Eliquis 5 mg tablet 5 mg PO BID Qty: 60 0RF metoprolol tartrate 25 mg tablet 25 mg PO BID Qty: 60 0RF Follow Up/Referrals: YANA FISCHER DO [Primary Care Provider] - [facility] Inst[facility] Procedures Laceration Forehead: Name of person performing procedure: Ben Galvan Site: face Side (If applicable): left Size (cm): 1 Description: linear and clean Depth: simple, single layer Local Anesthetic: lidocaine 1% Amount of anesthesia used (mL): 2 Pre-repair: wound explored, irrigated extensively and deep structures intact Skin layer closed with: nylon Size (cm): 5-0 Number of sutures: 4 Technique: simple, interrupted
[2023-12-04] MEDS: TETANUS/DIPHTH/PERTUSSIS 0.5 ML SYRINGE IM (20:31)
== END 2023-12-04 20:40 | disposition home or self-care (01) ==
PROVIDERS: Emergency Provider Student in an Organized Health Care Education/Training Program; PCP Student in an Organized Health Care Education/Training Program
DX: S01.112A Laceration without foreign body of left eyelid and periocular area, initial encounter (principal); W18.09XA Striking against other object with subsequent fall, initial encounter
CPT/HCPCS: 12011; 70450; 72125; 90471; 90715; 99283

== ENCOUNTER 2024-05-24 09:19 | Outpatient (CLI) | payer MEDICARE, BC, SELFPAY ==
--- OUTSIDE RECORDS SUMMARY | 2024-05-26 10:32 | XMS_ITS | Clinical Summary ---
Author Organization [employer] [facility] Address [place], [place] [address] Care Team Providers Care Opticianry Teacher Name Role Phone Ricardo Diaz MD Unavailable Unavaila Macrina Alcantara DO Primary Care Provider [phone] Allergies Active Allergy Reactions Criticality Noted Date [...] Type Department Care Team Description 05/24/[address] [facility] [address] [place] [address] Macrina Martin DO Blood Pressure (62/29/) 05/01/2024 3:40 PM CDT Office Visit [facility] [address] [facility] [place] [address] Ricardo Wilkins MD Follow Up (Follow up parkinson's disease ) 05/01/2024 Travel 03/27/[address] [facility] [address] [place] [place] [address] Macrina Martin DO Refill Request 03/27/[address] [facility] [address] [place] [address] Macrina Martin DO Medication Management (clonazePAM) 03/15/2024 11:00 AM CDT Office Visit [address] [address] Macrina Martin DO Medication Management 03/15/2024 Travel 03/05/[address] [facility] [address] [place] [address] Macrina Martin DO Refill Request (Eliquis) 03/05/[address] [facility] [address] [place] [address] Macrina Martin DO Medication Management (Returning call) 02/29/[address] [address] Macrina Martin DO Refill Request (Pramipexole) from [...] T Respiratory Rate 16 07/27/2021 1:22 PM FUSING MACHINE OPERATOR Oxygen Saturation 98% 05/01/2024 3:32 PM CDT Inhaled Oxygen Concentration - - Weight 85 kg (187 lb 4.8 oz) 05/01/2024 3:32 PM CDT Height 182.9 cm (6') 08/04/2023 12:28 PM FUSING MACHINE OPERATOR Body Mass Index 25.4 08/04/2023 12:28 PM FUSING MACHINE OPERATOR Plan of Treatment Upcoming Encounters Date Type Department Care Team (Late st Contact Info) Description 06/28/2024 11:00 AM CDT Office Visit [facility] [address] [place] [address] Macrina Martin DO [address] [place] [address] Health Maintenance Due Date Last Done Comments [...] - 199 mg/dL 06/27/2023 5:13 PM CDT [facility] Comment: Cholesterol, Total Reference Ranges Desirable <200 mg/dL Borderline 200-239 mg/dL High >=240 mg/dL TRIGLYCERIDES 66 <150 mg/dL 06/27/2023 5:13 PM CDT [facility] HDL CHOLESTEROL 62 >40 mg/dL 5:13 PM CDT [facility] NON-HDL CHOLESTEROL 95 <145 mg/dl 06/27/2023 5:13 PM CDT [facility] CHOL/HDL RATIO 2.53 <4.50 06/27/2023 5:13 PM CDT [facility] LDL CHOLESTEROL 82 <=130 mg/dL 06/27/2023 5:13 PM CDT [facility] VLDL CHOLESTEROL 13 <=30 mg/dL 06/27/2023 5:13 PM CDT [facility] PROVIDER ORDERED STATUS RANDOM 06/27/2023 5:13 PM CDT [facility] Blood BLOOD SPECIMEN / Unknown Venipuncture / Unknown 06/27/2023 10:25 AM CDT 06/27/2023 10:25 AM CDT Macrina Martin DO CHEMISTRY [facility] [address] [place] [address], * COLONOSCOPY SCREENING (02/20/2018 12:00 AM CDT) John Ochoa MD GI PROCEDURE ORD * ANTI HCV [[id number]] (04/11/2014 11:37 AM CDT) HEPATITIS C ANTIBODY Non-Reacti ve Non-Reacti ve 04/11/2014 9:00 PM CDT [facility] Blood specimen (specimen) BLOOD SPECIMEN / Unknown Venipuncture / Unknown 04/11/2014 11:37 AM CDT 04/11/2014 11:37 AM CDT Narrative [facility] [employer] [facility] - 04/11/2014 9:00 PM CDT Antibodies to HCV not detected; does not exclude the possibility of exposure to HCV. Omer Magdaleno MD SEND OUTS Performing Organization Address City/[facility]/ZIP Co de Phone Number [facility] [address] [place] [address], [place] from Last 3 Months or Most Recently Relevant to Health Maintenance Advance Directives Documents on File Type Date Recorded Patient Pocket Setter Expl anation POLST 12/08/2023 Healthcare Directive 06/27/2017 11:07 AM BRYANNA WILSON, 10/24/1997 Healthcare Directive 06/07/2016 12:06 PM Juan Ramon WILSON, [birth year]1998 Care Teams Opticianry Teacher Relationship Specialty Start Date End Date [place] [address] [address] PCP - General Family Practice 08/10/22 Ricardo Diaz MD Neurology Neurology 03/02/11
== END 2024-05-24 09:20 | disposition home or self-care (01) ==
LOC: AMB 05-26 10:31
PROVIDERS: PCP Student in an Organized Health Care Education/Training Program; Visit Provider Emergency Medicine Emergency Medical Services
DX: I95.9 Hypotension, unspecified (principal)
CPT/HCPCS: A0425; A0429

== ENCOUNTER 2024-05-24 09:41 | Emergency (ER) | payer MEDICARE, BC, SELFPAY ==
[2024-05-24 09:52] VITALS: BP 121/64; PULSE 60; RESP 20; TEMP 36.2; O2SAT 94; BMI 24.4
[2024-05-24 09:54] VITALS: BP 121/64; BP 121/76; BP 94/49; PULSE 65; PULSE 69; PULSE 74
--- NOTE | 2024-05-24 10:06 | ED_ITS ---
HPI - General Adult General Chief complaint: Hypotension Stated complaint: Hypotension Time Seen by Provider: 05/24/24 09:51 History of Present Illness HPI narrative: This 74-year-old male is brought in by ambulance because of low blood pressure readings this morning. Between 8:00 a.m. and 9:00 a.m. this morning numerous blood pressure readings were recorded and most of these occurred with systolic values around 70-80. His heart rate was not elevated. The patient states that he felt some lightheadedness which he feels on occasion. He took his medications this morning which include medicines for Parkinson's disease and metoprolol. He states that he has not had anything to eat or drink today. He denies having any pain or symptoms of infection. He arrives here with a systolic pressure at 120. His blood pressure decreased to 94 when standing up. At the time of my visit I rechecked his blood pressure and it was in the 140s for systolic value. He does have a history of orthostatic hypotension listed in his past medical history. Related Data Home Medications ?Medication ?Instructions ?Recorded ?Confirmed acetaminophen 325 mg capsule 325 mg PO Q4H PRN 08/11/22 05/24/24 (Tylenol) aspirin 81 mg tablet,delayed 81 mg PO DAILY 08/11/22 05/24/24 release hydroxyurea 500 mg capsule 500 mg PO Q48H 08/11/22 05/24/24 ketoconazole 2 % topical cream 1 applic topical BID PRN 08/11/22 03/06/24 pramipexole 0.25 mg tablet 0.125 mg PO HS 08/11/22 01/04/24 erythromycin 5 mg/gram (0.5 %) eye 1 applic ophthalmic (eye) HS PRN 02/14/23 03/06/24 ointment finasteride 5 mg tablet 5 mg PO DAILY 08/17/23 05/24/24 multivitamin 1 tab PO QAM 08/17/23 03/06/24 polyethylene glycol 3350 17 8.5 - 17 g PO DAILY PRN 08/17/23 01/04/24 gram/dose oral powder (Miralax) tamsulosin 0.4 mg capsule 0.4 mg PO DAILY 08/17/23 05/24/24 peg 400-propylene glycol (PF) 0.4 1 drp ophthalmic (eye) DAILY PRN 09/01/23 01/04/24 %-0.3 % eye drops in a dropperette (Lubricant Eye (PG-PEG 400) (PF)) clonazepam 0.5 mg tablet 0.25 mg PO HS PRN 12/01/23 05/24/24 amantadine HCl 100 mg capsule 100 mg PO QDAY 12/06/23 05/24/24 docusate sodium 100 mg capsule 100 mg PO BID PRN 12/06/23 05/24/24 (Colace) hydrocortisone 2.5 % topical cream 1 applic topical BID PRN 12/06/23 03/06/24 carbidopa 25 mg-levodopa 100 mg 2 tab PO QID 03/06/24 05/24/24 tablet Previous Rx's ?Medication ?Instructions ?Recorded metoprolol tartrate 25 mg tablet 25 mg PO BID #60 tabs 12/02/23 midodrine 10 mg tablet 10 mg PO TID #30 tabs 12/02/23 apixaban 2.5 mg tablet 2.5 mg PO BID #120 tabs 03/05/24 Allergies Allergy/AdvReac Type Severity Reaction Status Date / Time Penicillins Allergy Unknown Verified 03/06/24 13:34 Review of Systems Status of ROS: Reports: 10 or more systems reviewed and unremarkable except as noted in History and below Narrative: Constitutional: No fevers, no weight gain or loss. Eyes: No discharge. No vision changes. HENT: No congestion, no sore throat, no ear pain. Cardiovascular: No chest pain, no palpitations. Respiratory: No shortness of breath, no wheezes, no cough. Gastrointestinal: No abdominal pain, no vomiting, no diarrhea. Genitourinary: No dysuria, no hematuria. Musculoskeletal: Normal range of motion. Skin: No rashes, no pruritis. Neurological: No weakness, sensory change, speech change. He reports some occasional episodes of lightheadedness especially when arising from sitting position. Endo/Heme/Allergies: No bruising or bleeding. No polydipsia. Pysch: no suicidality, no anxiety, no insomnia. All other systems reviewed and are negative. [facility] Medical History (Updated 05/24/24 @ 11:23 by Wilian Hudson MD) Orthostatic hypotension ?I95.1 - Orthostatic hypotension (ICD-10) REM sleep behavior disorder ?G47.52 - REM sleep behavior disorder (ICD-10) History of DVT (deep vein thrombosis) ?Z86.718 - Personal history of other venous thrombosis and embolism (ICD-10) BPH with obstruction/lower urinary tract symptoms ?N40.1 - Benign prostatic hyperplasia with lower urinary tract symptoms (ICD- 10) ?N13.8 - Other obstructive and reflux uropathy (ICD-10) Congenital medullary sponge kidney ?Q61.5 - Medullary cystic kidney (ICD-10) History of retinal detachment ?Z86.69 - Personal history of other diseases of the nervous system and sense organs (ICD-10) Frailty ?R54 - Age-related physical debility (ICD-10) Cognitive impairment ?R41.89 - Other symptoms and signs involving cognitive functions and awareness (ICD-10) Acute urinary retention ?R33.8 - Other retention of urine (ICD-10) Anemia due to blood loss, acute ?D62 - Acute posthemorrhagic anemia (ICD-10) Chronic 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 (ICD-10) Hematoma ?T14.8XXA - Other injury of unspecified body region, initial encounter (ICD- 10) Retinal detachment ?H33.20 - Serous retinal detachment, unspecified eye (ICD-10) Volar plate injury of interphalangeal finger joint ?S63.639A - Sprain of interphalangeal joint of unspecified finger, initial encounter (ICD-10) 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 - Genetic carrier of other disease (ICD-10) Hemochromatosis ?E83.119 - Hemochromatosis, unspecified (ICD-10) Polycythemia ?D75.1 - Secondary polycythemia (ICD-10) Surgical History History of tonsillectomy ?Z90.89 - Acquired absence of other organs (ICD-10) History of colonoscopy ?Z98.890 - Other specified postprocedural states (ICD-10) History of cataract surgery ?Z98.49 - Cataract extraction status, unspecified eye (ICD-10) S/P ORIF (open reduction internal fixation) fracture ?Z98.890 - Other specified postprocedural states (ICD-10) ?Z87.81 - Personal history of (healed) traumatic fracture (ICD-10) Social History Narrative: Patient is single, [facility] Friend Sabine Ayala would be MDM if needed. No ETOH use, no tobacco use. No children. 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 Requests Full Code status in the event of a witnessed arrest only. What is your current living situation?: I presently have a place to live Problems where you live: no known problems Problems where you live details: N/A In the past 12 months, utilities in danger of being shut off: no In past 12 months, lack of transportation kept you from medical appts, meetings, work, or getting things needed for daily living: no In the past 12 mos, have been you worried that your food would run out before you had money to buy more?: never true In the past 12 mos, the food you bought just didn't last and you didn't have money to buy more?: never true Highest level of school completed/degree received: Doctoral degree Smoking Status: Never smoker Do you use any of these nicotine containing products: None Second hand tobacco smoke exposure: No How often do you have a drink containing alcohol: never AUDIT-C Alcohol total score: 0 Non-prescribed substance use: denies use Caffeine: Yes How often does anyone, including family, friends and others, physically hurt you : never How often does anyone, including family, friends and others, insult or talk down to you: never How often does anyone, including family, friends and others, threaten you with harm: never How often does anyone, including family, friends and others, scream or curse at you: never service: No Exam Narrative: Exam Narrative: Constitutional: Well-developed, well-nourished, no acute distress. HEENT: Normocephalic, atraumatic. Neck: Normal range of motion. Nontender. Supple. Heart: Regular. No murmurs. Normal rate. Intact distal pulses. Lungs: Clear to auscultation. No chest discomfort. No wheezes, rhonchi, or rales. Abdomen: Normal bowel sounds. Nontender. No rebound tenderness. Genitalia: Deferred. Back: No midline tenderness. Normal range of motion. Extremities: Normal range of motion. No injury. Skin: Intact. No rash. Warm. No erythema or pallor. Neurologic: No altered sensation. No weakness. Alert and oriented. Psychiatric: No suicidality. No anxiety or depression. No insomnia. Nursing notes and vitals signs are reviewed. Const: Vital Signs, click to edit/add: Vital Signs - 24 hr 05/24/24 09:52 05/24/24 09:54 Temperature 97.1 F L Pulse Rate [Left P ulse Oximeter] 60 Pulse Rate [orthos tatic lying] 65 Pulse Rate [orthos tatic sitting] 69 Pulse Rate [orthos tatic standing] 74 Respiratory Rate 20 Blood Pressure [Ri ght Upper Arm] 121/64 Blood Pressure [or thostatic lying] 121/64 Blood Pressure [or thostatic sitting] 121/76 Blood Pressure [or thostatic standing ] 94/49 L Pulse Oximetry 94 Oxygen Delivery Me thod Room Air Course Vital Signs Vital signs: Initial Vital Signs Temperature 97.1 F L 05/24/24 09:52 Temperature Source Temporal Artery Scan 05/24/24 09:52 Pulse Rate 60 05/24/24 09:52 Pulse Rhythm Regular 05/24/24 09:52 Pulse Strength 3+ Normal 05/24/24 09:52 Respiratory Rate 20 05/24/24 09:52 Blood Pressure 121/64 05/24/24 09:52 Blood Pressure Mean 83 05/24/24 09:52 Blood Pressure Position Supine 05/24/24 09:52 Pulse Oximetry 94 05/24/24 09:52 Oxygen Delivery Method Room Air 05/24/24 09:52 Vital Signs Temperature 97.1 F L 05/24/24 09:52 Pulse Rate 60 05/24/24 09:52 Respiratory Rate 20 05/24/24 09:52 Blood Pressure 121/64 05/24/24 09:52 Pulse Oximetry 94 05/24/24 09:52 Oxygen Delivery Method Room Air 05/24/24 09:52 Temperature 97.1 F L 05/24/24 09:52 Pulse Rate 65 05/24/24 09:54 Respiratory Rate 20 05/24/24 09:52 Blood Pressure 121/64 05/24/24 09:54 Pulse Oximetry 94 05/24/24 09:52 Oxygen Delivery Method Room Air 05/24/24 09:52 Medications Administered Medications: Discontinued Medications Generic Name Dose Route Start Last Admin Trade Name Daren PRN Reason Stop Dose Admin Sodium Chloride 1,000 mls @ 1,000 mls/hr 05/24/24 10:15 05/24/24 11:19 0.9 % Sodium Chloride 1000 Ml IV 05/24/24 11:14 Infused .Q1H BRETT Infusion Medical Decision Making MDM Narrative Medical decision making narrative: This patient comes in for evaluation of low blood pressure recorded several times at his residence prior to arrival. Upon arrival here his initial blood pressure was 120 but it did decrease down to 94 when he was upright. An IV was established and he did receive a L of normal saline. He states that he has taken his pills this morning but has not had anything to eat or drink. Labs are acquired and these returned with reassuring findings. The patient's repeated blood pressures show values ranging from 140-160 for systolic reading. This patient is okay to return home. He does describe some occasions where he does feel lightheaded. Perhaps his medications I have a peak effect that contribute to lower blood pressure at times. I advised him to take food and drink in the morning and to follow-up with his primary physician to review medications. Lab Data Labs: Lab Results 05/24/24 05/24/24 Range/Units 10:05 10:18 WBC 6.24 (4.50-11.00) K/uL RBC 4.11 L (4.30-5.90) m/uL Hgb 14.3 (13.5-17.5) gm/dL Hct 43.6 (37.0-53.0) % MCV 106 H (80-100) fL MCH 35 H (26-34) pg MCHC 33 (32-36) gm/dL RDW Coeff of Arsalan 15.7 H (11.5-15.5) % Plt Count 134 L (140-440) K/uL Neut % (Auto) 52.2 (42.0-72.0) % Lymph % (Auto) 19.1 L (20-44) % [place] % (Auto) 15.5 H (0.0-11.0) % Eos % (Auto) 3.2 (0.0-7.0) % Baso % (Auto) 0.5 (0.0-3.0) % Neut # (Auto) 3.26 (1.7-7.0) K/uL Lymph # (Auto) 1.20 (0.90-2.90) K/uL [place] # (Auto) 1.00 H (0.00-0.90) K/UL Eos # (Auto) 0.20 (0.00-0.50) K/uL Baso # (Auto) 0.03 (0.00-0.30) K/uL Abs Immat Gran (auto) 0.59 H (0.00-0.30) K/uL Imm/Tot Granulo (auto) 9.5 % Diff Slide Review Acceptable Review (Acceptable) Sodium 138 (135-149) mmol/L Potassium 4.5 (3.6-5.1) mmol/L Chloride 104 (96-114) mmol/L Carbon Dioxide 29 (20-32) mmol/L Anion Gap 5 L (7-15) mEq/L BUN 28 (7-30) mg/dL Creatinine 1.0 (0.5-1.5) mg/dL Estimated Creat Clear 72.21 Estimated GFR 79 ml/min Glucose 107 (60-115) mg/dL Calcium 8.8 (8.4-10.6) mg/dL POC Troponin I 0.00 L (0.01-0.04) ng/ml Discharge Plan Discharge Clinical Impression: Hypotension, postural Patient Disposition: Home, Self-Care Condition: Improved Additional Instructions: Continue current plans. Follow up with primary physician to review medications. Return if symptoms are persistent or worsening. Prescriptions: No Action ketoconazole 2 % cream 1 applic topical BID PRN pramipexole 0.25 mg tablet 0.125 mg PO HS hydroxyurea 500 mg capsule 500 mg PO Q48H acetaminophen [Tylenol] 325 mg capsule 325 mg PO Q4H PRN aspirin 81 mg tablet,delayed release (DR/EC) 81 mg PO DAILY finasteride 5 mg tablet 5 mg PO DAILY tamsulosin 0.4 mg capsule 0.4 mg PO DAILY amantadine HCl 100 mg capsule 100 mg PO QDAY carbidopa-levodopa 25-100 mg tablet 2 tab PO QID hydrocortisone 2.5 % cream 1 applic topical BID PRN erythromycin 5 mg/gram (0.5 %) ointment 1 applic ophthalmic (eye) HS PRN polyethylene glycol 3350 [Miralax] 17 gram/dose powder 8.5 - 17 g PO DAILY PRN multivitamin Tablet 1 tab PO QAM Lubricant Eye (PG-PEG 400)(PF) 0.4-0.3 % dropperette 1 drp ophthalmic (eye) DAILY PRN docusate sodium [Colace] 100 mg capsule 100 mg PO BID PRN clonazepam 0.5 mg tablet 0.25 mg PO HS PRN Rx Instructions: administer 30 minutes before bedtime midodrine 10 mg tablet 10 mg PO TID Qty: 30 0RF Rx Instructions: do not give last dose of day after 6PM or within 4 hrs of bedtime metoprolol tartrate 25 mg tablet 25 mg PO BID Qty: 60 0RF apixaban 2.5 mg tablet 2.5 mg PO BID Qty: 120 3RF Follow Up/Referrals: YANA FISCHER DO [Primary Care Provider] - [facility]one [facility] Inst[facility]
--- OUTSIDE RECORDS SUMMARY | 2024-05-24 10:10 | XMS_ITS | Clinical Summary ---
Author Organization [employer] [facility] Address [place], [place] [address] Care Team Providers Care Rail Car Maintenance Mechanic Name Role Phone Ricardo Diaz MD Unavailable Unavaila Macrina Alcantara DO Primary Care Provider [phone] Allergies Active Allergy Reactions Criticality Noted Date Comments Penicillins 11/21/2006 Medications Medication Sig Dispensed Refills Start Date End Date Status acetaminophen (TYLENOL) 325 mg tablet Take 1 tablet by mouth every 4 hours if needed. Max acetaminophen dose: 4000mg in 24 hrs. 0 11/26/2014 Active melatonin 3 mg tablet Take 1 tablet by mouth at bedtime. 0 11/18/2015 Active docusate (COLACE) 100 mg capsule Take 1 capsule by mouth 2 times daily. 0 10/14/2016 Active artificial tears, peg 400-propylene glycol, (SYSTANE) 0.4-0.3 % dpet ophthalmic 4 Drops once daily if needed for Dry Eyes. 0 10/14/2016 Active erythromycin ophthalmic ointment 0.5% Apply sparingly HS PRN 0.035 g 08/03/2017 Active tamsulosin (Flomax) 0.4 mg capsuleIndications:B enign prostatic hyperplasia, unspecified whether lower urinary tract symptoms present Take 1 Capsule (0.4 mg) by mouth once daily after a meal. 90 Capsule 3 09/23/2023 Active hydrocortisone 2.5% creamIndications:Hem orrhoids, external Apply topically to affected area(s) two times daily. 30 g 11/17/2023 Active hydroxyurea (HYDREA) 500 mg capsuleIndications:P olycythemia vera (HC) Every other day. 45 Capsule 3 11/17/2023 Active ketoconazole 2% topical (NIZORAL) creamIndications:Tin ea barbae Apply topically to affected area(s) two times daily. 60 g 11/17/2023 Active metoprolol tartrate (LOPRESSOR) 25 mg tabletIndications:Ne w onset a-fib (HC) Take 0.5 Tablets (12.5 mg) by mouth two times daily. 90 Tablet 1 12/06/2023 Active polyethylene glycoL (MIRALAX) 17 gram/scoop powder MIX 8.5-17 GRAMS IN LIQUID DIRECTED AND THEN TAKE BY MOUTH ONCE DAILY IF NEEDED FOR CONSTIPATION 12/07/2023 Active amantadine HCL (SYMMETREL) 100 mg capsuleIndications:P arkinson's disease with dyskinesia and fluctuating manifestations (HC) Take 1 Capsule (100 mg) by mouth once daily. 30 Capsule 11 12/15/2023 Active carbidopa-levodopa, 25-100 mg, (Sinemet) 25-100 mg tabletIndications:Pa rkinson's disease with dyskinesia and fluctuating manifestations (HC) Take 2 Tablets by mouth four times daily. 720 Tablet 3 12/15/2023 5 Active midodrine (PROAMATINE) 5 mg tabletIndications:Or thostatic hypotension Take 2 Tablets (10 mg) by mouth three times daily. 180 Tablet 11 12/15/2023 Active aspirin (ECOTRIN) 81 mg enteric coated tabletIndications:Po lycythemia vera (HC) Take 1 Tablet (81 mg) by mouth once daily with a meal. 360 Tablet 12/15/2023 Active finasteride (PROSCAR) 5 mg tabletIndications:Be nign prostatic hyperplasia, unspecified whether lower urinary tract symptoms present Take 1 Tablet (5 mg) by mouth every morning. 90 Tablet 12/14/2023 Active apixaban (Eliquis) 2.5 mg tabletIndications:Ch ronic deep vein thrombosis (DVT) of femoral vein of left lower extremity (HC) TAKE ONE TABLET BY MOUTH TWICE A DAY 180 Tablet 3 03/06/2024 Active clonazePAM (KLONOPIN) 0.5 mg tabletIndications:RE M sleep behavior disorder TAKE ONE-HALF TABLET (0.25 MG) BY MOUTH ONCE DAILY 45 Tablet 3 03/28/2024 Active Active Problems Problem Noted Date Diagnosed Date Fall 11/17/2023 Hematoma 11/17/2023 Polycythemia 11/17/2023 Volar plate injury of interphalangeal finger deepa nt 11/17/2023 Anemia due to blood loss, acute 11/17/2023 Frequent falls 10/11/2023 Fracture of right femur 05/04/2022 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 Vocal cord strain 05/04/2022 Polycythemia vera 05/03/2018 RLS (restless legs syndrome) 05/03/2018 Routine adult health maintenance 02/20/2018 Overview (02/20/2018): Colonoscopy 02/2018 internal hemorrhoid, no follow up needed Chronic deep vein thrombosis (DVT) of femoral vein of left lower extremity 05/03/2014 Overview (02/05/2020): To mid thigh Hemochromatosis 01/02/2014 Parkinson's disease 04/05/2013 REM sleep behavior disorder 03/09/2012 Retinal edema 11/02/2007 Osteoarthrosis, unspecified whether generalized or localized, unspecified site 11/02/2007 Overview (11/02/2007): fingers,hips and L foot Benign prostatic hyperplasia with lower urinary tract symptoms Overview (11/21/2006): mild Cortical senile cataract Calculus of kidney Overview (11/02/2007): 3 stones passed last one in 1989 Congenital medullary sponge kidney Overview (06/23/2007): right Resolved Problems Problem Noted Date Diagnosed Date Resolved Date Anticoagulation monitoring, INR range 1.5-2.5 01/21/20 22 12/09/2023 Family history of hemochromatosis 04/11/2013 10/14/2016 Family history of colonic polyps 03/23/2012 03/23/2012 Encounters Date Type Department Care Team Description 05/24/2024 Telephone [facility] [address] [place] [address] Macrina Martin DO Blood Pressure (62/29/) 05/01/2024 3:40 PM CDT Office Visit [facility] [address] [facility] [place] [address] Ricardo Wilkins MD Follow Up (Follow up parkinson's disease ) 05/01/2024 Travel 03/27/2024 Telephone [facility] [address] [place] [place] [address] Macrina Martin DO Refill Request 03/27/2024 Telephone [facility] [address] [place] [address] Macrina Martin DO Medication Management (clonazePAM) 03/15/2024 11:00 AM CDT Office Visit [address] [address] Macrina Martin DO Medication Management 03/15/2024 Travel 03/05/2024 Refill [facility] [address] [place] [address] Macrina Martin DO Refill Request (Eliquis) 03/05/2024 Telephone [facility] [address] [place] [address] Macrina Martin DO Medication Management (Returning call) 02/29/[address] [address] Macrina Martin DO Refill Request (Pramipexole) from Last 3 Months Immunizations Name Administration Dates Next Due AMB INFLUENZA IIV3 (AGE 65+ YRS) PF (Flu Clinic Only) 06/21/2019,07/06/2018 COVID-19 VACCINE SPIKEVAX (M ODERNA 50MCG/0.5ML) 12YO+ PFS 10/11/2023 COVID-19 vaccine (Moderna 100mcg/0.5mL) PF, MDV 12/25/2020,11/03/2020 COVID-19 vaccine (Pfizer-Bio NTech 30mcg/0.3mL) 12YO+ BIVALENT PF, MDV 06/30/2022 Influenza, High-dose Inactivated 06/29/2016 Influenza, IIV3 (Age >=3 years) 06/22/2013 Influenza, IIV4 07/15/2015,07/03/2014 Influenza, Inactivated AIIV4 (Age 65+ Years) Preserv Free 06/27/2023,06/02/2022,06/01/2021,05/21 Influenza, Inactivated IIV3 (Age 65+ Years) Preserv Free 06/22/2017 Pneumococcal Poly,23-Valent (Pneumovax) 05/02/2017 Pneumococcal conj 13-Valent (Prevnar 13) 04/30/2016 RSV, Recombinant ADJ Reconst ituted (Arexvy 120MCG/0.5mL) 08/02/2023 Td (Age >=7 Years) 06/07/1997 Td, Preservative Free (age >= 7 Years) Tdap 12/04/2023,07/31/2014 Zoster (Zostavax-ZVL, live) 07/17/2014 Family History Medical [...] Sign Reading Time Taken Comments Blood Pressure 118/76 05/01/2024 3:32 PM CDT Pulse 76 05/01/2024 3:32 PM CDT Temperature 36.4 ??C (97.5 ??F) 04/26/2023 3:12 PM CD T Respiratory Rate 16 07/27/2021 1:22 PM OD GRINDER OPERATOR Oxygen Saturation 98% 05/01/2024 3:32 PM CDT Inhaled Oxygen Concentration - - Weight 85 kg (187 lb 4.8 oz) 05/01/2024 3:32 PM CDT Height 182.9 cm (6') 08/04/2023 12:28 PM OD GRINDER OPERATOR Body Mass Index 25.4 08/04/2023 12:28 PM OD GRINDER OPERATOR Plan of Treatment Upcoming Encounters Date Type Department Care Team (Late st Contact Info) Description 06/28/2024 11:00 AM CDT Office Visit [facility] [address] [place] [address] Macrina Martin DO [address] [place] [address] Health Maintenance Due Date Last Done Comments Zoster (shingles) series for age 50+ (1 of 2) 09/11/2014 07/17/2014 COVID-19 vaccine series ( season) 2024 10/11/2023, 06/30/2022, 01/25/2022, Additional history exists Influenza for age 65+ 05/06/2024 06/27/2023 , 06/02/2022, 06/01/2021, Additional history exists Depression screening for age 12+ 06/27/2024 06/27/2023, 06/27/2023, 06/23/2023, Additional history exists Medicare Wellness for age 65+ 06/27/2024, 06/02/2022, 06/01/2021, Additional history exists BMI (ht and wt on same day) for age 18+ 08/04/2024 08/04/2023, 08/10/2022, 06/02/2022, Additional history exists Colonoscopy through age 75 02/21/202802/20, 02/20/2018, 02/20/2018, Additional history exists Lipids for age 45-75 06/27/2028 06/27/2023, 06/01/2021, 05/21/2020, Additional history exists Tetanus booster 12/03/2033 12/04/2023, 07/07, 09/29/2007, Additional history exists Hepatitis C screening for ag e 18-79 Completed 04/11/2014 Pneumococcal series for age 65+ Completed 7, 04/30/2016 Tdap Completed 12/04/2023, 07/31/2014 Procedures Procedure Name Priority Date/Time Associated Diagnosis Comments LIPID PANEL W REFLEX MEASURED LDL Routine 06/27/2023 10:25 AM CDT Lipid screening COLONOSCOPY SCREENING Routine 02/20/2018 12:00 AM CDT Occult blood positive stool ANTI HCV Routine 04/11/2014 11:37 AM CDT Need for hepatitis C screening test from Last 3 Months or Most Recently Relevant to Health Maintenance Results * LIPID PANEL W REFLEX MEASURED LDL (06/27/2023 10:25 AM CDT) CHOLESTEROL,TOTAL 157 100 - 199 mg/dL 06/27/2023 5:13 PM CDT [facility] Comment: Cholesterol, Total Reference Ranges Desirable <200 mg/dL Borderline 200-239 mg/dL High >=240 mg/dL TRIGLYCERIDES 66 <150 mg/dL 06/27/2023 5:13 PM CDT [facility] HDL CHOLESTEROL 62 >40 mg/dL 5:13 PM CDT [facility] NON-HDL CHOLESTEROL 95 <145 mg/dl 06/27/2023 5:13 PM CDT [facility] CHOL/HDL RATIO 2.53 <4.50 06/27/2023 5:13 PM CDT [facility] LDL CHOLESTEROL 82 <=130 mg/dL 06/27/2023 5:13 PM CDT [facility] VLDL CHOLESTEROL 13 <=30 mg/dL 06/27/2023 5:13 PM CDT [facility] [employer] [facility] PROVIDER ORDERED STATUS RANDOM 06/27/2023 5:13 PM CDT [facility] Blood BLOOD SPECIMEN / Unknown Venipuncture / Unknown 06/27/2023 10:25 AM CDT 06/27/2023 10:25 AM CDT Macrina Martin DO CHEMISTRY [facility] [address] [place] [address], * COLONOSCOPY SCREENING (02/20/2018 12:00 AM CDT) John Ochoa MD GI PROCEDURE ORD * ANTI HCV [[id number]] (04/11/2014 11:37 AM CDT) HEPATITIS C ANTIBODY Non-Reacti ve Non-Reacti ve 04/11/2014 9:00 PM CDT [facility] Blood specimen (specimen) BLOOD SPECIMEN / Unknown Venipuncture / Unknown 04/11/2014 11:37 AM CDT 04/11/2014 11:37 AM CDT Narrative [facility] [employer] - 04/11/2014 9:00 PM CDT Antibodies to HCV not detected; does not exclude the possibility of exposure to HCV. Omer Magdaleno MD SEND OUTS Performing Organization Address City/[facility]/ZIP Co de Phone Number [facility] [address] [place] [address], [place] from Last 3 Months or Most Recently Relevant to Health Maintenance Advance Directives Documents on File Type Date Recorded Patient Colored Leather Setter Expl anation POLST 12/08/2023 Healthcare Directive 06/27/2017 11:07 AM BRYANNA WILSON, 10/24/1997 Healthcare Directive 06/07/2016 12:06 PM Juan Ramon WILSON, 10/24/1997 Care Teams Rail Car Maintenance Mechanic Relationship Specialty Start Date End Date [place] [address] [address] PCP - General Family Practice 08/10/22 Ricardo Diaz MD Neurology Neurology 03/02/11
[2024-05-24] MEDS: 0.9 % SODIUM CHLORIDE 1000 ml 1,000 ML IV (10:21)
[2024-05-24 10:25] LABS: Basophils Absolute Auto 0.03 K/uL (0.00-0.30); Basophils Percent Auto 0.5 % (0.0-3.0); Eosinophils Percent Auto 3.2 % (0.0-7.0); Hematocrit 43.6 % (37.0-53.0); Hemoglobin* 14.3 gm/dL (13.5-17.5); Immature Granulocytes Abs Auto 0.59 K/uL (0.00-0.30); Immature Granulocytes Pct Auto 9.5 %; Lymphocytes Percent Auto 19.1 % (20-44); Mean Corpuscular HGB Conc 33 gm/dL (32-36); Mean Corpuscular Hemoglobin 35 pg (26-34); Mean Corpuscular Volume 106 fL (80-100); Monocytes Percent Auto 15.5 % (0.0-11.0); Neutrophils Absolute Auto 3.26 K/uL (1.7-7.0); Neutrophils Percent Auto 52.2 % (42.0-72.0); Platelet Count* 134 K/uL (140-440); RDW Coefficient of Variation % 15.7 % (11.5-15.5); Red Blood Count 4.11 m/uL (4.30-5.90); White Blood Count* 6.24 K/uL (4.50-11.00)
[2024-05-24 10:30] LABS: Slide Review Reflex Yes
[2024-05-24 10:46] LABS: Chloride* 104 mmol/L (96-114); Potassium* 4.5 mmol/L (3.6-5.1); Slide Review Acceptable Review (Acceptable); Sodium* 138 mmol/L (135-149)
[2024-05-24 10:49] LABS: Anion Gap 5 mEq/L (7-15); Blood Urea Nitrogen* 28 mg/dL (7-30); Calcium* 8.8 mg/dL (8.4-10.6); Carbon Dioxide* 29 mmol/L (20-32); Est. Creatinine Clearance* 72.21; Estimated Glomerular Filt Rate 79 ml/min; Glucose* 107 mg/dL (60-115)
== END 2024-05-24 11:43 | disposition home or self-care (01) ==
PROVIDERS: Emergency Provider Emergency Medicine Emergency Medical Services; PCP Student in an Organized Health Care Education/Training Program
DX: I95.1 Orthostatic hypotension (principal)
CPT/HCPCS: 36415; 80048; 84484; 85025; 99283; 99284; J7030

== ENCOUNTER 2024-05-29 11:30 | Outpatient (RCR) | payer MEDICARE, BC, SELFPAY ==
[2023-12-06 14:20] LABS: Basophils Percent Auto 0.8 % (0.0-3.0); Eosinophils Percent Auto 2.8 % (0.0-7.0); Hematocrit 41.3 % (37.0-53.0); Hemoglobin* 13.4 gm/dL (13.5-17.5); Lymphocytes Percent Auto 14.8 % (20-44); Mean Corpuscular HGB Conc 32 gm/dL (32-36); Mean Corpuscular Hemoglobin 35 pg (26-34); Mean Corpuscular Volume 109 fL (80-100); Monocytes Percent Auto 8.9 % (0.0-11.0); Neutrophils Percent Auto 66.7 % (42.0-72.0); Platelet Count* 199 K/uL (140-440); RDW Coefficient of Variation % 14.6 % (11.5-15.5); Red Blood Count 3.79 m/uL (4.30-5.90)
[2023-12-06 14:33] LABS: Albumin* 4.5 g/dL (3.3-5.0)
[2023-12-06 14:34] LABS: Chloride* 103 mmol/L (96-114); Sodium* 139 mmol/L (135-149)
[2023-12-06 14:36] LABS: Alkaline Phosphatase* 68 U/L (40-150); Anion Gap 10 mEq/L (7-15); Aspartate Amino Transferase* 17 U/L (12-35); Bilirubin Total* 0.7 mg/dL (0.1-1.5); Blood Urea Nitrogen* 35 mg/dL (7-30); Carbon Dioxide* 26 mmol/L (20-32); Creatinine* 1.3 mg/dL (0.5-1.5); Estimated Glomerular Filt Rate 58 ml/min; Total Protein* 7.8 g/dL (6.0-8.3)
[2023-12-06 14:37] LABS: Alanine Aminotransferase* 8 U/L (4-50); Calcium* 8.8 mg/dL (8.4-10.6); Glucose* 111 mg/dL (60-115); Lactate Dehydrogenase* 217 U/L (120-246)
[2023-12-06 15:06] LABS: Slide Review Reflex No; White Blood Count* 7.49 K/uL (4.50-11.00)
[2023-12-06 15:41] LABS: Ferritin* 57.6 ng/mL (17.9-464.0)
[2024-01-04 13:08] LABS: Basophils Absolute Auto 0.05 K/uL (0.00-0.30); Basophils Percent Auto 0.7 % (0.0-3.0); Eosinophils Absolute Auto 0.32 K/uL (0.00-0.50); Eosinophils Percent Auto 4.4 % (0.0-7.0); Hematocrit 41.2 % (37.0-53.0); Hemoglobin* 13.5 gm/dL (13.5-17.5); Immature Granulocytes Abs Auto 0.49 K/uL (0.00-0.30); Immature Granulocytes Pct Auto 6.8 %; Lymphocytes Percent Auto 19.8 % (20-44); Mean Corpuscular HGB Conc 33 gm/dL (32-36); Mean Corpuscular Hemoglobin 35 pg (26-34); Mean Corpuscular Volume 107 fL (80-100); Monocytes Percent Auto 10.9 % (0.0-11.0); Neutrophils Absolute Auto 4.14 K/uL (1.7-7.0); Neutrophils Percent Auto 57.4 % (42.0-72.0); Platelet Count* 182 K/uL (140-440); RDW Coefficient of Variation % 14.1 % (11.5-15.5); Red Blood Count 3.86 m/uL (4.30-5.90); White Blood Count* 7.22 K/uL (4.50-11.00)
[2024-01-04 13:20] LABS: Slide Review Reflex No
[2024-03-06 12:38] LABS: Basophils Absolute Auto 0.05 K/uL (0.00-0.30); Basophils Percent Auto 0.7 % (0.0-3.0); Eosinophils Absolute Auto 0.45 K/uL (0.00-0.50); Eosinophils Percent Auto 6.2 % (0.0-7.0); Hematocrit 45.8 % (37.0-53.0); Hemoglobin* 14.9 gm/dL (13.5-17.5); Immature Granulocytes Abs Auto 0.54 K/uL (0.00-0.30); Immature Granulocytes Pct Auto 7.4 %; Mean Corpuscular HGB Conc 33 gm/dL (32-36); Mean Corpuscular Hemoglobin 34 pg (26-34); Mean Corpuscular Volume 105 fL (80-100); Monocytes Percent Auto 10.3 % (0.0-11.0); Neutrophils Absolute Auto 4.13 K/uL (1.7-7.0); Neutrophils Percent Auto 56.4 % (42.0-72.0); Platelet Count* 187 K/uL (140-440); RDW Coefficient of Variation % 14.4 % (11.5-15.5); Red Blood Count 4.35 m/uL (4.30-5.90); White Blood Count* 7.31 K/uL (4.50-11.00)
[2024-03-06 12:44] LABS: Slide Review Reflex No
[2024-03-06 12:51] LABS: Albumin* 4.8 g/dL (3.3-5.0); Chloride* 103 mmol/L (96-114); Sodium* 139 mmol/L (135-149)
[2024-03-06 12:52] LABS: Potassium* 4.5 mmol/L (3.6-5.1)
[2024-03-06 12:54] LABS: Alkaline Phosphatase* 89 U/L (40-150); Anion Gap 10 mEq/L (7-15); Aspartate Amino Transferase* 21 U/L (12-35); Blood Urea Nitrogen* 24 mg/dL (7-30); Carbon Dioxide* 26 mmol/L (20-32); Estimated Glomerular Filt Rate 79 ml/min; Total Protein* 8.3 g/dL (6.0-8.3)
[2024-03-06 12:55] LABS: Alanine Aminotransferase* 5 U/L (4-50); Calcium* 8.9 mg/dL (8.4-10.6); Glucose* 99 mg/dL (60-115)
[2024-05-08 12:27] LABS: Basophils Absolute Auto 0.05 K/uL (0.00-0.30); Basophils Percent Auto 0.6 % (0.0-3.0); Eosinophils Absolute Auto 0.27 K/uL (0.00-0.50); Eosinophils Percent Auto 3.2 % (0.0-7.0); Hematocrit 46.9 % (37.0-53.0); Hemoglobin* 15.4 gm/dL (13.5-17.5); Immature Granulocytes Abs Auto 0.56 K/uL (0.00-0.30); Immature Granulocytes Pct Auto 6.6 %; Lymphocytes Percent Auto 18.2 % (20-44); Mean Corpuscular HGB Conc 33 gm/dL (32-36); Mean Corpuscular Hemoglobin 34 pg (26-34); Mean Corpuscular Volume 105 fL (80-100); Neutrophils Absolute Auto 5.29 K/uL (1.7-7.0); Neutrophils Percent Auto 62.4 % (42.0-72.0); Platelet Count* 166 K/uL (140-440); RDW Coefficient of Variation % 15.5 % (11.5-15.5); Red Blood Count 4.48 m/uL (4.30-5.90); White Blood Count* 8.47 K/uL (4.50-11.00)
[2024-05-08 12:30] LABS: Slide Review Reflex No
[2024-05-08 12:35] LABS: Albumin* 4.8 g/dL (3.3-5.0)
[2024-05-08 12:36] LABS: Chloride* 100 mmol/L (96-114); Potassium* 4.7 mmol/L (3.6-5.1); Sodium* 137 mmol/L (135-149)
[2024-05-08 12:38] LABS: Anion Gap 8 mEq/L (7-15); Aspartate Amino Transferase* 20 U/L (12-35); Bilirubin Total* 0.9 mg/dL (0.1-1.5); Carbon Dioxide* 29 mmol/L (20-32); Creatinine* 0.9 mg/dL (0.5-1.5); Estimated Glomerular Filt Rate 90 ml/min; Total Protein* 7.9 g/dL (6.0-8.3)
[2024-05-08 12:39] LABS: Alanine Aminotransferase* 6 U/L (4-50); Alkaline Phosphatase* 75 U/L (40-150); Blood Urea Nitrogen* 20 mg/dL (7-30); Calcium* 9.7 mg/dL (8.4-10.6); Glucose* 105 mg/dL (60-115)
[2024-05-08 12:46] LABS: Lactate Dehydrogenase* 205 U/L (120-246)
[2024-05-08 13:13] LABS: Ferritin* 28.2 ng/mL (17.9-464.0)
== END 2024-06-03 23:59 | disposition home or self-care (01) ==
LOC: CCIC 11:30
PROVIDERS: PCP Student in an Organized Health Care Education/Training Program; Referring Provider Student in an Organized Health Care Education/Training Program; Visit Provider Internal Medicine Hematology & Oncology
DX: E83.110 Hereditary hemochromatosis (principal); D75.1 Secondary polycythemia; Z79.01 Long term (current) use of anticoagulants; Z86.718 Personal history of other venous thrombosis and embolism; I48.91 Unspecified atrial fibrillation
CPT/HCPCS: 36415; 80053; 82728; 83615; 85025; 99213; 99214; G0463

== ENCOUNTER 2025-01-17 16:55 | Outpatient (CLI) | payer MEDICARE, BC, SELFPAY | END 2025-01-17 16:56 | disposition home or self-care (01) | LOC: AMB 01-18 10:04 | PROVIDERS: PCP Student in an Organized Health Care Education/Training Program; Visit Provider Student in an Organized Health Care Education/Training Program | DX: R53.1 Weakness (principal) | CPT/HCPCS: A0425; A0429 ==

== ENCOUNTER 2025-01-17 17:08 | Emergency (ER) | payer MEDICARE, BC, SELFPAY ==
[2025-01-17 17:24] VITALS: BP 120/58; PULSE 83; RESP 16; TEMP 36.5; O2SAT 97; BMI 25.5
--- NOTE | 2025-01-17 17:44 | CRLHL7_ITS ---
For Patients: As a result of the Century Cures Act, medical imaging exams and procedure reports are released immediately into your electronic medical record. You may view this report before your referring provider. If you have questions, please contact your health care provider. INDICATION: Freezing episodes, lightheadedness, Parkinson`s TECHNIQUE: Noncontrast axial CT of the head. Coronal and sagittal reformats. Bone and soft tissue algorithms. COMPARISON: CT head report 12/04/2023 FINDINGS: Prominence of the ventricles and cortical sulci compatible with generalized cerebral volume loss. No midline shift or mass effect. No acute intracranial hemorrhage or extra-axial fluid collection. Noonan-white matter differentiation is grossly maintained. White matter attenuation is within normal limits. Calcific intracranial atherosclerotic plaquing. Midline structures are unremarkable. The calvarium appears grossly intact. Paranasal sinuses and mastoid air cells are clear. Prominent bilateral cerumen. Enophthalmos, with right scleral buckle and bilateral lens implants. IMPRESSION: 1. No CT evidence of acute intracranial abnormality. 2. Mild generalized cerebral volume loss. Please note that all CT scans at this facility use dose modulation, iterative reconstruction, and/or weight-based dosing when appropriate to reduce radiation dose to as low as reasonably achievable. Dictated by Diana Nunez MD @ 01/17/2025 6:03:40 PM (Electronically Signed)
--- NOTE | 2025-01-17 17:51 | ED_ITS ---
HPI - General Adult General Date Seen: 01/17/25 Chief complaint: Unspecified Complaint, Adult Stated complaint: Weakness Time Seen by Provider: 01/17/25 17:12 Source: patient and EMS Mode of arrival: EMS Limitations: no limitations History of Present Illness HPI narrative: patient is a 74-year-old male with a history of Parkinson's disease, orthostatic hypotension presenting to the emergency department for freezing episodes. He has never had the symptoms before but states over the past week he will have episodes where he will be feeling normal think he stand up and take a few steps no sign feel like his body is not responding to what he wants to do. States he has some very mild lightheadedness with this to in feel like he might fall but the symptoms quickly resolved and he feels back to normal. This has not caused him to fall yet. Also states he of episodes where he has difficulty responding to questions. He states he has been looking through the Parkinson's there trailer in states he sees that this could be freezing episodes and while he was not too concerned about it his family was and wanted him to be seen. states he feels asymptomatic at this time. Says episodes only last a few seconds he states. Denies ever having episodes like this before. Does state when these episodes occur he does feel like his vision starts to go slightly. Has not lost consciousness from this yet. Denies associated chest pain, shortness of breath, dizziness, weakness, numbness, abdominal pain, diarrhea, constipation, fevers. No other concerns noted at this time. Related Data Home Medications ?Medication ?Instructions ?Recorded ?Confirmed acetaminophen 325 mg capsule 325 mg PO Q4H PRN 08/11/22 11/12/24 (Tylenol) aspirin 81 mg tablet,delayed 81 mg PO DAILY 08/11/22 01/17/25 release hydroxyurea 500 mg capsule 500 mg PO Q48H 08/11/22 01/17/25 ketoconazole 2 % topical cream 1 applic topical BID PRN 08/11/22 11/12/24 pramipexole 0.25 mg tablet 0.125 mg PO HS 08/11/22 11/12/24 erythromycin 5 mg/gram (0.5 %) eye 1 applic ophthalmic (eye) HS PRN 02/14/23 11/12/24 ointment finasteride 5 mg tablet 5 mg PO DAILY 08/17/23 01/17/25 tamsulosin 0.4 mg capsule 0.4 mg PO DAILY 08/17/23 01/17/25 peg 400-propylene glycol (PF) 0.4 1 drp ophthalmic (eye) DAILY PRN 09/01/23 11/12/24 %-0.3 % eye drops in a dropperette (Lubricant Eye (PG-PEG 400) (PF)) clonazepam 0.5 mg tablet 0.25 mg PO HS PRN 12/01/23 01/17/25 amantadine HCl 100 mg capsule 100 mg PO QDAY 12/06/23 01/17/25 docusate sodium 100 mg capsule 100 mg PO BID PRN 12/06/23 11/12/24 (Colace) hydrocortisone 2.5 % topical cream 1 applic topical BID PRN 12/06/23 11/12/24 carbidopa 25 mg-levodopa 100 mg 2 tab PO QID 03/06/24 01/17/25 tablet psyllium seed (sugar) oral powder 1 tbsp PO ONCE 08/20/24 11/12/24 (Metamucil (sugar) oral powder) Previous Rx's ?Medication ?Instructions ?Recorded metoprolol tartrate 25 mg tablet 25 mg PO BID #60 tabs 12/02/23 midodrine 10 mg tablet 10 mg PO TID #30 tabs 12/02/23 apixaban 2.5 mg tablet 2.5 mg PO BID #120 tabs 03/05/24 Allergies Allergy/AdvReac Type Severity Reaction Status Date / Time Penicillins Allergy Unknown Verified 11/12/24 14:14 Review of Systems Status of ROS: Reports: 10 or more systems reviewed and unremarkable except as noted in History and below [facility] Medical History Orthostatic hypotension ?I95.1 - Orthostatic hypotension (ICD-10) REM sleep behavior disorder ?G47.52 - REM sleep behavior disorder (ICD-10) History of DVT (deep vein thrombosis) ?Z86.718 - Personal history of other venous thrombosis and embolism (ICD-10) BPH with obstruction/lower urinary tract symptoms ?N40.1 - Benign prostatic hyperplasia with lower urinary tract symptoms (ICD- 10) ?N13.8 - Other obstructive and reflux uropathy (ICD-10) Congenital medullary sponge kidney ?Q61.5 - Medullary cystic kidney (ICD-10) History of retinal detachment ?Z86.69 - Personal history of other diseases of the nervous system and sense organs (ICD-10) Frailty ?R54 - Age-related physical debility (ICD-10) Cognitive impairment ?R41.89 - Other symptoms and signs involving cognitive functions and awareness (ICD-10) Acute urinary retention ?R33.8 - Other retention of urine (ICD-10) Anemia due to blood loss, acute ?D62 - Acute posthemorrhagic anemia (ICD-10) Chronic anticoagulation ?Z79.01 - group home (current) use of anticoagulants (ICD-10) Hematoma ?T14.8XXA - Other injury of unspecified body region, initial encounter (ICD- 10) Retinal detachment ?H33.20 - Serous retinal detachment, unspecified eye (ICD-10) Volar plate injury of interphalangeal finger joint ?S63.639A - Sprain of interphalangeal joint of unspecified finger, initial encounter (ICD-10) 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 - Genetic carrier of other disease (ICD-10) Hemochromatosis ?E83.119 - Hemochromatosis, unspecified (ICD-10) Polycythemia ?D75.1 - Secondary polycythemia (ICD-10) Surgical History History of tonsillectomy ?Z90.89 - Acquired absence of other organs (ICD-10) History of colonoscopy ?Z98.890 - Other specified postprocedural states (ICD-10) History of cataract surgery ?Z98.49 - Cataract extraction status, unspecified eye (ICD-10) S/P ORIF (open reduction internal fixation) fracture ?Z98.890 - Other specified postprocedural states (ICD-10) ?Z87.81 - Personal history of (healed) traumatic fracture (ICD-10) Social History Narrative: Patient is single, lives at [address]. Friend Sabine Ayala would be MDM if needed. No ETOH use, no tobacco use. No children. 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 Requests Full Code status in the event of a witnessed arrest only. What is your current living situation?: I presently have a place to live Problems where you live: no known problems Problems where you live details: N/A In the past 12 months, utilities in danger of being shut off: no In past 12 months, lack of transportation kept you from medical appts, meetings, work, or getting things needed for daily living: no In the past 12 mos, have been you worried that your food would run out before you had money to buy more?: never true In the past 12 mos, the food you bought just didn't last and you didn't have money to buy more?: never true Highest level of school completed/degree received: Doctoral degree Smoking Status: Never smoker Do you use any of these nicotine containing products: None Second hand tobacco smoke exposure: No How often do you have a drink containing alcohol: never AUDIT-C Alcohol total score: 0 Non-prescribed substance use: denies use Caffeine: Yes How often does anyone, including family, friends and others, physically hurt you : never How often does anyone, including family, friends and others, insult or talk down to you: never How often does anyone, including family, friends and others, threaten you with harm: never How often does anyone, including family, friends and others, scream or curse at you: never service: No Exam Narrative: Exam Narrative: Const: Well-nourished, Well-developed, in no distress Eyes: PERRL, no conjunctival injection, and symmetrical lids HENT: Atraumatic external nose and ears. Moist mucous membranes. Neck: Symmetric, trachea midline, No thyromegaly. CVS: RRR, No murmurs or gallops. Peripheral pulses 2+ and equal in all extremities RESP: Unlabored respiratory effort. Clear to auscultation bilaterally. GI: Nontender/Nondistended, No rebound or guarding. MSK:Extremities w/o deformity, Normal Active ROM Skin: Warm, Dry. No rashes or lesions. Neuro: Normal Muscle tone, No focal neurological deficits. Psych: Awake, Alert, & Oriented x3. Appropriate mood and affect. Const: Vital Signs, click to edit/add: Vital Signs - 24 hr 01/17/25 17:24 01/17/25 17:52 01/17/25 18:17 Temperature 97.7 F Pulse Rate 79 Pulse Rate [Pulse Oximeter] 83 Pulse Rate [orthos tatic lying] 82 Pulse Rate [orthos tatic sitting] 93 Pulse Rate [orthos tatic standing] 96 Respiratory Rate 16 21 Blood Pressure 146/93 H Blood Pressure [Ri ght Upper Arm] 120/58 L Blood Pressure [or thostatic lying] 152/85 H Blood Pressure [or thostatic sitting] 120/78 Blood Pressure [or thostatic standing ] 83/49 L Pulse Oximetry 97 96 Oxygen Delivery Me thod Room Air Course Vital Signs Vital signs: Initial Vital Signs Temperature 97.7 F 01/17/25 17:24 Temperature Source Temporal Artery Scan 01/17/25 17:24 Pulse Rate 83 01/17/25 17:24 Respiratory Rate 16 01/17/25 17:24 Blood Pressure 120/58 L 01/17/25 17:24 Blood Pressure Mean 78 01/17/25 17:24 Blood Pressure Position Supine 01/17/25 17:24 Pulse Oximetry 97 01/17/25 17:24 Oxygen Delivery Method Room Air 01/17/25 17:24 Vital Signs Temperature 97.7 F 01/17/25 17:24 Pulse Rate 83 01/17/25 17:24 Respiratory Rate 16 01/17/25 17:24 Blood Pressure 120/58 L 01/17/25 17:24 Pulse Oximetry 97 01/17/25 17:24 Oxygen Delivery Method Room Air 01/17/25 17:24 Temperature 97.7 F 01/17/25 17:24 Pulse Rate 79 01/17/25 18:17 Respiratory Rate 21 01/17/25 18:17 Blood Pressure 146/93 H 01/17/25 18:17 Pulse Oximetry 96 01/17/25 18:17 Oxygen Delivery Method Room Air 01/17/25 17:24 Medical Decision Making MDM Narrative Medical decision making narrative: patient is a 74-year-old male presenting to emergency department for freezing episodes. This is likely secondary to his Parkinson's disease and is a known sequela of it. He is also having some mild lightheadedness associated with it. Denies any chest pain and shortness of breath starting so episodes. Since his episodes just started will do a CT scan to make sure there are no new abnormalities. Will also order CBC, BMP, magnesium, urinalysis, troponin an EKG was lightheadedness. CT scan reviewed by myself in the radiologist shows no acute concerning abnormalities. EKG shows no acute concerning findings. Lab work returned showing no concerning abnormalities. We did do orthostatic blood pressures and he did have orthostatic hypotension. He was asymptomatic though. Again this is a known issue of his they does take midodrine for. Although it was quite a big drop and could have some relation to his lightheadedness when he gets up. Did give him a L of fluids. Blood pressures after this were improved and he will be discharged. He is agreeable to this plan Lab Data Labs: Lab Results 01/17/25 01/17/25 01/17/25 Range/Units 17:44 17:55 18:20 WBC 9.50 (4.50-11.00) K/uL RBC 3.62 L (4.30-5.90) m/uL Hgb 13.4 L (13.5-17.5) gm/dL Hct 39.2 (37.0-53.0) % MCV 108 H (80-100) fL MCH 37 H (26-34) pg MCHC 34 (32-36) gm/dL RDW Coeff of Arsalan 15.4 (11.5-15.5) % Plt Count 164 (140-440) K/uL Neut % (Auto) 66.0 (42.0-72.0) % Lymph % (Auto) 15.2 L (20-44) % [place] % (Auto) 7.9 (0.0-11.0) % Eos % (Auto) 2.4 (0.0-7.0) % Baso % (Auto) 0.5 (0.0-3.0) % Neut # (Auto) 6.27 (1.7-7.0) K/uL Lymph # (Auto) 1.40 (0.90-2.90) K/uL [place] # (Auto) 0.80 (0.00-0.90) K/UL Eos # (Auto) 0.23 (0.00-0.50) K/uL Baso # (Auto) 0.05 (0.00-0.30) K/uL Abs Immat Gran (auto) 0.76 H (0.00-0.30) K/uL Imm/Tot Granulo (auto) 8.0 % Sodium 140 (135-149) mmol/L Potassium 4.3 (3.6-5.1) mmol/L Chloride 105 (96-114) mmol/L Carbon Dioxide 25 (20-32) mmol/L Anion Gap 10 (7-15) mEq/L BUN 36 H (7-30) mg/dL Creatinine 1.5 (0.5-1.5) mg/dL Estimated Creat Clear 46.71 Estimated GFR 49 ml/min Glucose 121 H (60-115) mg/dL Calcium 8.9 (8.4-10.6) mg/dL Magnesium 2.3 (1.5-2.6) mg/dL Urine Color Yellow (Yellow) Urine Appearance Clear (Clear) Urine pH 7.0 (5.0-8.5) Ur Specific [place] 1.020 (1.000-1.030) Urine Protein 1+ A (Negative) Urine Glucose (UA) Negative (Negative) Urine Ketones Negative (Negative) Urine Blood Negative (Negative) Urine Nitrite Negative (Negative) Urine Bilirubin Negative (Negative) Urine Urobilinogen 0.2 (0.2-1.0) Ur Leukocyte Esterase Negative (Negative) Urine RBC 0-2 (0-2) Urine WBC 0-2 (0-5) Ur Squamous Epith Cells Few (None-Few) Urine Bacteria None (None) POC Troponin I 0.01 (0.01-0.04) ng/ml Imaging Data CT scan - head: Attestation: I have reviewed the pertinent imaging results. Radiologist's impression: 1. No CT evidence of acute intracranial abnormality. 2. Mild generalized cerebral volume loss. Please note that all CT scans at this facility use dose modulation, iterative reconstruction, and/or weight-based dosing when appropriate to reduce radiation dose to as low as reasonably achievable. Dictated by Diana Nunez MD @ 01/17/2025 6:03:40 PM ECG Data Attestation: I personally reviewed and interpreted this ECG as follows: Prior ECG tracings: available for review Interpretation: Normal sinus rhythm with a rate of 82 beats per minute, normal intervals, normal axis, no ST or T-wave abnormalities. Appears similar previous EKGs on file Discharge Plan Discharge Clinical Impression: Lightheadedness Patient Disposition: Home, Self-Care Condition: Stable Instructions: Lightheadedness (ED) Additional Instructions: Your freezing episodes are likely related to her Parkinson's disease. I recommend calling your neurologist and let them know you are having the symptoms. They may want to see you sooner. Your also having sepsis lightheade dness which may related to your known orthostatic hypotension. I recommend that when you stand up to wait a few seconds before you start walking. Return to emergency department for new or worsening symptoms Prescriptions: No Action ketoconazole 2 % cream 1 applic topical BID PRN pramipexole 0.25 mg tablet 0.125 mg PO HS hydroxyurea 500 mg capsule 500 mg PO Q48H acetaminophen [Tylenol] 325 mg capsule 325 mg PO Q4H PRN aspirin 81 mg tablet,delayed release (DR/EC) 81 mg PO DAILY finasteride 5 mg tablet 5 mg PO DAILY tamsulosin 0.4 mg capsule 0.4 mg PO DAILY amantadine HCl 100 mg capsule 100 mg PO QDAY carbidopa-levodopa 25-100 mg tablet 2 tab PO QID hydrocortisone 2.5 % cream 1 applic topical BID PRN Metamucil (sugar) Powder 1 tbsp PO ONCE erythromycin 5 mg/gram (0.5 %) ointment 1 applic ophthalmic (eye) HS PRN Lubricant Eye (PG-PEG 400)(PF) 0.4-0.3 % dropperette 1 drp ophthalmic (eye) DAILY PRN docusate sodium [Colace] 100 mg capsule 100 mg PO BID PRN clonazepam 0.5 mg tablet 0.25 mg PO HS PRN Rx Instructions: administer 30 minutes before bedtime midodrine 10 mg tablet 10 mg PO TID Qty: 30 0RF Rx Instructions: do not give last dose of day after 6PM or within 4 hrs of bedtime metoprolol tartrate 25 mg tablet 25 mg PO BID Qty: 60 0RF apixaban 2.5 mg tablet 2.5 mg PO BID Qty: 120 3RF Follow Up/Referrals: YANA FISCHER DO [Primary Care Provider] - Stand Alone Forms: [facility] Info Instructions
[2025-01-17 17:52] VITALS: BP 120/78; BP 152/85; BP 83/49; PULSE 82; PULSE 93; PULSE 96
--- OUTSIDE RECORDS SUMMARY | 2025-01-17 18:06 | XMS_ITS ---
Author Organization [facility] [place] Care Team Providers Care Fuel Management Handler Name Role Phone Nadya Nguyen Unavailable Unavailable Lala Gloria Unavailable Unavailable Clifton Luke Unavailable Unavailable Allergies and adverse reactions Code CodeSystem Substance Reaction Severity StartDate Concern Status 7984 RXNORM Penicillin Anaphylaxis (co de- 83173279, SNOMED CT) Moderate 05/23/2019 active Care Team Name Role Address Phone Organization Dates Clifton Luke PCP [facility] [address], [address], [place], [place], [facility] [place] States (Office): [facility] 10/17/2023 - 11/10/2023 Nadya Nguyen [facility], [facility] 10/17/2023 - 11/10/2023 Lala Gloria [facility] [address] [facility] [address], [place], [place], [facility] (Office): : [facility] 10/17/2023 - 11/10/2023 Immunizations Immunization Status Vaccine Details Vaccine Code CodeSystem Date Notes TB 2 Step Mantoux Skin Test completed tuberculin skin test; unspecified formulation Step 2 of Multi-step with next step required 98 CVX created date: 4 consent date: 4 administe red date: 4 TB 2 Step Mantoux Skin Test completed tuberculin skin test; unspecified formulation lotNumber: [id number] expiry: 01/02/2027 Mfg: [employer] Given 0.1 ml Right Forearm intradermally Step 1 of Multi-step with next step required 98 CVX created date: 4 consent date: 4 administe red date: 4 Educated by Celia Ortega RN on 07/16/2024 TB 2 Step Mantoux Skin Test completed tuberculin skin test; unspecified formulation lotNumber: [id number] expiry: 11/02/2020 Mfg: [employer] Given 0.1 ml Right Forearm intradermally Step 2 of Multi-step with next step required 98 CVX created date: 1 consent date: 1 administe red date: 1 Read by Laverne Son LPN TB 2 Step Mantoux Skin Test completed tuberculin skin test; unspecified formulation lotNumber: [id number] expiry: 11/02/2021 Mfg: [employer] Given 0.1 ml Right Forearm intradermally Step 1 of Multi-step with next step required 98 CVX created date: 1 consent date: 1 administe red date: 1 Read by Drake Garcia RN on 10/11/20 at 1228 TB 2 Step Mantoux Skin Test NotEligible tuberculin skin test; unspecified formulation 98 CVX created date: 0 consent date: 0 Discharged TB 2 Step Mantoux Skin Test completed tuberculin skin test; unspecified formulation lotNumber: [id number] expiry: 01/24/2021 Mfg: sanofi pasteur Given 0.1 ml Left Forearm intradermally Step 1 of Multi-step with next step required 98 CVX created date: 0 consent date: 0 administe red date: 0 TDAP completed tetanus toxoid, reduced diphtheria toxoid, and acellular pertussis vaccine, adsorbed 115 CVX created date: 4 administe red date: 4 Custom Influenza completed Influenza, split virus, trivalent, injectable, contains preservative 141 CVX created date: 0 administe red date: 0 Shingles Vaccination completed zoster vaccine, live 121 CVX created date: 0 administe red date: 4 PPSV23, Pneumovax 23 completed pneumococcal polysaccharide vaccine, 23 valent 33 CVX created date: 0 administe red date: 7 PCV13, [id number] completed pneumococcal conjugate vaccine, 13 valent 133 CVX created date: 0 administe red date: 6 Influenza-High Dose completed Influenza, high-dose, split virus, quadrivalent, injectable, preservative free 197 CVX created date: 4 administe red date: 3 Td completed tetanus and diphtheria toxoids, adsorbed, preservative free, for adult use (5 Lf of tetanus toxoid and 2 Lf of diphtheria toxoid) 113 CVX created date: 4 administe red date: 8 Zostavax (Live Shingles) completed zoster vaccine, live 121 CVX created date: 4 administe red date: 1 COVID-19 Vaccine dose 1 completed SARS-COV-2 (COVID-19) vaccine, mRNA, spike protein, LNP, preservative free, 50 mcg/0.5 mL dose Mfg: Moderna 312 CVX created date: 4 administe red date: 1 COVID-19 Vaccine dose 1 completed created date: 1 administe red date: 1 COVID-19 Vaccine dose 2 completed SARS-COV-2 (COVID-19) vaccine, mRNA, spike protein, LNP, preservative free, 50 mcg/0.5 mL dose Mfg: Moderna 312 CVX created date: 4 administe red date: 1 COVID-19 Vaccine dose 3 completed SARS-COV-2 (COVID-19) vaccine, mRNA, spike protein, LNP, preservative free, 50 mcg/0.5 mL dose Mfg: Moderna 312 CVX created date: 4 administe red date: 1 COVID-19 Vaccine dose 4 completed SARS-COV-2 (COVID-19) vaccine, mRNA, spike protein, LNP, preservative free, 50 mcg/0.5 mL dose Mfg: Moderna 312 CVX created date: 4 administe red date: 2 COVID-19 Vaccine dose 5 completed SARS-COV-2 (COVID-19) vaccine, mRNA, spike protein, LNP, preservative free, 30 mcg/0.3mL dose Mfg: Pfizer 208 CVX created date: 4 administe red date: 3 RSV (respiratory syncytial virus)Vaccine completed Respiratory syncytial virus (RSV), vaccine, bivalent, protein subunit RSV prefusion F, diluent reconstituted, 0.5 mL, preservative free 305 CVX created date: 4 administe red date: 3 Mental Status Section Date Assessment Total Score Description 11/10/2023 BIMS 15 cognitively int act CAM 0 No delirium ind icated PHQ-9 00 10/20/2023 BIMS 13 cognitively int act CAM 0 No delirium ind icated PHQ-9 00 Problems Problem # Description Date of onset Resolved Date Code CodeSystem Concern Status 1 OTHER SPECIFIED PERSONAL RISK FACTORS, NOT ELSEWHERE CLASSIFIED [address] active 2 CONTUSION OF LOWER BACK AND PELVIS, SUBSEQUENT ENCOUNTER [address] active 3 HEMOCHROMATOSIS, UNSPECIFIED [address] active 4 HISTORY OF FALLING [address] active 5 USP (CURRENT) USE OF ANTICOAGULANTS [address] active 6 MEDULLARY CYSTIC KIDNEY [address] active 7 MILD COGNITIVE IMPAIRMENT OF UNCERTAIN OR UNKNOWN ETIOLOGY [address] active 8 ORTHOSTATIC HYPOTENSION [address] active 9 OTHER OBSTRUCTIVE AND REFLUX UROPATHY [address] active 10 OTHER PRIMARY THROMBOPHILIA [address] active 11 PARKINSON'S DISEASE WITHOUT DYSKINESIA, WITH FLUCTUATIONS [address] active 12 PERSONAL HISTORY OF OTHER DISEASES OF THE NERVOUS SYSTEM AND SENSE ORGANS [address] active 13 PRIMARY INSOMNIA [address] active 14 RESTLESS LEGS SYNDROME [address] active 15 HEMARTHROSIS, LEFT KNEE 1 11/06/[address] completed 16 HISTORY OF FALLING 1 11/06/[address] completed 17 UNSPECIFIED FRACTURE OF UPPER END OF LEFT HUMERUS, SUBSEQUENT ENCOUNTER FOR FRACTURE WITH ROUTINE HEALING 1 11/06/[address] completed 18 POLYCYTHEMIA VERA [address] active 19 BENIGN PROSTATIC HYPERPLASIA WITH LOWER URINARY TRACT SYMPTOMS [address] active 20 CONSTIPATION, UNSPECIFIED [address] active 21 ENCOUNTER FOR OTHER ORTHOPEDIC AFTERCARE 0 01/31/[address] completed 22 HEMARTHROSIS, RIGHT KNEE 0 01/31/[address] completed 23 INSOMNIA, UNSPECIFIED 0 01/31/[address] completed 24 PARKINSON'S DISEASE 0 11/06/[address] completed 25 PERSONAL HISTORY OF OTHER VENOUS THROMBOSIS AND EMBOLISM [address] active 26 REM SLEEP BEHAVIOR DISORDER [address] active Reason for Referral No Reasons for Referral Entered Social History Social History Observation Description Start Date End Date Code Code System Current Smoking Status Tobacco smoking consumption unknown 532113116 SNOMED CT Sex Assigned At Male 1950 01269-9 [facility] Gender Identity Vital Signs Code Code System Vitals Name Values and Units Timing Information 54772-9 [facility] Pain Level Value=0.0 11/10/2023 9279-1 [facility] Respiratory Rate Value=18.0 Units=/m in 11/09/2023 8462-4 [facility] Blood Pressure-Diastolic Value=66 Un its=mmHg 11/09/2023 8480-6 [facility] Blood Pressure-Systolic Hqslu=647 Un its=mmHg 11/09/2023 8310-5 [facility] Body Temperature Value=97.9 Units= F 11/09/2023 8867-4 [facility] Heart rate Value=73.0 Units=/min 02/2024 47305-4 [facility] O2 % BldC Oximetry Value=97.0 Units= % 11/09/2023 91648-8 [facility] Weight Acxzz=501.0 Units=Lbs 02/2024 8302-2 [facility] Height Value=68.0 Units=Inches 10/20/2023
--- OUTSIDE RECORDS SUMMARY | 2025-01-17 18:06 | XMS_ITS ---
Author Organization [facility] ter Care Team Providers Care Construction Area Manager Name Role Phone Nadya Nguyen Unavailable Unavailable Lala Gloria Unavailable Unavailable Clifton Luke Unavailable Unavailable Allergies and adverse reactions Code CodeSystem Substance Reaction Severity StartDate Concern Status 7984 RXNORM Penicillin Moderate 05/23/2019 active Care Team Name Role Address Phone Organization Dates Clifton Luke PCP [facility] [address] [facility], [address], [place], [place], [facility], [facility] (Office): [facility] 10/17/2023 - 11/10/2023 Nadya Nguyen [facility] 10/17/2023 - 11/10/2023 Lala Gloria [address] [facility] [address], [address], [place] (Office): : [facility] 10/17/2023 - 11/10/2023 Immunizations Immunization Status Vaccine Details Vaccine Code CodeSystem Date Notes TB 2 Step Mantoux Skin Test completed tuberculin skin test; unspecified formulation Step 2 of Multi-step with next step required 98 CVX created date: 4 consent date: 4 administe red date: 4 TB 2 Step Mantoux Skin Test completed tuberculin skin test; unspecified formulation lotNumber: [id number] expiry: 01/02/2027 Mfg: [employer] Given 0.1 ml Right Forearm intradermally Step 1 of Multi-step with next step required 98 CVX created date: 4 consent date: 4 administe red date: 4 Educated by Celia Ortega RN on 07/16/2024 TB 2 Step Mantoux Skin Test completed tuberculin skin test; unspecified formulation lotNumber: [id number] expiry: 11/02/2020 Mfg: [employer] Given 0.1 ml Right Forearm intradermally Step 2 of Multi-step with next step required 98 CVX created date: 1 consent date: 1 administe red date: 1 Read by Laverne Son LPN TB 2 Step Mantoux Skin Test completed tuberculin skin test; unspecified formulation lotNumber: [id number] expiry: 11/02/2021 Mfg: [employer] Given 0.1 [...] completed tuberculin skin test; unspecified formulation lotNumber: [id number] expiry: 01/24/2021 Mfg: Sanofi Pasteur Given 0.1 ml Left Forearm intradermally Step 1 of Multi-step with next step required 98 CVX created date: 0 consent date: 0 administe red date: 0 Prevnar 13 completed pneumococcal conjugate vaccine, 13 valent 133 CVX created date: 0 administe red date: 6 Pneumovax 23 completed pneumococcal polysaccharide vaccine, 23 valent 33 CVX created date: 0 administe red date: 7 zoster live completed zoster vaccine, live 121 CVX created date: 4 administe red date: 1 Respiratory syncytial virus (RSV), unspecified completed Respiratory syncytial virus (RSV), vaccine, bivalent, protein subunit RSV prefusion F, diluent reconstituted, 0.5 mL, preservative free 305 CVX created date: 4 administe red date: 3 TDAP completed tetanus toxoid, reduced diphtheria toxoid, and acellular pertussis vaccine, adsorbed 115 CVX created date: 4 administe red date: 4 Custom Influenza completed Influenza, split virus, trivalent, injectable, contains preservative 141 CVX created date: 0 administe red date: 0 Shingles Vaccination completed zoster vaccine, live 121 CVX created date: 0 administe red date: 4 Influenza-High Dose completed Influenza, high-dose, split virus, quadrivalent, injectable, preservative free 197 CVX created date: 4 administe red date: 3 Td completed tetanus and diphtheria toxoids, adsorbed, preservative free, for adult use (5 Lf of tetanus toxoid and 2 Lf of diphtheria toxoid) 113 CVX created date: 4 administe red date: 8 COVID-19 Vaccine dose 1 completed SARS-COV-2 (COVID-19) vaccine, mRNA, spike protein, LNP, preservative free, 50 mcg/0.5 mL dose Mfg: OMAR 312 CVX created date: 4 administe red date: 1 COVID-19 Vaccine dose 1 completed created date: 1 administe red date: 1 COVID-19 Vaccine dose 2 completed SARS-COV-2 (COVID-19) vaccine, mRNA, spike protein, LNP, preservative free, 50 mcg/0.5 mL dose Mfg: MODERNA 312 CVX created date: 4 administe red date: 1 COVID-19 Vaccine dose 3 completed SARS-COV-2 (COVID-19) vaccine, mRNA, spike protein, LNP, preservative free, 50 mcg/0.5 mL dose Mfg: MODERNA 312 CVX created date: 4 administe red date: 1 COVID-19 Vaccine dose 4 completed SARS-COV-2 (COVID-19) vaccine, mRNA, spike protein, LNP, preservative free, 50 mcg/0.5 mL dose Mfg: MODERNA 312 CVX created date: 4 administe red [...] PERSONAL RISK FACTORS, NOT ELSEWHERE CLASSIFIED [address] active 2 CONTUSION OF LOWER BACK AND PELVIS, SUBSEQUENT ENCOUNTER [address] active 3 HEMOCHROMATOSIS, UNSPECIFIED [address] active 4 HISTORY OF FALLING [address] active 5 FPC (CURRENT) USE OF ANTICOAGULANTS [address] active 6 MEDULLARY CYSTIC KIDNEY [address] active 7 MILD COGNITIVE IMPAIRMENT OF UNCERTAIN OR UNKNOWN ETIOLOGY [address] active 8 ORTHOSTATIC HYPOTENSION [address] active 9 OTHER OBSTRUCTIVE AND REFLUX UROPATHY [address] active 10 OTHER PRIMARY THROMBOPHILIA [address] active 11 PARKINSON'S DISEASE WITHOUT DYSKINESIA, WITH FLUCTUATIONS [address] active 12 PERSONAL HISTORY OF OTHER DISEASES OF THE NERVOUS SYSTEM AND SENSE ORGANS [address] active 13 PRIMARY INSOMNIA [address] active 14 RESTLESS LEGS SYNDROME [address] active 15 HEMARTHROSIS, LEFT KNEE 1 11/06/[address] completed 16 HISTORY OF FALLING 1 11/06/[address] completed 17 UNSPECIFIED FRACTURE OF UPPER END OF LEFT HUMERUS, SUBSEQUENT ENCOUNTER FOR FRACTURE WITH ROUTINE HEALING 1 11/06/[address] completed 18 POLYCYTHEMIA VERA [address] active 19 BENIGN PROSTATIC HYPERPLASIA WITH LOWER URINARY TRACT SYMPTOMS [address] active 20 CONSTIPATION, UNSPECIFIED [address] active 21 ENCOUNTER FOR OTHER ORTHOPEDIC AFTERCARE 0 01/31/[address] completed 22 HEMARTHROSIS, RIGHT KNEE 0 01/31/[address] completed 23 INSOMNIA, UNSPECIFIED 0 01/31/[address] completed 24 PARKINSON'S DISEASE 0 11/06/[address] completed 25 PERSONAL HISTORY OF OTHER VENOUS THROMBOSIS AND EMBOLISM [address] active 26 REM SLEEP BEHAVIOR DISORDER [address] active Reason for Referral No Reasons for Referral Entered Social History Social History Observation Description Start Date End Date Code Code System Current Smoking Status Tobacco smoking consumption unknown 408492858 SNOMED CT Sex Assigned At Male 1950 20151-8 [facility] Gender Identity Vital Signs Code Code System Vitals Name Values and Units Timing Information 02994-0 [facility] Pain Level Value=0.0 11/10/2023 9279-1 [facility] Respiratory Rate Value=18.0 Units=/m in 11/09/2023 8462-4 [facility] Blood Pressure-Diastolic Value=66 Un its=mmHg 11/09/2023 8480-6 [facility] Blood Pressure-Systolic Jlesr=609 Un its=mmHg 11/09/2023 8310-5 [facility] Body Temperature Value=97.9 Units= F 11/09/2023 8867-4 [facility] Heart rate Value=73.0 Units=/min 02/2024 00900-8 [facility] O2 % dC Oximetry Value=97.0 Units= % 11/09/2023 45706-4 [facility] Weight Onlol=298.0 Units=Lbs 02/2024 8302-2 [facility] Height Value=68.0 Units=Inches 10/20/2023
--- OUTSIDE RECORDS SUMMARY | 2025-01-17 18:06 | XMS_ITS | Clinical Summary ---
Author Organization [facility] Address [address] [place] [address] Care Team Providers Care Video Engineer Name Role Phone Ricardo Diaz MD Unavailable Unavaila Macrina Alcantara DO Primary Care Provider [phone] Allergies Active Allergy Reactions Criticality Noted Date Comments Penicillins 11/21/2006 Medications acetaminophen (TYLENOL) 325 mg tablet Take 1 tablet by mouth every 4 hours if needed. Max acetaminophen dose: 4000mg in 24 hrs. 0 11/27/19 15 Active melatonin 3 mg tablet Take 1 tablet by mouth at bedtime. 0 11/18/19 16 Active docusate (COLACE) 100 mg capsule Take 1 capsule by mouth 2 times daily. 0 10/14/19 17 Active artificial tears, peg 400-propylene glycol, (SYSTANE) 0.4-0.3 % dpet ophthalmic 4 Drops once daily if needed for Dry Eyes. 0 10/14/19 17 Active erythromycin ophthalmic ointment 0.5% Apply sparingly HS PRN 0.035 g 08/03/20 17 Active tamsulosin (Flomax) 0.4 mg capsuleIndications :Benign prostatic hyperplasia, unspecified whether lower urinary tract symptoms present Take 1 Capsule (0.4 mg) by mouth once daily after a meal. 90 Capsule 3 09/23/19 24 Active hydrocortisone 2.5% creamIndications:H emorrhoids, external Apply topically to affected area(s) two times daily. 30 g 11/17/19 24 Active hydroxyurea (HYDREA) 500 mg capsuleIndications :Polycythemia vera (HC) Every other day. 45 Capsule 3 11/17/19 24 Active metoprolol tartrate (LOPRESSOR) 25 mg tabletIndications: New onset a-fib (HC) Take 0.5 Tablets (12.5 mg) by mouth two times daily. 90 Tablet 1 12/06/19 24 Active polyethylene glycoL (MIRALAX) 17 gram/scoop powder MIX 8.5-17 GRAMS IN LIQUID DIRECTED AND THEN TAKE BY MOUTH ONCE DAILY IF NEEDED FOR CONSTIPATION 12/07/19 24 Active aspirin (ECOTRIN) 81 mg enteric coated tabletIndications: Polycythemia vera (HC) Take 1 Tablet (81 mg) by mouth once daily with a meal. 360 Tablet 12/15/19 24 Active finasteride (PROSCAR) 5 mg tabletIndications: Benign prostatic hyperplasia, unspecified whether lower urinary tract symptoms present Take 1 Tablet (5 mg) by mouth every morning. 90 Tablet 12/14/19 24 Active apixaban (Eliquis) 2.5 mg tabletIndications: Chronic deep vein thrombosis (DVT) of femoral vein of left lower extremity (HC) TAKE ONE TABLET BY MOUTH TWICE A DAY 180 Tablet 3 03/06/20 24 Active psyllium powdIndications:Ac rod diarrhea Mix 1 tsp in liquid then take by mouth once daily if needed for Constipation. 283 g 11 06/28/20 24 Active fluticasone (50 mcg per actuation) nasal solution (FLONASE)Indicatio ns:Chronic rhinitis Inhale 2 Sprays in both nostrils once daily. 16 g 06/28/20 24 Active amantadine HCL (SYMMETREL) 100 mg tabletIndications: Parkinson's disease with dyskinesia and fluctuating manifestations (HC) Take 1 Tablet (100 mg) by mouth once daily. 90 Tablet 3 09/18/19 25 Active ketoconazole 2 % creamIndications:T inea barbae Apply topically to affected area(s) two times daily. 09/18/19 25 Active clonazePAM (KLONOPIN) 0.5 mg tabletIndications: REM sleep behavior disorder 1/2 TAB (0.25MG) BY MOUTH ONCE DAILY 15 Tablet 5 09/19/19 25 Active amantadine HCL (SYMMETREL) 100 mg capsuleIndications :Parkinson's disease with dyskinesia and fluctuating manifestations (HC) Take 1 Capsule (100 mg) by mouth two times daily. 90 Capsule 3 11/09/19 25 Active carbidopa-levodopa controlled release (25-100 mg) 25-100 mg tablet Take 1 Tablet by mouth two times daily. Active tamsulosin (Flomax) 0.4 mg capsuleIndications :Incomplete bladder emptying Take 2 Capsules (0.8 mg) by mouth once daily after a meal. 180 Capsule 3 01/11/20 25 Active finasteride 5 mg tabletIndications: Incomplete bladder emptying Take 1 Tablet (5 mg) by mouth once daily in the morning. 90 Tablet 3 01/11/20 25 Active Active Problems Problem Noted Date Diagnosed Date Paroxysmal atrial fibrillation 06/28/2024 Fall 11/17/2023 Hematoma 11/17/2023 Polycythemia 11/17/2023 Volar [...] Problem Noted Date Diagnosed Date Resolved Date Encounter for anticoagulatio n monitoring with international normalized ratio (INR) goal of 1.5-2.5 01/20/2022 12/09/2023 Family history of hemochromatosis 04/11/2013 10/14/2016 Family history of colonic polyps 03/23/2012 03/23/2012 Encounters Date Type Department Care Team Description 01/17/2025 Nurse Triage [facility] [address] [place] [address] Macrina Martin DO INFO (Episodes) 01/10/2025 1:00 PM CDT Office Visit [facility] [address] [place] [address] Leta Laird MD Follow Up ([facility]) 01/10/2025 Travel 11/09/2024 Telephone [facility] [address] [place] [address] Macrina Martin DO Medication Management (amantadine HCL (SYMMETREL) 100 mg capsule) 11/05/2024 Telephone [facility] [address] [place] [address] Macrina Martin DO Prior Authorization (amantadine HCL (SYMMETREL) 100 mg tablet (Denied)) 11/05/2024 Telephone [facility] [address] [place] [address] Macrina Martin DO Medication Management from Last 3 Months Immunizations Immunization Administration Dates Next Due AMB INFLUENZA IIV3 (AGE 65+ YRS) PF (Flu Clinic Only) 06/21/2019,07/06/2018 COVID-19 VACCINE SPIKEVAX (M ODERNA 50MCG/0.5ML) 12YO+ PFS 10/11/2023 COVID-19 vaccine (Moderna 100mcg/0.5mL) PF, MDV 12/25/2020,11/03/2020 COVID-19 vaccine (SimilarSites.com-Bio NTech 30mcg/0.3mL) 12YO+ BIVALENT PF, MDV 06/30/2022 COVID-19 vaccine (Pfizer-Bio NTech 30mcg/0.3mL) PF, MDV 06/30/2023 Influenza, High-dose Inactivated 06/11/2024,06/06 Influenza, IIV3 (Age >=3 years) 06/22/2013 Influenza, IIV4 07/15/2015,07/03/2014 Influenza, Inactivated AIIV4 (Age 65+ Years) Preserv Free 06/27/2023,06/02/2022,06/01/2021,05/21 Influenza, Inactivated IIV3 (Age 65+ Years) Preserv Free 06/22/2017 Pneumococcal Poly,23-Valent (Pneumovax) 05/02/2017 Pneumococcal conj 13-Valent (Prevnar 13) 04/30/2016 RSV, Recombinant ADJ Reconst ituted (Arexvy 120MCG/0.5mL) 08/02/2023 Td (Age >=7 Years) 06/07/1997 Td, Preservative Free (age >= 7 Years) 8 Tdap 12/04/2023,07/31/2014 Zoster (Zostavax-ZVL, live) 07/17/2021, 4 Family History Medical History Relation Name Comments [...] Answer Date Recorded PHQ-2 TOTAL SCORE 0 06/28/2024 Social Connections Answer Date Recorded Do you often feel lonely or isolated from those around you? 0 09/18/2024 Financial Resource Strain Answer Date R ecorded Difficulty of Paying Living Expenses 3 09/18/2024 Difficulty of Paying Living Expenses Not on file 09/18/2024 Food Insecurity Answer Date Recorded Do you worry your food will run out before you are able to buy more? 1 09/18/2024 Transportation Needs Answer Date Record ed Does lack of transportation keep you from medica l appointments? 1 09/18/2024 Does lack of transportation keep you from work, meetings or getting things that you need? 1 09/18/2024 Housing Stability Answer Date Recorded What is your housing situation today? 1 09/18/2024 Utilities Answer Date Recorded Do you have trouble paying f or utilities (for example, heat, electricity, water, phone)? 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 Oxygen Saturation 98% 09/18/2024 2:09 PM 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 Inhaled Oxygen Concentration - - Weight 83.1 kg (183 lb 4.8 oz) 01/10/2025 1:17 P M CDT Height 177.5 cm (5' 9.88) 06/28/2024 11:07 AM C DT Body Mass Index 26.39 06/28/2024 11:07 AM CDT Plan of Treatment Upcoming Encounters Date Type Department Care Team (Late st Contact Info) Description 02/01/2025 11:15 AM CDT Office Visit [facility] [place] [address] [facility] [address] [place] [address] Leona Randall MD [address] [facility] [address] [place], [place] [id number] Health Maintenance Due Date Last Done Comments Zoster (shingles) series for age 50+ (1 of 2) 09/11/2021 07/17/2021, 07/17/2014 COVID-19 vaccine series (9 - Moderna risk season) 2024 05/22/2024, 10/11/2023, 06/30/2023, Additional history exists BMI (ht and wt on same day) for age 18+ 06/28/2025 06/28/2024, 08/04/2023, 08/10/2022, Additional history exists Depression screening for age 12+ 06/28/2025 06/28/20 24 Medicare Wellness for age 65+ 06/29/2025, 06/27/2023, 06/02/2022, Additional history exists Colonoscopy through age 75 02/21/202802/20, 02/20/2018, 02/20/2018, Additional history exists Lipids for age 45-75 06/27/2028 06/27/2023, 06/01/2021, 05/21/2020, Additional history exists Tetanus booster 12/03/2033 12/04/2023, 07/07, 09/29/2007, Additional history exists Hepatitis C screening for ag e 18-79 Completed 04/11/2014 Pneumococcal series for age 50+ Completed 7, 04/30/2016 RSV vaccine for adults or Completed 08/02/2023 Tdap Completed 12/04/2023, 07/31/2014 Influenza Vaccine Completed 06/11/2024, , 06/02/2022, Additional history exists Procedures Procedure Name Priority Date/Time Associated Diagnosis Comments PSA TOTAL Routine 01/10/2025 2:13 PM CDT Incomplete bladder emptying SCAN-DIAGNOSTIC REPORT 01/10/2025 12:00 AM CDT LIPID PANEL W REFLEX MEASURED LDL Routine 06/27/2023 10:25 AM CDT Lipid screening COLONOSCOPY SCREENING Routine 02/20/2018 12:00 AM CDT Occult blood positive stool ANTI HCV Routine 04/11/2014 11:37 AM CDT Need for hepatitis C screening test from Last 3 Months or Most Recently Relevant to Health Maintenance Results * PSA TOTAL (01/10/2025 2:13 PM CDT) PSA, TOTAL 0.79 < OR = 4.00 ng/mL [facility] [place] Comment: The total PSA value from this assay system is standardized against the WHO standard. The test result will be approximately 20% lower when compared to the equimolar-standardized total PSA ([place]kel [place]). Comparison of serial PSA results should be interpreted with this fact in mind. This test was performed using the Siemens chemiluminescent method. Values obtained from different assay methods cannot be used interchangeably. PSA levels, regardless of value, should not be interpreted as absolute evidence of the presence or absence of disease. Blood BLOOD SPECIMEN / Unknown 01/10/2025 2:13 PM CDT 01/10/2025 2:14 PM CDT Leta Laird MD CHEMISTRY Final Result [employer] [facility] [address] [place] [address], [facility] [address] [place] [address] * SCAN-DIAGNOSTIC REPORT (01/10/2025 12:00 AM CDT) Scanner OTHER Final Result * LIPID PANEL W REFLEX MEASURED LDL (06/27/2023 10:25 AM CDT) CHOLESTEROL,TOTAL 157 100 - 199 mg/dL 06/27/2023 5:13 PM CDT [facility] Comment: Cholesterol, Total Reference Ranges Desirable <200 mg/dL Borderline 200-239 mg/dL High >=240 mg/dL TRIGLYCERIDES 66 <150 mg/dL 06/27/2023 5:13 PM CDT [facility] HDL CHOLESTEROL 62 >40 mg/dL 5:13 PM CDT [facility] NON-HDL CHOLESTEROL 95 <145 mg/dl 06/27/2023 5:13 PM CDT [facility] CHOL/HDL RATIO 2.53 <4.50 06/27/2023 5:13 PM CDT [facility] LDL CHOLESTEROL 82 <=130 mg/dL 06/27/2023 5:13 PM CDT [facility] VLDL CHOLESTEROL 13 <=30 mg/dL 06/27/2023 5:13 PM CDT [facility] PROVIDER ORDERED STATUS RANDOM 06/27/2023 5:13 PM CDT [facility] Blood BLOOD SPECIMEN / Unknown Venipuncture / Unknown 06/27/2023 10:25 AM CDT 06/27/2023 10:25 AM CDT us Macrina Martin DO CHEMISTRY Final Result [facility] [address] [place] [address], * COLONOSCOPY SCREENING (02/20/2018 12:00 AM CDT) us John Ochoa MD GI PROCEDURE ORD Final Re sult * ANTI HCV [62732.2] (04/11/2014 11:37 AM CDT) HEPATITIS C ANTIBODY Non-Reacti ve Non-Reacti ve 04/11/2014 9:00 PM CDT [facility] Blood specimen (specimen) BLOOD SPECIMEN / Unknown Venipuncture / Unknown 04/11/2014 11:37 AM CDT 04/11/2014 11:37 AM CDT Narrative [facility] - 04/11/2014 9:00 PM CDT Antibodies to HCV not detected; does not exclude the possibility of exposure to HCV. us Omer Magdaleno MD SEND OUTS Final Re sult [facility] [address] [place] [address], from Last 3 Months or Most Recently Relevant to Health Maintenance Insurance [id number] [facility] [place] [id number] [employer] BLUE MR PB ONLY [place] BLUE HB ONLY MEDICARE PART B HB ONLY Advance Directives Documents on File Type Date Recorded Patient Ekg Monitor Tech Expl anation POLST 12/08/2023 Healthcare Directive 06/27/2017 11:07 AM BRYANNA [place], 10/24/1997 Healthcare Directive 06/07/2016 12:06 PM Juan Ramon [place], 10/24/1997 Care Teams Video Engineer Relationship Specialty Start Date End Date Macrina Martin DO [address] [place] [address] PCP - General Family Practice 08/10/22 Ricardo Diaz MD Neurology Neurology 03/02/11
[2025-01-17 18:11] LABS: Appearance Urine Clear (Clear); Bilirubin Urine Negative (Negative); Blood Urine Negative (Negative); Color Urine Yellow (Yellow); Glucose Urine Negative (Negative); Ketones Urine Negative (Negative); Leukocyte Esterase Urine Negative (Negative); Nitrite Urine Negative (Negative); Protein Urine 1+ (Negative); Urobilinogen Urine 0.2 (0.2-1.0)
[2025-01-17 18:17] VITALS: BP 146/93; PULSE 79; RESP 21; O2SAT 96
[2025-01-17 18:22] LABS: RBC Urine 0-2 (0-2); Squamous Epithelial Cell Urine Few (None-Few); WBC Urine 0-2 (0-5)
[2025-01-17 18:28] LABS: Basophils Absolute Auto 0.05 K/uL (0.00-0.30); Basophils Percent Auto 0.5 % (0.0-3.0); Eosinophils Absolute Auto 0.23 K/uL (0.00-0.50); Eosinophils Percent Auto 2.4 % (0.0-7.0); Hematocrit 39.2 % (37.0-53.0); Hemoglobin* 13.4 gm/dL (13.5-17.5); Immature Granulocytes Abs Auto 0.76 K/uL (0.00-0.30); Lymphocytes Percent Auto 15.2 % (20-44); Mean Corpuscular HGB Conc 34 gm/dL (32-36); Mean Corpuscular Hemoglobin 37 pg (26-34); Mean Corpuscular Volume 108 fL (80-100); Monocytes Percent Auto 7.9 % (0.0-11.0); Neutrophils Absolute Auto 6.27 K/uL (1.7-7.0); Platelet Count* 164 K/uL (140-440); RDW Coefficient of Variation % 15.4 % (11.5-15.5); Red Blood Count 3.62 m/uL (4.30-5.90)
[2025-01-17] MEDS: LACTATED RINGERS 1000 ML 1,000 ML IV (18:30)
[2025-01-17 18:32] LABS: Troponin, Point-of-Care* 0.01 ng/ml (0.01-0.04)
[2025-01-17 18:39] LABS: Chloride* 105 mmol/L (96-114); Potassium* 4.3 mmol/L (3.6-5.1); Sodium* 140 mmol/L (135-149)
[2025-01-17 18:41] LABS: Slide Review Reflex No
[2025-01-17 18:42] LABS: Anion Gap 10 mEq/L (7-15); Blood Urea Nitrogen* 36 mg/dL (7-30); Calcium* 8.9 mg/dL (8.4-10.6); Carbon Dioxide* 25 mmol/L (20-32); Creatinine* 1.5 mg/dL (0.5-1.5); Est. Creatinine Clearance* 46.71; Estimated Glomerular Filt Rate 49 ml/min; Glucose* 121 mg/dL (60-115); Magnesium* 2.3 mg/dL (1.5-2.6)
--- OUTSIDE RECORDS SUMMARY | 2025-01-17 18:43 | XMS_ITS ---
Author Organization [facility] [place] Care Team Providers Care Equine Manager Name Role Phone Nadya Nguyen Unavailable Unavailable Lala Gloria Unavailable Unavailable Clifton Luke Unavailable Unavailable Allergies and adverse reactions Code CodeSystem Substance Reaction Severity StartDate Concern Status 7984 RXNORM Penicillin Anaphylaxis (co de- [id number], SNOMED CT) Moderate 05/23/2019 active Care Team Name Role Address Phone Organization Dates Clifton Luke PCP Genevive [address] [facility], [address], [place], [place], [facility], [place] (Office): [facility] 10/17/2023 - 11/10/2023 Nadya Nguyen [facility], [facility] 10/17/2023 - 11/10/2023 Lala Gloria Genevive [address] [facility] [address], [place], [place], [facility], [facility] (Office): : [facility] 10/17/2023 - 11/10/2023 Immunizations Immunization Status Vaccine Details Vaccine Code CodeSystem Date Notes TB 2 Step Mantoux Skin Test completed tuberculin skin test; unspecified formulation Step 2 of Multi-step with next step required 98 CVX created date: 4 consent date: 4 administe red date: 4 TB 2 Step Mantoux Skin Test completed tuberculin skin test; unspecified formulation lotNumber: [id number] expiry: 01/02/2027 Mfg: [employer] Given 0.1 ml Right Forearm intradermally Step 1 of Multi-step with next step required 98 CVX created date: 4 consent date: 4 administe red date: 4 Educated by Celia Ortega RN on 07/16/2024 TB 2 Step Mantoux Skin Test completed tuberculin skin test; unspecified formulation lotNumber: [id number] expiry: 11/02/2020 Mfg: [employer] Given 0.1 ml Right Forearm intradermally Step 2 of Multi-step with next step required 98 CVX created date: 1 consent date: 1 administe red date: 1 Read by Laverne Son LPN TB 2 Step Mantoux Skin Test completed tuberculin skin test; unspecified formulation lotNumber: [id number] expiry: 11/02/2021 Mfg: [employer] Given 0.1 [...] completed tuberculin skin test; unspecified formulation lotNumber: [id number] expiry: 01/24/2021 Mfg: sanofi pasteur Given 0.1 [...] date: 0 administe red date: 7 PCV13, [id number] completed pneumococcal conjugate vaccine, 13 valent 133 [...] PERSONAL RISK FACTORS, NOT ELSEWHERE CLASSIFIED [address] active 2 CONTUSION OF LOWER BACK AND PELVIS, SUBSEQUENT ENCOUNTER [address] active 3 HEMOCHROMATOSIS, UNSPECIFIED [address] active 4 HISTORY OF FALLING [address] active 5 ALF (CURRENT) USE OF ANTICOAGULANTS [address] active 6 MEDULLARY CYSTIC KIDNEY [address] active 7 MILD COGNITIVE IMPAIRMENT OF UNCERTAIN OR UNKNOWN ETIOLOGY [address] active 8 ORTHOSTATIC HYPOTENSION [address] active 9 OTHER OBSTRUCTIVE AND REFLUX UROPATHY [address] active 10 OTHER PRIMARY THROMBOPHILIA [address] active 11 PARKINSON'S DISEASE WITHOUT DYSKINESIA, WITH FLUCTUATIONS [address] active 12 PERSONAL HISTORY OF OTHER DISEASES OF THE NERVOUS SYSTEM AND SENSE ORGANS [address] active 13 PRIMARY INSOMNIA [address] active 14 RESTLESS LEGS SYNDROME [address] active 15 HEMARTHROSIS, LEFT KNEE 1 11/06/[address] completed 16 HISTORY OF FALLING 1 11/06/[address] completed 17 UNSPECIFIED FRACTURE OF UPPER END OF LEFT HUMERUS, SUBSEQUENT ENCOUNTER FOR FRACTURE WITH ROUTINE HEALING 1 11/06/[address] completed 18 POLYCYTHEMIA VERA [address] active 19 BENIGN PROSTATIC HYPERPLASIA WITH LOWER URINARY TRACT SYMPTOMS [address] active 20 CONSTIPATION, UNSPECIFIED [address] active 21 ENCOUNTER FOR OTHER ORTHOPEDIC AFTERCARE 0 01/31/[address] completed 22 HEMARTHROSIS, RIGHT KNEE 0 01/31/[address] completed 23 INSOMNIA, UNSPECIFIED 0 01/31/[address] completed 24 PARKINSON'S DISEASE 0 11/06/[address] completed 25 PERSONAL HISTORY OF OTHER VENOUS THROMBOSIS AND EMBOLISM [address] active 26 REM SLEEP BEHAVIOR DISORDER [address] active Reason for Referral No Reasons for Referral Entered Social History Social History Observation Description Start Date End Date Code Code System Current Smoking Status Tobacco smoking consumption unknown 913628379 SNOMED CT Sex Assigned At Male 1950 96255-9 [facility] Gender Identity Vital Signs Code Code System Vitals Name Values and Units Timing Information 49618-3 [facility] Pain Level Value=0.0 11/10/2023 9279-1 [facility] Respiratory Rate Value=18.0 Units=/m in 11/09/2023 8462-4 [facility] Blood Pressure-Diastolic Value=66 Un its=mmHg 11/09/2023 8480-6 [facility] Blood Pressure-Systolic Gdllh=857 Un its=mmHg 11/09/2023 8310-5 [facility] Body Temperature Value=97.9 Units= F 11/09/2023 8867-4 [facility] Heart rate Value=73.0 Units=/min 02/2024 70863-6 [facility] O2 % BldC Oximetry Value=97.0 Units= % 11/09/2023 83479-9 [facility] Weight Sulii=531.0 Units=Lbs 02/2024 8302-2 [facility] Height Value=68.0 Units=Inches 10/20/2023
--- OUTSIDE RECORDS SUMMARY | 2025-01-17 18:43 | XMS_ITS ---
Author Organization [facility] Care Team Providers Care Three Dimensional Art Instructor Name Role Phone Nadya Nguyen Unavailable Unavailable Lala Gloria Unavailable Unavailable Clifton Luke Unavailable Unavailable Allergies and adverse reactions Code CodeSystem Substance Reaction Severity StartDate Concern Status 7984 RXNORM Penicillin Moderate 05/23/2019 active Care Team Name Role Address Phone Organization Dates Clifton Luke PCP Genevive [address] [facility], [address], [place], [place], [facility], [facility] (Office): [facility] 10/17/2023 - 11/10/2023 Nadya Nguyen [facility] 10/17/2023 - 11/10/2023 Lala Gloria Genevive [address] [facility] [address], [address], [place] (Office): : [facility] 10/17/2023 - 11/10/2023 Immunizations Immunization Status Vaccine Details Vaccine Code CodeSystem Date Notes TB 2 Step Mantoux Skin Test completed tuberculin skin test; unspecified formulation Step 2 of Multi-step with next step required 98 CVX created date: 4 consent date: 4 administe red date: 4 TB 2 Step Mantoux Skin Test completed tuberculin skin test; unspecified formulation lotNumber: [id number] expiry: 01/02/2027 Mfg: Sanof[employer] P[employer] Given 0.1 ml Right Forearm intradermally Step 1 of Multi-step with next step required 98 CVX created date: 4 consent date: 4 administe red date: 4 Educated by Celia Ortega RN on 07/16/2024 TB 2 Step Mantoux Skin Test completed tuberculin skin test; unspecified formulation lotNumber: [id number] expiry: 11/02/2020 Mfg: [employer] Given 0.1 ml Right Forearm intradermally Step 2 of Multi-step with next step required 98 CVX created date: 1 consent date: 1 administe red date: 1 Read by Laverne Son LPN TB 2 Step Mantoux Skin Test completed tuberculin skin test; unspecified formulation lotNumber: [id number] expiry: 11/02/2021 Mfg: [employer] Given 0.1 [...] completed tuberculin skin test; unspecified formulation lotNumber: [id number] expiry: 01/24/2021 Mfg: Sanofi Pasteur Given 0.1 [...] PERSONAL RISK FACTORS, NOT ELSEWHERE CLASSIFIED [address] active 2 CONTUSION OF LOWER BACK AND PELVIS, SUBSEQUENT ENCOUNTER [address] active 3 HEMOCHROMATOSIS, UNSPECIFIED [address] active 4 HISTORY OF FALLING [address] active 5 INTERMEDIATE (CURRENT) USE OF ANTICOAGULANTS [address] active 6 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 7 MILD COGNITIVE IMPAIRMENT OF UNCERTAIN OR UNKNOWN ETIOLOGY [address] active 8 ORTHOSTATIC HYPOTENSION [address] active 9 OTHER OBSTRUCTIVE AND REFLUX UROPATHY [address] active 10 OTHER PRIMARY THROMBOPHILIA [address] active 11 PARKINSON'S DISEASE WITHOUT DYSKINESIA, WITH FLUCTUATIONS [address] active 12 PERSONAL HISTORY OF OTHER DISEASES OF THE NERVOUS SYSTEM AND SENSE ORGANS [address] active 13 PRIMARY INSOMNIA [address] active 14 RESTLESS LEGS SYNDROME [address] active 15 HEMARTHROSIS, LEFT KNEE 1 11/06/[address] completed 16 HISTORY OF FALLING 1 11/06/[address] completed 17 UNSPECIFIED FRACTURE OF UPPER END OF LEFT HUMERUS, SUBSEQUENT ENCOUNTER FOR FRACTURE WITH ROUTINE HEALING 1 11/06/[address] completed 18 POLYCYTHEMIA VERA [address] active 19 BENIGN PROSTATIC HYPERPLASIA WITH LOWER URINARY TRACT SYMPTOMS [address] active 20 CONSTIPATION, UNSPECIFIED [address] active 21 ENCOUNTER FOR OTHER ORTHOPEDIC AFTERCARE 0 01/31/[address] completed 22 HEMARTHROSIS, RIGHT KNEE 0 01/31/[address] completed 23 INSOMNIA, UNSPECIFIED 0 01/31/[address] completed 24 PARKINSON'S DISEASE 0 11/06/[address] completed 25 PERSONAL HISTORY OF OTHER VENOUS THROMBOSIS AND EMBOLISM [address] active 26 REM SLEEP BEHAVIOR DISORDER [address] active Reason for Referral No Reasons for Referral Entered Social History Social History Observation Description Start Date End Date Code Code System Current Smoking Status Tobacco smoking consumption unknown 284478463 SNOMED CT Sex Assigned At Male 1950 48773-9 [facility] Gender Identity Vital Signs Code Code System Vitals Name Values and Units Timing Information 31323-6 [facility] Pain Level Value=0.0 11/10/2023 9279-1 [facility] Respiratory Rate Value=18.0 Units=/m in 11/09/2023 8462-4 [facility] Blood Pressure-Diastolic Value=66 Un its=mmHg 11/09/2023 8480-6 [facility] Blood Pressure-Systolic Yriui=476 Un its=mmHg 11/09/2023 8310-5 [facility] Body Temperature Value=97.9 Units= F 11/09/2023 8867-4 [facility] Heart rate Value=73.0 Units=/min 02/2024 60294-8 [facility] O2 % dC Oximetry Value=97.0 Units= % 11/09/2023 54296-7 [facility] Weight Klmoz=922.0 Units=Lbs 02/2024 8302-2 [facility] Height Value=68.0 Units=Inches 10/20/2023
--- OUTSIDE RECORDS SUMMARY | 2025-01-17 18:43 | XMS_ITS | Clinical Summary ---
Author Organization [facility] Address [address] [place] [address] Care Team Providers Care Customer Care Specialist Name Role Phone Ricardo Diaz MD Unavailable Unavaila Macrina Alcantara DO Primary Care Provider [phone] Allergies Active Allergy Reactions Criticality Noted Date [...] Department Care Team Description 01/17/2025 Nurse Triage [facility] [address] [place] [address] Macrina Martin DO INFO (Episodes) 01/10/2025 1:00 PM CDT Office Visit [facility] [address] [place] [address] Leta Laird MD Follow Up ([facility]) 01/10/2025 Travel 11/09/2024 Telephone [facility] [address] [place] [address] Macrina Martin DO Medication Management (amantadine HCL (SYMMETREL) 100 mg capsule) 11/05/2024 Telephone [facility] [address] [place] [address] Macrina Martin DO Prior Authorization (amantadine HCL (SYMMETREL) 100 mg tablet (Denied)) 11/05/2024 Telephone [facility] [address] [place] [address] Macrina Martin DO Medication Management from Last 3 Months Immunizations Immunization Administration Dates Next Due AMB INFLUENZA IIV3 (AGE 65+ YRS) PF (Flu Clinic Only) 06/21/2019,07/06/2018 COVID-19 VACCINE SPIKEVAX (M ODERNA 50MCG/0.5ML) 12YO+ PFS 10/11/2023 COVID-19 vaccine (Moderna 100mcg/0.5mL) PF, MDV 12/25/2020,11/03/2020 COVID-19 vaccine (TetraVitae Bioscience-Bio NTech 30mcg/0.3mL) 12YO+ BIVALENT PF, MDV 06/30/2022 [...] on file Legal Sex Male 5:26 AM [employer] Gender Identity Not on file Sexual Orientation [...] CDT Respiratory Rate 16 07/27/2021 1:22 PM [employer] TE[employer] Oxygen Saturation 98% 09/18/2024 2:09 PM [employer] TE[employer] Inhaled Oxygen Concentration - - Weight 83.1 kg (183 lb 4.8 oz) 01/10/2025 1:17 P M CDT Height 177.5 cm (5' 9.88) 06/28/2024 11:07 AM C DT Body Mass Index 26.39 06/28/2024 11:07 AM CDT Plan of Treatment Upcoming Encounters Date Type Department Care Team (Late st Contact Info) Description 02/01/2025 11:15 AM CDT Office Visit [facility] [place] [address] [facility] [address] [place] [address] Leona Randall MD [address] [facility] [address] [place], [place] [address] Health Maintenance Due Date Last Done Comments [...] compared to the equimolar-standardized total PSA (Maykel Cary). Comparison of serial PSA results should be [...] CDT Leta Laird MD CHEMISTRY Final Result [employer] [address] [place] [address], [facility] [address] [place] [address] * SCAN-DIAGNOSTIC REPORT (01/10/2025 12:00 AM CDT) Scanner OTHER Final Result * LIPID PANEL W REFLEX MEASURED LDL (06/27/2023 10:25 AM CDT) CHOLESTEROL,TOTAL 157 100 - 199 mg/dL 06/27/2023 5:13 PM CDT [facility] Comment: Cholesterol, Total Reference Ranges Desirable <200 mg/dL Borderline 200-239 mg/dL High >=240 mg/dL TRIGLYCERIDES 66 <150 mg/dL 06/27/2023 5:13 PM CDT [facility] HDL CHOLESTEROL 62 >40 mg/dL 5:13 PM CDT [facility] NON-HDL CHOLESTEROL 95 <145 mg/dl 06/27/2023 5:13 PM CDT [facility] CHOL/HDL RATIO 2.53 <4.50 06/27/2023 5:13 PM CDT [facility] LDL CHOLESTEROL 82 <=130 mg/dL 06/27/2023 5:13 PM CDT [facility] VLDL CHOLESTEROL 13 <=30 mg/dL 06/27/2023 5:13 PM CDT [facility] PROVIDER ORDERED STATUS RANDOM 06/27/2023 5:13 PM CDT [facility] Blood BLOOD SPECIMEN / Unknown Venipuncture / Unknown 06/27/2023 10:25 AM CDT 06/27/2023 10:25 AM CDT us Macrina Martin DO CHEMISTRY Final Result [facility] [address] [place] [address], * COLONOSCOPY SCREENING (02/20/2018 12:00 AM CDT) us John Ochoa MD GI PROCEDURE ORD Final Re sult * ANTI HCV [25436.2] (04/11/2014 11:37 AM CDT) HEPATITIS C ANTIBODY Non-Reacti ve Non-Reacti ve 04/11/2014 9:00 PM CDT [facility] Blood specimen (specimen) BLOOD SPECIMEN / Unknown Venipuncture / Unknown 04/11/2014 11:37 AM CDT 04/11/2014 11:37 AM CDT Narrative [facility] - 04/11/2014 9:00 PM CDT Antibodies to HCV not detected; does not exclude the possibility of exposure to HCV. us Oemr Magdaleno MD SEND OUTS Final Re sult [facility] [address] [place] [address], from Last 3 Months or Most Recently Relevant to Health Maintenance Insurance [id number] [facility] [place] [id number] [employer] BLUE MR PB ONLY BLUE [employer] BLUE HB ONLY MEDICARE PART B HB ONLY Advance Directives Documents on File Type Date Recorded Patient Butcher Helper Expl anation POLST 12/08/2023 Healthcare Directive 06/27/2017 11:07 AM BRYANNA [place], 10/24/1997 Healthcare Directive 06/07/2016 12:06 PM Juan Ramon [place], 10/24/1997 Care Teams Customer Care Specialist Relationship Specialty Start Date End Date Macrina Martin DO [address] [place] [address] PCP - General Family Practice 08/10/22 Ricardo Diaz MD Neurology Neurology 03/02/11
== END 2025-01-17 19:24 | disposition home or self-care (01) ==
PROVIDERS: Emergency Provider Student in an Organized Health Care Education/Training Program; PCP Student in an Organized Health Care Education/Training Program
DX: R42 Dizziness and giddiness (principal)
CPT/HCPCS: 36415; 70450; 80048; 81001; 83735; 84484; 85025; 93005; 99284; J7120

== ENCOUNTER 2025-02-11 13:00 | Outpatient (RCR) | payer MEDICARE, BC, SELFPAY ==
[2024-08-20 09:56] LABS: Basophils Absolute Auto 0.04 K/uL (0.00-0.30); Basophils Percent Auto 0.5 % (0.0-3.0); Eosinophils Absolute Auto 0.25 K/uL (0.00-0.50); Eosinophils Percent Auto 3.2 % (0.0-7.0); Hematocrit 40.3 % (37.0-53.0); Hemoglobin* 13.5 gm/dL (13.5-17.5); Immature Granulocytes Abs Auto 0.53 K/uL (0.00-0.30); Immature Granulocytes Pct Auto 6.9 %; Mean Corpuscular HGB Conc 34 gm/dL (32-36); Mean Corpuscular Hemoglobin 37 pg (26-34); Mean Corpuscular Volume 109 fL (80-100); Monocytes Percent Auto 10.5 % (0.0-11.0); Neutrophils Absolute Auto 4.62 K/uL (1.7-7.0); Neutrophils Percent Auto 59.9 % (42.0-72.0); Platelet Count* 165 K/uL (140-440); RDW Coefficient of Variation % 14.6 % (11.5-15.5); Red Blood Count 3.69 m/uL (4.30-5.90); White Blood Count* 7.72 K/uL (4.50-11.00)
[2024-08-20 10:01] LABS: Slide Review Reflex No
[2024-08-20 10:13] LABS: Albumin* 4.3 g/dL (3.3-5.0); Chloride* 104 mmol/L (96-114); Potassium* 4.4 mmol/L (3.6-5.1); Sodium* 138 mmol/L (135-149)
[2024-08-20 10:15] LABS: Anion Gap 9 mEq/L (7-15); Bilirubin Total* 0.6 mg/dL (0.1-1.5); Carbon Dioxide* 25 mmol/L (20-32); Creatinine* 1.1 mg/dL (0.5-1.5); Estimated Glomerular Filt Rate 71 ml/min
[2024-08-20 10:16] LABS: Alanine Aminotransferase* 6 U/L (4-50); Alkaline Phosphatase* 63 U/L (40-150); Aspartate Amino Transferase* 16 U/L (12-35); Blood Urea Nitrogen* 30 mg/dL (7-30); Calcium* 9.1 mg/dL (8.4-10.6); Glucose* 85 mg/dL (60-115); Lactate Dehydrogenase* 213 U/L (120-246); Total Protein* 7.3 g/dL (6.0-8.3)
[2024-11-12 13:35] LABS: Basophils Absolute Auto 0.06 K/uL (0.00-0.30); Basophils Percent Auto 0.7 % (0.0-3.0); Eosinophils Absolute Auto 0.31 K/uL (0.00-0.50); Eosinophils Percent Auto 3.4 % (0.0-7.0); Hematocrit 42.5 % (37.0-53.0); Hemoglobin* 14.2 gm/dL (13.5-17.5); Immature Granulocytes Abs Auto 0.79 K/uL (0.00-0.30); Immature Granulocytes Pct Auto 8.7 %; Lymphocytes Percent Auto 19.3 % (20-44); Mean Corpuscular HGB Conc 33 gm/dL (32-36); Mean Corpuscular Hemoglobin 37 pg (26-34); Mean Corpuscular Volume 110 fL (80-100); Neutrophils Absolute Auto 5.45 K/uL (1.7-7.0); Neutrophils Percent Auto 59.9 % (42.0-72.0); Platelet Count* 179 K/uL (140-440); RDW Coefficient of Variation % 14.4 % (11.5-15.5); Red Blood Count 3.86 m/uL (4.30-5.90)
[2024-11-12 13:40] LABS: Slide Review Reflex No
[2024-11-12 13:49] LABS: Albumin* 4.6 g/dL (3.3-5.0); Chloride* 102 mmol/L (96-114); Sodium* 138 mmol/L (135-149)
[2024-11-12 13:52] LABS: Alanine Aminotransferase* 7 U/L (4-50); Alkaline Phosphatase* 51 U/L (40-150); Anion Gap 11 mEq/L (7-15); Aspartate Amino Transferase* 17 U/L (12-35); Bilirubin Total* 0.9 mg/dL (0.1-1.5); Blood Urea Nitrogen* 31 mg/dL (7-30); Calcium* 8.6 mg/dL (8.4-10.6); Carbon Dioxide* 25 mmol/L (20-32); Creatinine* 1.1 mg/dL (0.5-1.5); Estimated Glomerular Filt Rate 71 ml/min; Glucose* 113 mg/dL (60-115); Lactate Dehydrogenase* 190 U/L (120-246); Total Protein* 7.6 g/dL (6.0-8.3)
[2024-11-12 14:26] LABS: Ferritin* 56.4 ng/mL (17.9-464.0)
[2025-02-11 13:32] LABS: Basophils Absolute Auto 0.04 K/uL (0.00-0.30); Basophils Percent Auto 0.5 % (0.0-3.0); Eosinophils Absolute Auto 0.26 K/uL (0.00-0.50); Eosinophils Percent Auto 3.1 % (0.0-7.0); Hematocrit 36.8 % (37.0-53.0); Hemoglobin* 12.4 gm/dL (13.5-17.5); Immature Granulocytes Abs Auto 0.75 K/uL (0.00-0.30); Immature Granulocytes Pct Auto 9.1 %; Mean Corpuscular HGB Conc 34 gm/dL (32-36); Mean Corpuscular Hemoglobin 37 pg (26-34); Mean Corpuscular Volume 110 fL (80-100); Monocytes Percent Auto 8.5 % (0.0-11.0); Neutrophils Absolute Auto 4.95 K/uL (1.7-7.0); Neutrophils Percent Auto 59.8 % (42.0-72.0); Platelet Count* 174 K/uL (140-440); RDW Coefficient of Variation % 15.1 % (11.5-15.5); Red Blood Count 3.35 m/uL (4.30-5.90); White Blood Count* 8.27 K/uL (4.50-11.00)
[2025-02-11 13:52] LABS: Slide Review Reflex No
[2025-02-11 14:07] LABS: Albumin* 4.4 g/dL (3.3-5.0); Chloride* 103 mmol/L (96-114); Potassium* 4.4 mmol/L (3.6-5.1); Sodium* 138 mmol/L (135-149)
[2025-02-11 14:09] LABS: Alanine Aminotransferase* 9 U/L (4-50); Alkaline Phosphatase* 51 U/L (40-150); Anion Gap 10 mEq/L (7-15); Aspartate Amino Transferase* 32 U/L (12-35); Bilirubin Total* 0.8 mg/dL (0.1-1.5); Blood Urea Nitrogen* 33 mg/dL (7-30); Carbon Dioxide* 25 mmol/L (20-32); Creatinine* 1.5 mg/dL (0.5-1.5); Est. Creatinine Clearance* 44.61; Estimated Glomerular Filt Rate 49 ml/min
[2025-02-11 14:10] LABS: Calcium* 8.8 mg/dL (8.4-10.6); Glucose* 90 mg/dL (60-115); Lactate Dehydrogenase* 190 U/L (120-246); Total Protein* 7.4 g/dL (6.0-8.3)
--- NOTE | 2025-02-13 13:16 | ONC.NURNOTE ---
lab results reviewed by Dr Cruz and called to Malik same dose QOD one hydrea next appts confirmed for 05/13 denies any further questions or concerns
== END 2025-02-16 23:59 | disposition home or self-care (01) ==
LOC: CCIC 13:00
PROVIDERS: PCP Student in an Organized Health Care Education/Training Program; Referring Provider Student in an Organized Health Care Education/Training Program; Visit Provider Internal Medicine Hematology & Oncology
DX: D45 Polycythemia vera (principal); E83.110 Hereditary hemochromatosis; I48.91 Unspecified atrial fibrillation; Z79.01 Long term (current) use of anticoagulants
CPT/HCPCS: 36415; 80053; 82728; 83615; 85025; 99213; 99214; G0463

== ENCOUNTER 2025-04-17 13:01 | Outpatient (CLI) | payer MEDICARE, BC, SELFPAY | END 2025-04-17 13:02 | disposition home or self-care (01) | LOC: AMB 04-18 15:29 | PROVIDERS: PCP Student in an Organized Health Care Education/Training Program; Visit Provider Family Medicine | DX: R55 Syncope and collapse (principal) | CPT/HCPCS: A0425; A0427 ==

== ENCOUNTER 2025-04-17 13:31 | Emergency (ER) | payer MEDICARE, BC, SELFPAY ==
--- OUTSIDE RECORDS SUMMARY | 2025-04-17 13:34 | XMS_ITS | Clinical Summary ---
Author Organization [facility] Address [address] [place] [id number] Care Team Providers Care Aws Developer Name Role Phone Ricardo Diaz MD Unavailable Unavaila Macrina Alcantara DO Primary Care Provider [phone] Allergies Active Allergy Reactions Criticality Noted Date Comments Penicillins 11/21/2006 Medications hydroxyurea (HYDREA) 500 mg capsuleIndication s:Polycythemia vera (HC) Every other day. 45 Capsule 3 11/17/19 24 Active aspirin (ECOTRIN) 81 mg enteric coated tabletIndications :Polycythemia vera (HC) Take 1 Tablet (81 mg) by mouth once daily with a meal. 360 Tablet 12/15/19 24 Active apixaban (Eliquis) 2.5 mg tabletIndications :Chronic deep vein thrombosis (DVT) of femoral vein of left lower extremity (HC) TAKE ONE TABLET BY MOUTH TWICE A DAY 180 Tablet 3 03/06/20 24 Active fluticasone (50 mcg per actuation) nasal solution (FLONASE)Indicati ons:Chronic rhinitis Inhale 2 Sprays in both nostrils once daily. 16 g 06/28/20 24 Active finasteride 5 mg tabletIndications :Incomplete bladder emptying Take 1 Tablet (5 mg) by mouth once daily in the morning. 90 Tablet 3 01/11/20 25 Active amantadine HCL 100 mg capsuleIndication s:Parkinson's disease without dyskinesia, with fluctuating manifestations (HC) Take 1 Capsule (100 mg) by mouth two times daily. at 7:45am and 12pm. 180 Capsule 3 02/02/20 25 Active carbidopa-levodop a controlled release (50-200 mg) 50-200 mg tabletIndications :Parkinson's disease without dyskinesia, with fluctuating manifestations (HC) Take 1 Tablet by mouth once daily. at 9:45pm 90 Tablet 3 02/02/20 25 Active carbidopa-levodop a (25-100 mg) 25-100 mg tabletIndications :Parkinson's disease without dyskinesia, with fluctuating manifestations (HC) Take 2 Tablets by mouth three times daily. at 7:45am, 12pm, and 4pm. 540 Tablet 02/02/20 25 Active polyethylene glycol 17 g per packet packetIndications :Slow transit constipation Mix 17 g (1 Packet) in liquid then take by mouth once daily. 100 Each 02/02/20 25 Active bisacodyL (Dulcolax (bisacodyl)) 10 mg suppository Insert 10 mg rectally once daily if needed. Active aluminum-magnesiu m hydroxide-simethi cone (Kathia-Lanta) 200-200-20 mg/5 mL suspension Take 30 mL by mouth 4 times daily if needed for GI Upset. Shake Well. Active loperamide (Anti-Diarrheal) 2 mg tablet each time if needed for Diarrhea. Take 2 tablets (4mg) orally with 1st loose stool, then 1 tablet (2mg) with other loose stools. Max 8 tablets (16 mg) in 24 hrs. Active midodrine 5 mg tablet Take 10 mg by mouth three times daily. Active Milk of Magnesia 400 mg/5 mL suspension Take 30 mL by mouth once daily if needed for Constipatio n. Active tamsulosin (Flomax) 0.4 mg capsuleIndication s:Incomplete bladder emptying Take 1 Capsule (0.4 mg) by mouth once daily after a meal. 180 Capsule 3 02/09/20 25 Active clonazePAM (KLONOPIN) 0.5 mg tabletIndications :REM sleep behavior disorder 1/2 TAB (0.25MG) BY MOUTH ONCE DAILY 15 Tablet 5 03/21/20 25 Active clonazePAM (KLONOPIN) 0.5 mg tabletIndications :REM sleep behavior disorder 1/2 TAB (0.25MG) BY MOUTH ONCE DAILY 15 Tablet 5 09/19/19 25 025 Discontinued metoprolol tartrate 25 mg tabletIndications :New onset a-fib (HC) Take 0.5 pill once daily for 2 weeks and then stop. 7 Tablet 02/09/20 25 025 Discontinued(* Patient states no longer taking) Active Problems Problem Noted Date Diagnosed Date [...] Encounters Date Type Department Care Team Description 04/12/2025 2:15 PM CDT Ancillary Procedure [facility] [address] [facility] [place] [address] Arrived 04/12/2025 1:25 PM CDT Office Visit [facility] [address] [place] [address] Naomi Puente MD Fall (Fell 6 days ago. /blacked out /Pain has been worsening throughout the week - Left abdominal area ); Arm Pain/problem (Left upper arm bruise from 1 month ago. ) 04/12/2025 Travel 04/09/2025 Refill [facility] [address] [place] [address] Macrina Martin DO Refill Request (Hydrocortisone) 03/21/2025 Refill [facility] [address] [place] [address] Macrina Martin DO Refill Request (Clonazepam) 02/08/2025 Telephone [facility] [address] [phone] Leona Randall MD Medication Management 02/01/2025 11:15 AM CDT Office Visit [facility] [address] [phone] Leona Randall MD Consult 02/01/2025 Travel 01/17/2025 Orders Only [facility] Scanner 1 scan: (1-Ord) [facility], HEAD/BRAIN WO CON, 01/17/2025 01/17/2025 Nurse Triage [facility] [address] [place] [address] Macrina Martin DO INFO (Episodes) from Last 3 Months Immunizations Immunization Administration Dates Next Due AMB INFLUENZA IIV3 (AGE 65+ YRS) PF (Flu Clinic Only) 06/21/2019,07/06/2018 COVID-19 VACCINE SPIKEVAX (M ODERNA 50MCG/0.5ML) 12YO+ PFS 10/11/2023 COVID-19 vaccine (Moderna 100mcg/0.5mL) PF, MDV 12/25/2020,11/03/2020 COVID-19 vaccine (Total Eclipse-Bio NTech 30mcg/0.3mL) 12YO+ BIVALENT PF, MDV 06/30/2022 [...] on file 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 Gender Identity Not on file Sexual Orientation Not on file Occupation Industry Job Start Date Job End Date retired Not on file Not on file Not on file Obstetrics History Last Filed Vital Signs Vital Sign Reading Time Taken Comments Blood Pressure 92/60 04/12/2025 1:17 PM CDT Pulse 77 04/12/2025 1:17 PM CDT Temperature 36.4 C (97.5 F) 04/26/2023 3:12 PM CDT Respiratory Rate 17 02/01/2025 10:55 AM CDT Oxygen Saturation 99% 04/12/2025 1:17 PM CDT Inhaled Oxygen Concentration - - Weight 83.1 kg (183 lb 4.8 oz) 01/10/2025 1:17 P M CDT Height 177.5 cm (5' 9.88) 06/28/2024 11:07 AM C DT Body Mass Index 26.39 06/28/2024 11:07 AM CDT Plan of Treatment Upcoming Encounters Date Type Department Care Team (Late st Contact Info) Description 08/06/2025 11:15 AM ACOUSTICS TEACHER Office Visit [facility] [place] [address] [phone] Leona Randall MD [address] [facility] [address] [place] [address] Health Maintenance Due Date Last Done Comments Hepatitis B series for 19+ ( 1 of 3 - Risk 3-dose series) 2011 Zoster (shingles) series for age 50+ (1 of 2) 09/11/2021 07/17/2021, 07/17/2014 COVID-19 vaccine series (9 - Moderna risk season) 2024 05/22/2024, 10/11/2023, 06/30/2023, Additional history exists Influenza Vaccine (#1) 2025 , 06/27/2023, 06/02/2022, Additional history exists BMI (ht and wt on same day) for age 18+ 06/28/2025 06/28/2024, 08/04/2023, 08/10/2022, Additional history exists Depression screening for age 12+ 06/28/2025 06/28/2024, 06/27/2023, 06/27/2023, Additional history exists Medicare Wellness for age 65+ 06/29/2025, 06/27/2023, [...] RSV vaccine for adults or Completed 08/02/2023 Procedures Procedure Name Priority Date/Time Associated Diagnosis Comments XR RIBS LEFT AND PA CHEST MINIMUM 3 VIEWS Routine 04/12/2025 2:15 PM CDT Accidental fall, initial encounter Rib injury SCAN-CT INTERPRETATION 12:00 AM CDT LIPID PANEL W REFLEX MEASURED LDL Routine 06/27/2023 10:25 AM CDT Lipid screening COLONOSCOPY SCREENING Routine 02/20/2018 12:00 AM CDT Occult blood positive stool ANTI HCV Routine 04/11/2014 11:37 AM CDT Need for hepatitis C screening test from Last 3 Months or Most Recently Relevant to Health Maintenance Results * XR RIBS LEFT AND PA CHEST MINIMUM 3 VIEWS (04/12/2025 2:15 PM CDT) Anatomical Region Laterality Modality RIBS, RIBS L, CHEST Computed Rad iography 04/12/2025 7:00 PM CDT Impressions 04/12/2025 7:00 PM CDT No acute cardiopulmonary disease. Intact left-sided ribs. Dictated by Ken Lamar MD @ 04/12/2025 7:00:18 PM (Electronically Signed) Narrative 04/12/2025 7:00 PM CDT For Patients: As a result of the Cures Act, medical imaging exams and procedure reports are released immediately into your electronic medical record. You may view this report before your referring provider. If you have questions, please contact your health care provider. INDICATION: Fall, pain COMPARISON: Chest x-ray 03/03/2022 TECHNIQUE: PA chest and left ribs. FINDINGS: Cardiac silhouette is prominent. Mild areas of scarring are present bilaterally. No pneumothorax or infiltrate. No pleural effusion. Oblique detail views of the ribs demonstrate no evidence of fracture or intrinsic bone lesion. There is no evidence of pleural hematoma. Chronic deformity of the left proximal humerus. Procedure Note Ken Lamar MD - 04/12/2025 For Patients: As a result of the Cures Act, medical imagingexams and procedure reports are released immediately into your electronicmedical record. You may view this report before your referring provider.If you have questions, please contact your health care provider. INDICATION: Fall, pain COMPARISON: Chest x-ray 03/03/2022 TECHNIQUE: PA chest and left ribs. FINDINGS: Cardiac silhouette is prominent. Mild areas of scarring are presentbilaterally. No pneumothorax or infiltrate. No pleural effusion. Obliquedetail views of the ribs demonstrate no evidence of fracture or intrinsicbone lesion. There is no evidence of pleural hematoma. Chronic deformityof the left proximal humerus. IMPRESSION: No acute cardiopulmonary disease. Intact left-sided ribs. Dictated by Ken Lamar MD @ 04/12/2025 7:00:18 PM (Electronically Signed) Naomi Puente MD GENERAL IMAGING Fi nal Result * SCAN-CT INTERPRETATION (01/17/2025 12:00 AM CDT) Anatomical Region Laterality Modality Other us Scanner OTHER Final Result * LIPID PANEL W REFLEX MEASURED LDL (06/27/2023 10:25 AM CDT) CHOLESTEROL,TOTAL 157 100 - 199 mg/dL 06/27/2023 5:13 PM CDT [facility] General Blood [facility] Comment: Cholesterol, Total Reference Ranges Desirable <200 mg/dL Borderline 200-239 mg/dL High >=240 mg/dL TRIGLYCERIDES 66 <150 mg/dL 06/27/2023 5:13 PM CDT [facility] HDL CHOLESTEROL 62 >40 mg/dL 5:13 PM CDT [facility] NON-HDL CHOLESTEROL 95 <145 mg/dl 06/27/2023 5:13 PM CDT [facility] CHOL/HDL RATIO 2.53 <4.50 06/27/2023 5:13 PM CDT [facility] LDL CHOLESTEROL 82 <=130 mg/dL 06/27/2023 5:13 PM CDT [facility] VLDL CHOLESTEROL 13 <=30 mg/dL 06/27/2023 5:13 PM CDT [facility] PROVIDER ORDERED STATUS RANDOM 06/27/2023 5:13 PM CDT [facility] Blood BLOOD SPECIMEN / Unknown Venipuncture / Unknown 06/27/2023 10:25 AM CDT 06/27/2023 10:25 AM CDT us Macrina Martin DO CHEMISTRY Final Result Performing Organization Address [facility]/ZIP Co de Phone Number [facility] [address] [place] [address], * COLONOSCOPY SCREENING (02/20/2018 12:00 AM CDT) us John Ochoa MD GI PROCEDURE ORD Final Re sult * ANTI HCV [[id number]] (04/11/2014 11:37 AM CDT) HEPATITIS C ANTIBODY Non-Reacti ve Non-Reacti ve 04/11/2014 9:00 PM CDT [facility] Blood specimen (specimen) BLOOD SPECIMEN / Unknown Venipuncture / Unknown 04/11/2014 11:37 AM CDT 04/11/2014 11:37 AM CDT Narrative [facility] - 04/11/2014 9:00 PM CDT Antibodies to HCV not detected; does not exclude the possibility of exposure to HCV. us Omer Magdaleno MD SEND OUTS Final Re sult Performing Organization Address [facility] Co de Phone Number [facility] [address] from Last 3 Months or Most Recently Relevant to Health Maintenance Insurance [employer] [place] BL[employer] MR PB ONLY [employer] [place] BLUE HB ONLY MEDICARE PART B HB ONLY Advance Directives Documents on File Type Date Recorded Patient Lath Hand Expl anation POLST 12/08/2023 Healthcare Directive 06/27/2017 11:07 AM BRYANNA WILSON, 10/24/1997 Healthcare Directive 06/07/2016 12:06 PM Juan Ramon WILSON, 10/24/1997 Care Teams Aws Developer Relationship Specialty Start Date End Date Macrina Martin DO [address] [place] [address] PCP - General Family Practice 08/10/22 Ricardo Diaz MD Neurology Neurology 03/02/11
[2025-04-17 13:35] VITALS: BP 131/85; PULSE 91; RESP 18; TEMP 36.6; O2SAT 94; BMI 24.5
--- NOTE | 2025-04-17 13:49 | ED.GENADULT ---
HPI - General Adult General Chief complaint: Weakness Stated complaint: syncope Time Seen by Provider: 04/17/25 13:33 History of Present Illness HPI narrative: This 75-year-old male is brought in by ambulance because of a fall that occurred prior to arrival. He states that he tripped but did not hurt himself when he fell. There were people around him and he could hear them talking but he did not respond for 15 or 20 seconds. He states that he did not lose consciousness. He reports that this kind of thing has happened many many times in the past. He is not complaining of any pain. Related Data Home Medications ?Medication ?Instructions ?Recorded ?Confirmed acetaminophen 325 mg capsule 325 mg PO Q4H PRN 08/11/22 04/17/25 (Tylenol) aspirin 81 mg tablet,delayed 81 mg PO DAILY 08/11/22 04/17/25 release hydroxyurea 500 mg capsule 500 mg PO Q48H 08/11/22 04/17/25 ketoconazole 2 % topical cream 1 applic topical BID PRN 08/11/22 04/17/25 pramipexole 0.25 mg tablet 0.125 mg PO HS 08/11/22 04/17/25 erythromycin 5 mg/gram (0.5 %) eye 1 applic ophthalmic (eye) HS PRN 02/14/23 04/17/25 ointment finasteride 5 mg tablet 5 mg PO DAILY 08/17/23 04/17/25 tamsulosin 0.4 mg capsule 0.4 mg PO DAILY 08/17/23 04/17/25 peg 400-propylene glycol (PF) 0.4 1 drp ophthalmic (eye) DAILY PRN 09/01/23 04/17/25 %-0.3 % eye drops in a dropperette (Lubricant Eye (PG-PEG 400) (PF)) clonazepam 0.5 mg tablet 0.25 mg PO HS PRN 12/01/23 04/17/25 amantadine HCl 100 mg capsule 100 mg PO QDAY 12/06/23 04/17/25 docusate sodium 100 mg capsule 100 mg PO BID PRN 12/06/23 04/17/25 (Colace) hydrocortisone 2.5 % topical cream 1 applic topical BID PRN 12/06/23 04/17/25 carbidopa 25 mg-levodopa 100 mg 2 tab PO QID 03/06/24 04/17/25 tablet psyllium seed (sugar) oral powder 1 tbsp PO ONCE 08/20/24 04/17/25 (Metamucil (sugar) oral powder) Previous Rx's ?Medication ?Instructions ?Recorded metoprolol tartrate 25 mg tablet 25 mg PO BID #60 tabs 12/02/23 midodrine 10 mg tablet 10 mg PO TID #30 tabs 12/02/23 apixaban 2.5 mg tablet 2.5 mg PO BID #120 tabs 03/05/24 Allergies Allergy/AdvReac Type Severity Reaction Status Date / Time Penicillins Allergy Unknown Verified 04/17/25 13:39 Review of Systems Status of ROS: Reports: 10 or more systems reviewed and unremarkable except as noted in History and below Narrative: Constitutional: No fevers, no weight gain or loss. Eyes: No discharge. No vision changes. HENT: No congestion, no sore throat, no ear pain. Cardiovascular: No chest pain, no palpitations. Respiratory: No shortness of breath, no wheezes, no cough. Gastrointestinal: No abdominal pain, no vomiting, no diarrhea. Genitourinary: No dysuria, no hematuria. Musculoskeletal: Normal range of motion. Skin: No rashes, no pruritis. Neurological: No dizziness, weakness, sensory change, speech change. Endo/Heme/Allergies: No bruising or bleeding. No polydipsia. Pysch: no suicidality, no anxiety, no insomnia. All other systems reviewed and are negative. [facility] Medical History Orthostatic hypotension ?I95.1 - Orthostatic hypotension (ICD-10) REM sleep behavior disorder ?G47.52 - REM sleep behavior disorder (ICD-10) History of DVT (deep vein thrombosis) ?Z86.718 - Personal history of other venous thrombosis and embolism (ICD-10) BPH with obstruction/lower urinary tract symptoms ?N40.1 - Benign prostatic hyperplasia with lower urinary tract symptoms (ICD-10) ?N13.8 - Other obstructive and reflux uropathy (ICD-10) Congenital medullary sponge kidney ?Q61.5 - Medullary cystic kidney (ICD-10) History of retinal detachment ?Z86.69 - Personal history of other diseases of the nervous system and sense organs (ICD-10) Frailty ?R54 - Age-related physical debility (ICD-10) Cognitive impairment ?R41.89 - Other symptoms and signs involving cognitive functions and awareness (ICD-10) Acute urinary retention ?R33.8 - Other retention of urine (ICD-10) Anemia due to blood loss, acute ?D62 - Acute posthemorrhagic anemia (ICD-10) Chronic anticoagulation ?Z79.01 - lobsterman (current) use of anticoagulants (ICD-10) Hematoma ?T14.8XXA - Other injury of unspecified body region, initial encounter (ICD-10) Retinal detachment ?H33.20 - Serous retinal detachment, unspecified eye (ICD-10) Volar plate injury of interphalangeal finger joint ?S63.639A - Sprain of interphalangeal joint of unspecified finger, initial encounter (ICD-10) 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 - Genetic carrier of other disease (ICD-10) Hemochromatosis ?E83.119 - Hemochromatosis, unspecified (ICD-10) Polycythemia ?D75.1 - Secondary polycythemia (ICD-10) Surgical History History of tonsillectomy ?Z90.89 - Acquired absence of other organs (ICD-10) History of colonoscopy ?Z98.890 - Other specified postprocedural states (ICD-10) History of cataract surgery ?Z98.49 - Cataract extraction status, unspecified eye (ICD-10) S/P ORIF (open reduction internal fixation) fracture ?Z98.890 - Other specified postprocedural states (ICD-10) ?Z87.81 - Personal history of (healed) traumatic fracture (ICD-10) Social History Narrative: Patient is single, lives at [facility] apartments. Friend Sabine Ayala would be MDM if needed. No ETOH use, no tobacco use. No children. 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 Requests Full Code status in the event of a witnessed arrest only. What is your current living situation?: I presently have a place to live Problems where you live: no known problems Problems where you live details: N/A In the past 12 months, utilities in danger of being shut off: no In past 12 months, lack of transportation kept you from medical appts, meetings, work, or getting things needed for daily living: no In the past 12 mos, have been you worried that your food would run out before you had money to buy more?: never true In the past 12 mos, the food you bought just didn't last and you didn't have money to buy more?: never true Highest level of school completed/degree received: Doctoral degree Smoking Status: Never smoker Do you use any of these nicotine containing products: None Second hand tobacco smoke exposure: No How often do you have a drink containing alcohol: never AUDIT-C Alcohol total score: 0 Non-prescribed substance use: denies use Caffeine: Yes How often does anyone, including family, friends and others, physically hurt you: never How often does anyone, including family, friends and others, insult or talk down to you: never How often does anyone, including family, friends and others, threaten you with harm: never How often does anyone, including family, friends and others, scream or curse at you: never service: No Exam Narrative: Exam Narrative: Constitutional: Well-developed, well-nourished, no acute distress. HEENT: Normocephalic, atraumatic. Neck: Normal range of motion. Nontender. Supple. Heart: Regular. No murmurs. Normal rate. Intact distal pulses. Lungs: Clear to auscultation. No chest discomfort. No wheezes, rhonchi, or rales. Abdomen: Normal bowel sounds. Nontender. No rebound tenderness. Genitalia: Deferred. Back: No midline tenderness. Normal range of motion. Extremities: Normal range of motion. He has some small old bruises on both knees. Skin: Intact. No rash. Warm. No erythema or pallor. Neurologic: No altered sensation. No weakness. Alert and oriented. He is able to raise each leg from the bed. Psychiatric: No suicidality. No anxiety or depression. No insomnia. Nursing notes and vitals signs are reviewed. Const: Vital Signs, click to edit/add: Vital Signs - 24 hr 04/17/25 13:35 Temperature 98 F Pulse Rate [Right Pulse Oximeter] 91 Respiratory Rate 18 Blood Pressure [Ri ght Upper Arm] 131/85 Pulse Oximetry 94 Oxygen Delivery Me thod Room Air Course Vital Signs Vital signs: Initial Vital Signs Temperature 98 F 04/17/25 13:35 Temperature Source Temporal Artery Scan 04/17/25 13:35 Pulse Rate 91 04/17/25 13:35 Pulse Rhythm Regular 04/17/25 13:35 Pulse Strength 3+ Normal 04/17/25 13:35 Respiratory Rate 18 04/17/25 13:35 Blood Pressure 131/85 04/17/25 13:35 Blood Pressure Mean 100 04/17/25 13:35 Blood Pressure Position High-Fowlers 04/17/25 13:35 Pulse Oximetry 94 04/17/25 13:35 Oxygen Delivery Method Room Air 04/17/25 13:35 Vital Signs Temperature 98 F 04/17/25 13:35 Pulse Rate 91 04/17/25 13:35 Respiratory Rate 18 04/17/25 13:35 Blood Pressure 131/85 04/17/25 13:35 Pulse Oximetry 94 04/17/25 13:35 Oxygen Delivery Method Room Air 04/17/25 13:35 Temperature 98 F 04/17/25 13:35 Pulse Rate 91 04/17/25 13:35 Respiratory Rate 18 04/17/25 13:35 Blood Pressure 131/85 04/17/25 13:35 Pulse Oximetry 94 04/17/25 13:35 Oxygen Delivery Method Room Air 04/17/25 13:35 Medical Decision Making MDM Narrative Medical decision making narrative: This patient tripped and lost his balance but did not acquire any injury. He is brought in by ambulance and states that he feels normal. His exam is reassuring. He was able to get up and ambulate normally. I did discuss lab and imaging options but these were declined as the patient states that he has his blood checked regularly. Discharge Plan Discharge Clinical Impression: Parkinson's disease Fall Qualifiers: Encounter type: initial encounter Qualified Code(s): W19.XXXA - Unspecified fall, initial encounter Patient Disposition: Home w/ Parent or Adult Condition: Stable Additional Instructions: Continue current plans. Follow up with MD return if worsening. Prescriptions: No Action ketoconazole 2 % cream 1 applic topical BID PRN pramipexole 0.25 mg tablet 0.125 mg PO HS hydroxyurea 500 mg capsule 500 mg PO Q48H acetaminophen [Tylenol] 325 mg capsule 325 mg PO Q4H PRN aspirin 81 mg tablet,delayed release (DR/EC) 81 mg PO DAILY finasteride 5 mg tablet 5 mg PO DAILY tamsulosin 0.4 mg capsule 0.4 mg PO DAILY amantadine HCl 100 mg capsule 100 mg PO QDAY carbidopa-levodopa 25-100 mg tablet 2 tab PO QID hydrocortisone 2.5 % cream 1 applic topical BID PRN Metamucil (sugar) Powder 1 tbsp PO ONCE erythromycin 5 mg/gram (0.5 %) ointment 1 applic ophthalmic (eye) HS PRN Lubricant Eye (PG-PEG 400)(PF) 0.4-0.3 % dropperette 1 drp ophthalmic (eye) DAILY PRN docusate sodium [Colace] 100 mg capsule 100 mg PO BID PRN clonazepam 0.5 mg tablet 0.25 mg PO HS PRN Rx Instructions: administer 30 minutes before bedtime midodrine 10 mg tablet 10 mg PO TID Qty: 30 0RF Rx Instructions: do not give last dose of day after 6PM or within 4 hrs of bedtime metoprolol tartrate 25 mg tablet 25 mg PO BID Qty: 60 0RF apixaban 2.5 mg tablet 2.5 mg PO BID Qty: 120 3RF Follow Up/Referrals: YANA FISCHER DO [Primary Care Provider, Family Practice] Stand Alone Forms: [employer] Info Instructions
== END 2025-04-17 14:14 | disposition home or self-care (01) ==
LOC: ED 14:02
PROVIDERS: Emergency Provider Emergency Medicine Emergency Medical Services; PCP Student in an Organized Health Care Education/Training Program
DX: G20.C Parkinsonism, unspecified (principal); W01.0XXA Fall on same level from slipping, tripping and stumbling without subsequent striking against object, initial encounter
CPT/HCPCS: 99283; 99284